=== PATIENT | male | born 1980 | race Asian ===

== ENCOUNTER 2024-12-09 22:33 | Inpatient (IN) | payer OTHER, SELFPAY ==
[2024-12-09] VITALS (24 sets, daily range): BP systolic 66–136; BP diastolic 46–121
--- NOTE | 2024-12-09 18:36 | ED.GENMED ---
History of Present Illness
<Daniel Mascorro PA-C - Last Filed: 12/09/24 23:17>
General
Chief Complaint: Heart Rate Problem
Time Seen by Provider: 12/09/24 18:27
History of Present Illness
History of Present Illness:
44-year-old male primarily Spanish speaking arrives with family for evaluation of general malaise, lower extremity edema, and shortness of breath for the past 2+ weeks. Has reported increasing edema to the legs and now involving the scrotum and
abdomen. Denies any chest pain at this time. No prior cardiac history. Not currently on any prescription meds. Denies tobacco or alcohol use.
Review of Systems
<Daniel Mascorro PA-C - Last Filed: 12/09/24 23:17>
Review of Systems
Allergies reviewed?: Yes
All Other Systems: ROS reviewed and negative except as documented in HPI and ROS
Phy Exam
<Daniel Mascorro PA-C - Last Filed: 12/09/24 23:17>
Physical Exam
Physical Exam:
GEN: Ill-appearing, pale
HEENT: Oral mucosa moist, no scleral icterus, positive JVD
Cardiac: Tachycardic and irregular
Lung: Tachypneic, diminished bibasilar breath sounds
MSK: Massive lower extremity edema extending through the entire legs to the scrotum and abdomen, gross anasarca noted
Skin: Good color, no pallor or jaundice, no rashes
Neuro: AO x3, moves all extremities freely
Psych: Calm, cooperative
Course
<Daniel Mascorro PA-C - Last Filed: 12/09/24 23:17>
Orders/Labs/Results
Orders:
Orders
12/09/24
Echo 2D MMode Color/Doppler Stat
Reason for Study: SHOCK
12/09/24 18:21
Electrocardiogram (*1) Urgent
Reason for Study: Tachycardia
EKG- Treatment ONCE
12/09/24 18:35
CR Chest Portable - 1 View Urgent
Comment:
Reason For Exam: SOB
Reason Study Needs to be Portable: Other
12/09/24 18:39
Complete Blood Count/With Diff Urgent
Comprehensive Metabolic Panel Urgent
NT-proBNP Urgent
PTT Urgent
Comment: ADDON
Prothrombin Time Urgent
Troponin I Urgent
12/09/24 18:45
Diltiazem 125 mg/125 ml Nss [Cardizem] 125 mg in 125 ml IV PER PROTOCOL
Initial dose in mg/hr, then titrate:: 5
Titrate to keep:: Heart rate 80-100 bpm
Titrate by mg/hr:: 5 mg/hr
Frequency of titrations (minutes):: 15
Maximum dose in mg/hr:: 15
12/09/24 18:57
Diltiazem HCl [Cardizem] 15 mg IV NOW STA
12/09/24 19:18
Diltiazem HCl [Cardizem] 15 mg IV NOW STA
12/09/24 19:42
CT Head W/o Iv Contrast Urgent
Comment:
Reason For Exam: severe sudden h/a
HYDROmorphone [Dilaudid] 0.5 mg IV NOW STA
Ondansetron Injectable [Zofran] 4 mg IV NOW STA
12/09/24 20:41
Furosemide [Lasix] 40 mg IV NOW STA
12/09/24 20:42
Heparin 4,000 units IV NOW STA
Nursing to Place Non Medication Order As Directed
Physician Order: PTT 6 hours after initial start of Heparin infusion
Above order entered?: Yes
12/09/24 20:45
Heparin 68517 Units/250 ml 25,000 units in 250 ml IV PER PROTOCOL
Weight to be used for heparin protocol in kilograms (kg):: 104.5
Protocol:: Cardiac Tx/Acute Coronary
PTT Goal Range to be used:: PTT 73 to 111 seconds
Order type:: Initial
INITIAL Infusion Dose (UNITS/KG/hr) & then follow protocol:: 15 units/kg/hr
Infusion Dose in UNITS/hr & then follow protocol (UNITS/hr):: 1,500
INFUSION RATE in mL/hr & then follow protocol (mL/hr):: 15
PTT less than or equal to 64 seconds:: Increase rate by 200 units/hr (+ 2 mL/hr)
PTT 64.1 to 72.9 seconds:: Increase rate by 100 units/hr (+ 1 mL/hr)
PTT 73 to 111 seconds:: Target Range. No change in rate.
PTT 111.1 to 130.9 seconds:: Decrease rate by 100 units/hr (- 1 mL/hr)
PTT 131 to 199.9 seconds:: HOLD for 1 hr. Then decrease rate by 200 units/hr (- 2 mL/hr)
PTT greater than or equal to 200 seconds:: HOLD for 2 hrs & Notify Provider. Then decrease by 200 units/hr (-
2 mL/hr)
Lab follow-up:: Each change, PTT q6h until 2 consecutive are therapeutic. Then PTT
daily.
12/09/24 20:51
Add On- LAB Urgent
Tests Added?: PTT
12/09/24 21:08
EKG [Electrocardiogram (*1)] Routine
Reason for Study: Tachycardia
Comment: please repeat with improved rate
0.9% Sodium Chloride 500 ml [Nss] 500 ml IV BOLUS
12/09/24 21:20
Electrocardiogram (*1) Urgent
Reason for Study: Tachycardia
EKG- Treatment ONCE
12/09/24 21:29
Furosemide [Lasix] 40 mg IV NOW STA
12/09/24 21:43
Furosemide [Lasix] 40 mg IV ONCE ONE
12/09/24 21:45
NORepinephrine 4 MG/250 ML [Levophed] 4 mg in 250 ml IV PER PROTOCOL
Initial dose in mcg/min, then titrate:: 2
Titrate to keep:: MAP > 65 mmHg
Titrate by mcg/min:: 1-2 mcg/min
Frequency of titrations (minutes):: 5
Maximum dose in ICU in mcg/min:: 30
Maximum dose in IMU in mcg/min:: 8
Maximum dose in IVU in mcg/min:: 4
Begin to taper infusion when:: Remained at goal for 4hrs
Taper by mcg/min:: 1-2 mcg/min
Frequency of taper (minutes) if patient maintains goal:: 30
Taper to off?: Yes
If infusion off & no longer maintaining goal:: Contact Provider
12/09/24 22:00
Flush (0.9% Sodium Chloride) [Flush (Nss)] See Dose Instructions IV PER PROTOCOL
12/09/24 22:03
Admit/Transfer Patient As Directed
Co-Sign Provider:
Level of Care: Inpatient admission
Assign to:: ICU
Physician / Group: Jenni Burton
Diagnosis: atrial fibrillation, heart failure
Reason for Hospitalization: atrial fibrillation, heart failure
Expected length of stay greater than two midnights?: Yes
ELOS- Estimated Length of Stay in days: 3
I certify the patient meets the requirements for IP care: Yes
PRN Pain Medication Management As Directed
May give lesser potent ordered pain med per pt: Yes
preference::
Protocol:: Medication orders for pain may be administered in a
manner that supports deferring to patient preference
when the pt is:
- Requesting an ordered lesser potent pain medication.
Least to most potent pain medications are defined
as: acetaminophen < NSAID < tramadol < opioids
(morphine, oxycodone, hydromorphone).
- Requesting a lesser dose of the same medication IF
ORDERED.
- Requesting a less intrusive route of administration
if both routes are prescribed by the provider (PO <
IV).
12/09/24 22:05
Code Status As Directed
Resuscitation Status: Full Code
12/09/24 22:25
Aspirin 325 mg PO NOW STA
12/09/24 22:33
Azithromycin 500 mg/250 ml [Zithromax Infusion] 500 mg in 250 ml IV NOW
CefTRIAXone [Rocephin] 1,000 mg IV NOW STA
12/09/24 22:38
Basic Metabolic Panel Urgent
Troponin I Urgent
Venous Blood Gas Urgent
%Oxygen/Room Air: 92
12/10/24 03:00
PTT Urgent
Abnormal Lab Results
12/09/24
18:39
WBC 11.5 H 10^3/uL
(4.8-10.8)
RDW 15.6 H %
(11.5-14.5)
Absolute Neuts (auto) 7.0 H 10^3/uL
(1.4-6.5)
Absolute Monos (auto) 1.0 H 10^3/uL
(0.1-0.6)
PT 18.6 H Sec
(11.4-14.6)
APTT 37.6 H Sec
(23.4-35.0)
Sodium 133 L mmol/L
(135-145)
BUN 28 H mg/dl
(9-20)
Creatinine 1.4 H mg/dL
(0.7-1.3)
Glucose 100 H mg/dl
(70-99)
Calcium 8.3 L mg/dl
(8.4-10.2)
Total Bilirubin 2.2 H mg/dl
(0.2-1.3)
AST 72 H U/L
(17-59)
ALT 194 H U/L
(0-50)
Troponin I 0.059 H* ng/ml
Total Protein 5.7 L g/dl
(6.3-8.2)
Albumin 3.2 L g/dl
(3.5-5.0)
12/09/24 18:39
12/09/24 18:39
Vital Signs
Initial and Last Documented VS:
Initial Vital Signs
Temp Pulse Resp BP Pulse Ox
97.5 F 142 18 105/79 99
12/09/24 18:16 12/09/24 18:16 12/09/24 18:16 12/09/24 18:16 12/09/24 18:16
Last Documented Vital Signs
Temp Pulse Resp BP Pulse Ox
97.5 F 95 24 85/62 95
12/09/24 18:16 12/09/24 21:52 12/09/24 21:20 12/09/24 21:52 12/09/24 21:44
nadia;Edgar Brody, - Last Filed: 12/09/24 21:19>
Orders/Labs/Results
Orders:
Orders
12/09/24
Echo 2D MMode Color/Doppler Stat
Reason for Study: SHOCK
12/09/24 18:21
Electrocardiogram (*1) Urgent
Reason for Study: Tachycardia
EKG- Treatment ONCE
12/09/24 18:35
CR Chest Portable - 1 View Urgent
Comment:
Reason For Exam: SOB
Reason Study Needs to be Portable: Other
12/09/24 18:39
Complete Blood Count/With Diff Urgent
Comprehensive Metabolic Panel Urgent
NT-proBNP Urgent
PTT Urgent
Comment: ADDON
Prothrombin Time Urgent
Troponin I Urgent
12/09/24 18:45
Diltiazem 125 mg/125 ml Nss [Cardizem] 125 mg in 125 ml IV PER PROTOCOL
Initial dose in mg/hr, then titrate:: 5
Titrate to keep:: Heart rate 80-100 bpm
Titrate by mg/hr:: 5 mg/hr
Frequency of titrations (minutes):: 15
Maximum dose in mg/hr:: 15
12/09/24 18:57
Diltiazem HCl [Cardizem] 15 mg IV NOW STA
12/09/24 19:18
Diltiazem HCl [Cardizem] 15 mg IV NOW STA
12/09/24 19:42
CT Head W/o Iv Contrast Urgent
Comment:
Reason For Exam: severe sudden h/a
HYDROmorphone [Dilaudid] 0.5 mg IV NOW STA
Ondansetron Injectable [Zofran] 4 mg IV NOW STA
12/09/24 20:41
Furosemide [Lasix] 40 mg IV NOW STA
12/09/24 20:42
Heparin 4,000 units IV NOW STA
Nursing to Place Non Medication Order As Directed
Physician Order: PTT 6 hours after initial start of Heparin infusion
Above order entered?: Yes
12/09/24 20:45
Heparin [id number] Units/250 ml 25,000 units in 250 ml IV PER PROTOCOL
Weight to be used for heparin protocol in kilograms (kg):: 104.5
Protocol:: Cardiac Tx/Acute Coronary
PTT Goal Range to be used:: PTT 73 to 111 seconds
Order type:: Initial
INITIAL Infusion Dose (UNITS/KG/hr) & then follow protocol:: 15 units/kg/hr
Infusion Dose in UNITS/hr & then follow protocol (UNITS/hr):: 1,500
INFUSION RATE in mL/hr & then follow protocol (mL/hr):: 15
PTT less than or equal to 64 seconds:: Increase rate by 200 units/hr (+ 2 mL/hr)
PTT 64.1 to 72.9 seconds:: Increase rate by 100 units/hr (+ 1 mL/hr)
PTT 73 to 111 seconds:: Target Range. No change in rate.
PTT 111.1 to 130.9 seconds:: Decrease rate by 100 units/hr (- 1 mL/hr)
PTT 131 to 199.9 seconds:: HOLD for 1 hr. Then decrease rate by 200 units/hr (- 2 mL/hr)
PTT greater than or equal to 200 seconds:: HOLD for 2 hrs & Notify Provider. Then decrease by 200 units/hr (-
2 mL/hr)
Lab follow-up:: Each change, PTT q6h until 2 consecutive are therapeutic. Then PTT
daily.
12/09/24 20:51
Add On- LAB Urgent
Tests Added?: PTT
12/09/24 21:08
EKG [Electrocardiogram (*1)] Routine
Reason for Study: Tachycardia
Comment: please repeat with improved rate
0.9% Sodium Chloride 500 ml [Nss] 500 ml IV BOLUS
12/09/24 21:20
Electrocardiogram (*1) Urgent
Reason for Study: Tachycardia
EKG- Treatment ONCE
12/09/24 21:29
Furosemide [Lasix] 40 mg IV NOW STA
12/09/24 21:43
Furosemide [Lasix] 40 mg IV ONCE ONE
12/09/24 21:45
NORepinephrine 4 MG/250 ML [Levophed] 4 mg in 250 ml IV PER PROTOCOL
Initial dose in mcg/min, then titrate:: 2
Titrate to keep:: MAP > 65 mmHg
Titrate by mcg/min:: 1-2 mcg/min
Frequency of titrations (minutes):: 5
Maximum dose in ICU in mcg/min:: 30
Maximum dose in IMU in mcg/min:: 8
Maximum dose in IVU in mcg/min:: 4
Begin to taper infusion when:: Remained at goal for 4hrs
Taper by mcg/min:: 1-2 mcg/min
Frequency of taper (minutes) if patient maintains goal:: 30
Taper to off?: Yes
If infusion off & no longer maintaining goal:: Contact Provider
12/09/24 22:00
Flush (0.9% Sodium Chloride) [Flush (Nss)] See Dose Instructions IV PER PROTOCOL
12/09/24 22:03
Admit/Transfer Patient As Directed
Co-Sign Provider:
Level of Care: Inpatient admission
Assign to:: ICU
Physician / Group: Jenni Burton
Diagnosis: atrial fibrillation, heart failure
Reason for Hospitalization: atrial fibrillation, heart failure
Expected length of stay greater than two midnights?: Yes
ELOS- Estimated Length of Stay in days: 3
I certify the patient meets the requirements for IP care: Yes
PRN Pain Medication Management As Directed
May give lesser potent ordered pain med per pt: Yes
preference::
Protocol:: Medication orders for pain may be administered in a
manner that supports deferring to patient preference
when the pt is:
- Requesting an ordered lesser potent pain medication.
Least to most potent pain medications are defined
as: acetaminophen < NSAID < tramadol < opioids
(morphine, oxycodone, hydromorphone).
- Requesting a lesser dose of the same medication IF
ORDERED.
- Requesting a less intrusive route of administration
if both routes are prescribed by the provider (PO <
IV).
12/09/24 22:05
Code Status As Directed
Resuscitation Status: Full Code
12/09/24 22:25
Aspirin 325 mg PO NOW STA
12/09/24 22:33
Azithromycin 500 mg/250 ml [Zithromax Infusion] 500 mg in 250 ml IV NOW
CefTRIAXone [Rocephin] 1,000 mg IV NOW STA
12/09/24 22:38
Basic Metabolic Panel Urgent
Troponin I Urgent
Venous Blood Gas Urgent
%Oxygen/Room Air: 92
12/10/24 03:00
PTT Urgent
Abnormal Lab Results
12/09/24
18:39
WBC 11.5 H 10^3/uL
(4.8-10.8)
RDW 15.6 H %
(11.5-14.5)
Absolute Neuts (auto) 7.0 H 10^3/uL
(1.4-6.5)
Absolute Monos (auto) 1.0 H 10^3/uL
(0.1-0.6)
PT 18.6 H Sec
(11.4-14.6)
APTT 37.6 H Sec
(23.4-35.0)
Sodium 133 L mmol/L
(135-145)
BUN 28 H mg/dl
(9-20)
Creatinine 1.4 H mg/dL
(0.7-1.3)
Glucose 100 H mg/dl
(70-99)
Calcium 8.3 L mg/dl
(8.4-10.2)
Total Bilirubin 2.2 H mg/dl
(0.2-1.3)
AST 72 H U/L
(17-59)
ALT 194 H U/L
(0-50)
Troponin I 0.059 H* ng/ml
Total Protein 5.7 L g/dl
(6.3-8.2)
Albumin 3.2 L g/dl
(3.5-5.0)
12/09/24 18:39
12/09/24 18:39
Vital Signs
Initial and Last Documented VS:
Initial Vital Signs
Temp Pulse Resp BP Pulse Ox
97.5 F 142 18 105/79 99
12/09/24 18:16 12/09/24 18:16 12/09/24 18:16 12/09/24 18:16 12/09/24 18:16
Last Documented Vital Signs
Temp Pulse Resp BP Pulse Ox
97.5 F 95 24 85/62 95
12/09/24 18:16 12/09/24 21:52 12/09/24 21:20 12/09/24 21:52 12/09/24 21:44
<Daniel Mascorro PA-C - Last Filed: 12/09/24 23:17>
MDM/Problems Addressed
MDM/Problems Addressed:
44-year-old male presents in acute CHF evidenced by volume overload, rapid narrow complex arrhythmia, and elevated proBNP. Patient was initially stable on a Cardizem drip with good rate control however shortly thereafter he rapidly decompensated.
This required discontinuation of Cardizem drip, gentle IV fluid bolus was given with good response and ultimately the patient was placed on low-dose vasopressors. Limited bedside echocardiogram initially showed reduced EF with no RV strain or
pericardial effusion, unable to assess the IVC due to respiratory motion artifact. Cardiology was consulted who performed a formal echocardiogram with similar results. Although chest x-ray is suspicious for right lower lobe pneumonia I would
suggest this is more of an asymmetric edema given the patient's clinical presentation however cannot rule out the possibility of a viral trigger given his young age. He is a non-smoker and denies alcohol or drug use. Will be admitted to the
intensive care unit for further management
<Daniel Mascorro PA-C - Last Filed: 12/09/24 23:17>
Comment
Comment:
EKG reveals narrow complex tachycardia with intermittent PVCs, most likely represents A-fib
*Critical Care Note
Total Time (30-74mins, 75-104mins- exclusive of procedures): 100 minutes
comment:
Critical care time: 100 minutes
Critical care time was exclusive of: Separately billable procedures, treating other patients, and teaching time
Critical care was necessary to treat or prevent imminent or life-threatening deterioration of the following conditions: Acute decompensated heart failure/rapid atrial fibrillation/cardiogenic shock
Critical care time spent personally by me on the following activities:
[x] Review of old charts
[x] Obtaining history from patient or surrogate
[x] Ordering and review of the laboratory studies
[x] Ordering and review of radiographic studies
[x] Ordering and performing treatments and interventions
[x] Patient patient's response to treatment
[x] Development of treatment plan with patient or surrogate
<Daniel Mascorro PA-C - Last Filed: 12/09/24 23:17>
Update Note
Update Note:
1902: BP improved slightly, 15mg bolus diltiazem given, drip rate increased to 10mg/hr. Will consider repeat bolus dose if needed. Amiodarone will be considered if BP becomes more unstable. At this time not a suitable cardioversion candidate given
onset of symptoms approx 2+ weeks
1938: Pt began to writhe in pain, complaining of sudden severe h/a since increasing diltiazem infusion rate. Neurologically intact, screaming in pain. Will order IV dilaudid/ondansetron, called CT for STAT CTH
2055: Pt with dramatic drop in BP. Cardizem infusion reduced, furosemide held. Repeat BP unchanged. CXR without gross vascular congestion, will trial 500cc NS bolus, consider dopamine/dobutamine infusion for persistent hypotension. Bedside echo
performed by myself shows markedly reduced EF, no RV collapse, no pericardial effusion. Unable to visualize IVC due to respiratory motion.
ED Attending Note
<Daniel Mascorro PA-C - Last Filed: 12/09/24 23:17>
-
Portions of this chart may have been created with voice recognition software.� Occasional wrong word or��sound alike� substitutions may have occurred due to the inherent limitations of voice recognition software.
<Edgar Brody DO - Last Filed: 12/09/24 21:19>
ED Attending Note
Patient seen and examined by attending physician: Yes
I performed the substantive portion of visit, reviewed & personally made and approve the management plan that is documented in note by myself or SAMARA.: Yes
ED Attending Note:
Patient presented to the emergency room primarily because he has noted increasing swelling of his legs and now scrotum. Patient endorses feeling short of breath and having a rapid heart rate for at least the past week. Patient found to be in
atrial fibrillation. He does have a rapid ventricular response.
General: Awake, appears unwell
Vitals: Tachycardic
Head: Atraumatic
Eyes: Pupils equal, EOMI
Throat: Airway intact, no exudates
Neck: Trachea midline
Lungs: Few crackles bilateral bases
Heart: Tachycardic, regular rate, no murmurs
Abd: Soft, Nontender, No pulsatile mass
Neuro: Nonfocal
Skin: Warm, dry, no rash
Extremities: pulses equal b/l, 3+ edema
Patient presents with A-fib with rapid ventricular response and exam findings consistent with congestive heart failure. After a bolus of Cardizem the patient developed a significant headache which did improve with Dilaudid. A head CT was obtained
which shows no acute abnormality. Patient's heart rate did improve with Cardizem though he remains in atrial fibrillation. Labs reveal essentially normal CBC. Chemistries show mild renal insufficiency. Troponin mildly elevated 0.059. BNP
significantly elevated at 4700. Patient became hypotensive with the Cardizem requiring it to be stopped. Will provide a small fluid bolus. I anticipate his blood pressure will improve with the cessation of Cardizem. Should it not we will
consider pressors. Should his heart rate become more elevated he may require amiodarone. Rogelio will contact cardiology to discuss with them.
Discharge Plan
Departure
Patient Disposition: Admit
Date of Disposition: 12/09/24
Time of Disposition: 20:44
Admit to: IMU
Presentation/result/management discussed w/ accepting MD/DO: Hospitalist
Discharge Problem:
New onset a-fib, New onset of congestive heart failure, Cardiogenic shock
Interventions
Interventions:
*Risk Screen - Suicide Last Done: 12/09/24 18:33
*General Assessment Last Done: 12/09/24 18:33
*Neglect/Abuse Screening Last Done: 12/09/24 18:33
ED- Fall Risk Assessment Last Done: 12/09/24 18:31
*ED COVID-19 Vaccine History Last Done: 12/09/24 18:33
ED- Cardiac Assessment Last Done: 12/09/24 18:31
ED- Pulmonary Assessment Last Done: 12/09/24 18:31
[2024-12-09] MEDS: CARDIZEM 125 IV (18:41)
[2024-12-09 18:54] LABS: % Basophils 1.2 % (0-2); % Eosinophils 0.5 % (0-6); % Immature Granulocytes 0.3 % (0-0.5); % Lymphocytes 28.3 % (20.5-51.1); % Monocytes 8.6 % (1.7-9.3); % Neutrophils 61.1 % (42.2-75.2); Absolute Basophils 0.1 10^3/uL (0-0.2); Absolute Eosinophils 0.1 10^3/uL (0-0.7); Absolute Lymphocytes 3.3 10^3/uL (1.2-3.4); Hematocrit 46.8 % (39.0-52.0); Hemoglobin 15.7 g/dL (13.0-18.0); Mean Corp Hgb Conc. 33.5 g/dL (33.0-37.0); Mean Corpuscular Volume 86.5 fL (80.0-94.0); Mean Platelet Volume 10.3 fL (7.4-10.4); Nucleated Red Blood Cells % 0 % (-); Platelet Count 278 10^3/uL (130-400); Red Blood Cell Count 5.41 10^6/uL (4.70-6.10); Red Cell Dist. Width 15.6 % (11.5-14.5); White Blood Cell Count 11.5 10^3/uL (4.8-10.8)
[2024-12-09] MEDS: CARDIZEM 15 MG IV ×2 (19:01→19:21)
[2024-12-09 19:05] LABS: INR 1.53; PT 18.6 Sec (11.4-14.6)
[2024-12-09 19:11] LABS: ALT (SGPT) 194 U/L (0-50); AST (SGOT) 72 U/L (17-59); Albumin 3.2 g/dl (3.5-5.0); Alkaline Phosphatase 96 U/L (38-126); Calcium 8.3 mg/dl (8.4-10.2); Carbon Dioxide 22 mmol/L (22-30); Chloride 100 mmol/L (98-107); Glucose 100 mg/dl (70-99); Potassium 3.9 mmol/L (3.5-5.1); Sodium 133 mmol/L (135-145); Total Bilirubin 2.2 mg/dl (0.2-1.3); Total Protein 5.7 g/dl (6.3-8.2)
[2024-12-09 19:33] LABS: NT-proBNP 4700 pg/ml; Troponin I 0.059 ng/ml
[2024-12-09 19:47] LABS: Blood Urea Nitrogen 28 mg/dl (9-20); eGFR > 60.00
[2024-12-09] MEDS: ZOFRAN 4 MG IV (19:48)
[2024-12-09] MEDS: DILAUDID 0.5 MG IV (19:48)
[2024-12-09] MEDS: HEPARIN 4000 UNITS IV (20:54)
--- NOTE | 2024-12-09 20:54 | W.PN.UPDATE ---
Addendum entered and electronically signed by Jenni Burton MD 12/09/24 22:09:
I was able to update family, , Marisol's phone number is [phone]
Original Note:
Update Note
Progress Note Update
This is an addendum to H&P written by INCIDENT HANDLER Fartun Khan
I saw and examined the patient.
The INCIDENT HANDLER's note was reviewed and I agree with the note.
Comment:
Mr. Lissa Louis is a 44 yo man, primarily Yi speaking, presents to the ER with complaint of increasing fatigue, lower extremity swelling and shortness of breath.
Triage VS: T 97.5, P 142, RR 18, BP 105/79, SpO2 99%
LABS: WBC 11.5, Hg 15.7, PLT 278, INR 1.53, Na 133, K+ 3.9, CO2 22, BUN 28, Cr 1.4, Glucose 100, Ca 8.3, T. Bili 2.2, AST 72, ALT 194, Trop 0.059, BNP 4700
EKG: Afib with RVR
HEAD CT
IMPRESSION:
There or no acute or focal intracranial abnormalities
There is mild diffuse cortical and cerebellar atrophy
CXR
IMPRESSION:
Right lower lobe pneumonia
MAR: IV Diltiazem gtt, IV heparin gtt, IV Lasix
Patient became hypotensive to the 70's and Diltiazem gtt stopped. HR currently 90's. SBP 80's. Discussed plan with Dr. Harmon who recommends Levophed to improve blood pressure and allow for diuresis.
Cardiogenic Shock
New Diagnosis Heart Failure - low EF seen on bedside US
Elevated Troponin - NSTEMI versus non-ischemic troponin elevation
Atrial Fibrillation with RVR
-admit to ICU
-IV levophed, diuresis when blood pressure allows
-continue IV heparin gtt
-trend Troponin
-TTE
-urgent Cardiology consult
-stop Diltiazem; if patient needs rate controlling medications start amio per cardiology
Elevated liver enzymes
-may be 2/2 congestion
-will obtain RUQ US
PNA read on CXR, more likely heart failure but given acuity will treat with antibiotics
DVT PPx heparin gtt
FULL CODE
*tried to update family but no number listed in chart
Total Critical Care Time 60 minutes. I was immediately available to the patient and staff. I personally examined, reviewed labs, diagnostic images/reports, interpretations, treatment plans, discussed patient care with other providers and family
or caregivers (if patient is unable to make decisions), entered orders as appropriate and documented the medical record.
[2024-12-09] MEDS: HEPARIN 25000 UNITS/250 ML IV (20:57)
--- NOTE | 2024-12-09 21:02 | HPS.HSE ---
Family Physician
-
Family Physician:
Chief Complaint
-
general malaise, lower extremity edema, and shortness of breath
History of Present Illness
Patient was a 44-year-old male with no significant past medical history who presented to [place] ED for evaluation for general malaise, lower extremity edema, and shortness of breath. Patient reports that symptoms started around the 1st of the
month, he stated, 'I do not know,' when asked why he decided to come today for evaluation. Patient unable to give much history at time of assessment.
Medical History
Past Medical History
Past Medical History: Reports None
Past Surgical History: Reports None
Social History
Tobacco: Non-smoker
Alcohol: None
Drug: None
Living: With Family
Employment: Employed
Family History
Family History: Not pertinent
Allergies / Home Medications
Allergies reflects when Allergies were last updated in [facility].
Home Medications with original date entered in [facility]
Allergy/Medication List:
Allergies
Allergy/AdvReac Type Severity Reaction Status Date / Time
No Known Allergies Allergy Unverified 12/09/24 18:16
Home Medications
No Meds [No Current Medications] 12/09/24
Review of Systems
-
History Source: Patient
Constitutional: Reports Fatigue
EENT: Reports No Symptoms
Respiratory: Reports Trouble Breathing
Cardiac: Reports Chest Pain and Diaphoresis
Abdomen/GI: Reports No Symptoms
: Reports No Symptoms
Musculoskeletal: Reports Edema
Skin: Reports No Symptoms
Neurological: Reports No Symptoms
Endocrine: Reports No Symptoms
Hematologic/Lymphatic: Reports No Symptoms
Psych: Reports No Symptoms
Physical Exam
Vital Signs
Vital Signs
Temp Pulse Resp BP Pulse Ox
97.5 F 100 14 135/121 97
12/09/24 18:16 12/09/24 20:00 12/09/24 20:00 12/09/24 19:30 12/09/24 20:00
Physical Exam
General: Well Developed, Well Nourished, No Apparent Distress and Other (actively vomiting )
HEENT: NormoCephalic, Moist mucous membranes and Atraumatic
Respiratory: Clear, Accessory Resp Muscle Use and Decreased Breath Sounds
Cardiac: S1/S2, Irregular Rhythm, Tachycardia, Peripheral Edema and JVD; No Murmur, Rub or Gallop
Breast: Deferred by me
GI: Soft and Non Tender; No Organomegaly
Rectal: Deferred by Provider
Genito-urinary: Deferred by me
Musculoskeletal: No Clubbing, No Cyanosis and No Edema
Skin: Warm; No Rash
Neuro: Awake, Alert and Nonfocal/grossly intact
Laboratory Results
-
12/09/24 18:39
12/09/24 18:39
Laboratory Results
PT 18.6 Sec (11.4-14.6) H 12/09/24 18:39
INR 1.53 12/09/24 18:39
APTT Cancelled 12/09/24 20:42
Total Bilirubin 2.2 mg/dl (0.2-1.3) H 12/09/24 18:39
AST 72 U/L (17-59) H 12/09/24 18:39
ALT 194 U/L (0-50) H 12/09/24 18:39
Alkaline Phosphatase 96 U/L (38-126) 12/09/24 18:39
Troponin I 0.059 ng/ml H* 12/09/24 18:39
Data Reviewed
-
Diagnostic Radiology: Report Reviewed by me (CXR: Right lower lobe pneumonia)
CT Scan: Report Reviewed by me (Head: There or no acute or focal intracranial abnormalities There is mild diffuse cortical and cerebellar atrophy)
Medical Tests (Nuc Med, Echo, EKG etc): Report Reviewed by me (EKG: ATRIAL FIBRILLATION PROLONGED QT ABNORMAL ECG)
Lab Data: Labs Reviewed by me (WBC 11.5, BUN 28, Creat 1.4, Trop 0.059)
Impression/Plan
-
IMPRESSION/PLAN:
#Chest Pain
EKG: Critical Test Result: High HR
ATRIAL FIBRILLATION WITH RAPID VENTRICULAR RESPONSE WITH PREMATURE VENTRICULAR
OR ABERRANTLY CONDUCTED COMPLEXES
Trop 0.059
BNP 4700
- Admit to ICU
- Consult Cardiology
- Heparin gtt
- ECHO
- Levophed
- start aspirin
#PNA
CXR: Right lower lobe pneumonia
WBC 11.5
- IV antibiotics
#transaminitis
AST 72, ALT 194, Alk Phos 96
- liver US in morning
- monitor BMP
Code status: Full Code
DVT Prophylaxis: Heparin gtt
[2024-12-09 21:10] LABS: APTT 37.6 Sec (23.4-35.0)
[2024-12-09] MEDS: NSS 500 IV (21:10)
[2024-12-09] MEDS: LEVOPHED 250 IV (21:49)
[2024-12-09] MEDS: LASIX 40 MG IV (21:52)
--- NOTE | 2024-12-09 22:40 | CON.CAR ---
Addendum entered and electronically signed by David Harmon MD 12/09/24 23:15:
Information was discussed with patient's family spoke with patient's as well as his son . While we are speaking on the phone patient's requested that do the talking since she feels she does not speak Yemeni as well as he
does. Phone #[phone]. I reviewed the history with them and they confirmed that he actually had a febrile illness in the very beginning of November with about 3 days of fever and has not felt well since then including increased shortness of
breath and edema. Did not appear that chest pain or palpitations was part of his complaints. No prior cardiac history. I explained the severity of his illness and expressed my concern regarding his cardiomyopathy as well as the other issues
outlined below including A-fib.
Original Note:
Consultation
Consultation Request
Date/Time Consultation Requested: 12/09/20242114
Date/Time Consultation Performed: 12/09/20242139
Requesting Provider: Dr. Burton
Performing Provider: Dr. Harmon
Reason for Consultation: Atrial fibrillation and hypotension
Medical History
-
History of Present Illness:
44-year-old male with no prior cardiac history who reportedly has not been feeling well since November 23. Patient presents with increased shortness of breath and edema and is noted to be in A-fib with RVR. History obtained in discussion with ER
staff in addition discussion with patient although when I evaluated the patient he gave limited history difficult to get details and sometimes the details were a bit different than what ER staff had obtained. Patient's told me that the illness
started November 23 and he was sick and had fever for 3 days and some nausea. That improved and then he developed shortness of breath and lower extremity edema. Patient did not seek medical attention until today. On review of systems also has noted
scrotal edema no chest pain no palpitations reported. In the ER he heart rate was initially in the 170s he was given IV Cardizem initially without a bolus but then he received a small bolus patient event developed some symptomatic hypotension and
Cardizem was discontinued patient was given small bolus of fluid approximately 200 mL. At 1 point after Cardizem he complained of headache and had a head CT which was unremarkable. Chest x-ray report suggestedRight lower lobe pneumonia. When I
evaluated patient he was somewhat lethargic oriented to [place] initially responding to questions periodically moaning. Echocardiogram done at the bedside which showed severely reduced left ventricular function with global hypokinesis and an
estimated ejection fraction of 20% and moderate mitral regurgitation. Echo was somewhat limited patient complained of pain during the examination which was at a proportion to the amount of pressure being placed on the chest and he removed the probe
from his chest and limited the amount of images we were able to obtain.
No prior cardiac history
Allergies / Home Medications
Allergy/AdvReac Type Severity Reaction Status Date / Time
No Known Allergies Allergy Unverified 12/09/24 18:16
�Medication �Instructions �Recorded �Confirmed �Type
No Meds [No Current Medications] 12/09/24 12/09/24 History
Physical Exam
Vital Signs
Temp Pulse Resp BP Pulse Ox
97.5 F 95 24 85/62 95
12/09/24 18:16 12/09/24 21:52 12/09/24 21:20 12/09/24 21:52 12/09/24 21:44
Lab Results
12/09/24 18:39
Troponin I 0.059 ng/ml H* 12/09/24 18:39
Fpp-V-Faxrpwymqdf Pept 4700 pg/ml 12/09/24 18:39
Physical Exam
General: Other (Pale. Lethargic oriented to [facility])
HEENT: Other (Eyes extraocular is intact pupils are equal external ear and oral exam unremarkable neck appears to have increased JVP, no bruit)
Respiratory: Other (No wheezes rales or rhonchi decreased at bases with decreased effort)
Cardiac: Irregular Rhythm (No murmurs)
GI: Soft, Non Tender and Other (Distended. Limited exam because patient had nausea)
Musculoskeletal: No Clubbing, No Cyanosis and Other (Bilateral lower extremity edema right mildly greater than left. Edema extends up through the thighs)
Neuro: Other (Lethargic but responsive. Although patient would provide limited responses. Note patient had received Dilaudid earlier in the ER unclear how much of Dilaudid effect is still present)
Psych: Other (As described above)
Impression / Plan
-
.
Shortness of breath. Patient presented with shortness of breath and is noted to have marked bilateral lower extremity edema and newly diagnosed cardiomyopathy with severely reduced left ventricular function combination of factors including A-fib,
heart failure reduced left ventricular function and possible pneumonia on chest x-ray all contributing to shortness of breath.
-Cautious diuresis with close monitoring of blood pressure and labs
-Defer to hospitalist regarding treatment of pneumonia
.
A-fib with RVR
-New onset
-Duration unknown
-Has not felt well since November 23 unclear if this represents onset of A-fib or if he developed more recently.
-IV heparin
-Would not use IV Cardizem for rate control considering cardiomyopathy and previous hypotension
-If significant acceleration in rates then would consider IV amiodarone
.
Hypotension. Patient developed hypotension after administration of IV Cardizem and Dilaudid. Combination of factors contributing including Cardizem, Dilaudid, A-fib and cardiomyopathy. With cardiomyopathy there is concern regarding cardiogenic
shock. Would also consider sepsis and patient that has possible pneumonia on chest x-ray. Systolic blood pressure currently in the 100s heart rates are 90s to 100 and patient with good oxygenation on 2 L.
-Continue Levophed which is at low-dose and was initiated in ER.
-Allow for Cardizem and Dilaudid to washout
-If A-fib rates significantly increase and additional rate control is is required then would consider addition of IV amiodarone but would allow patient's rates to be in the 100-120 range. Would allow him to be mildly tachycardic with underlying
cardiomyopathy
.
Cardiomyopathy
-New diagnosis
-Exact time of onset unclear the patient has not been feeling well since November 23. Unclear if cardiomyopathy was preceded by febrile illness which could suggest viral etiology. Also possibly could have A-fib related to persistent A-fib with RVR
which was untreated. Other causes considerations as well.
-Continue with additional therapy as noted above. GDMT currently limited by blood pressure as well as creatinine up to 1.4 .
.
Mental status. Patient somewhat lethargic and had a typical response when we were attempting to get echo images. Dilaudid that was given a couple hour ago so ago may play a role.
-Continue to assess off Dilaudid
-Repeat labs including ABG and BMP
.
Elevated LFTs. May be related to CHF but would also consider other causes. Evaluation as directed by hospitalist.
Data Reviewed
-
EKG: Other (ECG #1 atrial fibrillation with RVR to 170 bpm. ECG #2 atrial fibrillation with heart rate 98 bpm)
Radiology: Other (Chest x-ray 12/09/2024 with right lower lobe pneumonia)
Ultrasound: Other (Echocardiogram estimated ejection fraction 20% global hypokinesis difficult to fully assess RV size and function. Moderate mitral regurgitation)
Medical Tests (Nuc Med, Echo etc): Report Reviewed by me
Labs: Labs Reviewed by me and Discussed with Physician (Dr. Burton and ER physician and ER PA)
[2024-12-09] MEDS: ROCEPHIN 1000 MG IV (22:52)
[2024-12-09] MEDS: ZITHROMAX INFUSION 250 IV (22:52)
[2024-12-09 22:53] LABS: Venous Blood Gas B.E. -5.5 mmol/L (-4 to +4); Venous Blood Gas HCO3 21.6 mmol/L (22-27); Venous Blood Gas O2 Sat % 66.7 %; Venous Blood Gas pCO2 47 mmHg (35-48); Venous Blood Gas pH 7.27 (7.32-7.43); Venous Blood Gas pO2 43 mmHg (30-50)
[2024-12-09] MEDS: STERILE WATER FOR INJECTION 10 ML IV (22:53)
[2024-12-09] MEDS: ASPIRIN 325 MG PO (22:55)
[2024-12-09 23:21] LABS: Troponin I 0.067 ng/ml
[2024-12-09 23:23] LABS: Venous Blood Gas O2 Therapy 92%
[2024-12-09 23:43] LABS: Blood Urea Nitrogen 29 mg/dl (9-20); Calcium 7.9 mg/dl (8.4-10.2); Carbon Dioxide 18 mmol/L (22-30); Chloride 99 mmol/L (98-107); Estimated Creatinine Clearance 65 ml/min; Glucose 161 mg/dl (70-99); Potassium 3.8 mmol/L (3.5-5.1); Sodium 132 mmol/L (135-145); eGFR 50.66
[2024-12-10] VITALS (78 sets, daily range): BP systolic 69–146; BP diastolic 52–111; BMI 35.5
--- NOTE | 2024-12-10 00:12 | W.PN.UPDATE ---
Addendum entered and electronically signed by David Harmon MD 12/10/24 00:35:
case reviewed with pulmonary critical PA and attending
Original Note:
Update Note
Progress Note Update
Patient with acidosis with PH 7.27 by VBG. Creatinine rising 1.7 and bicarb 18 .
Concern regarding cardiogenic shock . Will add milrinone. Will use low dose with rising creatinine and will need to monitor HR closing.If afib rates rising then will add amiodarone.
Repeat ABG, renal profile and lactic acid win one hour.
--- NOTE | 2024-12-10 00:30 | PTCARENOTE ---
Resumed care of pt this evening. Received pt via bed from ED nurse. Received pt on levo gtt infusing @ 6mcg/min and heparin gtt infusing @ 1500 units/hr via peripheral IV sites. Pt appears restless and drowsy but responds to verbal/tactile stimuli.
Pt is A&Ox3, can move all 4 extremities, and can make needs known. Pt is in A-fib on tele monitor, has +2 edema on B/L lower extremities, + 3 scrotal/penile edema, and B/L pedal pulses are present. Pt is on 2L of O2 satting at 95% pulse ox. On
auscultation pt lungs sound clear. Pt is experiencing some nausea but no emesis. Pts abdomen is round w/ active BS. Skin is C/D/I.
[2024-12-10] MEDS: PRIMACOR 20 MG 100 IV ×3 (00:42→15:51)
--- NOTE | 2024-12-10 00:45 | PTCARENOTE ---
Per MD orders, Milrinone gtt initiated by this RN infusing at continuous rate of 0.33 mcg/kg/min.
[2024-12-10 00:56] LABS: B.E. -9.1 mmol/L; PCO2 27 mmHg (35-48); PO2 158 mmHg (83-108); pH 7.35 (7.35-7.45)
[2024-12-10 00:59] LABS: O2 Saturation % 99.3 % (94-98); O2 Therapy 50%
[2024-12-10 01:00] LABS: HCO3 14.9 mmol/L (21-28)
[2024-12-10 01:50] LABS: Albumin 3.2 g/dl (3.5-5.0); Blood Urea Nitrogen 29 mg/dl (9-20); Calcium 8.3 mg/dl (8.4-10.2); Carbon Dioxide 14 mmol/L (22-30); Chloride 103 mmol/L (98-107); Estimated Creatinine Clearance 58 ml/min; Glucose 157 mg/dl (70-99); Phosphorus 5.8 mg/dl (2.5-4.5); Sodium 135 mmol/L (135-145); eGFR 44.33
[2024-12-10] MEDS: SODIUM BICARBONATE 50 MEQ IV (02:03)
[2024-12-10 02:30] LABS: B.E. -2.7 mmol/L; HCO3 21.9 mmol/L (21-28); O2 Saturation % 94.6 % (94-98); PCO2 37 mmHg (35-48); PO2 73 mmHg (83-108); pH 7.38 (7.35-7.45)
[2024-12-10 02:38] LABS: O2 Therapy 2L NC
[2024-12-10 03:19] LABS: Lactic Acid 3.8 mmol/L (0.7-2.0)
[2024-12-10 03:39] LABS: Troponin I 0.086 ng/ml
[2024-12-10 03:45] LABS: ALT (SGPT) 250 U/L (0-50); AST (SGOT) 140 U/L (17-59); Albumin 3.6 g/dl (3.5-5.0); Alkaline Phosphatase 114 U/L (38-126); Blood Urea Nitrogen 31 mg/dl (9-20); Calcium 8.5 mg/dl (8.4-10.2); Carbon Dioxide 20 mmol/L (22-30); Chloride 102 mmol/L (98-107); Direct Bilirubin 1.1 mg/dl (0.0-0.4); Estimated Creatinine Clearance 61 ml/min; Glucose 134 mg/dl (70-99); HDL Cholesterol 31 mg/dl; LDL Cholesterol, Calculated 114 mg/dl; Magnesium 2.2 mg/dl (1.6-2.3); Potassium 4.1 mmol/L (3.5-5.1); Sodium 137 mmol/L (135-145); Total Bilirubin 2.6 mg/dl (0.2-1.3); Total Cholesterol 161 mg/dl (50-199); Total Protein 6.3 g/dl (6.3-8.2); Triglyceride 81 mg/dl (10-149); Very Low Density Lipoprotein 16 mg/dl (0-30); eGFR 47.31
[2024-12-10 04:16] LABS: TSH Reflex To Free T4 0.36 uIU/ml (0.47-4.68)
[2024-12-10 04:45] LABS: Free T4 3.28 ng/dl (0.78-2.19)
[2024-12-10] MEDS: CORDARONE 103 MG IV (04:59)
[2024-12-10] MEDS: CORDARONE 518 MG IV (05:20)
--- NOTE | 2024-12-10 05:30 | PTCARENOTE ---
Upon reassessment pt is resting comfortably. Amio bolus administered and Amio gtt initiated by this RN per order. Pt remains in A-fib on tele monitor.
[2024-12-10 06:09] LABS: Glucose - Point of Care 123 mg/dl (70-99)
[2024-12-10 06:11] LABS: Lactic Acid 1.6 mmol/L (0.7-2.0)
[2024-12-10 06:30] LABS: APTT > 200 Sec (23.4-35.0)
--- NOTE | 2024-12-10 06:30 | PTCARENOTE ---
PTT assessment > 200. Heparin gtt placed on standby @ 0630 per order.
--- NOTE | 2024-12-10 08:00 | PTCARENOTE ---
Received patient from maintenance technician 3rd shift. Patient is AAOx4, reserved, anxious, fatigued. Denies any pain. He is on 2L nasal cannula with decreased lung sounds. poor inspiratory effort. He is in a rapid Afib. Patient has generalized edema, +2
throughout, with +3 penile and scrotal edema. Amio, milrinone and heparin gtts as charted. Heparin is currenly on hold until 0830 per protocol. He is NPO, Has had bouts of nausea, no vomiting. He using urinal in bed. His skin is intact
throughout. Will review orders, attempt to wean off levophed.
--- NOTE | 2024-12-10 08:27 | W.PN.CD ---
Today's Communication / Plan
-
wean levo as tolerated
continue amio and milrinone
monitor response to diuretic
monitor renal function and labs
reviewed condition with and son and explained severity of illness/critically ill
Impression / Plan
-
Hypotension/ Shock.
- suspect cardiogenic shock with cardiomyopathy and severely reduced LVF. Sepsis was also a consideration with possible PNA on CXR
- acidosis improving
- continue with milrinone
- wean Levo as tolerated
- cautious diuresis
acidosis - lactic acid was 3.9 and trending down. continue tomonitor
.
Shortness of breath. Patient presented with shortness of breath and is noted to have marked bilateral lower extremity edema and newly diagnosed cardiomyopathy with severely reduced left ventricular function combination of factors including A-fib,
heart failure reduced left ventricular function and possible pneumonia on chest x-ray all contributing to shortness of breath.
-Cautious diuresis with close monitoring of blood pressure and labs
-Defer to hospitalist regarding treatment of pneumonia
.
A-fib with RVR
-New onset
-Duration unknown
-Has not felt well since November 23 unclear if this represents onset of A-fib or if he developed more recently.
-IV heparin
-Would not use IV Cardizem for rate control considering cardiomyopathy and previous hypotension
-Coninue IV amiodarone
.
.
Cardiomyopathy
-New diagnosis
-Exact time of onset unclear the patient has not been feeling well since November 23. Unclear if cardiomyopathy was preceded by febrile illness which could suggest viral etiology. Also possibly could have A-fib related to persistent A-fib with RVR
which was untreated. Other causes considerations as well.
-Continue with additional therapy as noted above. GDMT currently limited by blood pressure as well as MARY.
MARY up to 1.9 . now 1.8 . Continue to optimize hemodynamics
.
Mental status. Patient somewhat lethargic and had a typical response when we were attempting to get echo images. still lethargic but more interactive. ( dank yesterday may have contributed yesterday ) .. Monitor
-Repeat labs including ABG and BMP
.
Elevated LFTs. May be related to CHF but would also consider other causes. continue to monitor
abnormal Thyroid studies . TSH low 0.36 and T4 elevated 3.28
Physical Exam
Vital Signs/Labs
Vital Signs
Temp Pulse Resp BP Pulse Ox
97.5 F 119 12 122/82 94
12/10/24 03:30 12/10/24 05:45 12/10/24 05:45 12/10/24 05:30 12/10/24 05:45
12/09/24 12/10/24 12/11/24
06:59 06:59 06:59
Actual Weight 102.8 kg
12/10/24 06:00
12/10/24 02:49
PT 18.6 Sec (11.4-14.6) H 12/09/24 18:39
INR 1.53 12/09/24 18:39
APTT > 200 Sec (23.4-35.0) H* 12/10/24 05:44
Magnesium 2.2 mg/dl (1.6-2.3) 12/10/24 02:49
Triglycerides 81 mg/dl (10-149) 12/10/24 02:49
LDL Cholesterol, Calc 114 mg/dl 12/10/24 02:49
VLDL Cholesterol, Calc 16 mg/dl (0-30) 12/10/24 02:49
HDL Cholesterol 31 mg/dl 12/10/24 02:49
Free T4 3.28 ng/dl (0.78-2.19) H 12/10/24 02:49
12/09/24
18:39
Qok-I-Xhvzgrmzeir Pept 4700
LAB Results
12/09/24 12/09/24 12/10/24
18:39 22:38 00:03
Troponin I 0.059 H* 0.067 H* Cancelled
12/10/24 12/10/24 12/10/24
02:49 06:03 12:03
Troponin I 0.086 H* D Cancelled Cancelled
Physical Exam
Constitutional: No acute distress
Cardiovascular: Rhythm/rate is irregular
Respiratory: Other (few crackles at bases)
GI: Soft
Neuro/Psych: Alert
Other: Other (bilat edema)
Data Reviewed
-
Date of Service: December 10, 2024
Medical Decision Making: Reviewed Test Results
X-Ray/CT/US/MRI/NUC/PET: Report Reviewed by me
Medical Tests (PFT, Pathology etc): Report Reviewed by me
Labs: Labs Reviewed by me
--- NOTE | 2024-12-10 08:43 | CON.INTV ---
Consultation
Consultation Request
Date/Time Consultation Requested: 12/10/2024499
Date/Time Consultation Performed: 12/10/2024829
Requesting Provider: RAVI Ornelas
Performing Provider: Dr. Shepard
Reason for Consultation: Shock/lactic acidosis
Medical History
-
Chief Complaint: Lower extremity edema, SOB and general malaise
History of Present Illness:
44-year-old male with no past medical history who presented with shortness of breath, lower extremity swelling and general malaise. Found to be in A-fib with RVR. He had a fever earlier in November with shortness of breath and lower extremity edema
at the time. Fever lasted for about 3 days. He improved but his SOB and lower extremity edema persisted. He did not seek medical attention until he came to the ER on 12/09/24. Initially in the ER he was afebrile to 97.5 �F, pulse rate 142,
breathing at 18 breaths/min, BP 105/79 saturating 99% on room air. Initial labs showed leukocytosis to 11.5, sodium 133, creatinine 1.4, T. bili 2.2, troponin 0.059, and proBNP 4700. Blood cultures were collected, and CXR showed suspected right
lower lobe pneumonia. In the ER he was given Cardizem and started on drip, 40 mg Lasix, started on heparin drip, given IVF with 500 cc bolus of NS 0.9%, given Dilaudid, Zofran and started on Levophed due to persistent hypotension. Urgent echo
performed showing severely reduced LVEF at 15-20% with global hypokinesis, with suspected RV hypokinesis, and moderate MR, and moderate TR. Cardiology was consulted and he was transferred to the ICU for further evaluation with retirement plan specialist services
consulted for additional management/recommendations.
When I saw the patient he was in bed, anxious, heart rate 135, BP 1 3/72 and saturating 93% on 2 L/min. Currently on milrinone at 0.33 mcg/kg/min as well as heparin drip. Also on amiodarone at 1mg/min. He says that he feels better with his
shortness of breath although still having dyspnea with exertion. Currently denies chest pain unless palpated on his left side. Denies abdominal pain, nausea, vomiting, fevers or chills.
Past Medical History
Past Medical History: None
Past Surgical History: None
Social History
Tobacco: Non-smoker
Alcohol: None
Drug: None
Living: With Family
Employment: Employed
Family History
Family History: Reviewed & Not Pertinent
Allergies / Home Medications
Allergies
Allergy/AdvReac Type Severity Reaction Status Date / Time
No Known Allergies Allergy Unverified 12/09/24 18:16
Home Medications
�Medication �Instructions �Recorded �Confirmed �Last Taken �Type
No Meds [No Current Medications] 12/09/24 12/09/24 Unknown History
Review of Systems
-
History Source: Patient
All other systems: Negative unless noted
Vitals / Labs / Diagnostic Testing
Vital Signs
Temp Pulse Resp BP Pulse Ox
97.6 F 119 12 122/82 94
12/10/24 07:34 12/10/24 05:45 12/10/24 05:45 12/10/24 05:30 12/10/24 05:45
Lab Data
12/10/24 02:49
Laboratory Results
12/09/24 12/09/24 12/10/24
18:39 20:42 00:51
PT 18.6 H
INR 1.53
APTT 37.6 H Cancelled
pH 7.35
pCO2 27 L
pO2 158 H
HCO3 14.9 L*
O2 Delivery Level 50%
12/10/24 12/10/24 12/10/24
02:26 02:49 04:30
PT
INR
APTT Cancelled
pH 7.38 Cancelled
pCO2 37 Cancelled
pO2 73 L Cancelled
HCO3 21.9 Cancelled
O2 Delivery Level 2l nc Cancelled
12/10/24
05:44
PT
INR
APTT > 200 H*
pH
pCO2
pO2
HCO3
O2 Delivery Level
Diagnostic Testing:
Physical Exam
-
HEENT: Normocephalic and Anicteric
Cardiovascular: Irregular Rhythm, Peripheral Edema (+2 LE pitting edema b/l), Other (Tachycardic) and Other (Tenderness to palpation on right and left anterior chest)
Respiratory: Wheeze (negative), Rales (Bilaterally), Rhonchi (negative) and Accessory Resp Muscle Use (mild)
GI: Soft, Non Distended, Non Tender and Normal Bowel Sounds
Neurology: AO x 3 and Tremors (negative)
Skin: Warm and Dry
General: Respiratory Distress (mild), Fever (negative), Chills (negative) and Other (Anxious appearing)
Assessment
-
Assessment: 44-year-old male with no past medical history who presented with shortness of breath, lower extremity swelling and general malaise. Found to be in A-fib with RVR. He had a fever earlier in November with shortness of breath and lower
extremity edema at the time. Fever lasted for about 3 days. He improved but his SOB and lower extremity edema persisted. He did not seek medical attention until he came to the ER on 12/09/24. Initially in the ER he was afebrile to 97.5 �F, pulse
rate 142, breathing at 18 breaths/min, BP 105/79 saturating 99% on room air. Initial labs showed leukocytosis to 11.5, sodium 133, creatinine 1.4, T. bili 2.2, troponin 0.059, and proBNP 4700. Blood cultures were collected, and CXR showed
suspected right lower lobe pneumonia. In the ER he was given Cardizem and started on drip, 40 mg Lasix, started on heparin drip, given IVF with 500 cc bolus of NS 0.9%, given Dilaudid, Zofran and started on Levophed due to persistent hypotension.
Urgent echo performed showing severely reduced LVEF at 15-20% with global hypokinesis, with suspected RV hypokinesis, and moderate MR, and moderate TR. Cardiology was consulted and he was transferred to the ICU for further evaluation with
retirement plan specialist services consulted for additional management/recommendations.
Chronic conditions ITEM PROCESSOR: non-contributory
Impression:
#A-fib with RVR
#Acute HFrEF with RV enlargement
#Acute respiratory failure with hypoxia due to acute pulmonary edema with bilateral pleural effusions and RLL pneumonia
#CAP involving RLL
#Leukocytosis
#Lactic acidosis (now resolved)
#MARY
#Metabolic acidosis with increased anion gap likely due to MARY at this point
#Transaminitis with hyperbilirubinemia likely due to hepatic congestion from heart failure
#Elevated troponin likely due to demand ischemia with type II IN in the setting of rapid A-fib and acute decompensated heart failure
#Abnormal TFTs with low TSH and elevated free T4 consistent with hyperthyroidism
#Recent febrile illness (being the November 2024) X 3 days with SOB and lower extremity edema at the time
Plan:
- Unclear etiology for his left ventricular cardiomyopathy
- Continue with amiodarone for rate control as well as milrinone
- Monitor for arrhythmias while on the milrinone drip, cristela in setting of MARY
- Cardiology consulted and recommendations appreciated; believe he would benefit from an ischemic evaluation which will be deferred to cardiology
- Monitor strict I/O given risk of volume overload; his repeat CXR on morning of 12/10/2024 shows worsening bilateral pleural effusions ---> continue diuresis with holding parameters
- Lactate is <2 mmol/L, hence no need to continue trending this
- Trend sHCO3 level; no need for bicarb at this time aspH is 7.38 on last blood gas this AM
- Patient's TFTs are abnormal with low TSH at 0.36 and elevated free T4 of 3.28 --> given his rapid A-fib and acute decompensated heart failure, need to consider thyrotoxicosis
- He may benefit from methimazole; consult endocrinology for recommendations
- Follow-up cultures (blood cultures x 2 collected today)
- Continue with empiric antibiotics with ceftriaxone/Zithromax
- CXR shows opacification in the right lower lobe suspicious for pneumonia
- He will need repeat CXR in 4-6 weeks to follow-up pneumonia resolution
- Check Legionella + strep pneumonia urine antigens
- Collect sputum culture if patient can produce a decent sample
- Pain control
- Anxiolytics prn, holding for sedation
- Maintain SpO2 >90-94% with supplemental oxygen and wean as tolerated
- Continue to trend troponin until peaks
- Trend LFTs
- Of note, abdominal ultrasound today shows no gallstones or bile duct dilatation, and liver appears unremarkable. There is mild gallbladder wall thickening and mild - moderate ascites
- Maintain MAP>65
- Replete electrolytes with K>4, Mg>2
- Maintain euglycemia with goal BG 140-180
- Trend H/H and transfuse if needed to keep Hb>7-8g/dL; keep plt>20k, unless there is concern for bleeding then keep plt>50k
- prn nebulized bronchodilators - not currently bronchospastic
- Incentive spirometer encouraged 10x per hour for at least 4 hrs a day
- DVT ppx: heparin gtt
Critical care statement: A total of 40 minutes of critical care time was provided for this patient today. This includes management of unstable vital signs, evaluation of the patient at bedside, reviewing the patient's pertinent medical records
including radiographs, microbiology, laboratory evaluations, and discussion with primary team, consultants, pharmacy, nutrition, physical therapy, case management, charge nurse, critical care nursing, and respiratory therapy.
Data:
CXR 12/10/2024: Probable posterior layering of bilateral pleural effusion, right greater than left. Cannot exclude atelectasis or pneumonia; stable cardiomegaly and mild vascular congestion.
[2024-12-10] MEDS: LASIX 40 MG IV ×2 (09:57→15:53)
[2024-12-10] MEDS: LOW STRENGTH ASPIRIN 81 MG PO (09:57)
--- NOTE | 2024-12-10 11:20 | PTCARENOTE ---
Levophed gtt off.
[2024-12-10 11:57] LABS: % Basophils 0.9 % (0-2); % Immature Granulocytes 0.4 % (0-0.5); % Lymphocytes 21.4 % (20.5-51.1); % Monocytes 9.7 % (1.7-9.3); % Neutrophils 67.6 % (42.2-75.2); Absolute Basophils 0.1 10^3/uL (0-0.2); Absolute Immature Granulocytes 0.1 10^3/uL (0-0.05); Absolute Lymphocytes 2.5 10^3/uL (1.2-3.4); Absolute Monocytes 1.1 10^3/uL (0.1-0.6); Absolute Neutrophils 7.8 10^3/uL (1.4-6.5); Mean Corp Hgb Conc. 34.1 g/dL (33.0-37.0); Mean Corpuscular Hgb 29.3 pg (27.0-31.0); Mean Corpuscular Volume 85.9 fL (80.0-94.0); Mean Platelet Volume 10.1 fL (7.4-10.4); Nucleated Red Blood Cells % 0 % (-); Platelet Count 284 10^3/uL (130-400); Red Blood Cell Count 5.12 10^6/uL (4.70-6.10); Red Cell Dist. Width 15.5 % (11.5-14.5); White Blood Cell Count 11.6 10^3/uL (4.8-10.8)
[2024-12-10 12:33] LABS: Glucose - Point of Care 115 mg/dl (70-99)
--- NOTE | 2024-12-10 12:45 | PTCARENOTE ---
Patient went to dock or pier laborer for placement of swan cristine. Heparin gtt on hold per Cathlab RN. patient transported on monitor.
--- NOTE | 2024-12-10 13:18 | W.PN.HOSP.TC ---
Today's Communication/Plan
-
Monitor vital signs see plan
Wean oxygen as tolerated
Patient is currently on Levophed and milrinone
Critically ill
Continue with antibiotics
Check Legionella, strep, flu, COVID
Endocrinology evaluation, might benefit from methimazole
Monitor renal function, check UA
Assessment / Plan
Assessment / Plan
General: Well Developed, Well Nourished, No Apparent Distress
HEENT: NormoCephalic, Moist mucous membranes and Atraumatic
Respiratory: Clear, Accessory Resp Muscle Use and Decreased Breath Sounds
Cardiac: S1/S2, Irregular Rhythm, Tachycardia, Peripheral Edema and JVD
GI: Soft and Non Tender
Musculoskeletal: 3+ pitting edema
Neuro: Awake, Alert and Nonfocal/grossly intact
Cardiogenic Shock
New Diagnosis Heart Failure - low EF seen on bedside US. Per echo 12/09 EF with 15 to 20%, global hypokinesis, right ventricular hypokinesis suspected.
Acute CHF with reduced EF with RV enlargement
Acute hypoxic respiratory failure secondary to acute pulmonary edema and right lower lobe pneumonia
Community-acquired pneumonia
Elevated Troponin - NSTEMI versus non-ischemic troponin elevation
Atrial Fibrillation with RVR
Currently in ICU on Levophed and milrinone. Wean Levophed as tolerated
-continue IV heparin gtt
Cardiology following
Continue with amiodarone gtt
Denies any recent illness
Continue aspirin
Check COVID, flu
Lactic acidosis on admission
Now resolved
Acute CHF with reduced EF
Elevated BNP
Continue with IV Lasix
I's and O's
Daily weight
Sepsis likely secondary to community-acquired pneumonia
Blood culture pending
Check Legionella, strep
Continue with antibiotics
Elevated liver enzymes
-may be 2/2 congestion
Abdominal ultrasound without any gallstone or biliary ductal dilation
MARY, does not report any history of CKD
Likely related to CHF
Monitor with diuresis
Bladder scan
Check UA
Low TSH with elevated free T4 concerning for hyperthyroidism
Endocrinology evaluation
Likely could be benefited from methimazole
DVT PPx heparin gtt
FULL CODE
Total Critical Care Time__48___ minutes. I was immediately available to the patient and staff. I personally examined, reviewed labs, diagnostic images/reports, interpretations, treatment plans, discussed patient care with other providers and
family or caregivers (if patient is unable to make decisions), entered orders as appropriate and documented the medical record.
Anticipated Discharge: > 48 hours
Subjective/Interval History
-
Date of Service: December 10, 2024
denies pain
Objective Data
-
Labs:
Laboratory Results
12/10/24 12/10/24 12/10/24
01:10 02:26 02:49
WBC
Hgb
Hct
Plt Count
APTT Cancelled
HCO3 21.9
Sodium 135 137
Potassium 4.0 4.1
Chloride 103 102
Carbon Dioxide 14 L* 20 L
BUN 29 H 31 H
Creatinine 1.9 H 1.8 H
Glucose 157 H 134 H
Calcium 8.3 L 8.5
Total Bilirubin 2.6 H
AST 140 H
ALT 250 H
Alkaline Phosphatase 114
12/10/24 12/10/24 12/10/24
04:30 05:44 06:00
WBC Cancelled
Hgb Cancelled
Hct Cancelled
Plt Count Cancelled
APTT > 200 H*
HCO3 Cancelled
Sodium
Potassium
Chloride
Carbon Dioxide
BUN
Creatinine
Glucose
Calcium
Total Bilirubin
AST
ALT
Alkaline Phosphatase
12/10/24 12/10/24
11:32 14:30
WBC 11.6 H
Hgb 15.0
Hct 44.0
Plt Count 284
APTT Pending
HCO3
Sodium
Potassium
Chloride
Carbon Dioxide
BUN
Creatinine
Glucose
Calcium
Total Bilirubin
AST
ALT
Alkaline Phosphatase
Vital Signs:
Vital Signs
Temp Pulse Resp BP Pulse Ox
97.6 F 122 26 118/82 92
12/10/24 12:30 12/10/24 10:45 12/10/24 10:45 12/10/24 10:45 12/10/24 10:45
I&O
12/09/24 12/10/24 12/11/24
06:59 06:59 06:59
Intake Total 398.5 / 479.5 403.4 / 403.4
Output Total 700 / 700 700 / 700
Balance -301.5 / -220.5 -296.6 / -296.6
--- NOTE | 2024-12-10 14:10 | ITS.CL.CATH ---
[facility] - Catheterization
Cardiac Catheterization
Procedure Report:
RIGHT HEART CATHETERIZATION
Date of Procedure: 12/10/2024
Referring: David Harmon M.D.
INDICATION: New cardiomyopathy, cardiogenic shock.
ACCESS:
1. 8 Beninese right internal jugular vein using a modified Seldinger technique with a micropuncture kit under ultrasound guidance. Ultrasound image obtained.
CATHETERS:
1. 7.5 Beninese [place]-Lakhwinder catheter.
PROCEDURE:
The patient was prepped and draped in standard sterile fashion. The area around the right internal jugular vein was anesthetized with 1% lidocaine. The right internal jugular vein was identified under ultrasound guidance and an ultrasound image was
obtained. Using a modified Seldinger technique, the right internal jugular vein was punctured and a micropuncture wire was advanced through the needle. The needle was withdrawn and replaced with a micropuncture sheath. The inner dilator was
removed along with the micropuncture wire and an 0.035 J-wire was advanced into the right atrium under fluoroscopic guidance. The micropuncture sheath was removed and a 8 Beninese sheath was inserted into the internal jugular vein. The 8 Beninese
sheath was sutured into place. A 7.5 Beninese [place]-Lakhwinder catheter was advanced through the sheath into the superior vena cava. An SVC oxygen saturation was drawn. The balloon wedge catheter was advanced into the pulmonary artery and a pulmonary artery
oxygen saturation was drawn. Arterial oxygen saturation was assumed from pulse oximetry. Cardiac output was calculated using the Ivon equation and thermodilution. The PA, wedge, RV and RA pressures were measured. The [place]-Lakhwinder catheter was locked
in place using the sterile cover.
Weight (kg): 102.5
PA (s/d/x mmHg): 51/30/37
PCWP (a/v/x mmHg): 31/35/29
RV (s/x mmHg): 52/23
RA (a/v/x mmHg): //
SVC SvO2 (%): 66.0
IVC SvO2 (%): Not obtained.
RA SvO2 (%): Not obtained.
RV SvO2 (%): Not obtained.
PA SvO2 (%): 65.6
SaO2 (%): 94.0 (assumed)
Hbg (g/dL): 14.2
Ivon
CO (liters/minute): 5.71
CI (liters/minute/m2): 2.68
Thermodilution
CO (liters/minute): 4.47
CI (liters/minute/m2): 2.10
TPG (mmHg): 8
PVR (Moy Units): 1.40
AVO2 Difference (Volume %): 5.48
Radiation (mGy): 12.7
DAP (cm2.Gy): 1.7198
Fluoroscopy time (minutes): 0.8
CONCLUSION:
1. Severely elevated filling pressures (PCWP = 29 mmHg at 102.5 kg).
2. Normal cardiac index (2.68 L/min/m� by Ivon, 2.10 L/min/m� by thermodilution) on milrinone 0.33 mcg/kg/min.
3. Moderate, postcapillary pulmonary hypertension (mean PA = 37 mmHg, PCWP = 29 mmHg, cardiac output = 5.71 L/min by Ivon, 4.47 L/min by thermodilution, PVR 1.40 Moy units by Ivon, 1.79 Moy units by thermodilution).
RECOMMENDATIONS:
1. Expectant management after right heart catheterization via right internal jugular approach.
2. Wean inotropes to keep cardiac index >1.8 L/min/m�.
3. Continue diuresis to optimize aye Starling curve.
4. Given hemodynamic instability, the patient may benefit from tenriism of normal sinus rhythm.
Copy to: David Harmon M.D.
Julito Duggan D.O., FAC, FACP
--- NOTE | 2024-12-10 14:36 | CON.MD ---
Consultation - Medical
-
44 y.o. Syri[place] man admitted last evening with malaise and LE swelling. Found to be in afib with RVR and cardiogenic shock, currently on amiodarone, milrinone and levophed. No known PMH and was found to have low TSH at 0.36 and elevated free T4 of
3.28. Pt awake enough to shake/ nod his head, just back from cath lab radiological technologist. States no thyroid history to his knowledge. Difficult to obtain much other history from him. I see from his records he had heparin gtt started last evening and the T4 was drawn
early this morning. Heparin is known to cause false elevations in T4 levels. I think that this is the likelier scenario, as the mild TSH depression is not proportional to the amount of T4 increase, and the mlld TSH drop is easily attributable to
this degree of illness (euthyroid sick). I will enter orders for tomorrow a.m., and include repeat TSH, free and total T4 and T3 levels, and Graves' autoantibodies. For now, would not advise treatment with thionamide therapy. Please message or call
with questions.
[2024-12-10 15:07] LABS: Urine Albumin Negative (Neg - Trace); Urine Bilirubin Negative (Negative); Urine Character Clear (Clear); Urine Color Yellow; Urine Glucose Negative (Negative); Urine Ketone Negative (Negative); Urine Leukocyte Negative (Negative); Urine Nitrite Negative (Negative); Urine Occult Blood Negative (Negative); Urine Urobilinogen Negative (Neg - 1+)
[2024-12-10 15:22] LABS: COVID-19 Antigen Negative (Negative)
[2024-12-10] MEDS: TAMIFLU 75 MG PO ×2 (15:53→21:28)
[2024-12-10 16:26] LABS: Amphetamines Negative (Negative); Barbiturates Negative (Negative); Benzodiazepines Negative (Negative); Buprenorphine Negative (Negative); Cocaine Negative (Negative); Marijuana Negative (Negative); Methadone Negative (Negative); Methamphetamines Negative (Negative); Opiates Negative (Negative); Phencyclidine Negative (Negative); Tricyclic Antidepressants Negative (Negative)
--- NOTE | 2024-12-10 16:38 | PTCARENOTE ---
Patient now placed on droplet precautions for positive flu B. Notified family. Patient is sleeping, speech to clear from NPO.
[2024-12-10] MEDS: HEPARIN 25000 UNITS/250 ML IV (17:16)
--- NOTE | 2024-12-10 17:35 | PTCARENOTE ---
Notified Patient Safety Officer that patient continues to have elevated HR. Also notified of cardiac output/index. No further orders.
[2024-12-10 18:32] LABS: Glucose - Point of Care 112 mg/dl (70-99)
--- NOTE | 2024-12-10 21:00 | PTCARENOTE ---
offal separator, pt drowsy, arousable to voice, oriented x 3. Afib HR fluctuating as high as 140s. RIRosey cordis/PA WNL, RUE PICC WNL- amio/heparin/milrinone/KVO gtt infusing per work list. Sat 97% on 2LNC. Sanchez WNL. POC discussed, call gabriel with pt.
[2024-12-10] MEDS: ZITHROMAX 252.5 MG IV (21:28)
[2024-12-10] MEDS: STERILE WATER FOR INJECTION 10 ML IV (21:29)
[2024-12-10] MEDS: ROCEPHIN 1000 MG IV (21:29)
[2024-12-10 22:06] LABS: APTT 80.7 Sec (23.4-35.0)
[2024-12-11] VITALS (26 sets, daily range): BP systolic 83–138; BP diastolic 52–108; BMI 34.3
[2024-12-11 01:08] LABS: Glucose - Point of Care 98 mg/dl (70-99)
--- NOTE | 2024-12-11 02:46 | PTCARENOTE ---
BDoughertyNP aware pt's HR remains 120-140s, occasionally up to 150 then fluctuates back down. pt remains on amio gtt. no new orders at this time.
--- NOTE | 2024-12-11 04:11 | PTCARENOTE ---
pt HR fluctuating up to 150-160 at times, amio gtt increased to 1 mg/min per BDoughertyNP.
[2024-12-11] MEDS: CORDARONE 518 MG IV ×2 (04:34→19:39)
[2024-12-11 05:08] LABS: APTT > 200 Sec (23.4-35.0)
[2024-12-11 05:14] LABS: Troponin I 0.057 ng/ml
[2024-12-11 05:17] LABS: Total Thyroxine 8.96 ug/dl (5.5-11.0)
[2024-12-11 05:26] LABS: % Basophils 0.8 % (0-2); % Eosinophils 0.1 % (0-6); % Immature Granulocytes 0.3 % (0-0.5); % Lymphocytes 15.6 % (20.5-51.1); % Monocytes 8.4 % (1.7-9.3); % Neutrophils 74.8 % (42.2-75.2); ALT (SGPT) 166 U/L (0-50); AST (SGOT) 60 U/L (17-59); Absolute Basophils 0.1 10^3/uL (0-0.2); Absolute Lymphocytes 1.7 10^3/uL (1.2-3.4); Absolute Monocytes 0.9 10^3/uL (0.1-0.6); Absolute Neutrophils 8.3 10^3/uL (1.4-6.5); Albumin 2.7 g/dl (3.5-5.0); Alkaline Phosphatase 89 U/L (38-126); Blood Urea Nitrogen 27 mg/dl (9-20); Calcium 7.8 mg/dl (8.4-10.2); Carbon Dioxide 25 mmol/L (22-30); Chloride 99 mmol/L (98-107); Estimated Creatinine Clearance 67 ml/min; Glucose 108 mg/dl (70-99); Hemoglobin 13.2 g/dL (13.0-18.0); Mean Corpuscular Hgb 28.6 pg (27.0-31.0); Mean Corpuscular Volume 86.8 fL (80.0-94.0); Mean Platelet Volume 9.6 fL (7.4-10.4); Nucleated Red Blood Cells % 0 % (-); Platelet Count 209 10^3/uL (130-400); Potassium 3.2 mmol/L (3.5-5.1); Red Blood Cell Count 4.61 10^6/uL (4.70-6.10); Red Cell Dist. Width 15.8 % (11.5-14.5); Sodium 135 mmol/L (135-145); Total Bilirubin 1.4 mg/dl (0.2-1.3); White Blood Cell Count 11.1 10^3/uL (4.8-10.8); eGFR 54.49
[2024-12-11 05:31] LABS: TSH 0.03 uIU/ml (0.47-4.68)
[2024-12-11 05:45] LABS: Free T3 4.61 pg/ml (2.77-5.27); Free T4 2.78 ng/dl (0.78-2.19)
[2024-12-11] MEDS: KCL 100 IV (06:08)
[2024-12-11] MEDS: LOW STRENGTH ASPIRIN 81 MG PO (07:46)
[2024-12-11] MEDS: TAMIFLU 75 MG PO ×2 (07:46→19:38)
--- NOTE | 2024-12-11 08:28 | W.PN.INTV ---
Today's Communication / Plan
Recommendations
Continue diuresis as blood pressure tolerates
Replete K>4, Mg>2
Strict I/O and trend UOP
Trend serum creatinine
Continue milrinone and monitor for arrhythmias
May need to restart amiodarone if tachycardia continues vs renally dosed IV dig load
Goal HR <110
Continue supplemental oxygen and titrate to SpO2 >90-94%
Defer ischemic evaluation to cardiology
Antibiotics for total of 7-10 days given that he is currently on milrinone with cardiomyopathy and ADHF, possibly from sepsis
Continue ICU level care for this critically ill patient
Assessment
-
Assessment: 44-year-old male with no past medical history who presented with shortness of breath, lower extremity swelling and general malaise. Found to be in A-fib with RVR. He had a fever earlier in November with shortness of breath and lower
extremity edema at the time. Fever lasted for about 3 days. He improved but his SOB and lower extremity edema persisted. He did not seek medical attention until he came to the ER on 12/09/24. Initially in the ER he was afebrile to 97.5 �F, pulse
rate 142, breathing at 18 breaths/min, BP 105/79 saturating 99% on room air. Initial labs showed leukocytosis to 11.5, sodium 133, creatinine 1.4, T. bili 2.2, troponin 0.059, and proBNP 4700. Blood cultures were collected, and CXR showed
suspected right lower lobe pneumonia. In the ER he was given Cardizem and started on drip, 40 mg Lasix, started on heparin drip, given IVF with 500 cc bolus of NS 0.9%, given Dilaudid, Zofran and started on Levophed due to persistent hypotension.
Urgent echo performed showing severely reduced LVEF at 15-20% with global hypokinesis, with suspected RV hypokinesis, and moderate MR, and moderate TR. Cardiology was consulted and he was transferred to the ICU for further evaluation with
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
Chronic conditions PRIMARY CLINICIAN: non-contributory
Impression:
#A-fib with RVR
#Acute HFrEF with RV enlargement
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
#Acute respiratory failure with hypoxia due to acute pulmonary edema with bilateral pleural effusions and RLL pneumonia
#CAP involving RLL
#Influenza B pneumonia
#Leukocytosis
#Lactic acidosis (resolved as of 12/10/2024)
#MARY
#Metabolic acidosis with increased anion gap likely due to MARY at this point - acidosis now resolved
#Transaminitis with hyperbilirubinemia likely due to hepatic congestion from heart failure
#Elevated troponin likely due to demand ischemia with type II IA in the setting of rapid A-fib and acute decompensated heart failure
#Abnormal TFTs with low TSH and elevated free T4 consistent with hyperthyroidism
#Recent febrile illness (being the November 2024) X 3 days with SOB and lower extremity edema at the time
Plan:
- Unclear etiology for his left ventricular cardiomyopathy, although he is positive for Flu B so possibly related to this via sepsis in setting of suspected RLL PNA
- Previously on amiodarone --> now discontinued; remains on milrinone
- Monitor for arrhythmias while on the milrinone drip, cristela in setting of MARY
- Cardiology consulted and recommendations appreciated; believe he would benefit from an ischemic evaluation which will be deferred to cardiology
- RHC performed on 12/10/2024 shows severely elevated filling pressures with postcapillary pulmonary hypertension with preserved CO + CI
- Monitor strict I/O given risk of volume overload; his repeat CXR on morning of 12/10/2024 shows worsening bilateral pleural effusions ---> continue diuresis with holding parameters
- Lactate is <2 mmol/L, hence no need to continue trending this
- Trend sHCO3 level; no need for bicarb at this time as pH is 7.38 on last blood gas from 12/10/2024 and sHCO3 is 28 today
- Patient's TFTs are abnormal with low TSH at 0.36 and elevated free T4 of 3.28 --> given his rapid A-fib and acute decompensated heart failure, need to consider thyrotoxicosis
- He may benefit from methimazole; endocrinology consulted recommendations --> TSH likely low given acute illness and apparently heparin drip can cause elevated T4 levels
- Endo repeated repeat TFTs today; TSH is now very low at 0.03 with giovani T4 2.78; fT3 is WNL and so is total T4; thyroid-stimulating Ig is pending
- Follow-up cultures (blood cultures x 2 collected 12/10)
- Continue with empiric antibiotics with ceftriaxone/Zithromax
- CXR shows opacification in the right lower lobe suspicious for pneumonia
- He will need repeat CXR in 4-6 weeks to follow-up pneumonia resolution
- Legionella + strep pneumonia urine antigens both negative
- Collect sputum culture if patient can produce a decent sample
- Continue Tamiflu x 5 days
- supportive care with prn flexeril and lidocaine patch for body aches/lower back pain
- Pain control
- Anxiolytics prn, holding for sedation
- Maintain SpO2 >90-94% with supplemental oxygen and wean as tolerated
- Troponin peaked at 0.086 on 12/10/2024; no longer need to continue trending at this time
- Trend LFTs
- Of note, abdominal ultrasound today shows no gallstones or bile duct dilatation, and liver appears unremarkable. There is mild gallbladder wall thickening and mild - moderate ascites
- Maintain MAP>65
- Replete electrolytes with K>4, Mg>2
- Maintain euglycemia with goal BG 140-180
- Trend H/H and transfuse if needed to keep Hb>7-8g/dL; keep plt>20k, unless there is concern for bleeding then keep plt>50k
- prn nebulized bronchodilators - not currently bronchospastic
- Incentive spirometer encouraged 10x per hour for at least 4 hrs a day
- DVT ppx: heparin gtt
Critical care statement: A total of 38 minutes of critical care time was provided for this patient today. This includes management of unstable vital signs, evaluation of the patient at bedside, reviewing the patient's pertinent medical records
including radiographs, microbiology, laboratory evaluations, and discussion with primary team, consultants, pharmacy, nutrition, physical therapy, case management, charge nurse, critical care nursing, and respiratory therapy.
Data:
CXR 12/10/2024: Probable posterior layering of bilateral pleural effusion, right greater than left. Cannot exclude atelectasis or pneumonia; stable cardiomegaly and mild vascular congestion.
Subjective Dataa
Subjective Data
Date of Service:
Date of Service: December 11, 2024
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
Subjective:
Patient seen and evaluated today at bedside. He endorses back pain. He was given Flexeril, and then became lethargic. Still arousable and answering questions appropriately. Went to [facility] yesterday and underwent RHC showing left-sided heart
failure with PCWP: 29, with CO/CI: 5.71/2.68 (via Ivon method). PVR was low at 1.4. [place]hw[place] kept in place to optimally diuresis. This morning, PAP: 30/20, CO/CI: 7.69/3.61, respectively. CVP: 16, and BP 83/70. Heart rate high at 140.
Saturating 97% on 2 L/min. Currently on milrinone at 0.12mcg/kg/min as well as heparin drip. Lasix held this morning due to hypokalemia with potassium 3.2; he is net -4.1 L last 24 hours. Flu swab done yesterday is positive for flu B.
Review of Systems
General: Other (Negative unless mentioned above)
Objective Data
Data Reviewed
Vital Signs / I&O / Oxygen:
Vital Signs
Temp Pulse Resp BP Pulse Ox
99.0 F 131 28 102/83 94
12/11/24 08:17 12/11/24 09:00 12/11/24 09:00 12/11/24 08:27 12/11/24 09:00
Intake and Output
12/10/24 12/11/24 12/12/24
06:59 06:59 06:59
Intake Total 398.5 / 479.5 1136.0 / 1294.0 274.0 / 274.0
Output Total 700 / 700 4975 / 5000 90 / 90
Balance -301.5 / -220.5 -3839.0 / -3706.0 184.0 / 184.0
SaO2 94
Nasal Cannula flow liters per 2
minute
Physical Exam
General: Respiratory Distress (negative), Pain (lower back), Chills (negative), Sweats (negative) and Other (Uncomfortable due to back pain + body aches)
HEENT: Normocephalic and Anicteric
Cardiovascular: Irregular Rhythm (Irregularly irregular), Peripheral Edema (+2 lower extremity pitting edema bilaterally) and Other (Tachycardic)
Respiratory: Wheeze (negative), Crackles (Bibasilar), Rhonchi (negative), Accessory Resp Muscle Use (negative) and Stridor (negative)
GI: Soft, Non Distended, Non Tender and Normal Bowel Sounds
Neurology: Tremors (negative) and Lethargic (Easily arousable to voice and tactile stimulation)
Skin: Warm, Dry, Cyanosis (negative) and Jaundice (negative)
Labs/Micro/Reports
Lab Data
12/11/24 04:24
12/11/24 04:24
Laboratory Results
12/10/24 12/10/24 12/11/24
14:30 21:46 04:24
APTT Cancelled 80.7 H > 200 H*
Microbiology
12/10/24 14:54 Nasal Swab Influenza Types A & B (PHILIP) - Final
Influenza B Positive, NAAT
12/10/24 02:37 Nose MRSA Screen - Final
No Methicillin Resistant Staphylococcus aureus isolated.
12/10/24 01:10 Blood/Venous Blood Culture - Preliminary
No Growth in 24 hours- Final report to follow
12/10/24 14:54 Urine Legionella Urinary Antigen - Final
Negative for Legionella pneumophila Serogroup 1 antigen.
A negative result does not rule out the possiblity of
Legionella infection due to other serogroups or species of
Legionella. Clinical correlation is recommended.
12/10/24 14:54 Urine Streptococcus pneumoniae Antigen (M - Final
Negative for Streptococcus pneumoniae antigen.
A negative result does not exclude infection with
Streptococcus pneumoniae. Clinical correlation is
recommended.
[2024-12-11] MEDS: LOPRESSOR 2.5 MG IV (08:32)
[2024-12-11] MEDS: LASIX IV (08:34)
--- NOTE | 2024-12-11 08:59 | PTOTSP ---
Speech Therapy
Presentation: Patient was partially oriented. Patient's speech appeared to be weak but intelligible. Patient demonstrated a weak cough at baseline (prior to PO).
Swallowing Function: YARN DUMPER observed patient with several sips of thin liquids via straw, bites of puree, and bites of cracker in which patient appeared to tolerate the thins and puree presentations but did demonstrate 1 instance of coughing with the
cracker. Of note, the coughing could be related to his overall fatigue, weakness, and medical presentation (flu). Given his overt weakness, decreased appetite, and wax/wane lethargy, recommend trial of IDDSI 4 puree and thin liquid diet at this
time. Will advance as appropriate.
YARN DUMPER observed RN administer medications whole with thin liquids (straw) in which patient appeared to tolerate as he did not exhibit any overt clinical s/sx of aspiration.
Of note, with all presentations (medications included) patient demonstrated facial grimmacing which he relayed to back pain and dryness in his throat.
Recommendations:
1) trial of IDDSI 4; puree and thin liquids
2) Aspiration precautions
3) Medications as tolerated
4) PO only when alert
Plan: YARN DUMPER will continue to follow; pending hospitalization.
[2024-12-11] MEDS: LIDOCAINE 4% PATCH 1 PATCH TOPICAL (09:45)
[2024-12-11] MEDS: FLEXERIL 5 MG PO (09:45)
[2024-12-11] MEDS: PRIMACOR 20 MG 100 IV ×2 (11:12→21:40)
--- NOTE | 2024-12-11 11:29 | PTCARENOTE ---
pt adjusted in bed, mouth care completed. otherwise no changes.
[2024-12-11 11:59] LABS: Glucose - Point of Care 98 mg/dl (70-99)
--- NOTE | 2024-12-11 12:43 | PTCARENOTE ---
Dr Harmon in for update. Reviewed CO/CI. Aware of decrease since this morning. Aware of minimal urine output without lasix. Milrinone dose doubled to 0.24m/k/m as charted. Labs drawn and sent as ordered.
--- NOTE | 2024-12-11 12:59 | W.PN.HOSP.TC ---
Today's Communication/Plan
-
Monitor vitals
See plan
Continue with Tamiflu, empiric antibiotics
Continue with amiodarone, milrinone
on IV hep
Continue with IV diuresis
Wean oxygen as tolerated
Assessment / Plan
Assessment / Plan
General: Well Developed, Well Nourished, No Apparent Distress
HEENT: NormoCephalic, Moist mucous membranes and Atraumatic
Respiratory: Clear, Accessory Resp Muscle Use and Decreased Breath Sounds
Cardiac: S1/S2, Irregular Rhythm, Tachycardia, Peripheral Edema and JVD
GI: Soft and Non Tender
Musculoskeletal: 3+ pitting edema
Neuro: Awake, Alert and Nonfocal/grossly intact
Cardiogenic Shock
New Diagnosis Heart Failure - low EF seen on bedside US. Per echo 12/09 EF with 15 to 20%, global hypokinesis, right ventricular hypokinesis suspected.
Acute CHF with reduced EF with RV enlargement
Acute hypoxic respiratory failure secondary to acute pulmonary edema and right lower lobe pneumonia
Community-acquired pneumonia
Elevated Troponin - NSTEMI versus non-ischemic troponin elevation
Atrial Fibrillation with RVR
Currently in ICU on Levophed and milrinone. Wean Levophed as tolerated
-continue IV heparin gtt
Cardiology following
Continue with amiodarone gtt
Denies any recent illness
Continue aspirin
COVID-negative, flu positive. Given patient's severity of his symptoms we will treat with Tamiflu.
RHC 12/10 with elevated pressures; cw diuresis
speech following; ok for pureed
coxsackie serology sent
Lactic acidosis on admission
Now resolved
Acute CHF with reduced EF
Elevated BNP
Continue with IV Lasix
I's and O's
Daily weight
Sepsis likely secondary to flu with superimposed bacterial community-acquired pneumonia
Blood culture NGTD
Legionella, strep neg
Continue with antibiotics
Elevated liver enzymes
-may be 2/2 congestion
Abdominal ultrasound without any gallstone or biliary ductal dilation
MARY, does not report any history of CKD
Likely related to CHF
Monitor with diuresis
Bladder scan
ua neg
Low TSH with elevated free T4 concerning for hyperthyroidism
Endocrinology following; believes could be secondary to euthyroid sick syndrome. Endocrinology repeating TSH, free and total T4 and T3 and Graves' autoantibodies. Monitor
Likely could be benefited from methimazole
DVT PPx heparin gtt
FULL CODE
Total Critical Care Time__47___ minutes. I was immediately available to the patient and staff. I personally examined, reviewed labs, diagnostic images/reports, interpretations, treatment plans, discussed patient care with other providers and
family or caregivers (if patient is unable to make decisions), entered orders as appropriate and documented the medical record.
Anticipated Discharge: > 48 hours
Subjective/Interval History
-
Date of Service: December 11, 2024
lethargic
Objective Data
-
Labs:
Laboratory Results
12/11/24 12/11/24 12/11/24
04:24 12:35 13:15
WBC 11.1 H
Hgb 13.2
Hct 40.0
Plt Count 209 D
APTT > 200 H* Pending
Sodium 135 Pending
Potassium 3.2 L Pending
Chloride 99 Pending
Carbon Dioxide 25 Pending
BUN 27 H Pending
Creatinine 1.6 H Pending
Glucose 108 H Pending
Calcium 7.8 L Pending
Total Bilirubin 1.4 H D
AST 60 H
ALT 166 H
Alkaline Phosphatase 89
Vital Signs:
Vital Signs
Temp Pulse Resp BP Pulse Ox
99.0 F 141 15 93/78 96
12/11/24 12:14 12/11/24 12:30 12/11/24 12:30 12/11/24 12:00 12/11/24 12:30
I&O
12/10/24 12/11/24 12/12/24
06:59 06:59 06:59
Intake Total 398.5 / 479.5 1136.0 / 1294.0 564.0 / 564.0
Output Total 700 / 700 4975 / 5000 105 / 105
Balance -301.5 / -220.5 -3839.0 / -3706.0 459.0 / 459.0
[2024-12-11 13:25] LABS: APTT 101.7 Sec (23.4-35.0)
[2024-12-11 13:42] LABS: Albumin 2.7 g/dl (3.5-5.0); Blood Urea Nitrogen 28 mg/dl (9-20); Calcium 7.8 mg/dl (8.4-10.2); Carbon Dioxide 28 mmol/L (22-30); Chloride 98 mmol/L (98-107); Estimated Creatinine Clearance 63 ml/min; Glucose 116 mg/dl (70-99); Phosphorus 3.8 mg/dl (2.5-4.5); Sodium 134 mmol/L (135-145); eGFR 50.66
[2024-12-11] MEDS: LANOXIN 250 MCG IV ×2 (14:57→18:24)
[2024-12-11] MEDS: LASIX 20 MG IV (15:04)
[2024-12-11] MEDS: HEPARIN 25000 UNITS/250 ML IV (15:04)
--- NOTE | 2024-12-11 15:40 | CM ---
Pt does not speak Tongan well. Spoke with Marisol with limited Tongan. Spoke with son 17 yo he declined to given his phone number because he is in school.They recently moved from [place]. Pt works but has no insurance. [facility] Pt does drive.
They live in 2 story home with 2 steps to enter and 2 steps to bed bathroom. Admission given address and phone # to place in summary.
He was independent prior to admission.
Pharmacy [facility] [address]
PCP none move here recently
PLAN Will depend on hospital course of care
--- NOTE | 2024-12-11 16:03 | PTCARENOTE ---
Systems reviewed. Pt lethargic since am flexeril. Denies any further back discomfort. His cardiac output was done and results reviewed with Dr Harmon. He increased milrinone to initial dosing. Decreased dose of diuretic given as ordered. Pt
also given a dose of digoxin for hr. Briefly hr down to 120s, but currently 130s. Otherwise no changes.
[2024-12-11 18:07] LABS: Glucose - Point of Care 91 mg/dl (70-99)
--- NOTE | 2024-12-11 19:35 | PTCARENOTE ---
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 Afib HR 120-140s. TORO cordis/PA WNL, TOSHIA PICC WNL- amio/heparin/milrinone/KVO gtt infusing per work list. Thermo #s done. pt attempting to eat dinner. Laura WNL. POC discussed, call gabriel with pt.
[2024-12-11 20:05] LABS: Lactic Acid 1.1 mmol/L (0.7-2.0)
[2024-12-11 20:19] LABS: ALT (SGPT) 146 U/L (0-50); AST (SGOT) 56 U/L (17-59); Albumin 2.7 g/dl (3.5-5.0); Alkaline Phosphatase 80 U/L (38-126); Blood Urea Nitrogen 27 mg/dl (9-20); Calcium 7.7 mg/dl (8.4-10.2); Carbon Dioxide 29 mmol/L (22-30); Chloride 99 mmol/L (98-107); Estimated Creatinine Clearance 67 ml/min; Glucose 101 mg/dl (70-99); Phosphorus 3.2 mg/dl (2.5-4.5); Potassium 3.5 mmol/L (3.5-5.1); Sodium 135 mmol/L (135-145); Total Bilirubin 1.6 mg/dl (0.2-1.3); eGFR 54.49
[2024-12-11 20:25] LABS: APTT 171.3 Sec (23.4-35.0)
[2024-12-11] MEDS: ZITHROMAX 252.5 MG IV (21:41)
[2024-12-11] MEDS: ROCEPHIN 1000 MG IV (21:41)
[2024-12-11] MEDS: STERILE WATER FOR INJECTION 10 ML IV (21:42)
[2024-12-12] VITALS (26 sets, daily range): BP systolic 124–147; BP diastolic 81–107; BMI 34.6
--- NOTE | 2024-12-12 | PTCARENOTE ---
no changes in pt assessment.
[2024-12-12 00:21] LABS: Glucose - Point of Care 97 mg/dl (70-99)
--- NOTE | 2024-12-12 02:00 | PTCARENOTE ---
CHG cloths, turned/ repositioned, mouth care, soler care.
[2024-12-12 05:00] LABS: Mixed Venous O2 Saturation 73.1 %
[2024-12-12 05:03] LABS: Venous Blood Gas B.E. 2.9 mmol/L (-4 to +4); Venous Blood Gas HCO3 27.9 mmol/L (22-27); Venous Blood Gas O2 Sat % 94.9 %; Venous Blood Gas pCO2 43 mmHg (35-48); Venous Blood Gas pH 7.42 (7.32-7.43); Venous Blood Gas pO2 71 mmHg (30-50)
[2024-12-12 05:25] LABS: % Basophils 0.9 % (0-2); % Eosinophils 0.6 % (0-6); % Immature Granulocytes 0.2 % (0-0.5); % Lymphocytes 15.9 % (20.5-51.1); % Neutrophils 73.4 % (42.2-75.2); Absolute Basophils 0.1 10^3/uL (0-0.2); Absolute Eosinophils 0.1 10^3/uL (0-0.7); Absolute Lymphocytes 1.3 10^3/uL (1.2-3.4); Absolute Monocytes 0.7 10^3/uL (0.1-0.6); Absolute Neutrophils 5.9 10^3/uL (1.4-6.5); Hematocrit 40.3 % (39.0-52.0); Hemoglobin 13.5 g/dL (13.0-18.0); Mean Corp Hgb Conc. 33.5 g/dL (33.0-37.0); Mean Corpuscular Volume 86.7 fL (80.0-94.0); Mean Platelet Volume 9.6 fL (7.4-10.4); Nucleated Red Blood Cells % 0 % (-); Platelet Count 178 10^3/uL (130-400); Red Blood Cell Count 4.65 10^6/uL (4.70-6.10); Red Cell Dist. Width 15.2 % (11.5-14.5)
[2024-12-12 05:33] LABS: APTT 79.7 Sec (23.4-35.0)
[2024-12-12 05:54] LABS: ALT (SGPT) 132 U/L (0-50); AST (SGOT) 45 U/L (17-59); Albumin 2.6 g/dl (3.5-5.0); Alkaline Phosphatase 82 U/L (38-126); Blood Urea Nitrogen 26 mg/dl (9-20); Calcium 7.7 mg/dl (8.4-10.2); Carbon Dioxide 27 mmol/L (22-30); Chloride 99 mmol/L (98-107); Estimated Creatinine Clearance 77 ml/min; Glucose 101 mg/dl (70-99); Magnesium 1.7 mg/dl (1.6-2.3); Potassium 3.5 mmol/L (3.5-5.1); Sodium 134 mmol/L (135-145); Total Bilirubin 1.3 mg/dl (0.2-1.3); eGFR > 60.00
[2024-12-12] MEDS: PRIMACOR 20 MG 100 IV ×2 (06:02→16:52)
--- NOTE | 2024-12-12 07:26 | W.PN.HOSP.TC ---
Today's Communication/Plan
-
see plan
Assessment / Plan
Assessment / Plan
Mr. Lissa Louis is a 44 yo man, primarily Pashto speaking, presents to the ER with complaint of increasing fatigue, lower extremity swelling and shortness of breath found to be in afib with RVR with development of cardiogenic shock.
HEAD CT
IMPRESSION:
There or no acute or focal intracranial abnormalities
There is mild diffuse cortical and cerebellar atrophy
CXR
IMPRESSION:
Right lower lobe pneumonia
Abdomen US:
IMPRESSION:
Unremarkable sonographic appearance of the liver.
No gallstones or bile duct dilatation.
Mild to moderate ascites.
Mild gallbladder wall thickening, which is nonspecific in the presence of ascites.
Incidental pleural effusion.
TTE
CONCLUSIONS
During study patient limited the amount of images that were obtained reporting
discomfort during exam. Note this appeared to be disproportional to the amount
of pressure being applied.
Severely reduced left ventricular function with estimated ejection fraction of
15 to 20%
Global hypokinesis
Right ventricular hypokinesis suspected
Moderate mitral regurgitation.
Moderate tricuspid regurgitation
No prior study available for comparison
Cardiac Cath 12/10/24
CONCLUSION:
1. Severely elevated filling pressures (PCWP = 29 mmHg at 102.5 kg).
2. Normal cardiac index (2.68 L/min/m� by Ivon, 2.10 L/min/m� by thermodilution) on milrinone 0.33 mcg/kg/min.
3. Moderate, postcapillary pulmonary hypertension (mean PA = 37 mmHg, PCWP = 29 mmHg, cardiac output = 5.71 L/min by Ivon, 4.47 L/min by thermodilution, PVR 1.40 Moy units by Ivon, 1.79 Moy units by thermodilution).
Cardiogenic Shock
New Diagnosis Heart Failure - low EF seen on bedside US. Per echo 12/09 EF with 15 to 20%, global hypokinesis, right ventricular hypokinesis suspected.
Acute CHF with reduced EF with RV enlargement
Acute hypoxic respiratory failure secondary to acute pulmonary edema and right lower lobe pneumonia
Community-acquired pneumonia
Elevated Troponin - NSTEMI versus non-ischemic troponin elevation
Atrial Fibrillation with RVR
-admitted to ICU
-Troponin peaked at 0.086
-appreciate Cardiology consult
-Levophed titrated off 09/30
-Currently in ICU on Milrinone
-continue IV heparin gtt
-Continue with amiodarone gtt
-Continue aspirin
-COVID-negative, flu positive. Given patient's severity of his symptoms we will treat with Tamiflu.
-RHC 12/10 with elevated pressures; cw diuresis
-speech following; ok for pureed
-coxsackie serology sent
Lactic acidosis on admission
Now resolved
Sepsis likely secondary to flu with superimposed bacterial community-acquired pneumonia
Blood culture NGTD
Legionella, strep neg
Continue with antibiotics
Elevated liver enzymes
-may be 2/2 congestion
Abdominal ultrasound without any gallstone or biliary ductal dilation
MARY, does not report any history of CKD
Likely related to CHF
-improving with diuresis
Low TSH with elevated free T4 concerning for hyperthyroidism
Endocrinology following; believes could be secondary to euthyroid sick syndrome. Endocrinology repeating TSH, free and total T4 and T3 and Graves' autoantibodies. Monitor
Likely could be benefited from methimazole
DVT PPx heparin gtt
FULL CODE
Total Critical Care Time__45___ minutes. I was immediately available to the patient and staff. I personally examined, reviewed labs, diagnostic images/reports, interpretations, treatment plans, discussed patient care with other providers and
family or caregivers (if patient is unable to make decisions), entered orders as appropriate and documented the medical record.
Anticipated Discharge: > 48 hours
Subjective/Interval History
-
Date of Service: December 12, 2024
when asked if he's feeling better he states 'I don't know'
no chest pain
urinating a lot
wants ice water
Objective Data
-
Labs:
Laboratory Results
12/11/24 12/12/24 12/12/24
19:40 04:49 11:00
WBC 8.0
Hgb 13.5
Hct 40.3
Plt Count 178
APTT 171.3 H* 79.7 H Pending
Sodium 135 134 L
Potassium 3.5 3.5
Chloride 99 99
Carbon Dioxide 29 27
BUN 27 H 26 H
Creatinine 1.6 H 1.4 H
Glucose 101 H 101 H
Calcium 7.7 L 7.7 L
Total Bilirubin 1.6 H 1.3
AST 56 45
ALT 146 H 132 H
Alkaline Phosphatase 80 82
Vital Signs:
Vital Signs
Temp Pulse Resp BP Pulse Ox
98.5 F 148 16 137/85 95
12/12/24 07:09 12/12/24 05:30 12/12/24 05:30 12/12/24 05:00 12/12/24 05:30
I&O
12/11/24 12/12/24 12/13/24
06:59 06:59 06:59
Intake Total 1136.0 / 1294.0 1538.6 / 1538.6
Output Total 4975 / 5000 2640 / 2640
Balance -3839.0 / -3706.0 -1101.4 / -1101.4
Review of Systems
-
History Source: Patient
All other systems: Reviewed and negative
Physical Exam
-
General: Other (appears fatigued )
HEENT: PERRLA
Respiratory: Rales and Decreased Breath Sounds
Cardiac: Tachycardic
GI: Soft and Nontender
Musculoskeletal: Edema, Right Lower Extrem and Edema, Left Lower Extrem
Neuro: AO x 3
Psych: Calm
Data Reviewed
-
Diagnostic Radiology: Report Reviewed by me
Labs: Labs Reviewed by me
[2024-12-12] MEDS: LOW STRENGTH ASPIRIN 81 MG PO (07:48)
[2024-12-12] MEDS: TAMIFLU 75 MG PO ×2 (07:48→20:03)
[2024-12-12] MEDS: LASIX 20 MG IV (07:49)
[2024-12-12] MEDS: LIDOCAINE 4% PATCH 1 PATCH TOPICAL (07:49)
--- NOTE | 2024-12-12 08:16 | W.PN.INTV ---
Today's Communication / Plan
Recommendations
NPO p MN for [facility] tomorrow assuming Cr continue to improve
Continue diuresis as blood pressure tolerates
Replete K>4, Mg>2
Strict I/O and trend UOP
Trend serum creatinine
Continue milrinone and monitor for arrhythmias
Continue amiodarone gtt
Goal HR <110
Continue supplemental oxygen and titrate to SpO2 >90-94%
Antibiotics for total of 7-10 days given that he is currently on milrinone with cardiomyopathy and ADHF, possibly from sepsis
Analgesia for myalgias; tamiflu
Continue ICU level care for this critically ill patient
Assessment
-
Assessment: 44-year-old male with no past medical history who presented with shortness of breath, lower extremity swelling and general malaise. Found to be in A-fib with RVR. He had a fever earlier in November with shortness of breath and lower
extremity edema at the time. Fever lasted for about 3 days. He improved but his SOB and lower extremity edema persisted. He did not seek medical attention until he came to the ER on 12/09/24. Initially in the ER he was afebrile to 97.5 �F, pulse
rate 142, breathing at 18 breaths/min, BP 105/79 saturating 99% on room air. Initial labs showed leukocytosis to 11.5, sodium 133, creatinine 1.4, T. bili 2.2, troponin 0.059, and proBNP 4700. Blood cultures were collected, and CXR showed
suspected right lower lobe pneumonia. In the ER he was given Cardizem and started on drip, 40 mg Lasix, started on heparin drip, given IVF with 500 cc bolus of NS 0.9%, given Dilaudid, Zofran and started on Levophed due to persistent hypotension.
Urgent echo performed showing severely reduced LVEF at 15-20% with global hypokinesis, with suspected RV hypokinesis, and moderate MR, and moderate TR. Cardiology was consulted and he was transferred to the ICU for further evaluation with
lining maker hand services consulted for additional management/recommendations.
Chronic conditions CARDIOVASCULAR TECH: non-contributory
Impression:
#A-fib with RVR
#Acute HFrEF with RV enlargement
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
#Acute respiratory failure with hypoxia due to acute pulmonary edema with bilateral pleural effusions and RLL pneumonia
#CAP involving RLL
#Influenza B pneumonia
#Leukocytosis drip � resolved as of 12/12/2019
#Lactic acidosis (resolved as of 12/10/2024)
#MARY
#Metabolic acidosis with increased anion gap likely due to MARY at this point - acidosis now resolved
#Transaminitis with hyperbilirubinemia likely due to hepatic congestion from heart failure
#Elevated troponin likely due to demand ischemia with type II HI in the setting of rapid A-fib and acute decompensated heart failure
#Abnormal TFTs with low TSH and elevated free T4 consistent with hyperthyroidism
#Recent febrile illness (being the November 2024) X 3 days with SOB and lower extremity edema at the time
Plan:
- Unclear etiology for his left ventricular cardiomyopathy, although he is positive for Flu B so possibly related to this via sepsis in setting of suspected RLL PNA
- Previously on amiodarone --> now discontinued; remains on milrinone gtt
- Monitor for arrhythmias while on the milrinone drip, cristela in setting of MARY
- Cardiology consulted and recommendations appreciated; believe he would benefit from an ischemic evaluation which will be deferred to cardiology
- RHC performed on 12/10/2024 shows severely elevated filling pressures with postcapillary pulmonary hypertension with preserved CO + CI
- Monitor strict I/O given risk of volume overload; his repeat CXR on morning of 12/10/2024 shows worsening bilateral pleural effusions ---> continue diuresis with holding parameters
- Lactate is <2 mmol/L, hence no need to continue trending this
- Trend sHCO3 level; no need for bicarb at this time as pH is 7.42 on last blood gas from 12/12/2024 and sHCO3 is 27 today
- NPO past midnight for left heart cath tomorrow assuming creatinine continues to
- Patient's TFTs are abnormal with low TSH at 0.36 and elevated free T4 of 3.28 --> now (12/12/2024) with TSH undetectable (<0.02) and fT4 2.99--> given his rapid A-fib and acute decompensated heart failure, need to consider thyrotoxicosis, although
not febrile so doubt thyroid storm
- He may benefit from methimazole; endocrinology consulted: TSH likely low given acute illness and apparently heparin drip can cause elevated T4 levels
- Thyroid-stimulating Ig is pending
- Follow-up cultures (blood cultures x 2 collected 12/10)
- Continue with empiric antibiotics with ceftriaxone/Zithromax
- CXR shows opacification in the right lower lobe suspicious for pneumonia
- He will need repeat CXR in 4-6 weeks to follow-up pneumonia resolution
- Legionella + strep pneumonia urine antigens both negative
- Collect sputum culture if patient can produce a decent sample
- Continue Tamiflu x 5 days
- supportive care with prn tylenol, prn flexeril and lidocaine patch for body aches/lower back pain
- Pain control
- Anxiolytics prn, holding for sedation
- Maintain SpO2 >90-94% with supplemental oxygen and wean as tolerated
- Troponin peaked at 0.086 on 12/10/2024; no longer need to continue trending at this time
- Trend LFTs
- Of note, abdominal ultrasound on 12/10 shows no gallstones or bile duct dilatation, and liver appears unremarkable. There is mild gallbladder wall thickening and mild - moderate ascites
- Maintain MAP>65
- PO hydralazine added today for after
- Replete electrolytes with K>4, Mg>2
- Maintain euglycemia with goal BG 140-180
- Trend H/H and transfuse if needed to keep Hb>7-8g/dL; keep plt>20k, unless there is concern for bleeding then keep plt>50k
- prn nebulized bronchodilators - not currently bronchospastic
- Incentive spirometer encouraged 10x per hour for at least 4 hrs a day
- DVT ppx: heparin gtt
Critical care statement: A total of 41 minutes of critical care time was provided for this patient today. This includes management of unstable vital signs, evaluation of the patient at bedside, reviewing the patient's pertinent medical records
including radiographs, microbiology, laboratory evaluations, and discussion with primary team, consultants, pharmacy, nutrition, physical therapy, case management, charge nurse, critical care nursing, and respiratory therapy.
Data:
CXR 12/10/2024: Probable posterior layering of bilateral pleural effusion, right greater than left. Cannot exclude atelectasis or pneumonia; stable cardiomegaly and mild vascular congestion.
RUQ abdominal ultrasound 12/10/2024: Unremarkable sonographic appearance of the liver; no gallstones or bile duct dilatation; mild to moderate ascites; ,mild gallbladder wall thickening, which is nonspecific in the presence of ascites; Incidental
pleural effusion.
Subjective Dataa
Subjective Data
Date of Service:
Date of Service: December 12, 2024
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
Subjective:
Patient seen and evaluated this morning. Afebrile overnight. Creatinine improving today to 1.4 from 1.6 yesterday. Milrinone lowered to 0.25mcg/kg/min, and got dig x1. Remains on amio at 1mg/min + heparin gtt. He says he feels better today,
with minimal shortness of breath and a dry cough. BP currently 143/91, PAP: 40/22, CO/CI: 7.1/3.33, respectively, and saturating 94% on 2 L/min.
Review of Systems
General: Other (Negative unless mentioned above)
Objective Data
Data Reviewed
Vital Signs / I&O / Oxygen:
Vital Signs
Temp Pulse Resp BP Pulse Ox
98.5 F 148 15 131/90 93
12/12/24 07:09 12/12/24 08:00 12/12/24 08:00 12/12/24 08:00 12/12/24 08:05
Intake and Output
12/11/24 12/12/24 12/13/24
06:59 06:59 06:59
Intake Total 1136.0 / 1294.0 1538.6 / 1591.1 105.0 / 105.0
Output Total 4975 / 5000 2640 / 2815 350 / 350
Balance -3839.0 / -3706.0 -1101.4 / -1223.9 -245.0 / -245.0
SaO2 93
Nasal Cannula flow liters per 2
minute
Physical Exam
General: Respiratory Distress (negative), Pain (lower back), Chills (negative), Sweats (negative) and Other (Uncomfortable due to back pain + body aches)
HEENT: Normocephalic and Anicteric
Cardiovascular: Irregular Rhythm (Irregularly irregular), Peripheral Edema (+2 lower extremity pitting edema bilaterally) and Other (Tachycardic)
Respiratory: Wheeze (negative), Crackles (Bibasilar), Rhonchi (negative), Accessory Resp Muscle Use (negative) and Stridor (negative)
GI: Soft, Non Distended, Non Tender and Normal Bowel Sounds
Neurology: AO x 3 and Tremors (negative)
Skin: Warm, Dry, Cyanosis (negative) and Jaundice (negative)
Labs/Micro/Reports
Lab Data
12/12/24 04:49
12/12/24 04:49
Laboratory Results
12/11/24 12/11/24 12/12/24
13:04 19:40 04:49
APTT 101.7 H 171.3 H* 79.7 H
Microbiology
12/10/24 01:10 Blood/Venous Blood Culture - Preliminary
No Growth in 48 hours- Final report to follow
12/10/24 11:32 Blood/Venous Blood Culture - Preliminary
No Growth in 24 hours- Final report to follow
12/10/24 14:54 Nasal Swab Influenza Types A & B (PHILIP) - Final
Influenza B Positive, NAAT
12/10/24 02:37 Nose MRSA Screen - Final
No Methicillin Resistant Staphylococcus aureus isolated.
12/10/24 14:54 Urine Legionella Urinary Antigen - Final
Negative for Legionella pneumophila Serogroup 1 antigen.
A negative result does not rule out the possiblity of
Legionella infection due to other serogroups or species of
Legionella. Clinical correlation is recommended.
12/10/24 14:54 Urine Streptococcus pneumoniae Antigen (M - Final
Negative for Streptococcus pneumoniae antigen.
A negative result does not exclude infection with
Streptococcus pneumoniae. Clinical correlation is
recommended.
--- NOTE | 2024-12-12 08:59 | W.PN.CD ---
Today's Communication / Plan
-
wean milrinone, add hydralazine
cont IV lasix
LHC tomorrow if Cr continues to improve
Impression / Plan
-
#Cardiogenic shock
-[place] in place
-also with flu B
-levophed off
-CI better. Wean milrinone to 0.25 mcg/kg/min
-add hydralazine for afterload reduction
# New cardiomyopathy (severe, EF 15-20%) with acute systolic HF, and moderate MR/TR
-perhaps tachy induced +/- viral
-weaning milrinone
-if Cr continues to improve, will plan for LHC tomorrow
-beta gio once shock better
-assess for entresto, SGLT2i, MRA as Cr improves; however, insurance coverage may be an issue
-will add hydralazine for now as BP is trending up
-continue lasix IV 20mg bid, with close monitoring of labs and tele
#A-fib with RVR
-New onset: cardiomyopathy may be tachy induced
-Duration unknown
-Has not felt well since November 23 unclear if this represents onset of A-fib or if he developed more recently.
-IV heparin. Eventual transition to Eliquis after procedures
-Avoid Cardizem with cardiomyopathy
-Continue IV amiodarone and digoxin
-eventual beta gio once shock improved
-ADITYA/DCCV later this week after cath
# MARY up to 1.9 . now 1.6 . Continue to optimize hemodynamics. Monitor with diuresis
#Influenza B. Management as directed by primary team patient has been afebrile.
# Elevated LFTs. Likely related to shock. Improving.
# abnormal Thyroid studies . TSH low 0.36 and T4 elevated 3.28. Per primary team
CCT 35 minutes.
Physical Exam
Vital Signs/Labs
Vital Signs
Temp Pulse Resp BP Pulse Ox
98.5 F 148 15 131/90 93
12/12/24 07:09 12/12/24 08:00 12/12/24 08:00 12/12/24 08:00 12/12/24 08:05
12/11/24 12/12/24 12/13/24
06:59 06:59 06:59
Actual Weight 99.3 kg 100 kg
12/12/24 04:49
12/12/24 04:49
PT 18.6 Sec (11.4-14.6) H 12/09/24 18:39
INR 1.53 12/09/24 18:39
APTT 79.7 Sec (23.4-35.0) H 12/12/24 04:49
Magnesium 1.7 mg/dl (1.6-2.3) 12/12/24 04:49
Triglycerides 81 mg/dl (10-149) 12/10/24 02:49
LDL Cholesterol, Calc 114 mg/dl 12/10/24 02:49
VLDL Cholesterol, Calc 16 mg/dl (0-30) 12/10/24 02:49
HDL Cholesterol 31 mg/dl 12/10/24 02:49
TSH 0.03 uIU/ml (0.47-4.68) L 12/11/24 04:24
Free T4 2.78 ng/dl (0.78-2.19) H 12/11/24 04:24
12/09/24
18:39
Hfb-E-Alrhnqtpegf Pept 4700
LAB Results
12/09/24 12/09/24 12/10/24
18:39 22:38 00:03
Troponin I 0.059 H* 0.067 H* Cancelled
12/10/24 12/10/24 12/10/24
02:49 06:03 12:03
Troponin I 0.086 H* D Cancelled Cancelled
12/11/24
04:24
Troponin I 0.057 H*
Physical Exam
Constitutional: No acute distress
EENT: Moist mucous membranes
Cardiovascular: Rhythm/rate is irregular, Pedal edema present, JVD present and Systolic murmur present
Respiratory: Respiratory effort normal
Neuro/Psych: Alert
Data Reviewed
-
Date of Service: December 12, 2024
EKG: Other (Tele: Aflutter 120-150)
Echo: Report Reviewed by me
Labs: Labs Reviewed by me
--- NOTE | 2024-12-12 09:30 | PTCARENOTE ---
Rec'd care of patient at 0700. Patient alert and oriented. Flat affect. Anxious at times. C/o body aches. Aflutter on tele. Rate in the 140-150's. +1 anasarca. +3 edema in b/l LE. Pulses palpable. Pulse ox 93-95% on 2L nc. Lung sounds
shallow/diminished throughout. FIGUEROA. Orthopneic. +BS. No BM. Appetite poor. Sanchez for critical I/O. Output 175 mL/hr. [place] in place for hemodynamic monitoring. Milrinone and Amiodarone drips infusing as ordered throughout RIJ cordis. Heparin drip
infusing through right dual lumen PICC. PTT due at 1100.
[2024-12-12] MEDS: LANOXIN 250 MCG IV (09:37)
[2024-12-12] MEDS: APRESOLINE 10 MG PO ×3 (09:39→21:27)
--- NOTE | 2024-12-12 09:40 | PTCARENOTE ---
Milrinone decreased to 0.25 mcg/kg/min per Cardiology.
[2024-12-12 10:09] LABS: Free T3 4.17 pg/ml (2.77-5.27); Free T4 2.99 ng/dl (0.78-2.19)
[2024-12-12 10:22] LABS: TSH < 0.02 uIU/ml (0.47-4.68)
[2024-12-12] MEDS: CORDARONE 518 MG IV (11:13)
[2024-12-12] MEDS: TYLENOL 1000 MG PO (11:31)
[2024-12-12] MEDS: MAG-TAB SR 84 MG PO (11:31)
[2024-12-12] MEDS: KCL ELIXIR 40 MEQ PO (11:31)
[2024-12-12 11:45] LABS: APTT 55.7 Sec (23.4-35.0)
--- NOTE | 2024-12-12 12:12 | PN.CDI ---
CDI
- -
CDI:
Physician Documentation Request
Admit Date: 12/09/24 22:33
Dear Doctor Micheal,
Please review the following and provide your response in the progress notes.
Clinical Indicators:
Pt admitted with Cardiogenic shock, acute systolic heart failure, and FABIO.
12/11 Fur Trimming Machine Operator: ' Elevated troponin likely due to demand ischemia with type II AZ in the setting of rapid A-fib and acute decompensated heart failure'
12/12 Progress note: 'Elevated Troponin - NSTEMI versus non-ischemic troponin elevation.'
Please clarify the following regarding the documented myocardial infarction
Extent of AZ Onset
STEMI - indicate the location and vessel involved Within the past 4 weeks (28 days)
NSTEMI - subendocardial, nontransmural Greater than 4 weeks ago
Unable to determine Subsequent (defined as new AZ within 4 weeks of previous AZ)
Old or healed AZ with no current concerns or complications
Unable to determine
Type of AZ Subsequent AZ
Type I Initial AZ was a Type I AZ
Type II (due to demand ischemia) Initial AZ was a Type II AZ
Other (Type 3, 4a, 4b, 4c, 5) please specify Initial AZ was another type (please specify)
Unable to determine Unable to determine the type of initial AZ
NSTEMI
Type II AZ
Non-ischemic myocardial Injury
Other
Use of terms such as suspected, likely, concern for, or probable (associated with a specific diagnosis that is being evaluated, monitored, or treated as if it exists) are acceptable and can be coded in the inpatient setting, when documented at the
time of discharge.
Thank you,
Yudith Harkins RN, BSN
CDI Specialist
[place] text
Please use your independent medical judgment in providing your response.
--- NOTE | 2024-12-12 12:47 | W.PN.INTV ---
Today's Communication / Plan
Recommendations
Continue diuresis, input output monitoring, daily weights
Continue to monitor serum creatinine
If creatinine continues to go down, left heart catheterization tomorrow
as per cards-Wean off milrinone and add hydralazine
Assessment
-
IMPRESSION
A 44-year-old healthy primarily Nepali speaking male with no past medical issues who presented with shortness of breath, lower extremity swelling and general malaise.New onset heart failure with severely reduced ejection fraction and global
hypokinesia. History of fever earlier in November for about 3 days. Presented to Er with hypotension,tachycardia and SOB. CXR showed suspected right lower lobe pneumonia. His EKG shows A.fib with RVR and he had signs of volume overload.
Urgent echo performed showing severely reduced LVEF at 15-20% with global hypokinesis, with suspected RV hypokinesis, and moderate MR, and moderate TR.
ASSESSMENT
#SHOCK,secondary to cardiogenic causes or sepsis
#New onset heart failure
#Acute respiratory failure with hypoxia due to CAP involving RLL
#Influenza B pneumonia
#MARY
#Metabolic acidosis with increased anion gap likely due to MARY/Lactic acidosis from shock
#Transaminitis with hyperbilirubinemia likely due to hepatic congestion from heart failure
#Elevated troponin NSTEMI vs NIMI?
#Abnormal TFTs with low TSH and elevated free T4 consistent with hyperthyroidism
Plan:
#SHOCK,secondary to cardiogenic causes or sepsis
On presentation patient was hypotensive, tachycardic, had malaise and lethargy
Briefly required Levophed for blood pressure maintaining
Based on signs of overload, drop I, EKG, and urgent echocardiography showing acute onset cardiomyopathy with severely reduced left ventricular ejection, could be acute cardiogenic shock
Based on signs of sepsis hypotension, tachycardia, evidence of right lower lobe pneumonia on chest x-ray it could be septic shock
RHC performed on 12/10/2024 shows severely elevated filling pressures with postcapillary pulmonary hypertension with preserved CO + CI
Currently patient is off vasopressors and maintaining pressure
Continue with empiric antibiotics, ceftriaxone and Zithromax
Patient is influenza B positive based on NAAT
Tests came back negative for Legionella, Streptococcus pneumoniae, blood cultures were also negative
#New onset heart failure
Patient presented with shortness of breath, fatigue and generalized body swelling
History of a febrile illness in November that resolved but shortness of breath and swelling lingered on
Urgent echocardiography showed severely reduced left ventricular ejection fraction , EF 15-20%
It could be secondary to fast A-fib/viral illness/ischemic
proBNP elevated
Currently on hydralazine to reduce afterload
Assess for GDMT
Wean off milrinone
Can add beta-gio once shock is better
Continue IV Lasix
Input output monitoring and daily weight checks
#Acute respiratory failure with hypoxia due to CAP involving RLL
Patient was hypoxic initially and was having difficulty maintaining oxygen saturation
Maintain SpO2 >90-94%
Currently patient breathing on room air
#Abnormal TFTs with low TSH and elevated free T4 consistent with hyperthyroidism
Patient's TFTs are abnormal with low TSH at 0.36 and elevated free T4 of 3.28
Given his rapid A-fib and acute decompensated heart failure, need to consider thyrotoxicosis
Could be simply secondary to disease process, euthyroid sick sinus syndrome
Apparently, heparin infusion can cause hyperthyroidism?
Endocrinology on board, appreciate recommendations
- Follow-up cultures (blood cultures x 2 collected 12/10)
- Continue with empiric antibiotics with ceftriaxone/Zithromax
- CXR shows opacification in the right lower lobe suspicious for pneumonia
- He will need repeat CXR in 4-6 weeks to follow-up pneumonia resolution
- Legionella + strep pneumonia urine antigens both negative
- Collect sputum culture if patient can produce a decent sample
#Influenza B pneumonia
Continue Tamiflu x 5 days
Patient received Flexeril for body aches but remained sleepy throughout the day after that
Can consider Tylenol for body aches
#MARY
No past medical history of any kidney issues
Likely secondary to heart failure
Downtrending, serum creatinine 1.4
Continue to monitor serum creatinine
#Elevated troponin NSTEMI vs NIMI?
Troponin peaked at 0.086 on 12/10/2024; no longer need to continue trending at this time
#Transaminitis
Could be secondary to heart failure causing liver congestion
Abdominal ultrasound today shows no gallstones or bile duct dilatation, and liver appears unremarkable. There is mild gallbladder wall thickening and mild - moderate ascites
- DVT ppx: heparin gtt
Full code
Subjective Dataa
Subjective Data
Date of Service:
Date of Service: December 12, 2024
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
Subjective:
Patient feeling very tired and weak, lethargic complaining of bodyaches
Heart rate ranging in 140s
Fast A-fib
Objective Data
Data Reviewed
Vital Signs / I&O / Oxygen:
Vital Signs
Temp Pulse Resp BP Pulse Ox
98.5 F 147 21 140/90 94
12/12/24 07:09 12/12/24 12:31 12/12/24 12:31 12/12/24 12:00 12/12/24 12:31
Intake and Output
12/11/24 12/12/24 12/13/24
06:59 06:59 06:59
Intake Total 1136.0 / 1294.0 1538.6 / 1591.1 789.5 / 789.5
Output Total 4975 / 5000 2640 / 2815 4010 / 4010
Balance -3839.0 / -3706.0 -1101.4 / -1223.9 -3220.5 / -3220.5
SaO2 94
Nasal Cannula flow liters per 2
minute
Physical Exam
General: Pain (Generalized body aches and pains), Poor Appetite and Other (Swans catheter in place)
HEENT: Normocephalic and Anicteric
Cardiovascular: S1-S2, Irregular Rhythm (Irregularly irregular and tachycardic) and Peripheral Edema (Pitting edema bilaterally)
Respiratory: Clear and Non-Labored Respirations
GI: Soft, Non Distended, Non Tender and Normal Bowel Sounds
Neurology: Awake and Lethargic
Skin: Warm, Dry and Good Color
Labs/Micro/Reports
Lab Data
12/12/24 04:49
12/12/24 04:49
Laboratory Results
12/11/24 12/11/24 12/12/24
13:04 19:40 04:49
APTT 101.7 H 171.3 H* 79.7 H
12/12/24
11:11
APTT 55.7 H
Microbiology
12/10/24 11:32 Blood/Venous Blood Culture - Preliminary
No Growth in 48 hours- Final report to follow
12/10/24 01:10 Blood/Venous Blood Culture - Preliminary
No Growth in 48 hours- Final report to follow
12/10/24 14:54 Nasal Swab Influenza Types A & B (PHILIP) - Final
Influenza B Positive, NAAT
12/10/24 02:37 Nose MRSA Screen - Final
No Methicillin Resistant Staphylococcus aureus isolated.
12/10/24 14:54 Urine Legionella Urinary Antigen - Final
Negative for Legionella pneumophila Serogroup 1 antigen.
A negative result does not rule out the possiblity of
Legionella infection due to other serogroups or species of
Legionella. Clinical correlation is recommended.
12/10/24 14:54 Urine Streptococcus pneumoniae Antigen (M - Final
Negative for Streptococcus pneumoniae antigen.
A negative result does not exclude infection with
Streptococcus pneumoniae. Clinical correlation is
recommended.
--- NOTE | 2024-12-12 13:00 | PTCARENOTE ---
Minor changes in assessment. Patient more mobile in bed post administration of 1G Tylenol. Remains in aflutter with a rate of 140's. 250 mcg Digoxin administered at 0937. C.O. 5.43; C.I. 2.55. Urine output 850-950 mL/hr s/p 20mg IV Lasix. Total
output since 0700 4010 mL. Potassium and Magnesium repleted. Greenhouse Worker updated. Repeat BMP ordered for 1400. No other changes.
[2024-12-12 13:19] LABS: Glucose - Point of Care 101 mg/dl (70-99)
[2024-12-12 14:53] LABS: Blood Urea Nitrogen 23 mg/dl (9-20); Calcium 7.7 mg/dl (8.4-10.2); Carbon Dioxide 33 mmol/L (22-30); Chloride 99 mmol/L (98-107); Estimated Creatinine Clearance 83 ml/min; Glucose 131 mg/dl (70-99); Magnesium 1.6 mg/dl (1.6-2.3); Potassium 4.2 mmol/L (3.5-5.1); Sodium 136 mmol/L (135-145); eGFR > 60.00
--- NOTE | 2024-12-12 16:58 | W.PN.UPDATE ---
Update Note
Progress Note Update
urine output already greater than 4L. Will hold second dose of lasix today.
Will continue to wean milrinone to 0.125.
--- NOTE | 2024-12-12 17:00 | PTCARENOTE ---
No major changes in assessment. Urine output down to 40 mL/hr. Edema in b/l LE decreased. Plan discussed with Security Lead. Due to large amount of urine output throughout shift, second dose of Lasix held. Milrinone drip decreased to 0.125. No other
changes.
[2024-12-12] MEDS: LASIX IV (17:03)
[2024-12-12 17:19] LABS: Glucose - Point of Care 95 mg/dl (70-99)
[2024-12-12] MEDS: HEPARIN 25000 UNITS/250 ML IV (17:47)
[2024-12-12 18:04] LABS: APTT 90.6 Sec (23.4-35.0)
--- NOTE | 2024-12-12 18:20 | W.PN.UPDATE ---
Update Note
Progress Note Update
Pt still with tachycardia and further lowering of TSH in the setting of afib with RVR and cardiogenic shock. The addition of amiodarone further complicates the picture and interpretation of ongoing thyroid function monitoring. To clarify questions
raised, heparin does not cause hyperthyroidism, rather it leads to false elevations in free T4. It is unusual to see hyperthyroidism with a normal T3 level and normal total T4, so it is likelier that hyperthyroidism is not the cause of his cardiac
condition. That being said, his heartrate remains high despite therapy, and I would like to start 10 mg bid methimazole with close monitoring of the thyroid functions to see if this benefits him in any way. Liver functions need continued monitoring
in this setting, and their elevation is not a contraindication to starting MMI, and we do already see some improvement. This can be rapidly titrated down or discontinued if we see too much downward shift in the T4. Should obtain thyroid levels again
in 2 days. Please call with questions.
[2024-12-12] MEDS: TAPAZOLE 10 MG PO (20:03)
--- NOTE | 2024-12-12 20:17 | PTCARENOTE ---
Received pt from previous RN. Pt is AAOx3, anxious, flat. Sinus tach (140s) on the monitor. On 2L NC O2 sat 94%, lungs diminished, FIGUEROA/orthopneic/shallow. Poor appetite. Sanchez in place. Milrinone, Amio and Heparin gtt (see worklist). Pickens in place,
C.O 6.12, C.I 2.87, Jenni notified. Pt is laying in bed with call gabriel in reach. Safe environment maintained.
[2024-12-12] MEDS: ROCEPHIN 1000 MG IV (21:27)
[2024-12-12] MEDS: STERILE WATER FOR INJECTION 10 ML IV (21:27)
[2024-12-12] MEDS: ZITHROMAX 252.5 MG IV (21:28)
[2024-12-12 22:05] LABS: Glucose - Point of Care 110 mg/dl (70-99)
--- NOTE | 2024-12-12 22:41 | PTCARENOTE ---
Systems reviewed, no new changes in assessment. CHG bath provided, soler care provided. Pt refused mouth care, education provided. Safe environment maintained.
--- NOTE | 2024-12-12 23:52 | PTCARENOTE ---
C.I 1.66, Cardiology notified, will continue to monitor.
[2024-12-13] VITALS (30 sets, daily range): BP systolic 122–160; BP diastolic 77–115; BMI 33.7
[2024-12-13 00:09] LABS: TSH Receptor Antibody <1.10 IU/L (<=1.75)
[2024-12-13 00:17] LABS: APTT 67.2 Sec (23.4-35.0)
[2024-12-13] MEDS: APRESOLINE 10 MG IV (01:22)
[2024-12-13] MEDS: CORDARONE 518 MG IV ×2 (01:28→18:22)
[2024-12-13 03:47] LABS: Thyroid Stim. Immunoglobulin <0.10 IU/L (<=0.54)
[2024-12-13 04:03] LABS: Hematocrit 41.7 % (39.0-52.0); Mean Corp Hgb Conc. 33.6 g/dL (33.0-37.0); Mean Corpuscular Hgb 28.9 pg (27.0-31.0); Mean Corpuscular Volume 86.2 fL (80.0-94.0); Mean Platelet Volume 9.5 fL (7.4-10.4); Platelet Count 153 10^3/uL (130-400); Red Blood Cell Count 4.84 10^6/uL (4.70-6.10); Red Cell Dist. Width 14.7 % (11.5-14.5); White Blood Cell Count 6.6 10^3/uL (4.8-10.8)
--- NOTE | 2024-12-13 04:29 | PTCARENOTE ---
Systems reviewed, no new changes in assessment. AM labs provided. Drips maintained. Recent C.I 2.54. Safe environment maintained.
[2024-12-13 05:09] LABS: Blood Urea Nitrogen 21 mg/dl (9-20); Calcium 7.5 mg/dl (8.4-10.2); Carbon Dioxide 28 mmol/L (22-30); Chloride 101 mmol/L (98-107); Estimated Creatinine Clearance 96 ml/min; Glucose 107 mg/dl (70-99); Magnesium 1.7 mg/dl (1.6-2.3); Potassium 4.2 mmol/L (3.5-5.1); Sodium 135 mmol/L (135-145); eGFR > 60.00
[2024-12-13 06:12] LABS: APTT 114.5 Sec (23.4-35.0)
[2024-12-13] MEDS: LOW STRENGTH ASPIRIN 81 MG PO (08:12)
[2024-12-13] MEDS: TAPAZOLE 10 MG PO ×2 (08:12→19:42)
[2024-12-13] MEDS: TAMIFLU 75 MG PO ×2 (08:12→19:42)
[2024-12-13] MEDS: LIDOCAINE 4% PATCH 1 PATCH TOPICAL (08:12)
[2024-12-13] MEDS: APRESOLINE 10 MG PO (08:12)
[2024-12-13] MEDS: LASIX 20 MG IV ×2 (08:12→15:22)
--- NOTE | 2024-12-13 08:19 | W.PN.INTV ---
Today's Communication / Plan
Recommendations
[facility] today shows nonobstructive CAD with no aortic stenosis
Continue diuresis as blood pressure tolerates
Replete K>4, Mg>2
Strict I/O and trend UOP
Trend serum creatinine
Continue milrinone and monitor for arrhythmias
Continue amiodarone gtt with eventual transition to PO
Goal HR <110
Continue supplemental oxygen and titrate to SpO2 >90-94%
Antibiotics for total of 7-10 days given that he is currently on milrinone with cardiomyopathy and ADHF, possibly from sepsis
Analgesia for myalgias; tamiflu
Continue ICU level care for this critically ill patient
Assessment
-
Assessment: 44-year-old male with no past medical history who presented with shortness of breath, lower extremity swelling and general malaise. Found to be in A-fib with RVR. He had a fever earlier in November with shortness of breath and lower
extremity edema at the time. Fever lasted for about 3 days. He improved but his SOB and lower extremity edema persisted. He did not seek medical attention until he came to the ER on 12/09/24. Initially in the ER he was afebrile to 97.5 �F, pulse
rate 142, breathing at 18 breaths/min, BP 105/79 saturating 99% on room air. Initial labs showed leukocytosis to 11.5, sodium 133, creatinine 1.4, T. bili 2.2, troponin 0.059, and proBNP 4700. Blood cultures were collected, and CXR showed
suspected right lower lobe pneumonia. In the ER he was given Cardizem and started on drip, 40 mg Lasix, started on heparin drip, given IVF with 500 cc bolus of NS 0.9%, given Dilaudid, Zofran and started on Levophed due to persistent hypotension.
Urgent echo performed showing severely reduced LVEF at 15-20% with global hypokinesis, with suspected RV hypokinesis, and moderate MR, and moderate TR. Cardiology was consulted and he was transferred to the ICU for further evaluation with
director heart services consulted for additional management/recommendations.
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
Impression:
#A-fib with RVR
#Acute HFrEF with RV enlargement
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
#Acute respiratory failure with hypoxia due to acute pulmonary edema with bilateral pleural effusions and RLL pneumonia
#CAP involving RLL
#Influenza B pneumonia
#Leukocytosis drip � resolved as of 12/12/2019
#Lactic acidosis (resolved as of 12/10/2024)
#MARY - improving
#Metabolic acidosis with increased anion gap likely due to MARY at this point - acidosis now resolved
#Transaminitis with hyperbilirubinemia likely due to hepatic congestion from heart failure
#Elevated troponin likely due to demand ischemia with type II IN in the setting of rapid A-fib and acute decompensated heart failure
#Abnormal TFTs with low TSH and elevated free T4 consistent with hyperthyroidism
#Recent febrile illness (being the November 2024) X 3 days with SOB and lower extremity edema at the time
Plan:
- Unclear etiology for his left ventricular cardiomyopathy, although he is positive for Flu B so possibly related to this via sepsis in setting of suspected RLL PNA
- Continue amiodarone gtt + milrinone gtt
- Monitor for arrhythmias while on the milrinone drip, cristela in setting of MARY albeit improving
- Cardiology consulted and recommendations appreciated; believe he would benefit from an ischemic evaluation which will be deferred to cardiology
- RHC performed on 12/10/2024 shows severely elevated filling pressures with postcapillary pulmonary hypertension with preserved CO + CI
- Monitor strict I/O given risk of volume overload; his repeat CXR on morning of 12/10/2024 shows worsening bilateral pleural effusions ---> continue diuresis with holding parameters
- Lactate is <2 mmol/L, hence no need to continue trending this
- Trend sHCO3 level; no need for bicarb at this time as pH is 7.42 on last blood gas from 12/12/2024 and sHCO3 is 28 today
- NPO for left heart cath today - showed nonobstructive CAD and a right dominant system with no aortic stenosis
- DCCV planned for tomorrow
- Patient's TFTs are abnormal with low TSH at 0.36 and elevated free T4 of 3.28 --> now (12/12/2024) with TSH undetectable (<0.02) and fT4 2.99--> given his rapid A-fib and acute decompensated heart failure, need to consider thyrotoxicosis, although
not febrile so doubt thyroid storm
- Methimazole started today; endocrinology consulted who thstated at TSH likely low given acute illness and apparently heparin drip can cause elevated T4 levels, however methimazole started given benefit >risk
- Thyroid-stimulating Ig is negative
- Follow-up cultures (blood cultures x 2 collected 12/10)
- Continue with empiric antibiotics with ceftriaxone/Zithromax
- CXR shows opacification in the right lower lobe suspicious for pneumonia
- He will need repeat CXR in 4-6 weeks to follow-up pneumonia resolution
- Legionella + strep pneumonia urine antigens both negative
- Collect sputum culture if patient can produce a decent sample
- Continue Tamiflu x 5 days
- supportive care with prn tylenol, prn flexeril and lidocaine patch for body aches/lower back pain
- Pain control
- Anxiolytics prn, holding for sedation
- Maintain SpO2 >90-94% with supplemental oxygen and wean as tolerated
- Troponin peaked at 0.086 on 12/10/2024; no longer need to continue trending at this time
- Trend LFTs
- Of note, abdominal ultrasound on 12/10 shows no gallstones or bile duct dilatation, and liver appears unremarkable. There is mild gallbladder wall thickening and mild - moderate ascites
- Maintain MAP>65
- Continue PO hydralazine for afterload reduction
- Replete electrolytes with K>4, Mg>2
- Maintain euglycemia with goal BG 140-180
- Trend H/H and transfuse if needed to keep Hb>7-8g/dL; keep plt>20k, unless there is concern for bleeding then keep plt>50k
- prn nebulized bronchodilators - not currently bronchospastic
- Incentive spirometer encouraged 10x per hour for at least 4 hrs a day
- DVT ppx: heparin gtt (can be stopped now that LHC showed non-obstructive CAD with no lesions)
Critical care statement: A total of 38 minutes of critical care time was provided for this patient today. This includes management of unstable vital signs, evaluation of the patient at bedside, reviewing the patient's pertinent medical records
including radiographs, microbiology, laboratory evaluations, and discussion with primary team, consultants, pharmacy, nutrition, physical therapy, case management, charge nurse, critical care nursing, and respiratory therapy.
Data:
CXR 12/10/2024: Probable posterior layering of bilateral pleural effusion, right greater than left. Cannot exclude atelectasis or pneumonia; stable cardiomegaly and mild vascular congestion.
RUQ abdominal ultrasound 12/10/2024: Unremarkable sonographic appearance of the liver; no gallstones or bile duct dilatation; mild to moderate ascites; ,mild gallbladder wall thickening, which is nonspecific in the presence of ascites; Incidental
pleural effusion.
Subjective Dataa
Subjective Data
Date of Service:
Date of Service: December 13, 2024
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
Subjective:
Seen and evaluate this morning. Heart rate this morning 148, saturating 94% on 2 L/min, BP via NIBP: 160/86, and PAP: 43/22. CO/CI: 5.28/2.48, respectively. Currently on milrinone at 0.125mcg/kg/min, amiodarone at 1 mg/min and heparin drip. His
, Marisol, is at bedside and all questions were answered. Patient going now for left heart catheterization today. He says he feels better today, denies chest pain, nausea, fevers or chills.
Review of Systems
General: Other (Negative unless mentioned above)
Objective Data
Data Reviewed
Vital Signs / I&O / Oxygen:
Vital Signs
Temp Pulse Resp BP Pulse Ox
99.0 F 146 19 137/103 96
12/13/24 07:35 12/13/24 07:30 12/13/24 07:30 12/13/24 07:00 12/13/24 07:30
Intake and Output
12/12/24 12/13/24 12/14/24
06:59 06:59 06:59
Intake Total 1538.6 / 1591.1 2030.8 / 2079.0 96.4 / 96.4
Output Total 2640 / 2815 5311 / 5311 485 / 485
Balance -1101.4 / -1223.9 -3280.2 / -3232.0 -388.6 / -388.6
SaO2 96
Nasal Cannula flow liters per 2
minute
Physical Exam
General: Respiratory Distress (negative), Comfortable, Pain (Generalized body aches and pains), Poor Appetite and Other (R-IJ [place]-Lakhwinder catheter in place)
HEENT: Normocephalic and Anicteric
Cardiovascular: Irregular Rhythm (Irregularly irregular and tachycardic) and Peripheral Edema (+3 lower extremity edema bilaterally)
Respiratory: Clear, Wheeze (negative), Crackles (negative), Rhonchi (negative) and Non-Labored Respirations
GI: Soft, Non Distended, Non Tender and Normal Bowel Sounds
Neurology: AO x 3 and Tremors (negative)
Skin: Warm, Dry, Cyanosis (negative) and Jaundice (negative)
Labs/Micro/Reports
Lab Data
12/13/24 03:52
12/13/24 03:52
Laboratory Results
12/12/24 12/12/24 12/12/24
11:11 17:42 23:42
APTT 55.7 H 90.6 H 67.2 H
12/13/24
05:44
APTT 114.5 H
Microbiology
12/10/24 01:10 Blood/Venous Blood Culture - Preliminary
No Growth in 72 hours- Final report to follow
12/10/24 11:32 Blood/Venous Blood Culture - Preliminary
No Growth in 48 hours- Final report to follow
12/10/24 14:54 Nasal Swab Influenza Types A & B (PHILIP) - Final
Influenza B Positive, NAAT
12/10/24 02:37 Nose MRSA Screen - Final
No Methicillin Resistant Staphylococcus aureus isolated.
12/10/24 14:54 Urine Legionella Urinary Antigen - Final
Negative for Legionella pneumophila Serogroup 1 antigen.
A negative result does not rule out the possiblity of
Legionella infection due to other serogroups or species of
Legionella. Clinical correlation is recommended.
12/10/24 14:54 Urine Streptococcus pneumoniae Antigen (M - Final
Negative for Streptococcus pneumoniae antigen.
A negative result does not exclude infection with
Streptococcus pneumoniae. Clinical correlation is
recommended.
--- NOTE | 2024-12-13 08:46 | W.PN.HOSP.TC ---
Today's Communication/Plan
-
NPO for cath
diuresis
Assessment / Plan
Assessment / Plan
Mr. Lissa Louis is a 44 yo man, primarily Maltese speaking, presents to the ER with complaint of increasing fatigue, lower extremity swelling and shortness of breath found to be in afib with RVR with development of cardiogenic shock.
HEAD CT
IMPRESSION:
There or no acute or focal intracranial abnormalities
There is mild diffuse cortical and cerebellar atrophy
CXR
IMPRESSION:
Right lower lobe pneumonia
Abdomen US:
IMPRESSION:
Unremarkable sonographic appearance of the liver.
No gallstones or bile duct dilatation.
Mild to moderate ascites.
Mild gallbladder wall thickening, which is nonspecific in the presence of ascites.
Incidental pleural effusion.
TTE
CONCLUSIONS
During study patient limited the amount of images that were obtained reporting
discomfort during exam. Note this appeared to be disproportional to the amount
of pressure being applied.
Severely reduced left ventricular function with estimated ejection fraction of
15 to 20%
Global hypokinesis
Right ventricular hypokinesis suspected
Moderate mitral regurgitation.
Moderate tricuspid regurgitation
No prior study available for comparison
Cardiac Cath 12/10/24
CONCLUSION:
1. Severely elevated filling pressures (PCWP = 29 mmHg at 102.5 kg).
2. Normal cardiac index (2.68 L/min/m� by Ivon, 2.10 L/min/m� by thermodilution) on milrinone 0.33 mcg/kg/min.
3. Moderate, postcapillary pulmonary hypertension (mean PA = 37 mmHg, PCWP = 29 mmHg, cardiac output = 5.71 L/min by Ivon, 4.47 L/min by thermodilution, PVR 1.40 Moy units by Ivon, 1.79 Moy units by thermodilution).
Cardiogenic Shock
New Diagnosis Heart Failure - low EF seen on bedside US. Per echo 12/09 EF with 15 to 20%, global hypokinesis, right ventricular hypokinesis suspected.
Acute CHF with reduced EF with RV enlargement
Acute hypoxic respiratory failure secondary to acute pulmonary edema and right lower lobe pneumonia
Community-acquired pneumonia
Elevated Troponin - NSTEMI versus non-ischemic troponin elevation
Atrial Fibrillation with RVR
-admitted to ICU
-Troponin peaked at 0.086
-appreciate Cardiology consult
-RHC 12/10 with elevated pressures; cw diuresis
-Levophed titrated off 12/10
-Currently in ICU on Milrinone
-continue IV heparin gtt
-Continue with amiodarone gtt
-Continue aspirin
-COVID-negative, flu positive. Given patient's severity of his symptoms we will treat with Tamiflu.(last dose 12/15)
-speech following; ok for pureed
-coxsackie serology sent
-NPO for cardiac cath today
Lactic acidosis on admission
Now resolved
Sepsis likely secondary to flu with superimposed bacterial community-acquired pneumonia
Blood culture NGTD
Legionella, strep neg
Continue with antibiotics
Elevated liver enzymes
-may be 2/2 congestion
Abdominal ultrasound without any gallstone or biliary ductal dilation
MARY, does not report any history of CKD
Likely related to CHF
-improving with diuresis
Low TSH with elevated free T4 concerning for hyperthyroidism
appreciate Endocrinology
given difficulty in rate control methimazole initiated - repeat TSH in 2 days
DVT PPx heparin gtt
FULL CODE
Total Critical Care Time__45___ minutes. I was immediately available to the patient and staff. I personally examined, reviewed labs, diagnostic images/reports, interpretations, treatment plans, discussed patient care with other providers and
family or caregivers (if patient is unable to make decisions), entered orders as appropriate and documented the medical record.
Anticipated Discharge: > 48 hours
Subjective/Interval History
-
Date of Service: December 13, 2024
intermittently moaning during exam, upset by blood pressure cuff tightening
urinated a lot yesterday
Objective Data
-
Labs:
Laboratory Results
12/12/24 12/13/24 12/13/24
23:42 03:52 05:44
WBC 6.6
Hgb 14.0
Hct 41.7
Plt Count 153
APTT 67.2 H 114.5 H
Sodium 135
Potassium 4.2
Chloride 101
Carbon Dioxide 28
BUN 21 H
Creatinine 1.1
Glucose 107 H
Calcium 7.5 L
12/13/24
12:20
WBC
Hgb
Hct
Plt Count
APTT Pending
Sodium
Potassium
Chloride
Carbon Dioxide
BUN
Creatinine
Glucose
Calcium
Vital Signs:
Vital Signs
Temp Pulse Resp BP Pulse Ox
98.9 F 146 19 137/103 96
12/12/24 23:22 12/13/24 07:30 12/13/24 07:30 12/13/24 07:00 12/13/24 07:30
I&O
12/12/24 12/13/24 12/14/24
06:59 06:59 06:59
Intake Total 1538.6 / 1591.1 2030.8 / 2079.0 96.4 / 96.4
Output Total 2640 / 2815 5311 / 5311 485 / 485
Balance -1101.4 / -1223.9 -3280.2 / -3232.0 -388.6 / -388.6
Review of Systems
-
History Source: Patient
All other systems: Reviewed and negative
Physical Exam
-
General: Other (appears fatigued )
HEENT: PERRLA
Respiratory: Rales and Decreased Breath Sounds
Cardiac: Tachycardic
GI: Soft and Nontender
Musculoskeletal: Edema, Right Lower Extrem and Edema, Left Lower Extrem
Neuro: AO x 3
Psych: Calm
Data Reviewed
-
Diagnostic Radiology: Report Reviewed by me
Labs: Labs Reviewed by me
[2024-12-13 08:54] LABS: Glucose - Point of Care 103 mg/dl (70-99)
[2024-12-13 09:04] LABS: Glycohemoglobin (HgbA1c) 5.8 % (4.0-5.6)
--- NOTE | 2024-12-13 11:49 | W.PN.INTV ---
Today's Communication / Plan
Recommendations
Left heart catheterization today
IV Tylenol for pain management
Assessment
-
IMPRESSION
A 44-year-old healthy primarily Latvian speaking male with no past medical issues who presented with shortness of breath, lower extremity swelling and general malaise.New onset heart failure with severely reduced ejection fraction and global
hypokinesia. History of fever earlier in November for about 3 days. Presented to Er with hypotension,tachycardia and SOB. CXR showed suspected right lower lobe pneumonia. His EKG shows A.fib with RVR and he had signs of volume overload.
Urgent echo performed showing severely reduced LVEF at 15-20% with global hypokinesis, with suspected RV hypokinesis, and moderate MR, and moderate TR.
ASSESSMENT
#SHOCK,secondary to cardiogenic causes or sepsis
#New onset heart failure
#Acute respiratory failure with hypoxia due to CAP involving RLL
#Influenza B pneumonia
#MARY
#Metabolic acidosis with increased anion gap likely due to MARY/Lactic acidosis from shock
#Transaminitis with hyperbilirubinemia likely due to hepatic congestion from heart failure
#Elevated troponin NSTEMI vs NIMI?
#Abnormal TFTs with low TSH and elevated free T4 consistent with hyperthyroidism
Plan:
#SHOCK,secondary to cardiogenic causes or sepsis
On presentation patient was hypotensive, tachycardic, had malaise and lethargy
Briefly required Levophed for blood pressure maintaining
Based on signs of overload, drop I, EKG, and urgent echocardiography showing acute onset cardiomyopathy with severely reduced left ventricular ejection, could be acute cardiogenic shock
Based on signs of sepsis hypotension, tachycardia, evidence of right lower lobe pneumonia on chest x-ray it could be septic shock
RHC performed on 12/10/2024 shows severely elevated filling pressures with postcapillary pulmonary hypertension with preserved CO and CI
LHC due today
Currently patient is off vasopressors and maintaining pressure
Continue with empiric antibiotics, ceftriaxone and Zithromax
Patient is influenza B positive based on NAAT and today it is day 4 of Tamiflu
Tests came back negative for Legionella, Streptococcus pneumoniae, blood cultures were also negative
#New onset heart failure
Patient presented with shortness of breath, fatigue and generalized body swelling
History of a febrile illness in November that resolved but shortness of breath and swelling lingered on
Urgent echocardiography showed severely reduced left ventricular ejection fraction , EF 15-20%
It could be secondary to fast A-fib/viral illness/ischemic
Currently on hydralazine to reduce afterload
Assess for GDMT
Wean off milrinone
Continue IV Lasix as able
Input output monitoring and daily weight checks
Coxsackie serology pending
To have heart catheterization due today
#Acute respiratory failure with hypoxia due to CAP involving RLL
Patient was hypoxic initially and was having difficulty maintaining oxygen saturation
Maintain SpO2 >90-94%
Currently patient breathing on room air
#Abnormal TFTs with low TSH and elevated free T4 consistent with hyperthyroidism
Patient's TFTs are abnormal with low TSH at 0.36 and elevated free T4 of 3.28
Given his rapid A-fib and acute decompensated heart failure, need to consider thyrotoxicosis
As per endocrinology, heparin can increase free T4 levels, but in his situation hyper thyroidism is unlikely given normal T3 and T4
Added methimazole 10 mg twice daily, repeat TFTs in 2 days as per cards
#Influenza B pneumonia
Continue Tamiflu x 5 days
Patient received Flexeril for body aches but remained sleepy throughout the day after that
Can consider Tylenol for body aches
#MARY
Resolved, serum creatinine 1.1
#Elevated troponin NSTEMI vs NIMI?
Troponin peaked at 0.086 on 12/10/2024; no longer need to continue trending at this time
#Transaminitis
Could be secondary to heart failure causing liver congestion
Abdominal ultrasound today shows no gallstones or bile duct dilatation, and liver appears unremarkable. There is mild gallbladder wall thickening and mild - moderate ascites
- DVT ppx: heparin gtt
Full code
Subjective Dataa
Subjective Data
Date of Service:
Date of Service: December 13, 2024
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
Subjective:
Patient grimacing in pain, eager to move around on his own, due for left heart catheterization today.
present on bedside, concerns and questions addressed
Review of Systems
General: Other (Reviewed and negative)
Objective Data
Data Reviewed
Vital Signs / I&O / Oxygen:
Vital Signs
Temp Pulse Resp BP Pulse Ox
99.0 F 148 17 143/93 94
12/13/24 07:35 12/13/24 11:00 12/13/24 11:00 12/13/24 11:00 12/13/24 11:00
Intake and Output
12/12/24 12/13/24 12/14/24
06:59 06:59 06:59
Intake Total 1538.6 / 1591.1 2030.8 / 2079.0 241.0 / 241.0
Output Total 2640 / 2815 5311 / 5311 1535 / 1535
Balance -1101.4 / -1223.9 -3280.2 / -3232.0 -1294.0 / -1294.0
SaO2 94
Nasal Cannula flow liters per 2
minute
Physical Exam
General: Pain (Generalized body aches and pains), Poor Appetite and Other (Swans catheter in place)
HEENT: Normocephalic and Anicteric
Cardiovascular: S1-S2, Irregular Rhythm (Irregularly irregular and tachycardic) and Peripheral Edema (Pitting edema bilaterally)
Respiratory: Clear and Non-Labored Respirations
GI: Soft, Non Distended, Non Tender and Normal Bowel Sounds
Neurology: AO x 3
Skin: Warm, Dry and Good Color
Labs/Micro/Reports
Lab Data
12/13/24 03:52
12/13/24 03:52
Laboratory Results
12/12/24 12/12/24 12/12/24
11:11 17:42 23:42
APTT 55.7 H 90.6 H 67.2 H
12/13/24
05:44
APTT 114.5 H
Microbiology
12/10/24 11:32 Blood/Venous Blood Culture - Preliminary
No Growth in 72 hours- Final report to follow
12/10/24 01:10 Blood/Venous Blood Culture - Preliminary
No Growth in 72 hours- Final report to follow
12/10/24 14:54 Nasal Swab Influenza Types A & B (PHILIP) - Final
Influenza B Positive, NAAT
12/10/24 02:37 Nose MRSA Screen - Final
No Methicillin Resistant Staphylococcus aureus isolated.
12/10/24 14:54 Urine Legionella Urinary Antigen - Final
Negative for Legionella pneumophila Serogroup 1 antigen.
A negative result does not rule out the possiblity of
Legionella infection due to other serogroups or species of
Legionella. Clinical correlation is recommended.
12/10/24 14:54 Urine Streptococcus pneumoniae Antigen (M - Final
Negative for Streptococcus pneumoniae antigen.
A negative result does not exclude infection with
Streptococcus pneumoniae. Clinical correlation is
recommended.
[2024-12-13 12:01] LABS: Glucose - Point of Care 96 mg/dl (70-99)
--- NOTE | 2024-12-13 12:03 | PTCARENOTE ---
Pt AAOx3. Reports general body aches. Currently on Amiodarone, Heparin and Milrinone gtts. HR 148 and regular. 2L NC. Frequently encourage cough and deep breathing. NPO for rn cardiac cath. Good urine output (see I&Os). at bedside.
[2024-12-13 12:04] LABS: Mixed Venous O2 Saturation 75.3 %
[2024-12-13 12:16] LABS: APTT 106.6 Sec (23.4-35.0)
[2024-12-13] MEDS: MAG-TAB SR 84 MG PO (12:29)
[2024-12-13] MEDS: PRIMACOR 20 MG 100 IV (12:35)
--- NOTE | 2024-12-13 12:36 | CM ---
CM following re: discharge planning.
Reviewed pt's chart, met with pt. Per Rounds meeting, Left heart catheterization today, continue supportive care.
Pt lives with spouse 2SH, has supportive son. Pt recently moved to [place] from [place], works, has no insurance. [facility].
D/C plan: home with anticipated no needs. Family to transport at discharge.
CM will follow with discharge plan updates as hospitalization progresses
--- NOTE | 2024-12-13 13:03 | W.PN.CD ---
Addendum entered and electronically signed by Augustin Arteaga MD 12/13/24 13:32:
Spoke to Vane Lance MD regarding possible transfer to [facility]. She thinks that this will be challenging without insurance. She recommends continuing care here since he is doing ok and reaching back out if situation becomes worse.
Original Note:
Today's Communication / Plan
-
Continue milrinone 0.125
Increase hydralazine for afterload reduction
Continue Lasix 20 mg twice daily
Continue to monitor hemodynamics every 4 hours
LHC today for new cardiomyopathy
Stop amiodarone as it is not helping
Plan for ADITYA/CV tomorrow
Will reach out to help for possible transfer, though this may be difficult given that he does not have insurance
Impression / Plan
-
44-year-old primarily Czech speaking male with no past medical history who presented with shortness of breath, lower extremity edema and general malaise found to have acute heart failure with severely reduced ejection fraction (LVEF 15-20%). He
also tested positive for influenza B and course has been complicated by atrial flutter with RVR. He was taken for RHC on 12/10/2024 which revealed severely elevated filling pressures and normal cardiac index on milrinone.
Last set of hemos (12/13 @ 11:26): HR 147 BP 143/93 (110) CVP 6 PAP 41/22 (30) PCWP 22 CI 2.48
#Cardiogenic shock
-[place] in place. Last set of hemos as above. Continue to trend q4h
-levophed off
-CI is stable and >2. Continue milrinone 0.125 mcg/kg/min
-increase hydralazine to 20mg TID for afterload reduction with persistently elevated SVR
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
-perhaps tachy induced +/- viral myocarditis
-weaning milrinone as above
-LHC today to rule out obstructive CAD
-beta gio once shock better
-assess for entresto, SGLT2i, MRA as Cr improves; however, insurance coverage may be an issue (he is uninsured)
-Hydralazine as above
-continue lasix IV 20mg bid, with close monitoring of labs and hemos
#Atrial flutter with RVR
-New onset: cardiomyopathy may be tachy induced
-Duration unknown
-Has not felt well since November 23 unclear if this represents onset of A-fib or if he developed more recently.
-IV heparin. Eventual transition to Eliquis after procedures
-Avoid Cardizem with cardiomyopathy
-Stop amiodarone as it is not doing anything for his rates
-ADITYA/DCCV tomorrow if he remains stable. Keep NPO past midnight.
-eventual beta gio once shock improved
# MARY, improving
-Continue to optimize hemodynamics.
-Monitor with diuresis
# Right lower lobe pneumonia
-Continue ceftriaxone
#Influenza B. Management as directed by primary team patient has been afebrile.
# Elevated LFTs. Likely related to shock. Improving.
# abnormal Thyroid studies . TSH low 0.36 and T4 elevated 3.28. Continue Methimazole. Per primary team
CCT 49 minutes.
Physical Exam
Vital Signs/Labs
Vital Signs
Temp Pulse Resp BP Pulse Ox
99.1 F 148 24 141/96 96
12/13/24 11:25 12/13/24 12:30 12/13/24 12:30 12/13/24 12:00 12/13/24 12:30
12/12/24 12/13/24 12/14/24
06:59 06:59 06:59
Actual Weight 100 kg 97.4 kg
12/13/24 03:52
12/13/24 03:52
PT 18.6 Sec (11.4-14.6) H 12/09/24 18:39
INR 1.53 12/09/24 18:39
APTT 106.6 Sec (23.4-35.0) H 12/13/24 11:46
Magnesium 1.7 mg/dl (1.6-2.3) 12/13/24 03:52
Triglycerides 81 mg/dl (10-149) 12/10/24 02:49
LDL Cholesterol, Calc 114 mg/dl 12/10/24 02:49
VLDL Cholesterol, Calc 16 mg/dl (0-30) 12/10/24 02:49
HDL Cholesterol 31 mg/dl 12/10/24 02:49
TSH < 0.02 uIU/ml (0.47-4.68) L 12/12/24 09:07
Free T4 2.99 ng/dl (0.78-2.19) H 12/12/24 09:07
12/09/24
18:39
Clw-F-Eckwacrhksc Pept 4700
LAB Results
12/11/24
04:24
Troponin I 0.057 H*
Physical Exam
Constitutional: No acute distress and Comfortable
Cardiovascular: Rhythm/rate is irregular, Pedal edema present and S1S2 is normal
Respiratory: Respiratory effort normal
Data Reviewed
-
Date of Service: December 13, 2024
Medical Decision Making: Reviewed Test Results, Independent Historian Assessment, Test Interpretation and Review of Case with other Provider
EKG: Tracing Personally Visualized and interpreted
Echo: Tracing Personally Visualized and interpreted
X-Ray/CT/US/MRI/NUC/PET: Image Personally Visualized and interpreted
Labs: Labs Reviewed by me
Old Records: Reviewed
Critical Care Time (in minutes): 49
--- NOTE | 2024-12-13 14:15 | ITS.CL.PN ---
Property Management Intern - Procedure Note
Procedure
Procedure Note:
CARDIAC CATHETERIZATION REPORT
Date of Procedure: 12/13/2024
Referring: Dr. Harley Woodward MD, PhD
Indication: cardiomyopathy
PROCEDURE(S)
1. left heart catheterization
2. coronary angiography
ACCESS: 6F right radial artery (closure: radial band)
CATHETERS
1. 6F JR4
2. 6F JL3.5
MODERATE SEDATION: 23 minutes of moderate sedation was utilized. An independent medical technologist microbiology was present to assist with and help manage the patient's level of consciousness and physiologic status.
ULTRASOUND GUIDED VASCULAR ACCESS (right radial artery): Ultrasound was utilized for vascular access. The vessel was visualized under ultrasound and noted to be patent. An image of the vessel was stored permanently in the patient's medical record.
Under direct ultrasound guidance, vascular access was obtained using a modified Seldinger technique and a 6 [place] sheath was placed.
HEMODYNAMIC DATA
LV 138/21 mmHg (LVEDP not reliable given tachycardia resulting in time averaging)
AO 129/105 (mean 118) mmHg
CORONARY ANGIOGRAPHY
Dominance: right
LM: Large, normal
LAD: Large caliber vessel giving rise to a medium caliber D1 and medium caliber D2. There is a 30% stenosis in the mid LAD after D2, a 40% stenosis in the proximal segment of D2, and otherwise mild luminal irregularities.
LCx: Large vessel giving rise to a very large caliber OM1 and small OM 2. There are trivial luminal irregularities.
RCA: Large vessel giving rise to large caliber RPDA, small RPL1, small RPL2, and small RPL3. There are mild luminal irregularities.
RADIATION: dose 372 mGy; DAP 27.7 Gy*cm2; fluoroscopy time 3.1 min
CONCLUSIONS
1. nonobstructive coronary artery disease in a right dominant system
2. no aortic stenosis
RECOMMENDATIONS
1. expectant management after cardiac catheterization via right radial approach
2. aggressive primary prevention of coronary artery disease
3. further workup and management of nonischemic cardiomyopathy
Signed: Yoseph Orozco MD, PhD
--- NOTE | 2024-12-13 14:42 | PTCARENOTE ---
Addendum entered by Joellen Howell RN 12/13/24 15:31:
Amiodarone d/c'd
Original Note:
Pt received back from laborer heading. VSS. TR band intact to right wrist. Remains on Amio and Milrinone gtt. All other assessments unchanged.
[2024-12-13] MEDS: TYLENOL 650 MG PO ×2 (15:22→19:42)
[2024-12-13] MEDS: APRESOLINE 20 MG PO (15:22)
--- NOTE | 2024-12-13 15:27 | PTOTSP ---
ST Follow-Up
Pt continues to present with clinical signs of mild oropharyngeal dysphagia characterized by prolonged mastication and bolus formation, reduced bolus formation, and occasional throat clearing s/p ingestion of dry hard solids.
Recommendations:
- Change diet to SOFT BITE SIZED SOLIDS and continue with REGULAR THIN LIQUIDS; meds as tolerated.
- Aspiration precautions: HOB upright for PO intake; small bites/sips; slow intake rate; alternate solids/liquids; take breaks to breathe.
- CONTINUOUS PROCESS ROTARY DRUM TANNER to f/u re: diet tolerance and to determine if pt would benefit from an instrumental swallow study.
[2024-12-13 17:10] LABS: Glucose - Point of Care 100 mg/dl (70-99)
[2024-12-13] MEDS: PRADAXA 150 MG PO (19:42)
--- NOTE | 2024-12-13 20:12 | PTCARENOTE ---
Received pt from previous RN. Pt is AAOx3, flat. Aflutter on the monitor (HR 140s-150s). Right swan @ 56. C.I 1.98, cardiology process control technician notified, continue to keep Milrinone at the current rate. Milrinone @ 0.125 mcg. Amio @ 1 mg/min. On 2L NC O2 sat
96%, lungs diminished. Sanchez in place, for critical I&O. Right radial cath site dressing c/d/i + pulses. Mouth care provided. Pt is laying in bed with call gabriel in reach. Safe environment maintained.
[2024-12-13] MEDS: ZITHROMAX 500 MG PO (21:23)
[2024-12-13] MEDS: STERILE WATER FOR INJECTION 10 ML IV (21:23)
[2024-12-13] MEDS: APRESOLINE 30 MG PO (21:23)
[2024-12-13] MEDS: ROCEPHIN 1000 MG IV (21:23)
[2024-12-13 22:09] LABS: Glucose - Point of Care 96 mg/dl (70-99)
--- NOTE | 2024-12-13 23:00 | PTCARENOTE ---
Systems reviewed, pt weaned to RA O2 sat 93%. Safe environment maintained.
[2024-12-14] VITALS (25 sets, daily range): BP systolic 115–146; BP diastolic 74–112; BMI 33.3
--- NOTE | 2024-12-14 02:22 | DOWNTIME ---
There was a [employer] Mill Worker Downtime on 12/14/2024 from 0100 to 12/14/2023 at 0205 . Downtime documentation of patient's care, including medication administrations, has been reconciled in the electronic record per guidelines. Refer to the
patient's paper chart under the miscellaneous tab to see printed paper medication records and downtime forms.
[2024-12-14] MEDS: TYLENOL 650 MG PO (03:30)
--- NOTE | 2024-12-14 04:07 | PTCARENOTE ---
Pt c/o 05/02 back pain, PRN Tylenol given (see MAR). When pt took the Tylenol with water he vomited the water and Tylenol and had a nose bleed. Pt states he did not feel nauseous but feels better after. VSS. AM labs provided. CHG bath done.
[2024-12-14 04:11] LABS: Hematocrit 43.2 % (39.0-52.0); Hemoglobin 14.5 g/dL (13.0-18.0); Mean Corp Hgb Conc. 33.6 g/dL (33.0-37.0); Mean Corpuscular Hgb 29.1 pg (27.0-31.0); Mean Corpuscular Volume 86.6 fL (80.0-94.0); Mean Platelet Volume 9.3 fL (7.4-10.4); Platelet Count 166 10^3/uL (130-400); Red Blood Cell Count 4.99 10^6/uL (4.70-6.10); Red Cell Dist. Width 15.2 % (11.5-14.5); White Blood Cell Count 7.4 10^3/uL (4.8-10.8)
[2024-12-14 04:32] LABS: ALT (SGPT) 87 U/L (0-50); AST (SGOT) 37 U/L (17-59); Albumin 2.9 g/dl (3.5-5.0); Alkaline Phosphatase 76 U/L (38-126); Blood Urea Nitrogen 21 mg/dl (9-20); Calcium 8.1 mg/dl (8.4-10.2); Carbon Dioxide 27 mmol/L (22-30); Chloride 99 mmol/L (98-107); Direct Bilirubin 0.4 mg/dl (0.0-0.4); Estimated Creatinine Clearance 88 ml/min; Glucose 110 mg/dl (70-99); Magnesium 1.9 mg/dl (1.6-2.3); Potassium 4.3 mmol/L (3.5-5.1); Sodium 134 mmol/L (135-145); Total Bilirubin 1.1 mg/dl (0.2-1.3); Total Protein 5.6 g/dl (6.3-8.2); eGFR > 60.00
[2024-12-14 05:05] LABS: TSH 0.08 uIU/ml (0.47-4.68)
--- NOTE | 2024-12-14 05:24 | PTCARENOTE ---
Pt 92% on RA. Pt states it is hard to breathe, 2L placed on pt O2 sat 95%.
[2024-12-14] MEDS: PRIMACOR 20 MG 100 IV (06:01)
[2024-12-14 07:50] LABS: Glucose - Point of Care 93 mg/dl (70-99)
--- NOTE | 2024-12-14 07:57 | W.PN.HOSP.TC ---
Today's Communication/Plan
-
see plan
Assessment / Plan
Assessment / Plan
Mr. Lissa Louis is a 44 yo man, primarily Yi speaking, presents to the ER with complaint of increasing fatigue, lower extremity swelling and shortness of breath found to be in afib with RVR with development of cardiogenic shock.
HEAD CT
IMPRESSION:
There or no acute or focal intracranial abnormalities
There is mild diffuse cortical and cerebellar atrophy
CXR
IMPRESSION:
Right lower lobe pneumonia
Abdomen US:
IMPRESSION:
Unremarkable sonographic appearance of the liver.
No gallstones or bile duct dilatation.
Mild to moderate ascites.
Mild gallbladder wall thickening, which is nonspecific in the presence of ascites.
Incidental pleural effusion.
TTE
CONCLUSIONS
During study patient limited the amount of images that were obtained reporting
discomfort during exam. Note this appeared to be disproportional to the amount
of pressure being applied.
Severely reduced left ventricular function with estimated ejection fraction of
15 to 20%
Global hypokinesis
Right ventricular hypokinesis suspected
Moderate mitral regurgitation.
Moderate tricuspid regurgitation
No prior study available for comparison
Cardiac Cath 12/10/24
CONCLUSION:
1. Severely elevated filling pressures (PCWP = 29 mmHg at 102.5 kg).
2. Normal cardiac index (2.68 L/min/m� by Ivon, 2.10 L/min/m� by thermodilution) on milrinone 0.33 mcg/kg/min.
3. Moderate, postcapillary pulmonary hypertension (mean PA = 37 mmHg, PCWP = 29 mmHg, cardiac output = 5.71 L/min by Ivon, 4.47 L/min by thermodilution, PVR 1.40 Moy units by Ivon, 1.79 Moy units by thermodilution).
Cardiogenic Shock
New Diagnosis Heart Failure - low EF seen on bedside US. Per echo 12/09 EF with 15 to 20%, global hypokinesis, right ventricular hypokinesis suspected.
Acute CHF with reduced EF with RV enlargement
Acute hypoxic respiratory failure secondary to acute pulmonary edema and right lower lobe pneumonia
Community-acquired pneumonia
Non-ischemic myocardidal injury
Atrial Fibrillation with RVR
-admitted to ICU
-Troponin peaked at 0.086
-appreciate Cardiology consult
-RHC 12/10 with elevated pressures; cw diuresis
-Levophed titrated off 12/10
-Currently in ICU on Milrinone
-continue IV heparin gtt
-Continue with amiodarone gtt
-Continue aspirin
-COVID-negative, flu positive. Given patient's severity of his symptoms we will treat with Tamiflu.(last dose 12/15)
-speech following; ok for pureed
-coxsackie serology sent
-s/p cardiac cath - non-ischemic cardiomyopathy; plan for ADITYA/cardioversion today per cardiology
Lactic acidosis on admission
Now resolved
Sepsis likely secondary to flu with superimposed bacterial community-acquired pneumonia
Blood culture NGTD
Legionella, strep neg
Continue with antibiotics
Elevated liver enzymes
-may be 2/2 congestion
Abdominal ultrasound without any gallstone or biliary ductal dilation
MARY, does not report any history of CKD
Likely related to CHF
-improving with diuresis
Low TSH with elevated free T4 concerning for hyperthyroidism
appreciate Endocrinology
given difficulty in rate control methimazole initiated - repeat TSH in 2 days
DVT PPx heparin gtt
FULL CODE
Total Critical Care Time 45 minutes. I was immediately available to the patient and staff. I personally examined, reviewed labs, diagnostic images/reports, interpretations, treatment plans, discussed patient care with other providers and family
or caregivers (if patient is unable to make decisions), entered orders as appropriate and documented the medical record.
Anticipated Discharge: > 48 hours
Subjective/Interval History
-
Date of Service: December 14, 2024
states he's not feeling better
urinating a lot overnight
Objective Data
-
Labs:
Laboratory Results
12/14/24
03:42
WBC 7.4
Hgb 14.5
Hct 43.2
Plt Count 166
Sodium 134 L
Potassium 4.3
Chloride 99
Carbon Dioxide 27
BUN 21 H
Creatinine 1.2
Glucose 110 H
Calcium 8.1 L
Total Bilirubin 1.1
AST 37
ALT 87 H
Alkaline Phosphatase 76
Vital Signs:
Vital Signs
Temp Pulse Resp BP Pulse Ox
98.4 F 149 16 141/102 94
12/14/24 04:34 12/14/24 07:21 12/14/24 07:21 12/14/24 07:00 12/14/24 07:21
I&O
12/13/24 12/14/24 12/15/24
06:59 06:59 06:59
Intake Total 2030.8 / 2079.0 1281.6 / 1302.2 20.6 / 20.6
Output Total 5311 / 5311 3227 / 3267 40 / 40
Balance -3280.2 / -3232.0 -1945.4 / -1964.8 -19.4 / -19.4
Review of Systems
-
History Source: Patient
All other systems: Reviewed and negative
Physical Exam
-
General: No Apparent Distress
HEENT: PERRLA
Respiratory: Clear to Auscultation; Negative Wheezes
Cardiac: Regular Rhythm and S1/S2
GI: Soft and Nontender
Musculoskeletal: No Edema
Skin: Warm and Dry; Negative Rash
Neuro: AO x 3
Psych: Calm
Data Reviewed
-
Diagnostic Radiology: Report Reviewed by me
Labs: Labs Reviewed by me
--- NOTE | 2024-12-14 08:27 | W.PN.INTV ---
Today's Communication / Plan
Recommendations
[facility] 12/13/2024 showed nonobstructive CAD with no aortic stenosis
Continue diuresis as blood pressure tolerates
Replete K>4, Mg>2
Strict I/O and trend UOP
Trend serum creatinine
Milrinone stopped this morning; continue to trend cardiac index and if remains >2 then would start beta-gio to try to optimize heart rate
Continue amiodarone gtt with eventual transition to PO
Goal HR <110
Continue supplemental oxygen and titrate to SpO2 >90-94%
Antibiotics for total of 7-10 days given that he is currently on milrinone with cardiomyopathy and ADHF, possibly from sepsis
Analgesia for myalgias; tamiflu
Continue ICU level care for this critically ill patient
Assessment
-
Assessment: 44-year-old male with no past medical history who presented with shortness of breath, lower extremity swelling and general malaise. Found to be in A-fib with RVR. He had a fever earlier in November with shortness of breath and lower
extremity edema at the time. Fever lasted for about 3 days. He improved but his SOB and lower extremity edema persisted. He did not seek medical attention until he came to the ER on 12/09/24. Initially in the ER he was afebrile to 97.5 �F, pulse
rate 142, breathing at 18 breaths/min, BP 105/79 saturating 99% on room air. Initial labs showed leukocytosis to 11.5, sodium 133, creatinine 1.4, T. bili 2.2, troponin 0.059, and proBNP 4700. Blood cultures were collected, and CXR showed
suspected right lower lobe pneumonia. In the ER he was given Cardizem and started on drip, 40 mg Lasix, started on heparin drip, given IVF with 500 cc bolus of NS 0.9%, given Dilaudid, Zofran and started on Levophed due to persistent hypotension.
Urgent echo performed showing severely reduced LVEF at 15-20% with global hypokinesis, with suspected RV hypokinesis, and moderate MR, and moderate TR. Cardiology was consulted and he was transferred to the ICU for further evaluation with
disk operator services consulted for additional management/recommendations.
Chronic conditions ARTS ADMINISTRATOR OR MANAGER: non-contributory
Impression:
#A-fib with RVR
#Acute HFrEF with RV enlargement
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
#Acute respiratory failure with hypoxia due to acute pulmonary edema with bilateral pleural effusions and RLL pneumonia
#CAP involving RLL
#Influenza B pneumonia
#Leukocytosis � resolved as of 12/12/2019
#Lactic acidosis (resolved as of 12/10/2024)
#MARY - improving
#Metabolic acidosis with increased anion gap likely due to MARY at this point - acidosis now resolved
#Transaminitis with hyperbilirubinemia likely due to hepatic congestion from heart failure
#Elevated troponin likely due to demand ischemia with type II NJ in the setting of rapid A-fib and acute decompensated heart failure - troponin peaked on 12/10/2024 at 0.086
#Abnormal TFTs with low TSH and elevated free T4 consistent with hyperthyroidism
#Recent febrile illness (being the November 2024) X 3 days with SOB and lower extremity edema at the time
Plan:
- Unclear etiology for his left ventricular cardiomyopathy, although he is positive for Flu B so possibly related to this via sepsis in setting of suspected RLL PNA
- Continue amiodarone gtt; milrinone gtt now off; continue to trend CI with goal >2
- If cardiac index remains >2 off milrinone then would start a beta-gio for heart rate control; defer this to cardiology
- Cardiology recommendations appreciated
- RHC performed on 12/10/2024 shows severely elevated filling pressures with postcapillary pulmonary hypertension with preserved CO + CI
- Monitor strict I/O given risk of volume overload; his repeat CXR on morning of 12/10/2024 shows worsening bilateral pleural effusions ---> continue diuresis with holding parameters
- Lactate is <2 mmol/L, hence no need to continue trending this
- Trend sHCO3 level; no need for bicarb at this time as pH is 7.42 on last blood gas from 12/12/2024 and sHCO3 is 27 today
- s/p Left eart cath on 12/13/2024 - showed nonobstructive CAD and a right dominant system with no aortic stenosis
- DCCV eventually planned - defer to cardiology
- Patient's TFTs are abnormal with low TSH at 0.36 and elevated free T4 of 3.28 --> now (12/12/2024) with TSH undetectable (<0.02) and fT4 2.99--> given his rapid A-fib and acute decompensated heart failure, need to consider thyrotoxicosis, although
not febrile so doubt thyroid storm
- Methimazole started 12/13/2024; endocrinology consulted who thstated at TSH likely low given acute illness and apparently heparin drip can cause elevated T4 levels, however methimazole started given benefit >risk
- Thyroid-stimulating Ig is negative
- Follow-up cultures (blood cultures x 2 collected 12/10)
- Continue with empiric antibiotics with ceftriaxone/Zithromax
- CXR shows opacification in the right lower lobe suspicious for pneumonia
- He will need repeat CXR in 4-6 weeks to follow-up pneumonia resolution
- Legionella + strep pneumonia urine antigens both negative
- Collect sputum culture if patient can produce a decent sample
- Continue Tamiflu x 5 days
- supportive care with prn tylenol, prn flexeril and lidocaine patch for body aches/lower back pain
- Pain control
- Anxiolytics prn, holding for sedation
- Maintain SpO2 >90-94% with supplemental oxygen and wean as tolerated
- Troponin peaked at 0.086 on 12/10/2024; no longer need to continue trending at this time
- Trend LFTs
- Of note, abdominal ultrasound on 12/10 shows no gallstones or bile duct dilatation, and liver appears unremarkable. There is mild gallbladder wall thickening and mild - moderate ascites
- Maintain MAP>65
- Continue PO hydralazine for afterload reduction
- Lisinopril started today at 5 mg daily
- Replete electrolytes with K>4, Mg>2
- Maintain euglycemia with goal BG 140-180
- Trend H/H and transfuse if needed to keep Hb>7-8g/dL; keep plt>20k, unless there is concern for bleeding then keep plt>50k
- prn nebulized bronchodilators - not currently bronchospastic
- Incentive spirometer encouraged 10x per hour for at least 4 hrs a day
- DVT ppx: pradaxa (heparin gtt stopped now that LHC showed non-obstructive CAD with no lesions)
Critical care statement: A total of 42 minutes of critical care time was provided for this patient today. This includes management of unstable vital signs, evaluation of the patient at bedside, reviewing the patient's pertinent medical records
including radiographs, microbiology, laboratory evaluations, and discussion with primary team, consultants, pharmacy, nutrition, physical therapy, case management, charge nurse, critical care nursing, and respiratory therapy.
Data:
CXR 12/10/2024: Probable posterior layering of bilateral pleural effusion, right greater than left. Cannot exclude atelectasis or pneumonia; stable cardiomegaly and mild vascular congestion.
RUQ abdominal ultrasound 12/10/2024: Unremarkable sonographic appearance of the liver; no gallstones or bile duct dilatation; mild to moderate ascites; ,mild gallbladder wall thickening, which is nonspecific in the presence of ascites; Incidental
pleural effusion.
Subjective Dataa
Subjective Data
Date of Service:
Date of Service: December 14, 2024
Chief Complaint: Business Development Manager Follow Up
Subjective:
Patient seen and evaluated today at bedside. Afebrile overnight. Milrinone off this AM. Remains on amiodarone at 0.5mg/min. On 2L/min, SpO2 92%. Vomited last night and again this morning. PAP 40/29, CO/CI: 3.3/1.57, respectively. BP via NIBP:
132/102. Heart rate 150. He denies chest pain, MATUTE, fevers or chills
Review of Systems
General: Other (Negative unless mentioned above)
Objective Data
Data Reviewed
Vital Signs / I&O / Oxygen:
Vital Signs
Temp Pulse Resp BP Pulse Ox
98.5 F 149 16 141/102 94
12/14/24 08:00 12/14/24 07:21 12/14/24 07:21 12/14/24 07:00 12/14/24 07:21
Intake and Output
12/13/24 12/14/24 12/15/24
06:59 06:59 06:59
Intake Total 2030.8 / 2079.0 1281.6 / 1302.2 41.2 / 41.2
Output Total 5311 / 5311 3227 / 3267 70 / 70
Balance -3280.2 / -3232.0 -1945.4 / -1964.8 -28.8 / -28.8
SaO2 94
Nasal Cannula flow liters per 2
minute
Physical Exam
General: Respiratory Distress (negative), Pain (Generalized body aches and pains), Poor Appetite and Other (R-IJ Lena-Lakhwinedr catheter in place)
HEENT: Normocephalic and Anicteric
Cardiovascular: Irregular Rhythm (Irregularly irregular and tachycardic) and Peripheral Edema (+2 lower extremity edema bilaterally)
Respiratory: Clear, Wheeze (negative), Crackles (negative), Rhonchi (negative) and Non-Labored Respirations
GI: Soft, Non Distended, Non Tender and Normal Bowel Sounds
Neurology: AO x 3
Skin: Warm, Dry, Cyanosis (negative) and Jaundice (negative)
Labs/Micro/Reports
Lab Data
12/14/24 03:42
12/14/24 03:42
Laboratory Results
12/13/24
11:46
APTT 106.6 H
Microbiology
12/10/24 01:10 Blood/Venous Blood Culture - Preliminary
No Growth in 4 days- Final report to follow
12/10/24 11:32 Blood/Venous Blood Culture - Preliminary
No Growth in 72 hours- Final report to follow
12/10/24 14:54 Nasal Swab Influenza Types A & B (PHILIP) - Final
Influenza B Positive, NAAT
12/10/24 02:37 Nose MRSA Screen - Final
No Methicillin Resistant Staphylococcus aureus isolated.
[2024-12-14] MEDS: TAMIFLU 75 MG PO ×2 (08:43→19:50)
[2024-12-14] MEDS: TAPAZOLE 10 MG PO ×2 (08:43→19:49)
[2024-12-14] MEDS: APRESOLINE 30 MG PO (08:43)
[2024-12-14] MEDS: PRADAXA 150 MG PO ×2 (08:43→19:50)
[2024-12-14] MEDS: LASIX 20 MG IV ×2 (08:44→15:53)
[2024-12-14] MEDS: LIDOCAINE 4% PATCH 1 PATCH TOPICAL (08:44)
--- NOTE | 2024-12-14 09:32 | W.PN.CD ---
Today's Communication / Plan
-
stop milrinone and trend [place] numbers
increase hydralazine and add lisinopril
IV lasix
Impression / Plan
-
44-year-old primarily Malay speaking male with no past medical history who presented with shortness of breath, lower extremity edema and general malaise found to have acute heart failure with severely reduced ejection fraction (LVEF 15-20%). He
also tested positive for influenza B and course has been complicated by atrial flutter with RVR. He was taken for RHC on 12/10/2024 which revealed severely elevated filling pressures and normal cardiac index on milrinone.
#Cardiogenic shock: improving
-CI >2
-stop milrinone and trend [place] numbers
-increase hydralazine to 50mg tid, and add lisinopril 5mg daily
#New non-ischemic cardiomyopathy (severe, EF 15-20%) with acute systolic HF, and moderate MR/TR
-perhaps tachy induced +/- viral myocarditis
-[facility] 12/09/24: 30% mid LAD, 40% prox D2; o/w LI
-beta gio once shock better
-no prescription med coverage, so will use generic GDMT
-continue lasix IV 20mg bid, with close monitoring of labs and hemos
#Atrial flutter with RVR
-New onset: cardiomyopathy may be tachy induced
-Duration unknown
-Has not felt well since November 23 unclear if this represents onset of A-fib or if he developed more recently.
-CHADS2-VASC = 1. Pradaxa 150mg bid for OAC
-continue amiodarone for rate control
-eventual beta gio once shock improved
-may need DCCV this admission
# MARY, improved
-Continue to optimize hemodynamics.
# Right lower lobe pneumonia
-Continue ceftriaxone
#Influenza B. Management as directed by primary team patient has been afebrile.
# Elevated LFTs. Likely related to shock. Improving.
# abnormal Thyroid studies . TSH low 0.36 and T4 elevated 3.28. Continue Methimazole. Per primary team
CCT 40 minutes.
Physical Exam
Vital Signs/Labs
Vital Signs
Temp Pulse Resp BP Pulse Ox
98.5 F 149 25 143/110 95
12/14/24 08:00 12/14/24 09:00 12/14/24 09:00 12/14/24 09:00 12/14/24 09:00
12/13/24 12/14/24 12/15/24
06:59 06:59 06:59
Actual Weight 97.4 kg 96.3 kg
12/14/24 03:42
12/14/24 03:42
PT 18.6 Sec (11.4-14.6) H 12/09/24 18:39
INR 1.53 12/09/24 18:39
APTT 106.6 Sec (23.4-35.0) H 12/13/24 11:46
Magnesium 1.9 mg/dl (1.6-2.3) 12/14/24 03:42
Triglycerides 81 mg/dl (10-149) 12/10/24 02:49
LDL Cholesterol, Calc 114 mg/dl 12/10/24 02:49
VLDL Cholesterol, Calc 16 mg/dl (0-30) 12/10/24 02:49
HDL Cholesterol 31 mg/dl 12/10/24 02:49
TSH 0.08 uIU/ml (0.47-4.68) L 12/14/24 03:41
Free T4 2.50 ng/dl (0.78-2.19) H 12/14/24 03:41
12/09/24
18:39
Yxo-V-Hscseendtdx Pept 4700
Physical Exam
Constitutional: No acute distress
EENT: Moist mucous membranes
Cardiovascular: Rhythm & rate is regular (tachy), Pedal edema present, JVD present and Systolic murmur present
Respiratory: Respiratory effort normal
Neuro/Psych: AO x 3
Data Reviewed
-
Date of Service: December 14, 2024
EKG: Other (Tele: A flutter 150)
Labs: Labs Reviewed by me
Critical Care Time (in minutes): 40
[2024-12-14] MEDS: ZESTRIL 5 MG PO (11:11)
--- NOTE | 2024-12-14 12:16 | W.PN.INTV ---
Today's Communication / Plan
Recommendations
Optimize heart failure treatment
Increase hydralazine dose,add lisinopril
Off milrinone
Observe hemodynamics and add beta gio as able-as per cards
Eventual plan to refer to tertiary care
Assessment
-
IMPRESSION
A 44-year-old healthy primarily Nepali speaking male with no past medical issues who presented with shortness of breath, lower extremity swelling and general malaise.New onset heart failure with severely reduced ejection fraction and global
hypokinesia. History of fever earlier in November for about 3 days. Presented to Er with hypotension,tachycardia and SOB. CXR showed suspected right lower lobe pneumonia. His EKG shows A.fib with RVR and he had signs of volume overload.
Urgent echo performed showing severely reduced LVEF at 15-20% with global hypokinesis, with suspected RV hypokinesis, and moderate MR, and moderate TR.
Serum creatinine trending down
[place]-Lakhwinder catheter in place to help guide the management
Optimize heart failure treatment based on GDMT as able
ASSESSMENT
#SHOCK,secondary to cardiogenic causes or sepsis
#New onset heart failure
#Acute respiratory failure with hypoxia due to CAP involving RLL
#Influenza B pneumonia
#MARY
#Metabolic acidosis with increased anion gap likely due to MARY/Lactic acidosis from shock
#Transaminitis with hyperbilirubinemia likely due to hepatic congestion from heart failure
#Elevated troponin NSTEMI vs NIMI?
#Abnormal TFTs with low TSH and elevated free T4 consistent with hyperthyroidism
Plan:
#SHOCK,secondary to cardiogenic causes or sepsis
On presentation patient was hypotensive, tachycardic, had malaise and lethargy
Briefly required Levophed for blood pressure maintaining-off vasopressors now
Normal cardiac index and output on right heart catheterization, left heart catheterization shows no obstruction in coronary arteries-nonischemic myocardial injury likely
Continue antibiotics for pneumonia
#New onset heart failure
History of a febrile illness in November that resolved but shortness of breath and swelling lingered on
Urgent echocardiography showed severely reduced left ventricular ejection fraction , EF 15-20%
It could be secondary to fast A-fib/viral illness/ischemic
Hydralazine increased to 50 mg 3 times daily,Lisinopril added to help decrease afterload
Add GDMT as able-insurance issues limit options
High risk of clots given severely reduced ejection fraction, off heparin, switch to Dabigartan
Continue IV Lasix as able
#Acute respiratory failure with hypoxia due to CAP involving RLL
Maintain SpO2 >90-94%
Currently patient breathing on 2 L of oxygen
#Abnormal TFTs with low TSH and elevated free T4 consistent with hyperthyroidism
As per endocrinology, heparin can increase free T4 levels, but in his situation hyper thyroidism is unlikely given normal T3
Added methimazole 10 mg twice daily, repeat TFTs in 2 days as per cards
#Influenza B pneumonia
Continue Tamiflu x 5 days
Tylenol for body aches
#MARY
Resolved, serum creatinine 1.1
#Elevated troponin NSTEMI vs NIMI?
Troponin peaked at 0.086 on 12/10/2024; no longer need to continue trending at this time
#Transaminitis
Liver enzymes trending down
- DVT ppx: heparin gtt
Full code
Subjective Dataa
Subjective Data
Date of Service:
Date of Service: December 14, 2024
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
Subjective:
Patient feels very tired and weak and has bodyaches
Patient aware of his medical condition and agrees to the management plan but is frustrated with being limited to bed
Patient's heart rate is still in 140s
Patient able to communicate his concerns, questions answered and management plan explained in detail
Review of Systems
General: Other (Reviewed and negative)
Objective Data
Data Reviewed
Vital Signs / I&O / Oxygen:
Vital Signs
Temp Pulse Resp BP Pulse Ox
98.5 F 149 22 143/109 92
12/14/24 08:00 12/14/24 11:38 12/14/24 11:38 12/14/24 11:00 12/14/24 11:38
Intake and Output
12/13/24 12/14/24 12/15/24
06:59 06:59 06:59
Intake Total 2030.8 / 2079.0 1281.6 / 1302.2 451.9 / 451.9
Output Total 5311 / 5311 3227 / 3267 975 / 975
Balance -3280.2 / -3232.0 -1945.4 / -1964.8 -523.1 / -523.1
SaO2 92
Nasal Cannula flow liters per 2
minute
Physical Exam
General: Comfortable and Other (Anxious about his condition, breathing on 2 L of oxygen, feeling hungry, objectively appears more communicative today)
HEENT: Normocephalic and Anicteric
Cardiovascular: S1-S2, Regular Rhythm, Peripheral Edema (+3 lower extremity edema bilaterally) and Other (Tachycardia)
Respiratory: Clear and Non-Labored Respirations
GI: Soft, Non Distended, Non Tender and Normal Bowel Sounds
Neurology: Awake, Oriented and No Motor Deficits
Skin: Warm and Good Color
Labs/Micro/Reports
Lab Data
12/14/24 03:42
12/14/24 03:42
Laboratory Results
12/13/24
11:46
APTT 106.6 H
Microbiology
12/10/24 11:32 Blood/Venous Blood Culture - Preliminary
No Growth in 4 days- Final report to follow
12/10/24 01:10 Blood/Venous Blood Culture - Preliminary
No Growth in 4 days- Final report to follow
12/10/24 14:54 Nasal Swab Influenza Types A & B (PHILIP) - Final
Influenza B Positive, NAAT
12/10/24 02:37 Nose MRSA Screen - Final
No Methicillin Resistant Staphylococcus aureus isolated.
[2024-12-14] MEDS: ZOFRAN 4 MG IV (12:28)
--- NOTE | 2024-12-14 13:39 | PTCARENOTE ---
Pt AAOx3. HR 149-151. Remains on Amio gtt. Lower extremity edema appears improved. Milrinone gtt d/c'd this am. Around noon, CI 1.57. Dr Woodward notified. Milrinone restarted per order. Attempted to wean off O2. SpO2 89-90% on room air. 93%
on 2L NC at this time. Good appetite for breakfast. N/V this afternoon. notified. One time dose Zofran given per order. Pt reporting urge to have BM at this time. 2 assist OOB to BSC. Medium brown BM. OOB in chair x1hr. Clear yellow
urine via soler. All other assessments unchanged.
[2024-12-14 14:10] LABS: Glucose - Point of Care 137 mg/dl (70-99)
--- NOTE | 2024-12-14 15:47 | W.PN.EDC ---
Today's Communication / Plan
-
as above
Assessment / Plan
-
Impression/ Plan: Cardiogenic shock in the setting of initial afib with RVR, now aflutter. Requiring pressor support, milrinone gtt. Hyperthyroid -appearing TFT's, but do not suspect true hyperthyroidism given barely depressed TSH at admission and
normal T3, normal total thyroid hormone levels. Nonetheless in this setting due to persistent tachycardia have administered MMI 10 mg q12 hours with the plan to wean dose once T4 levels reach mid normal range. a free T4 by direct dialysis is
pending. TSI antibody negative.
Subjective Data
-
Pt more awake today and able to provide some history. He asserts no prior history of thyroid disease. Heartrate remains in the 150s. Primary team have been seeking to transfer pt to tertiary center. We started MMI 10 mg twice daily 2 days ago, and
have been monitoring TFT's
Data Reviewed / Physical Exam
-
Vital Signs
Temp Pulse Resp BP Pulse Ox
99.5 F 149 19 139/103 94
12/14/24 15:19 12/14/24 15:00 12/14/24 15:00 12/14/24 15:00 12/14/24 15:00
Lab Results
12/11/24 12/11/24 12/12/24
18:00 19:40 04:49
Glucose Cancelled 101 H 101 H
12/12/24 12/13/24 12/14/24
14:15 03:52 03:42
Glucose 131 H 107 H 110 H
Bedside - Glucose
12/11/24 12/12/24 12/12/24
17:56 00:10 13:07
POC Glucose 91 97 101 H
12/12/24 12/12/24 12/13/24
17:07 21:53 08:36
POC Glucose 95 110 H 103 H
12/13/24 12/13/2412/13/25
11:50 16:59 21:58
POC Glucose 96 100 H 96
12/14/24 12/14/24
07:39 13:59
POC Glucose 93 137 H
Physical Exam:
lethargic
lungs CTA
tachy regular rate
2+ pitting edema
no tremors
[2024-12-14] MEDS: APRESOLINE 50 MG PO ×2 (16:52→22:00)
--- NOTE | 2024-12-14 17:11 | PTCARENOTE ---
All assessments unchanged. CI reported to Dr Woodward. No new orders at this time. Remains on Amiodarone and Milrinone gtts.
--- NOTE | 2024-12-14 17:30 | W.PN.UPDATE ---
Update Note
Progress Note Update
CI dropped under 2 off of milrinone. Will resume at 0.125.
[2024-12-14 17:47] LABS: Glucose - Point of Care 97 mg/dl (70-99)
[2024-12-14] MEDS: CORDARONE 518 MG IV (19:50)
--- NOTE | 2024-12-14 20:21 | PTCARENOTE ---
Received patient AAOx3, following commands, pain at a tolerable level, reporting body aches. Aflutter 140s-150s, BP stable 110s-130s/70s-80s, normothermic. +1 lower extremity and scrotal edema, palpable radial and pedal pulses b/l. On 3 liters nasal
cannula, saturating 92%. Lung sounds diminished throughout, occasional moist, unproductive cough. Last BM today, abdomen soft, round, hypoactive bowel sounds. Sanchez in place draining yellow urine. Right radial dressing CDI. Milrinone and amio gtt
ongoing per order, CI 2.44. Right DL PICC patent, WNL. Left AC IV patent, WNL. RIJ swan zeroed, leveled, and flushed. Call gabriel within reach.
[2024-12-14] MEDS: ZITHROMAX 500 MG PO (22:00)
[2024-12-14] MEDS: STERILE WATER FOR INJECTION 10 ML IV (22:03)
[2024-12-14] MEDS: ROCEPHIN 1000 MG IV (22:03)
[2024-12-15] VITALS (21 sets, daily range): BP systolic 97–125; BP diastolic 61–101; BMI 33.4
--- NOTE | 2024-12-15 00:20 | PTCARENOTE ---
Cardiac index 1.95, Dr. Escobar notified via [employer]. Otherwise patient assessment unchanged from previous.
--- NOTE | 2024-12-15 04:15 | PTCARENOTE ---
Patient assessment unchanged from previous, call gabriel within reach.
[2024-12-15 04:29] LABS: Hematocrit 41.8 % (39.0-52.0); Hemoglobin 13.7 g/dL (13.0-18.0); Mean Corp Hgb Conc. 32.8 g/dL (33.0-37.0); Mean Corpuscular Hgb 28.7 pg (27.0-31.0); Mean Corpuscular Volume 87.4 fL (80.0-94.0); Mean Platelet Volume 8.9 fL (7.4-10.4); Platelet Count 151 10^3/uL (130-400); Red Blood Cell Count 4.78 10^6/uL (4.70-6.10)
[2024-12-15 04:50] LABS: Blood Urea Nitrogen 24 mg/dl (9-20); Carbon Dioxide 29 mmol/L (22-30); Chloride 98 mmol/L (98-107); Estimated Creatinine Clearance 81 ml/min; Glucose 108 mg/dl (70-99); Magnesium 1.9 mg/dl (1.6-2.3); Potassium 4.3 mmol/L (3.5-5.1); Sodium 135 mmol/L (135-145); eGFR > 60.00
--- NOTE | 2024-12-15 07:06 | PTCARENOTE ---
Assume care of pt. approx 0700.
Resting in bed, PA Cath in place, leveled/calibrated/zeroed. All waveforms appropriate, elevated PAS pressures.
Normotensive, Normothermic, sinus tach in 150s.
Normocephalic, focally intact.
[2024-12-15] MEDS: LASIX 20 MG IV ×2 (07:44→15:54)
[2024-12-15] MEDS: TAPAZOLE 10 MG PO ×2 (07:45→20:08)
[2024-12-15] MEDS: TAMIFLU 75 MG PO (07:45)
[2024-12-15] MEDS: ZESTRIL 5 MG PO ×2 (07:45→12:05)
[2024-12-15] MEDS: PRADAXA 150 MG PO ×2 (07:45→20:08)
[2024-12-15] MEDS: PRIMACOR 20 MG 100 IV (07:46)
[2024-12-15] MEDS: APRESOLINE 50 MG PO ×2 (07:46→12:05)
[2024-12-15] MEDS: LIDOCAINE 4% PATCH 1 PATCH TOPICAL (07:46)
--- NOTE | 2024-12-15 07:49 | W.PN.INTV ---
Today's Communication / Plan
Recommendations
Continue to monitor hemodynamics
Continue amiodarone and milrinone
ADITYA and cardioversion tomorrow as per cards
continue Iv diuresis
Assessment
-
IMPRESSION
A 44-year-old healthy primarily Turkmen speaking male with no past medical issues who presented with shortness of breath, lower extremity swelling and general malaise.New onset heart failure with severely reduced ejection fraction and global
hypokinesia. History of fever earlier in November for about 3 days. Presented to Er with hypotension,tachycardia and SOB. CXR showed suspected right lower lobe pneumonia. His EKG shows A.fib with RVR and he had signs of volume overload.
Urgent echo performed showing severely reduced LVEF at 15-20% with global hypokinesis, with suspected RV hypokinesis, and moderate MR, and moderate TR.
Serum creatinine trending down
[place]-Lakhwinder catheter in place to help guide the management
Optimize heart failure treatment based on GDMT as able
ASSESSMENT
#SHOCK,secondary to cardiogenic causes or sepsis
#New onset heart failure
#Acute respiratory failure with hypoxia due to CAP involving RLL
#Influenza B pneumonia
#MARY
#Metabolic acidosis with increased anion gap likely due to MARY/Lactic acidosis from shock
#Transaminitis with hyperbilirubinemia likely due to hepatic congestion from heart failure
#Elevated troponin NSTEMI vs NIMI?
#Abnormal TFTs with low TSH and elevated free T4 consistent with hyperthyroidism
Plan:
#SHOCK,secondary to cardiogenic causes or sepsis
On presentation patient was hypotensive, tachycardic, had malaise and lethargy
Briefly required Levophed for blood pressure maintaining-off vasopressors now
Right lower lobe pneumonia on chest xray and severely reduced EF on echo
Unclear etiology of new onset cardiomyopathy
Normal cardiac index and output on right heart catheterization, left heart catheterization shows no obstruction in coronary arteries-nonischemic myocardial injury likely
Continue antibiotics for pneumonia
Use [place]-Lakhwinder catheter to help in management of hemodynamics of shock
Cardiac index 1.78,heart rate 153 with flutter pattern,resumed milrinone
Ficks method showed cardiac index of 3.8,plan to use both to get an average cardiac index
Cardioversion tomorrow planned by cards
#New onset heart failure
History of a febrile illness in November that resolved but shortness of breath and swelling lingered on
Urgent echocardiography showed severely reduced left ventricular ejection fraction , EF 15-20%
LHC shows nonobstructive cardiomyopathy-consider nonischemic causes
Hydralazine increased to 50 mg 3 times daily,Lisinopril added to help decrease afterload
Add GDMT as able-insurance issues limit options
High risk of clots given severely reduced ejection fraction, off heparin, switch to Dabigartan
Resumed Milrinone yesterday pm as cardiac index dropped to<2
Continue IV Lasix as able
#Acute respiratory failure with hypoxia due to CAP involving RLL
Maintain SpO2 >90-94%
Currently patient breathing on 2 L of oxygen
#Abnormal TFTs with low TSH and elevated free T4 consistent with hyperthyroidism
As per endocrinology, heparin can increase free T4 levels, but in his situation hyper thyroidism is unlikely given normal T3
Added methimazole 10 mg twice daily, repeat TFTs in 2 days as per endo
Wean off methimazole as T4 ranges in mid normal range as per endo
#Influenza B pneumonia
Continue Tamiflu x 5 days
Tylenol for body aches
#MARY
Resolved, serum creatinine 1.1
#Elevated troponin NSTEMI vs NIMI?
Troponin peaked at 0.086 on 12/10/2024; no longer need to continue trending at this time
#Transaminitis
Liver enzymes trending down
- DVT ppx: heparin gtt
Full code
Subjective Dataa
Subjective Data
Date of Service:
Date of Service: December 15, 2024
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
Subjective:
Patient's condition critical,heart rate ranging in 150's
BP 121/88(99),PAP31/18(28)
Yesterday,cardiac index dropped below 2
Cardiac index 1.78-resumed milrinone
On amiodarone 0.5mg/min,milrinone 0.125 and Dabigartan
Review of Systems
General: Other (Reviewed and negative)
Objective Data
Data Reviewed
Vital Signs / I&O / Oxygen:
Vital Signs
Temp Pulse Resp BP Pulse Ox
98.4 F 155 13 121/77 95
12/15/24 04:14 12/15/24 07:46 12/15/24 06:00 12/15/24 07:46 12/15/24 06:59
Intake and Output
12/14/24 12/15/24 12/16/24
06:59 06:59 06:59
Intake Total 1281.6 / 1302.2 1093.3 / 1093.3
Output Total 3227 / 3267 3171 / 3171
Balance -1945.4 / -1964.8 -2077.7 / -7.7
SaO2 95
Nasal Cannula flow liters per 3
minute
Physical Exam
General: Pain (Generalized body aches and pains) and Other ( [place]-Lakhwinder catheter in place and breathing on 2 liters of oxygen)
HEENT: Normocephalic and Anicteric
Cardiovascular: Regular Rhythm, Peripheral Edema (+2 lower extremity edema bilaterally) and Other (tachycardia and flutter pattern on telemetery)
Respiratory: Clear and Non-Labored Respirations
GI: Soft, Non Distended, Non Tender and Normal Bowel Sounds
Neurology: Awake, Oriented and No Motor Deficits
Skin: Warm and Good Color
Labs/Micro/Reports
Lab Data
12/15/24 04:19
12/15/24 04:19
Microbiology
12/10/24 01:10 Blood/Venous Blood Culture - Final
No Growth - Final Report
12/10/24 11:32 Blood/Venous Blood Culture - Preliminary
No Growth in 4 days- Final report to follow
--- NOTE | 2024-12-15 08:15 | W.PN.INTV ---
Today's Communication / Plan
Recommendations
[facility] 12/13/2024 showed nonobstructive CAD with no aortic stenosis
Continue diuresis as blood pressure tolerates
Replete K>4, Mg>2
Strict I/O and trend UOP
Trend serum creatinine
Milrinone stopped yesterday morning, but resumed as CI was <2; plan to trial it off again today and c/t trend CI and CO; if CI remains >2 then would start beta-gio to try to optimize heart rate
Continue amiodarone gtt with eventual transition to PO
Goal HR <110
Continue supplemental oxygen and titrate to SpO2 >90-94%
Last day of tamiflu and ABx today
Analgesia for myalgias
ADITYA with DCCV tomorrow; NPO p MN
Continue ICU level care for this critically ill patient
Assessment
-
Assessment: 44-year-old male with no past medical history who presented with shortness of breath, lower extremity swelling and general malaise. Found to be in A-fib with RVR. He had a fever earlier in November with shortness of breath and lower
extremity edema at the time. Fever lasted for about 3 days. He improved but his SOB and lower extremity edema persisted. He did not seek medical attention until he came to the ER on 12/09/24. Initially in the ER he was afebrile to 97.5 �F, pulse
rate 142, breathing at 18 breaths/min, BP 105/79 saturating 99% on room air. Initial labs showed leukocytosis to 11.5, sodium 133, creatinine 1.4, T. bili 2.2, troponin 0.059, and proBNP 4700. Blood cultures were collected, and CXR showed
suspected right lower lobe pneumonia. In the ER he was given Cardizem and started on drip, 40 mg Lasix, started on heparin drip, given IVF with 500 cc bolus of NS 0.9%, given Dilaudid, Zofran and started on Levophed due to persistent hypotension.
Urgent echo performed showing severely reduced LVEF at 15-20% with global hypokinesis, with suspected RV hypokinesis, and moderate MR, and moderate TR. Cardiology was consulted and he was transferred to the ICU for further evaluation with
principal network engineer services consulted for additional management/recommendations.
Chronic conditions RN INFUSION: non-contributory
Impression:
#A-fib with RVR
#Acute HFrEF with RV enlargement
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
#Acute respiratory failure with hypoxia due to acute pulmonary edema with bilateral pleural effusions and RLL pneumonia
#CAP involving RLL
#Influenza B pneumonia
#Leukocytosis � resolved as of 12/12/2019
#Lactic acidosis (resolved as of 12/10/2024)
#MARY - improving
#Metabolic acidosis with increased anion gap likely due to MARY at this point - acidosis now resolved
#Transaminitis with hyperbilirubinemia likely due to hepatic congestion from heart failure
#Elevated troponin likely due to demand ischemia with type II OR in the setting of rapid A-fib and acute decompensated heart failure - troponin peaked on 12/10/2024 at 0.086
#Abnormal TFTs with low TSH and elevated free T4 consistent with hyperthyroidism
#Recent febrile illness (being the November 2024) X 3 days with SOB and lower extremity edema at the time
Plan:
- Unclear etiology for his left ventricular cardiomyopathy, although he is positive for Flu B so possibly related to this via sepsis in setting of suspected RLL PNA
-Follow-up coxsackie B antibody
- Continue amiodarone gtt; milrinone gtt back on as of this AM; continue to trend CI with goal >2
- If cardiac index remains >2 off milrinone then would start a beta-gio for heart rate control; continue to trend MVO2 as well; defer this to cardiology
- Cardiology recommendations appreciated
- RHC performed on 12/10/2024 shows severely elevated filling pressures with postcapillary pulmonary hypertension with preserved CO + CI
- Monitor strict I/O given risk of volume overload; his repeat CXR on morning of 12/10/2024 shows worsening bilateral pleural effusions ---> continue diuresis with holding parameters
- Lactate is <2 mmol/L, hence no need to continue trending this
- Trend sHCO3 level; no need for bicarb at this time as pH is 7.47 on last blood gas from 12/15/2024 and sHCO3 is 29 today
- s/p Left eart cath on 12/13/2024 - showed nonobstructive CAD and a right dominant system with no aortic stenosis
- DCCV planned for tomorrow- defer to cardiology
- Patient's TFTs are abnormal with low TSH at 0.36 and elevated free T4 of 3.28 --> now (12/12/2024) with TSH undetectable (<0.02) and fT4 2.99--> given his rapid A-fib and acute decompensated heart failure, need to consider thyrotoxicosis, although
not febrile so doubt thyroid storm
- Methimazole started 12/13/2024; endocrinology consulted who stated at TSH likely low given acute illness and apparently heparin drip can cause elevated T4 levels, however methimazole started given benefit >risk
- Thyroid-stimulating Ig is negative
- Follow-up cultures (blood cultures x 2 collected 12/10)
- Continue with empiric antibiotics with ceftriaxone/Zithromax (last day of ABx today)
- CXR shows opacification in the right lower lobe suspicious for pneumonia
- He will need repeat CXR in 4-6 weeks to follow-up pneumonia resolution
- Legionella + strep pneumonia urine antigens both negative
- Collect sputum culture if patient can produce a decent sample
- Continue Tamiflu x 5 days - last day today
- supportive care with prn tylenol, prn flexeril and lidocaine patch for body aches/lower back pain
- Pain control
- Anxiolytics prn, holding for sedation
- Maintain SpO2 >90-94% with supplemental oxygen and wean as tolerated
- Troponin peaked at 0.086 on 12/10/2024; no longer need to continue trending at this time
- Trend LFTs
- Of note, abdominal ultrasound on 12/10 shows no gallstones or bile duct dilatation, and liver appears unremarkable. There is mild gallbladder wall thickening and mild - moderate ascites
- Maintain MAP>65
- Continue PO hydralazine for afterload reduction
- Lisinopril started 12/14/2024 at 5 mg daily --> now raised to 10mg daily
- Replete electrolytes with K>4, Mg>2
- Maintain euglycemia with goal BG 140-180
- Trend H/H and transfuse if needed to keep Hb>7-8g/dL; keep plt>20k, unless there is concern for bleeding then keep plt>50k
- prn nebulized bronchodilators - not currently bronchospastic
- Incentive spirometer encouraged 10x per hour for at least 4 hrs a day
- DVT ppx: pradaxa (heparin gtt stopped now that LHC showed non-obstructive CAD with no lesions)
Patient remains critically ill; continue ICU level of care
Critical care statement: A total of 44 minutes of critical care time was provided for this patient today. This includes management of unstable vital signs, evaluation of the patient at bedside, reviewing the patient's pertinent medical records
including radiographs, microbiology, laboratory evaluations, and discussion with primary team, consultants, pharmacy, nutrition, physical therapy, case management, charge nurse, critical care nursing, and respiratory therapy.
Data:
CXR 12/10/2024: Probable posterior layering of bilateral pleural effusion, right greater than left. Cannot exclude atelectasis or pneumonia; stable cardiomegaly and mild vascular congestion.
RUQ abdominal ultrasound 12/10/2024: Unremarkable sonographic appearance of the liver; no gallstones or bile duct dilatation; mild to moderate ascites; ,mild gallbladder wall thickening, which is nonspecific in the presence of ascites; Incidental
pleural effusion.
Subjective Dataa
Subjective Data
Date of Service:
Date of Service: December 15, 2024
Chief Complaint: Underground Supervisor Follow Up and Pulmonary Follow Up
Subjective:
Patient seen and evaluated this morning. He says he feels better today. CI was 1.99 yesterday off milrinone. Remains on milrinone 0.125 mcg/kg/min (CI: 1.78, Ivon method: 3.8). Planning for ADITYA with DCCV tomorrow. Currently on amio at
0.5mg/min. Heart rate currently 153, PAP: 30/12, current CO/CI: 4.13/1.94, saturating 95% and BP via NIBP: 111/80. Currently denies any SOB at rest, chest pain, abdominal pain, nausea, fevers or chills.
Review of Systems
General: Other (Negative unless mentioned above)
Objective Data
Data Reviewed
Vital Signs / I&O / Oxygen:
Vital Signs
Temp Pulse Resp BP Pulse Ox
98.4 F 152 19 125/86 92
12/15/24 04:14 12/15/24 08:00 12/15/24 08:00 12/15/24 08:00 12/15/24 08:00
Intake and Output
12/14/24 12/15/24 12/16/24
06:59 06:59 06:59
Intake Total 1281.6 / 1302.2 1093.3 / 1093.3 130.6 / 130.6
Output Total 3227 / 3267 3171 / 3171 150 / 150
Balance -1945.4 / -1964.8 -2077.7 / -2077.7 -19.4 / -19.4
SaO2 92
Nasal Cannula flow liters per 3
minute
Physical Exam
General: Respiratory Distress (negative), Pain (Generalized body aches and pains) and Other ( [place] catheter in R-IJ)
HEENT: Normocephalic and Anicteric
Cardiovascular: Irregular Rhythm, Peripheral Edema (+1 lower extremity edema bilaterally) and Other (Tachycardic)
Respiratory: Wheeze (negative), Crackles (Bilateral), Rhonchi (negative), Non-Labored Respirations and Stridor (negative)
GI: Soft, Non Distended, Non Tender and Normal Bowel Sounds
Neurology: Awake, Alert and Tremors (negative)
Skin: Warm, Dry, Cyanosis (negative) and Jaundice (negative)
Labs/Micro/Reports
Lab Data
12/15/24 04:19
12/15/24 04:19
Laboratory Results
12/15/24
08:24
pH 7.44
pCO2 39
pO2 137 H
HCO3 26.5
O2 Delivery Level
Microbiology
12/10/24 01:10 Blood/Venous Blood Culture - Final
No Growth - Final Report
12/10/24 11:32 Blood/Venous Blood Culture - Preliminary
No Growth in 4 days- Final report to follow
[2024-12-15 08:31] LABS: Venous Blood Gas B.E. 4.4 mmol/L (-4 to +4); Venous Blood Gas HCO3 30.4 mmol/L (22-27); Venous Blood Gas O2 Sat % 89.4 %; Venous Blood Gas pCO2 49 mmHg (35-48); Venous Blood Gas pO2 60 mmHg (30-50)
--- NOTE | 2024-12-15 08:32 | PTCARENOTE ---
TT to Cardiology (Crissy). Reporting low CI (1.78) upon thermodilution, new orders as follows:
-Q4 Ivon Calculations
-VBG ordered for sV02.
-ABG ordered for sA02.
[2024-12-15 08:48] LABS: B.E. 2.3 mmol/L; HCO3 26.5 mmol/L (21-28); O2 Saturation % 99.3 % (94-98); PCO2 39 mmHg (35-48); PO2 137 mmHg (83-108); pH 7.44 (7.35-7.45)
--- NOTE | 2024-12-15 08:52 | W.PN.HOSP.TC ---
Today's Communication/Plan
-
see plan
Assessment / Plan
Assessment / Plan
Mr. Lissa Louis is a 44 yo man, primarily English speaking, presents to the ER with complaint of increasing fatigue, lower extremity swelling and shortness of breath found to be in afib with RVR with development of cardiogenic shock.
HEAD CT
IMPRESSION:
There or no acute or focal intracranial abnormalities
There is mild diffuse cortical and cerebellar atrophy
CXR
IMPRESSION:
Right lower lobe pneumonia
Abdomen US:
IMPRESSION:
Unremarkable sonographic appearance of the liver.
No gallstones or bile duct dilatation.
Mild to moderate ascites.
Mild gallbladder wall thickening, which is nonspecific in the presence of ascites.
Incidental pleural effusion.
TTE
CONCLUSIONS
During study patient limited the amount of images that were obtained reporting
discomfort during exam. Note this appeared to be disproportional to the amount
of pressure being applied.
Severely reduced left ventricular function with estimated ejection fraction of
15 to 20%
Global hypokinesis
Right ventricular hypokinesis suspected
Moderate mitral regurgitation.
Moderate tricuspid regurgitation
No prior study available for comparison
Cardiac Cath 12/10/24
CONCLUSION:
1. Severely elevated filling pressures (PCWP = 29 mmHg at 102.5 kg).
2. Normal cardiac index (2.68 L/min/m� by Ivon, 2.10 L/min/m� by thermodilution) on milrinone 0.33 mcg/kg/min.
3. Moderate, postcapillary pulmonary hypertension (mean PA = 37 mmHg, PCWP = 29 mmHg, cardiac output = 5.71 L/min by Ivon, 4.47 L/min by thermodilution, PVR 1.40 Moy units by Ivon, 1.79 Moy units by thermodilution).
Cardiogenic Shock
New Diagnosis Heart Failure - low EF seen on bedside US. Per echo 12/09 EF with 15 to 20%, global hypokinesis, right ventricular hypokinesis suspected.
Acute CHF with reduced EF with RV enlargement
Acute hypoxic respiratory failure secondary to acute pulmonary edema and right lower lobe pneumonia
Community-acquired pneumonia
Non-ischemic myocardidal injury
Atrial Fibrillation with RVR
-admitted to ICU
-Troponin peaked at 0.086
-appreciate Cardiology consult
-RHC 12/10 with elevated pressures; cw diuresis
-Levophed titrated off 12/10
-s/p cardiac cath - non-ischemic cardiomyopathy
-Currently in ICU on Milrinone (low CI off Milrinone, resumed evening 12/14)
-continue Pradaxa
-Continue with amiodarone gtt
-eventual cardioversion
-continue iV lasix - responding well to diuresis
Influenza +
-COVID-negative, flu positive. Given patient's severity of his symptoms we will treat with Tamiflu.(last dose today, 12/15)
-speech following; ok for pureed
Lactic acidosis on admission
Now resolved
Sepsis likely secondary to flu with superimposed bacterial community-acquired pneumonia
Blood culture NGTD
Legionella, strep neg
Continue with antibiotics
Elevated liver enzymes
-may be 2/2 congestion
Abdominal ultrasound without any gallstone or biliary ductal dilation
-repeat tomorrow
MARY, does not report any history of CKD
Likely related to CHF
-improving with diuresis
Low TSH with elevated free T4 concerning for hyperthyroidism
appreciate Endocrinology
given difficulty in rate control methimazole initiated - repeat TSH in 2 days
DVT PPx Pradaxa
FULL CODE
Total Critical Care Time 45 minutes. I was immediately available to the patient and staff. I personally examined, reviewed labs, diagnostic images/reports, interpretations, treatment plans, discussed patient care with other providers and family
or caregivers (if patient is unable to make decisions), entered orders as appropriate and documented the medical record.
Anticipated Discharge: > 48 hours
Subjective/Interval History
-
Date of Service: December 15, 2024
states he is feeling better today
urinating a lot
Objective Data
-
Labs:
Laboratory Results
12/15/24 12/15/24
04:19 08:24
WBC 7.0
Hgb 13.7
Hct 41.8
Plt Count 151
HCO3 26.5
Sodium 135
Potassium 4.3
Chloride 98
Carbon Dioxide 29
BUN 24 H
Creatinine 1.3
Glucose 108 H
Calcium 8.0 L
Vital Signs:
Vital Signs
Temp Pulse Resp BP Pulse Ox
98.4 F 152 19 125/86 92
12/15/24 04:14 12/15/24 08:00 12/15/24 08:00 12/15/24 08:00 12/15/24 08:00
I&O
12/14/24 12/15/24 12/16/24
06:59 06:59 06:59
Intake Total 1281.6 / 1302.2 1093.3 / 1093.3 130.6 / 130.6
Output Total 3227 / 3267 3171 / 3171 150 / 150
Balance -1945.4 / -1964.8 -2077.7 / -2077.7 -19.4 / -19.4
Review of Systems
-
History Source: Patient
All other systems: Reviewed and negative
Physical Exam
-
General: No Apparent Distress
HEENT: PERRLA
Respiratory: Clear to Auscultation; Negative Wheezes
Cardiac: Regular Rhythm and S1/S2
GI: Soft and Nontender
Musculoskeletal: No Edema
Skin: Warm and Dry; Negative Rash
Neuro: AO x 3
Psych: Calm
Data Reviewed
-
Diagnostic Radiology: Report Reviewed by me
Labs: Labs Reviewed by me
[2024-12-15 10:00] LABS: Mixed Venous O2 Saturation 81.5 %
--- NOTE | 2024-12-15 11:19 | PTCARENOTE ---
Rounds completed. Per. Dr. Woodward, cont. to trend PA cath numbers including running Q4 Ivon Calculations. Plan for ADITYA/Cardioversion tomorrow, will be NPO after midnight.
Orders for labs for Ivon calculation verbally placed.
--- NOTE | 2024-12-15 11:57 | W.PN.CD ---
Today's Communication / Plan
-
continue milrinone and trend [place] numbers
titrating hydralazine and lisinopril
cont IV lasix
ADITYA/DCCV in AM
Impression / Plan
-
44-year-old primarily Chinese speaking male with no past medical history who presented with shortness of breath, lower extremity edema and general malaise found to have acute heart failure with severely reduced ejection fraction (LVEF 15-20%). He
also tested positive for influenza B and course has been complicated by atrial flutter with RVR. He was taken for RHC on 12/10/2024 which revealed severely elevated filling pressures and normal cardiac index on milrinone.
#Cardiogenic shock
-CI dropped when we stopped milrinone: back on 0.125 mcg/kg/min
-trend [place] numbers
-increase hydralazine to 100mg tid, and lisinopril to 10mg daily
#New non-ischemic cardiomyopathy (severe, EF 15-20%) with acute systolic HF, and moderate MR/TR
-perhaps tachy induced +/- viral myocarditis
-LHC 12/09/24: 30% mid LAD, 40% prox D2; o/w LI
-beta gio once shock better
-no prescription med coverage, so will use generic GDMT
-continue lasix IV 20mg bid, with close monitoring of labs and hemos
#Atrial flutter with RVR
-New onset: cardiomyopathy may be tachy induced
-Duration unknown
-Has not felt well since November 23 unclear if this represents onset of A-fib or if he developed more recently.
-CHADS2-VASC = 1. Pradaxa 150mg bid for OAC
-continue amiodarone for rate control
-eventual beta gio once shock improved
-ADITYA/DCCV tomorrow
# MARY, improved
-Continue to optimize hemodynamics.
# Right lower lobe pneumonia
-Continue ceftriaxone
#Influenza B. Management as directed by primary team patient has been afebrile.
# Elevated LFTs. Likely related to shock. Improving.
# abnormal Thyroid studies . TSH low 0.36 and T4 elevated 3.28. Continue Methimazole. Per primary team
CCT 42 minutes.
Physical Exam
Vital Signs/Labs
Vital Signs
Temp Pulse Resp BP Pulse Ox
97.9 F 152 14 121/88 92
12/15/24 07:35 12/15/24 10:00 12/15/24 10:00 12/15/24 09:00 12/15/24 09:30
12/14/24 12/15/24 12/16/24
06:59 06:59 06:59
Actual Weight 96.3 kg 96.5 kg
12/15/24 04:19
12/15/24 04:19
PT 18.6 Sec (11.4-14.6) H 12/09/24 18:39
INR 1.53 12/09/24 18:39
APTT 106.6 Sec (23.4-35.0) H 12/13/24 11:46
Magnesium 1.9 mg/dl (1.6-2.3) 12/15/24 04:19
Triglycerides 81 mg/dl (10-149) 12/10/24 02:49
LDL Cholesterol, Calc 114 mg/dl 12/10/24 02:49
VLDL Cholesterol, Calc 16 mg/dl (0-30) 12/10/24 02:49
HDL Cholesterol 31 mg/dl 12/10/24 02:49
TSH 0.08 uIU/ml (0.47-4.68) L 12/14/24 03:41
Free T4 2.50 ng/dl (0.78-2.19) H 12/14/24 03:41
12/09/24
18:39
One-Y-Mvmnkshdoos Pept 4700
Physical Exam
Constitutional: No acute distress
EENT: Moist mucous membranes
Cardiovascular: Rhythm & rate is regular (tachy), Pedal edema present, JVD present and Systolic murmur present
Respiratory: Respiratory effort normal and Lungs clear to auscul.
Neuro/Psych: AO x 3
Data Reviewed
-
Date of Service: December 15, 2024
EKG: Other (Tele: A flutter 150)
Labs: Labs Reviewed by me
Critical Care Time (in minutes): 42
[2024-12-15 12:07] LABS: HCO3 29.1 mmol/L (21-28); PCO2 40 mmHg (35-48); PO2 78 mmHg (83-108); pH 7.47 (7.35-7.45)
[2024-12-15 12:21] LABS: Mixed Venous O2 Saturation 65.1 %
--- NOTE | 2024-12-15 14:19 | CM ---
CM following re: discharge planning.
Reviewed pt's chart, met with pt. Per Rounds meeting, ADITYA and cardioversion tomorrow, continue supportive care.
Pt lives with spouse 2SH, has supportive son. Pt recently moved to [place] from [place], works, has no insurance. [facility] specialist following.
D/C plan: home with anticipated no needs. Family to transport at discharge.
CM will follow with discharge plan updates as hospitalization progresses
[2024-12-15] MEDS: APRESOLINE 100 MG PO ×2 (15:54→21:48)
[2024-12-15 16:22] LABS: Mixed Venous O2 Saturation 63.1 %
--- NOTE | 2024-12-15 16:47 | PTCARENOTE ---
No change in pt. Assessment.
Pa Cath numbers throughout shift listed below.
0800: CO/CI: 3.79/1.78 PAS/PAD: 36/17 CVP: 8 KRYSTIN: 8.2/3.8/ SV 53
1200: CO/CI: 4.13/1.94 PAS/PAD: 40/23 CVP: 8 KRYSTIN: 4.6/2.1/ SV 29
1600: CO/CI: 3.91/1.83 PAS/PAD: 30/5 CVP: 2 KRYSTIN: 4.3/2.0/ SV 27
Remains on Primacore and amio.
[2024-12-15 20:26] LABS: Mixed Venous O2 Saturation 73.3 %
--- NOTE | 2024-12-15 20:50 | PTCARENOTE ---
Addendum entered by Deirdre Back RN 12/16/24 04:17:
0347: C.O/C.I: 5.07/2.45 PAS/PAD: 20/10 CVP: 3 KRYSTIN: 6.2/2.9/39
Addendum entered by Deirdre Back RN 12/16/24 01:19:
2340: C.O/C.I: 5.19/2.51 PAS/PAD: 20/07 CVP: 3 KRYSTIN: 8.1/3.8/51
Original Note:
Pa Cath numbers
2000: C.O/C.I: 5.43/2.62 PAS/PAD: 20/08 CVP: 3 KRYSTIN: 6.4/3.0/ SV 41
Pt on Milrinone @ 0.125 mcg and Amio @ 0.5 mg.
[2024-12-15] MEDS: ZITHROMAX 500 MG PO (21:48)
[2024-12-15] MEDS: ROCEPHIN 1000 MG IV (21:49)
[2024-12-15] MEDS: STERILE WATER FOR INJECTION 10 ML IV (21:49)
[2024-12-15 23:53] LABS: Mixed Venous O2 Saturation 78.1 %
[2024-12-16] VITALS (25 sets, daily range): BP systolic 82–114; BP diastolic 51–93; BMI 31.6
--- NOTE | 2024-12-16 | PTCARENOTE ---
Systems reviewed, no new changes in assessment. CHG bath provided, soler care provided. Call gabriel in reach. Safe environment maintained.
[2024-12-16 04:11] LABS: Mixed Venous O2 Saturation 73.6 %
--- NOTE | 2024-12-16 04:20 | PTCARENOTE ---
Systems reviewed, no new changes in assessment. AM labs provided. Call gabriel in reach.
[2024-12-16 04:36] LABS: ALT (SGPT) 75 U/L (0-50); AST (SGOT) 53 U/L (17-59); Albumin 2.7 g/dl (3.5-5.0); Alkaline Phosphatase 67 U/L (38-126); Blood Urea Nitrogen 26 mg/dl (9-20); Calcium 8.1 mg/dl (8.4-10.2); Carbon Dioxide 27 mmol/L (22-30); Chloride 98 mmol/L (98-107); Estimated Creatinine Clearance 86 ml/min; Glucose 108 mg/dl (70-99); Potassium 4.2 mmol/L (3.5-5.1); Sodium 131 mmol/L (135-145); Total Bilirubin 0.9 mg/dl (0.2-1.3); Total Protein 5.4 g/dl (6.3-8.2); eGFR > 60.00
[2024-12-16 04:51] LABS: Free T3 3.63 pg/ml (2.77-5.27); Free T4 2.36 ng/dl (0.78-2.19)
[2024-12-16 05:05] LABS: TSH 0.16 uIU/ml (0.47-4.68)
[2024-12-16] MEDS: CORDARONE 518 MG IV (06:27)
--- NOTE | 2024-12-16 07:15 | PTCARENOTE ---
Bedside handoff. Pt in droplet isolation. Right IJ Cordis with SGC secured 60cm @ the hub. Amiodarone & Milrinone drip via cordis. PA/RA transduced, calibrated and monitored. All ports patent and secured. Right DL PICC with white port sluggish to
flush. Left Ac#18g protective catheter flushed and patent. Left U/E edematous. BP cuff present left upper arm. +3 pitting L/E edema. Scrotal edema unchanged. Breath sounds dim throughout, poor inspiratory effort. Intermittent dry cough. Indwelling
Sanchez catheter secured & draining large amount of clear yellow urine. He was repositioned for comfort. He was also informed of the plan of care regarding management of milrinone drip based off of CO/CI readings. He verbalized his understanding.
Right upper extremity precautions maintained. Safe environment maintained.
[2024-12-16 07:35] LABS: Phosphorus 3.3 mg/dl (2.5-4.5)
--- NOTE | 2024-12-16 08:24 | W.PN.INTV ---
Today's Communication / Plan
Recommendations
[facility] 12/13/2024 showed nonobstructive CAD with no aortic stenosis
Continue diuresis as blood pressure tolerates
Check left upper extremity ultrasound to rule out DVT due to new swelling
Replete K>4, Mg>2
Strict I/O and trend UOP
Trend serum creatinine
Continue amiodarone drip; patient spontaneously converted into sinus tachycardia today and now milrinone is off (milrinone drip was on earlier this morning); no need for DCCV at this time
Defer removal of [place]-Lakhwinder to cardiology
Continue amiodarone gtt with eventual transition to PO
Goal HR <110
Continue supplemental oxygen and titrate to SpO2 >90-94%
s/p course of antibiotics + Tamiflu (last day on 12/15/2024)
Analgesia for myalgias
Continue ICU level care for this critically ill patient
Assessment
-
Assessment: 44-year-old male with no past medical history who presented with shortness of breath, lower extremity swelling and general malaise. Found to be in A-fib with RVR. He had a fever earlier in November with shortness of breath and lower
extremity edema at the time. Fever lasted for about 3 days. He improved but his SOB and lower extremity edema persisted. He did not seek medical attention until he came to the ER on 12/09/24. Initially in the ER he was afebrile to 97.5 �F, pulse
rate 142, breathing at 18 breaths/min, BP 105/79 saturating 99% on room air. Initial labs showed leukocytosis to 11.5, sodium 133, creatinine 1.4, T. bili 2.2, troponin 0.059, and proBNP 4700. Blood cultures were collected, and CXR showed
suspected right lower lobe pneumonia. In the ER he was given Cardizem and started on drip, 40 mg Lasix, started on heparin drip, given IVF with 500 cc bolus of NS 0.9%, given Dilaudid, Zofran and started on Levophed due to persistent hypotension.
Urgent echo performed showing severely reduced LVEF at 15-20% with global hypokinesis, with suspected RV hypokinesis, and moderate MR, and moderate TR. Cardiology was consulted and he was transferred to the ICU for further evaluation with
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
Impression:
#A-fib with RVR now spontaneously converted into sinus tachycardia as of morning of 12/16/2024
#Acute HFrEF with RV enlargement
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
#Acute respiratory failure with hypoxia due to acute pulmonary edema with bilateral pleural effusions and RLL pneumonia
#CAP involving RLL
#Influenza B pneumonia
#Leukocytosis � resolved as of 12/12/2019
#Lactic acidosis (resolved as of 12/10/2024)
#MARY - improving
#Metabolic acidosis with increased anion gap likely due to MARY at this point - acidosis now resolved
#Transaminitis with hyperbilirubinemia likely due to hepatic congestion from heart failure
#Elevated troponin likely due to demand ischemia with type II CT in the setting of rapid A-fib and acute decompensated heart failure - troponin peaked on 12/10/2024 at 0.086
#Abnormal TFTs with low TSH and elevated free T4 consistent with hyperthyroidism
#Recent febrile illness (being the November 2024) X 3 days with SOB and lower extremity edema at the time
Plan:
- Unclear etiology for his left ventricular cardiomyopathy, although he is positive for Flu B so possibly related to this via sepsis in setting of suspected RLL PNA
-Follow-up coxsackie B antibody
- Continue amiodarone gtt; milrinone gtt back on as of this AM --> now off after patient spontaneously converted into sinus tachycardia; continue to trend CI with goal >2
- If cardiac index remains >2 off milrinone then would start a beta-gio for heart rate control; continue to trend MVO2 as well; removal of [place] deferred to cardiology
- Cardiology recommendations appreciated
- RHC performed on 12/10/2024 shows severely elevated filling pressures with postcapillary pulmonary hypertension with preserved CO + CI
- Monitor strict I/O given risk of volume overload; his repeat CXR on morning of 12/10/2024 shows worsening bilateral pleural effusions ---> continue diuresis with holding parameters
- Lactate is <2 mmol/L, hence no need to continue trending this
- Trend sHCO3 level; no need for bicarb at this time as pH is 7.47 on last blood gas from 12/15/2024 and sHCO3 is 27 today
- s/p Left heart cath on 12/13/2024 - showed nonobstructive CAD and a right dominant system with no aortic stenosis
- DCCV planned for today but then pt spontaneously converted to sinus tachycardia, hence no longer need cardioversion at this time - continue to monitor
- Patient's TFTs are abnormal with low TSH at 0.36 and elevated free T4 of 3.28 --> now (12/12/2024) with TSH undetectable (<0.02) and fT4 2.99--> given his rapid A-fib and acute decompensated heart failure, need to consider thyrotoxicosis, although
not febrile so doubt thyroid storm
- Methimazole started 12/13/2024; endocrinology consulted who stated at TSH likely low given acute illness and apparently heparin drip can cause elevated T4 levels, however methimazole started given benefit >risk
- Thyroid-stimulating Ig is negative
- Continue to trend free T4 + TSH
- Follow-up cultures (blood cultures x 2 collected 12/10)
- s/p course of Abx ceftriaxone/Zithromax (last day of ABx on 12/15/2024)
- CXR shows opacification in the right lower lobe suspicious for pneumonia
- He will need repeat CXR in 4-6 weeks to follow-up pneumonia resolution
- Legionella + strep pneumonia urine antigens both negative
- s/p Tamiflu x 5 days - last day on 12/15/2024
- supportive care with prn tylenol, prn flexeril and lidocaine patch for body aches/lower back pain
- Pain control
- Anxiolytics prn, holding for sedation
- Maintain SpO2 >90-94% with supplemental oxygen and wean as tolerated
- Troponin peaked at 0.086 on 12/10/2024; no longer need to continue trending at this time
- Trend LFTs
- Of note, abdominal ultrasound on 12/10 shows no gallstones or bile duct dilatation, and liver appears unremarkable. There is mild gallbladder wall thickening and mild - moderate ascites
- Maintain MAP>65
- Continue PO hydralazine for afterload reduction
- Lisinopril started 12/14/2024 at 5 mg daily --> raised to 10mg daily on 12/15, and now raised to 20 mg as of 12/16/2024
-Imdur started today
- Replete electrolytes with K>4, Mg>2
- Maintain euglycemia with goal BG 140-180
- Trend H/H and transfuse if needed to keep Hb>7-8g/dL; keep plt>20k, unless there is concern for bleeding then keep plt>50k
- prn nebulized bronchodilators - not currently bronchospastic
- Incentive spirometer encouraged 10x per hour for at least 4 hrs a day
- DVT ppx: pradaxa (heparin gtt stopped now that LHC showed non-obstructive CAD with no lesions)
Patient remains critically ill; continue ICU level of care
Critical care statement: A total of 37 minutes of critical care time was provided for this patient today. This includes management of unstable vital signs, evaluation of the patient at bedside, reviewing the patient's pertinent medical records
including radiographs, microbiology, laboratory evaluations, and discussion with primary team, consultants, pharmacy, nutrition, physical therapy, case management, charge nurse, critical care nursing, and respiratory therapy.
Data:
CXR 12/10/2024: Probable posterior layering of bilateral pleural effusion, right greater than left. Cannot exclude atelectasis or pneumonia; stable cardiomegaly and mild vascular congestion.
RUQ abdominal ultrasound 12/10/2024: Unremarkable sonographic appearance of the liver; no gallstones or bile duct dilatation; mild to moderate ascites; ,mild gallbladder wall thickening, which is nonspecific in the presence of ascites; Incidental
pleural effusion.
Subjective Dataa
Subjective Data
Date of Service:
Date of Service: December 16, 2024
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
Subjective:
On room air this AM. Amio 0.5mg/min, milrinone gtt at 0.125mcg/kg/min, PAP 27/13, CI 2.4. HR 148. Planning for DCCV today, but then the patient spontaneously converted to sinus tachycardia later in the morning hours. Milrinone then stopped.
Patient feels well although he has some left-sided arm swelling.
Review of Systems
General: Other (Negative unless mentioned above)
Objective Data
Data Reviewed
Vital Signs / I&O / Oxygen:
Vital Signs
Temp Pulse Resp BP Pulse Ox
98.7 F 157 18 110/84 94
12/16/24 07:50 12/16/24 06:30 12/16/24 06:30 12/16/24 06:00 12/16/24 06:30
Intake and Output
12/15/24 12/16/24 12/17/24
06:59 06:59 06:59
Intake Total 1093.3 / 1093.3 1543.8 / 1564.4 61.8 / 61.8
Output Total 3171 / 3171 4094 / 4094 135 / 135
Balance -2077.7 / -2077.7 -2550.2 / -2529.6 -73.2 / -73.2
SaO2 94
Nasal Cannula flow liters per 3
minute
Physical Exam
General: Respiratory Distress (negative), Comfortable, Chills (negative), Sweats (negative) and Other ([place]-Lakhwinder catheter in R-IJ)
HEENT: Normocephalic and Anicteric
Cardiovascular: S1-S2, Regular Rhythm, Peripheral Edema (+2 lower extremity edema bilaterally; left upper extremity also swollen with +1 edema, specifically at the hand) and Other (Tachycardic)
Respiratory: Wheeze (negative), Crackles (Bibasilar), Rhonchi (negative), Non-Labored Respirations and Stridor (negative)
GI: Soft, Non Distended, Non Tender and Normal Bowel Sounds
Neurology: Awake, Alert and Tremors (negative)
Skin: Warm, Dry, Cyanosis (negative) and Jaundice (negative)
Labs/Micro/Reports
Lab Data
12/15/24 04:19
12/16/24 03:54
Laboratory Results
12/15/24
11:56
pH 7.47 H
pCO2 40
pO2 78 L
HCO3 29.1 H
O2 Delivery Level
Microbiology
12/10/24 11:32 Blood/Venous Blood Culture - Final
No Growth - Final Report
12/10/24 01:10 Blood/Venous Blood Culture - Final
No Growth - Final Report
--- NOTE | 2024-12-16 08:32 | W.PN.HOSP.TC ---
Today's Communication/Plan
-
see plan
Assessment / Plan
Assessment / Plan
Mr. Lissa Louis is a 44 yo man, primarily Slovak speaking, presents to the ER with complaint of increasing fatigue, lower extremity swelling and shortness of breath found to be in afib with RVR with development of cardiogenic shock.
HEAD CT
IMPRESSION:
There or no acute or focal intracranial abnormalities
There is mild diffuse cortical and cerebellar atrophy
CXR
IMPRESSION:
Right lower lobe pneumonia
Abdomen US:
IMPRESSION:
Unremarkable sonographic appearance of the liver.
No gallstones or bile duct dilatation.
Mild to moderate ascites.
Mild gallbladder wall thickening, which is nonspecific in the presence of ascites.
Incidental pleural effusion.
TTE
CONCLUSIONS
During study patient limited the amount of images that were obtained reporting
discomfort during exam. Note this appeared to be disproportional to the amount
of pressure being applied.
Severely reduced left ventricular function with estimated ejection fraction of
15 to 20%
Global hypokinesis
Right ventricular hypokinesis suspected
Moderate mitral regurgitation.
Moderate tricuspid regurgitation
No prior study available for comparison
Cardiac Cath 12/10/24
CONCLUSION:
1. Severely elevated filling pressures (PCWP = 29 mmHg at 102.5 kg).
2. Normal cardiac index (2.68 L/min/m� by Ivon, 2.10 L/min/m� by thermodilution) on milrinone 0.33 mcg/kg/min.
3. Moderate, postcapillary pulmonary hypertension (mean PA = 37 mmHg, PCWP = 29 mmHg, cardiac output = 5.71 L/min by Ivon, 4.47 L/min by thermodilution, PVR 1.40 Moy units by Ivon, 1.79 Moy units by thermodilution).
Cardiogenic Shock
New Diagnosis Heart Failure - low EF seen on bedside US. Per echo 12/09 EF with 15 to 20%, global hypokinesis, right ventricular hypokinesis suspected.
Acute CHF with reduced EF with RV enlargement
Acute hypoxic respiratory failure secondary to acute pulmonary edema and right lower lobe pneumonia
Non-ischemic myocardial injury 2/2 above
Atrial Fibrillation with RVR
-admitted to ICU
-Troponin peaked at 0.086
-appreciate Cardiology consult
-Levophed titrated off 12/10
-RHC 12/10 with elevated pressures; cw diuresis
-s/p cardiac cath - non-ischemic cardiomyopathy
-continue IV Milrinone gtt (low CI off Milrinone, resumed evening 12/14)
-continue iV lasix - responding well to diuresis
-continue Pradaxa
-Continue with amiodarone gtt
-plan is for cardioversion today, patient is NPO
Community-acquired pneumonia
Influenza +
Sespsis 2/2 above
-Legionella and strep negative
-COVID-negative, flu positive. s/p 5 days treatment
-s/p Ceftriaxone/Azithromycin course
-speech following; ok for IDSSI 6
Lactic acidosis on admission
Now resolved
Elevated liver enzymes
-may be 2/2 congestion
Abdominal ultrasound without any gallstone or biliary ductal dilation
-aLT remains elevated but iproving
MARY, does not report any history of CKD
Likely related to CHF
-improving with diuresis
Low TSH with elevated free T4 concerning for hyperthyroidism
appreciate Endocrinology
given difficulty in rate control methimazole initiated - F/U further Endocrine recs
DVT PPx Pradaxa
FULL CODE
Total Critical Care Time 45 minutes. I was immediately available to the patient and staff. I personally examined, reviewed labs, diagnostic images/reports, interpretations, treatment plans, discussed patient care with other providers and family
or caregivers (if patient is unable to make decisions), entered orders as appropriate and documented the medical record.
Anticipated Discharge: > 48 hours
Subjective/Interval History
-
Date of Service: December 16, 2024
urinating a lot, feeling better
Objective Data
-
Labs:
Laboratory Results
12/16/24
03:54
Sodium 131 L
Potassium 4.2
Chloride 98
Carbon Dioxide 27
BUN 26 H
Creatinine 1.2
Glucose 108 H
Calcium 8.1 L
Total Bilirubin 0.9
AST 53
ALT 75 H
Alkaline Phosphatase 67
Vital Signs:
Vital Signs
Temp Pulse Resp BP Pulse Ox
98.7 F 157 18 110/84 94
12/16/24 07:50 12/16/24 06:30 12/16/24 06:30 12/16/24 06:00 12/16/24 06:30
I&O
12/15/24 12/16/24 12/17/24
06:59 06:59 06:59
Intake Total 1093.3 / 1093.3 1543.8 / 1543.8
Output Total 3171 / 3171 4094 / 4094
Balance -2077.7 / -2077.7 -2550.2 / -2550.2
Review of Systems
-
History Source: Patient
All other systems: Reviewed and negative
Physical Exam
-
General: No Apparent Distress
HEENT: PERRLA
Respiratory: Clear to Auscultation; Negative Wheezes
Cardiac: S1/S2 and Tachycardic
GI: Soft and Nontender
Musculoskeletal: Other (swelling improving )
Skin: Warm and Dry; Negative Rash
Neuro: AO x 3
Psych: Calm
Data Reviewed
-
Diagnostic Radiology: Report Reviewed by me
Labs: Labs Reviewed by me
--- NOTE | 2024-12-16 08:57 | W.PN.INTV ---
Today's Communication / Plan
Recommendations
ADITYA with cardioversion today
Assessment
-
IMPRESSION
A 44-year-old healthy primarily Romansh speaking male with no past medical issues who presented with shortness of breath, lower extremity swelling and general malaise.New onset heart failure with severely reduced ejection fraction and global
hypokinesia. History of fever earlier in November for about 3 days. Presented to Er with hypotension,tachycardia and SOB. CXR showed right lower lobe pneumonia. His EKG shows atrial flutter with RVR and he had signs of volume overload.
Urgent echo performed showing severely reduced LVEF at 15-20% with global hypokinesis, with suspected RV hypokinesis, and moderate MR, and moderate TR.
Serum creatinine trending down
[place]-Lakhwinder catheter in place to help guide the management
Optimize heart failure treatment based on GDMT as able
ASSESSMENT
#SHOCK,secondary to cardiogenic causes or sepsis
#New onset heart failure
#Acute respiratory failure with hypoxia due to CAP involving RLL
#Influenza B pneumonia
#MARY
#Metabolic acidosis with increased anion gap likely due to MARY/Lactic acidosis from shock
#Transaminitis with hyperbilirubinemia likely due to hepatic congestion from heart failure
#Elevated troponin NSTEMI vs NIMI?
#Abnormal TFTs with low TSH and elevated free T4 consistent with hyperthyroidism
Plan:
#SHOCK,secondary to cardiogenic causes or sepsis
On presentation patient was hypotensive, tachycardic, had malaise and lethargy
Briefly required Levophed for blood pressure maintaining-off vasopressors now
Right lower lobe pneumonia on chest xray and severely reduced EF on echo
Unclear etiology of new onset cardiomyopathy
Normal cardiac index and output on right heart catheterization, left heart catheterization shows no obstruction in coronary arteries-nonischemic myocardial injury likely
Continue antibiotics for pneumonia
Use [place]-Lakhwinder catheter to help in management of hemodynamics of shock
Cardiac index 2.4,heart rate still in 150's with flutter pattern,milrinone at 0.125mcg/kg/min
Ficks method showed cardiac index of 4?,plan to use both to get an average cardiac index
ADITYA with cardioversion today planned by cards
#New onset heart failure
History of a febrile illness in November that resolved but shortness of breath and swelling lingered on
Urgent echocardiography showed severely reduced left ventricular ejection fraction , EF 15-20%
LHC shows nonobstructive cardiomyopathy-consider nonischemic causes
Hydralazine increased to 100 mg 3 times daily,Lisinopril 10mg daily to help decrease afterload
Add GDMT as able-insurance issues limit options
On Dabigartan 150mg bid
#Acute respiratory failure with hypoxia due to CAP involving RLL
Maintain SpO2 >90-94%
Comfortably breathing on room air today
#Abnormal TFTs with low TSH and elevated free T4 consistent with hyperthyroidism
As per endocrinology, heparin can increase free T4 levels, but in his situation hyper thyroidism is unlikely given normal T3
TFTs improving(Free t4 decreased from 2.5 to 2.36 and TSH increased from 0.08 to 0.16)-continue methimazole
#Influenza B pneumonia
Tamiflu dose completed
Tylenol for body aches-improving
#MARY
Resolved, serum creatinine 1.1-1.2
#Elevated troponin NSTEMI vs NIMI?
Troponin peaked at 0.086 on 12/10/2024; no longer need to continue trending at this time
#Transaminitis
Liver enzymes trending down
DVT ppx:Dabigartan 150mg BID
Full code
Subjective Dataa
Subjective Data
Date of Service:
Date of Service: December 16, 2024
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
Subjective:
Awake and alert,breathing on room air today
Heart rate is still in 150's
On Amiodarone,0.5/min
Milrinone 0.125mcg/kg/min
Cardiac index 2.45/min through swanz lakhwinder catheter and 2.9 with antonio's method
Negative fluid balance of 2550-metabolic alkalosis(HCO3 29)
PAP-37/13(21)
Swelling of left hand
Review of Systems
General: Other (Reviewed and negative)
Objective Data
Data Reviewed
Vital Signs / I&O / Oxygen:
Vital Signs
Temp Pulse Resp BP Pulse Ox
98.7 F 157 18 110/84 94
12/16/24 07:50 12/16/24 06:30 12/16/24 06:30 12/16/24 06:00 12/16/24 06:30
Intake and Output
12/15/24 12/16/24 12/17/24
06:59 06:59 06:59
Intake Total 1093.3 / 1093.3 1543.8 / 1543.8
Output Total 3171 / 3171 4094 / 4094
Balance -2077.7 / -2077.7 -2550.2 / -2550.2
SaO2 94
Nasal Cannula flow liters per 3
minute
Physical Exam
General: Comfortable, Pain (mild generalized body aches and pains) and Other ( [place]-Lakhwinder catheter in R-IJ)
HEENT: Normocephalic and Anicteric
Cardiovascular: S1-S2, Regular Rhythm, Peripheral Edema (+2 lower extremity edema bilaterally) and Other (Tachycardic)
Respiratory: Clear and Non-Labored Respirations
GI: Soft, Non Distended, Non Tender and Normal Bowel Sounds
Neurology: Awake, Alert and No Motor Deficits
Skin: Warm, Dry and Good Color
Labs/Micro/Reports
Lab Data
12/15/24 04:19
12/16/24 03:54
Laboratory Results
12/15/24
11:56
pH 7.47 H
pCO2 40
pO2 78 L
HCO3 29.1 H
O2 Delivery Level
Microbiology
12/10/24 11:32 Blood/Venous Blood Culture - Final
No Growth - Final Report
12/10/24 01:10 Blood/Venous Blood Culture - Final
No Growth - Final Report
[2024-12-16] MEDS: APRESOLINE 100 MG PO (09:16)
[2024-12-16] MEDS: TAPAZOLE 10 MG PO ×2 (09:16→20:32)
[2024-12-16] MEDS: LIDOCAINE 4% PATCH 1 PATCH TOPICAL (09:16)
[2024-12-16] MEDS: ZESTRIL 10 MG PO ×2 (09:16→11:43)
[2024-12-16] MEDS: LASIX 20 MG IV (09:16)
[2024-12-16] MEDS: PRADAXA 150 MG PO ×2 (09:16→20:32)
[2024-12-16 09:41] LABS: Mixed Venous O2 Saturation 64.6 %
--- NOTE | 2024-12-16 11:03 | W.PN.CD ---
Today's Communication / Plan
-
continue hydralazine 100mg tid
lisinopril increased to 20mg daily
add imdur 30mg daily
assess to stop milrinone after DCCV based on [place] numbers
ADITYA/DCCV later today
Impression / Plan
-
44-year-old primarily Czech speaking male with no past medical history who presented with shortness of breath, lower extremity edema and general malaise found to have acute heart failure with severely reduced ejection fraction (LVEF 15-20%). He
also tested positive for influenza B and course has been complicated by atrial flutter with RVR. He was taken for RHC on 12/10/2024 which revealed severely elevated filling pressures and normal cardiac index on milrinone.
#Cardiogenic shock
-CI dropped when we stopped milrinone: back on 0.125 mcg/kg/min
-trend [place] numbers
-continue hydralazine 100mg tid
-lisinopril increased to 20mg daily
-add imdur 30mg daily
-assess to stop milrinone after DCCV based on [place] numbers
#New non-ischemic cardiomyopathy (severe, EF 15-20%) with acute systolic HF, and moderate MR/TR
-perhaps tachy induced +/- viral myocarditis
-[facility] 12/09/24: 30% mid LAD, 40% prox D2; o/w LI
-beta gio once shock better
-no prescription med coverage, so will use generic GDMT
-continue lasix IV 20mg bid, with close monitoring of labs and hemos
#Atrial flutter with RVR
-New onset: cardiomyopathy may be tachy induced
-Duration unknown
-Has not felt well since November 23 unclear if this represents onset of A-fib or if he developed more recently.
-CHADS2-VASC = 1. Pradaxa 150mg bid for OAC
-continue amiodarone for rate control
-eventual beta gio once shock improved
-ADITYA/DCCV today
# MARY, improved
-Continue to optimize hemodynamics.
# Right lower lobe pneumonia
-Continue ceftriaxone
#Influenza B. Management as directed by primary team patient has been afebrile.
# Elevated LFTs. Likely related to shock. Improving.
# abnormal Thyroid studies . TSH low 0.36 and T4 elevated 3.28. Continue Methimazole. Per primary team
CCT 35 minutes.
Physical Exam
Vital Signs/Labs
Vital Signs
Temp Pulse Resp BP Pulse Ox
97.9 F 157 15 114/82 95
12/16/24 10:46 12/16/24 10:31 12/16/24 10:31 12/16/24 10:00 12/16/24 10:46
12/15/24 12/16/24 12/17/24
06:59 06:59 06:59
Actual Weight 96.5 kg 91.4 kg
12/15/24 04:19
12/16/24 03:54
PT 18.6 Sec (11.4-14.6) H 12/09/24 18:39
INR 1.53 12/09/24 18:39
APTT 106.6 Sec (23.4-35.0) H 12/13/24 11:46
Magnesium 2.0 mg/dl (1.6-2.3) 12/16/24 03:54
Triglycerides 81 mg/dl (10-149) 12/10/24 02:49
LDL Cholesterol, Calc 114 mg/dl 12/10/24 02:49
VLDL Cholesterol, Calc 16 mg/dl (0-30) 12/10/24 02:49
HDL Cholesterol 31 mg/dl 12/10/24 02:49
TSH 0.16 uIU/ml (0.47-4.68) L 12/16/24 03:54
Free T4 2.36 ng/dl (0.78-2.19) H 12/16/24 03:54
12/09/24
18:39
[id number] Pept 4700
Physical Exam
Constitutional: No acute distress
EENT: Moist mucous membranes
Cardiovascular: Rhythm & rate is regular (tachy), Pedal edema present, JVD present and Systolic murmur present
Respiratory: Respiratory effort normal
Neuro/Psych: AO x 3
Data Reviewed
-
Date of Service: December 16, 2024
EKG: Other (Tele: a flutter 150)
Labs: Labs Reviewed by me
Critical Care Time (in minutes): 35
[2024-12-16] MEDS: PRIMACOR 20 MG 100 IV (11:35)
[2024-12-16] MEDS: IMDUR (EXTENDED RELEASE) 30 MG PO (11:43)
--- NOTE | 2024-12-16 12:15 | PTCARENOTE ---
Pt noted to be in sinus tachycardia 109-115. Verified with EKG. Pt is aware of this finding and need for ADITYA/cardioversion no longer needed. Will review the plan of care with Dr. Woodward.
--- NOTE | 2024-12-16 12:34 | PTCARENOTE ---
Dr. Woodward @ bedside. Pt not in ST, confirmed w/EKG. Will obtain hemodynamics now as ordered.
[2024-12-16 13:26] LABS: Mixed Venous O2 Saturation 74.6 %
--- NOTE | 2024-12-16 13:58 | PTCARENOTE ---
Verified with Dr. Woodward a cholesterol lowering diet with 48oz fluid restriction. Pt was informed of this, and encouraged to drink something other than water due to his low sodiu levels. He still did not want to brush his teeth. He was informed of the
importance of keeping his mouth clean and hydrated for the prevention of PNA.
--- NOTE | 2024-12-16 14:49 | CM ---
CM following re: discharge planning.
Reviewed pt's chart, met with pt. Per Rounds meeting, ADITYA and cardioversion today, continue supportive care.
Pt lives with spouse 2SH, has supportive son. Pt recently moved to [place] from [place], works, has no insurance. [facility]
D/C plan: home with anticipated no needs. Family to transport at discharge.
CM will follow with discharge plan updates as hospitalization progresses
[2024-12-16 16:47] LABS: Mixed Venous O2 Saturation 73.6 %
--- NOTE | 2024-12-16 16:54 | PTCARENOTE ---
Dr. Woodward notified of thermodilution & antonio readings along with BP 86/52(64). Will hold this Lasix and Hydralazine dose. Will continue with Amiodarone drip as ordered and Milrinone drip to remain off as ordered. SGC to remain in place at this time
with Q4H C/O with antonio. Will notify MD if CI<2 as ordered.
[2024-12-16] MEDS: LASIX IV (16:59)
[2024-12-16] MEDS: APRESOLINE PO (16:59)
--- NOTE | 2024-12-16 20:30 | PTCARENOTE ---
Addendum entered by Claritza Tapia RN 12/17/24 05:52:
0500: CO/CI: 3.31/1.63 PAS/PAD: 50/28 CVP: 11 KRYSTIN: CO/CI 4.2/2.2 SV 40
Addendum entered by Claritza Tapia RN 12/17/24 02:23:
0100: CO/CI: 3.43/1.69 PAS/PAD: 37/18 CVP: 6 KRYSTIN: CO/CI 3.6/1.9 SV 34
Original Note:
Pa Cath numbers throughout shift listed below.
2000: CO/CI: 3.73/1.84 PAS/PAD: 47/20 CVP: 12 KRYSTIN: CO/CI 6.3/3.3 SV 57
[2024-12-16 20:56] LABS: Mixed Venous O2 Saturation 76.2 %
[2024-12-17] VITALS (30 sets, daily range): BP systolic 91–116; BP diastolic 72–97; PULSE 115; O2SAT 97; BMI 31.1
[2024-12-17] MEDS: STERILE WATER FOR INJECTION IV ×2 (00:51→22:05)
--- NOTE | 2024-12-17 01:00 | PTCARENOTE ---
No change in previous assessment. KRYSTIN numbers as documented. Mouth care done. Pt compliant with care. Will monitor closely.
[2024-12-17 01:13] LABS: Mixed Venous O2 Saturation 60.6 %
[2024-12-17 04:41] LABS: Mixed Venous O2 Saturation 67.5 %
[2024-12-17] MEDS: CORDARONE 518 MG IV (04:48)
[2024-12-17 05:41] LABS: Hematocrit 43.8 % (39.0-52.0); Hemoglobin 14.3 g/dL (13.0-18.0); Mean Corp Hgb Conc. 32.6 g/dL (33.0-37.0); Mean Corpuscular Hgb 28.3 pg (27.0-31.0); Mean Corpuscular Volume 86.7 fL (80.0-94.0); Mean Platelet Volume 9.2 fL (7.4-10.4); Platelet Count 192 10^3/uL (130-400); Red Blood Cell Count 5.05 10^6/uL (4.70-6.10); Red Cell Dist. Width 14.9 % (11.5-14.5); White Blood Cell Count 7.5 10^3/uL (4.8-10.8)
[2024-12-17 05:55] LABS: Blood Urea Nitrogen 25 mg/dl (9-20); Calcium 8.1 mg/dl (8.4-10.2); Carbon Dioxide 27 mmol/L (22-30); Chloride 97 mmol/L (98-107); Estimated Creatinine Clearance 73 ml/min; Glucose 107 mg/dl (70-99); Potassium 4.4 mmol/L (3.5-5.1); Sodium 133 mmol/L (135-145); eGFR > 60.00
--- NOTE | 2024-12-17 07:42 | W.PN.INTV ---
Today's Communication / Plan
Recommendations
LHC 12/13/2024 showed nonobstructive CAD with no aortic stenosis
Continue diuresis as blood pressure tolerates - now on PO lasix
Replete K>4, Mg>2
Strict I/O and trend UOP
Trend serum creatinine
Continue PO amiodarone load s/p drip; patient spontaneously converted into sinus tachycardia on 12/16/2024
Now off milrinone is off
[place] + cordis now removed as per cardiology
Goal HR <110
Keep SpO2 >90-94%
s/p course of antibiotics + Tamiflu (last day on 12/15/2024)
Analgesia for myalgias
Repeat CXR in 4-6 weeks
Patient is stable for downgrade out of ICU to IVU. No additional recommendations at this time. Sheet Tailer/Pulmonary service will now sign off. Please reconsult if there are any additional questions/concerns, or if patient's respiratory status
deteriorates.
Assessment
-
Assessment: 44-year-old male with no past medical history who presented with shortness of breath, lower extremity swelling and general malaise. Found to be in A-fib with RVR. He had a fever earlier in November with shortness of breath and lower
extremity edema at the time. Fever lasted for about 3 days. He improved but his SOB and lower extremity edema persisted. He did not seek medical attention until he came to the ER on 12/09/24. Initially in the ER he was afebrile to 97.5 �F, pulse
rate 142, breathing at 18 breaths/min, BP 105/79 saturating 99% on room air. Initial labs showed leukocytosis to 11.5, sodium 133, creatinine 1.4, T. bili 2.2, troponin 0.059, and proBNP 4700. Blood cultures were collected, and CXR showed
suspected right lower lobe pneumonia. In the ER he was given Cardizem and started on drip, 40 mg Lasix, started on heparin drip, given IVF with 500 cc bolus of NS 0.9%, given Dilaudid, Zofran and started on Levophed due to persistent hypotension.
Urgent echo performed showing severely reduced LVEF at 15-20% with global hypokinesis, with suspected RV hypokinesis, and moderate MR, and moderate TR. Cardiology was consulted and he was transferred to the ICU for further evaluation with
cloth baler services consulted for additional management/recommendations.
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
Impression:
#A-fib with RVR now spontaneously converted into sinus tachycardia as of morning of 12/16/2024
#Acute HFrEF with RV enlargement
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
#Acute respiratory failure with hypoxia due to acute pulmonary edema with bilateral pleural effusions and RLL pneumonia
#CAP involving RLL
#Influenza B pneumonia
#Leukocytosis � resolved as of 12/12/2019
#Lactic acidosis (resolved as of 12/10/2024)
#MARY - improving
#Metabolic acidosis with increased anion gap likely due to MARY at this point - acidosis now resolved
#Transaminitis with hyperbilirubinemia likely due to hepatic congestion from heart failure
#Elevated troponin likely due to demand ischemia with type II FL in the setting of rapid A-fib and acute decompensated heart failure - troponin peaked on 12/10/2024 at 0.086
#Abnormal TFTs with low TSH and elevated free T4 consistent with hyperthyroidism
#Recent febrile illness (being the November 2024) X 3 days with SOB and lower extremity edema at the time
Plan:
- Unclear etiology for his left ventricular cardiomyopathy, although he is positive for Flu B so possibly related to this via sepsis in setting of suspected RLL PNA
- Follow-up coxsackie B antibody
- Now off amiodarone gtt and on PO amio load; also off milrinone
- [place] + cordis removed per cardiology
- Cardiology recommendations appreciated
- RHC performed on 12/10/2024 shows severely elevated filling pressures with postcapillary pulmonary hypertension with preserved CO + CI
- Monitor strict I/O given risk of volume overload; his repeat CXR on morning of 12/10/2024 shows worsening bilateral pleural effusions, however today he has markedly improved lower extremity edema and he is now on room air saturating well at 96%.
Lasix now transition from IV to PO (40 mg daily)
- Lactate is <2 mmol/L, hence no need to continue trending this
- Trend sHCO3 level; no need for bicarb at this time as pH is 7.47 on last blood gas from 12/15/2024 and sHCO3 is 27 today
- s/p Left heart cath on 12/13/2024 - showed nonobstructive CAD and a right dominant system with no aortic stenosis
- DCCV planned for 12/16/2024 but then pt spontaneously converted to sinus tachycardia, hence no longer need cardioversion at this time - continue to monitor
- Patient's TFTs are abnormal with low TSH at 0.36 and elevated free T4 of 3.28 --> now (12/12/2024) with TSH undetectable (<0.02) and fT4 2.99--> given his rapid A-fib and acute decompensated heart failure, need to consider thyrotoxicosis, although
not febrile so doubt thyroid storm
- Methimazole started 12/13/2024; endocrinology consulted who stated at TSH likely low given acute illness and apparently heparin drip can cause elevated T4 levels, however methimazole started given benefit >risk
- Thyroid-stimulating Ig is negative
- Continue to trend free T4 + TSH
- Defer continuation of methimazole to endocrinology
- Follow-up cultures (blood cultures x 2 collected 12/10 - shows NGTD)
- s/p course of Abx ceftriaxone/Zithromax (last day of ABx on 12/15/2024)
- CXR shows opacification in the right lower lobe suspicious for pneumonia
- He will need repeat CXR in 4-6 weeks to follow-up pneumonia resolution
- Legionella + strep pneumonia urine antigens both negative
- s/p Tamiflu x 5 days - last day on 12/15/2024
- supportive care with prn tylenol, prn flexeril and lidocaine patch for body aches/lower back pain
- He had left hand swelling yesterday and a left upper extremity duplex ultrasound was negative for DVT
- Pain control
- Anxiolytics prn, holding for sedation
- Maintain SpO2 >90-94% with supplemental oxygen and wean as tolerated
- Troponin peaked at 0.086 on 12/10/2024; no longer need to continue trending at this time
- Trend LFTs
- Of note, abdominal ultrasound on 12/10 shows no gallstones or bile duct dilatation, and liver appears unremarkable. There is mild gallbladder wall thickening and mild - moderate ascites
- Maintain MAP>65
- Continue PO hydralazine for afterload reduction
- Lisinopril started 12/14/2024 at 5 mg daily --> raised to 10mg daily on 12/15, and raised to 20 mg as of 12/16/2024 --> now off due to hypotension
- Imdur started yesterday - now stopped due to hypotension
- Replete electrolytes with K>4, Mg>2
- Maintain euglycemia with goal BG 140-180
- Trend H/H and transfuse if needed to keep Hb>7-8g/dL; keep plt>20k, unless there is concern for bleeding then keep plt>50k
- prn nebulized bronchodilators - not currently bronchospastic
- Incentive spirometer encouraged 10x per hour for at least 4 hrs a day
- DVT ppx: pradaxa (heparin gtt stopped now that LHC showed non-obstructive CAD with no lesions)
Patient is stable for downgrade out of ICU to IVU. No additional recommendations at this time. Sheet Tailer/Pulmonary service will now sign off. Thank you for allowing us to be involved in the care of this patient. Please reconsult if there are
any additional questions/concerns, or if patient's respiratory status deteriorates.
Data:
CXR 12/10/2024: Probable posterior layering of bilateral pleural effusion, right greater than left. Cannot exclude atelectasis or pneumonia; stable cardiomegaly and mild vascular congestion.
RUQ abdominal ultrasound 12/10/2024: Unremarkable sonographic appearance of the liver; no gallstones or bile duct dilatation; mild to moderate ascites; ,mild gallbladder wall thickening, which is nonspecific in the presence of ascites; Incidental
pleural effusion.
Total time spent today was 58 minutes for this encounter. Time includes reviewing laboratory test/imaging results, reviewing pertinent medical records, obtaining and reviewing medical history, performing an appropriate exam, ordering medications,
tests and procedures. Time also includes documentation of this encounter, coordinating patient care and communicating with other healthcare professionals. Total time does not include separately billed tests performed on this date of service.
Subjective Dataa
Subjective Data
Date of Service:
Date of Service: December 17, 2024
Chief Complaint: Sheet Tailer Follow Up and Pulmonary Follow Up
Subjective:
Patient seen and evaluated today bedside. He is laying in bed in no acute distress, heart rate 112, BP 110/84 and saturating 96% on room air. He is off all drips. He currently denies chest pain, SOB, nausea, fevers or chills.
Review of Systems
General: Other (Negative unless mentioned above)
Objective Data
Data Reviewed
Vital Signs / I&O / Oxygen:
Vital Signs
Temp Pulse Resp BP Pulse Ox
98.2 F 105 20 111/87 94
12/17/24 07:00 12/17/24 06:30 12/17/24 06:30 12/17/24 06:00 12/17/24 06:30
Intake and Output
12/16/24 12/17/24 12/18/24
06:59 06:59 06:59
Intake Total 1543.8 / 1564.4 1428.9 / 1428.9
Output Total 4094 / 4094 3025 / 3025
Balance -2550.2 / -2529.6 -1596.1 / -1596.1
SaO2 94
Nasal Cannula flow liters per 3
minute
Physical Exam
General: Respiratory Distress (negative), Comfortable, Chills (negative) and Sweats (negative)
HEENT: Normocephalic and Anicteric
Cardiovascular: S1-S2, Peripheral Edema (Trace lower extremity edema bilaterally) and Other (Tachycardic)
Respiratory: Wheeze (negative), Rhonchi (negative), Non-Labored Respirations, Stridor (negative) and Other (Coarse breath sounds heard bilaterally)
GI: Soft, Non Distended, Non Tender and Normal Bowel Sounds
Neurology: Awake, Alert and Tremors (negative)
Skin: Warm, Dry, Cyanosis (negative) and Jaundice (negative)
Labs/Micro/Reports
Lab Data
12/17/24 04:24
12/17/24 04:24
Microbiology
12/10/24 11:32 Blood/Venous Blood Culture - Final
No Growth - Final Report
12/10/24 01:10 Blood/Venous Blood Culture - Final
No Growth - Final Report
--- NOTE | 2024-12-17 07:47 | W.PN.HOSP.TC ---
Today's Communication/Plan
-
see plan
Assessment / Plan
Assessment / Plan
Mr. Lissa Louis is a 44 yo man, primarily Faroese speaking, presents to the ER with complaint of increasing fatigue, lower extremity swelling and shortness of breath found to be in afib with RVR with development of cardiogenic shock.
HEAD CT
IMPRESSION:
There or no acute or focal intracranial abnormalities
There is mild diffuse cortical and cerebellar atrophy
CXR
IMPRESSION:
Right lower lobe pneumonia
Abdomen US:
IMPRESSION:
Unremarkable sonographic appearance of the liver.
No gallstones or bile duct dilatation.
Mild to moderate ascites.
Mild gallbladder wall thickening, which is nonspecific in the presence of ascites.
Incidental pleural effusion.
TTE
CONCLUSIONS
During study patient limited the amount of images that were obtained reporting
discomfort during exam. Note this appeared to be disproportional to the amount
of pressure being applied.
Severely reduced left ventricular function with estimated ejection fraction of
15 to 20%
Global hypokinesis
Right ventricular hypokinesis suspected
Moderate mitral regurgitation.
Moderate tricuspid regurgitation
No prior study available for comparison
Cardiac Cath 12/10/24
CONCLUSION:
1. Severely elevated filling pressures (PCWP = 29 mmHg at 102.5 kg).
2. Normal cardiac index (2.68 L/min/m� by Ivon, 2.10 L/min/m� by thermodilution) on milrinone 0.33 mcg/kg/min.
3. Moderate, postcapillary pulmonary hypertension (mean PA = 37 mmHg, PCWP = 29 mmHg, cardiac output = 5.71 L/min by Ivon, 4.47 L/min by thermodilution, PVR 1.40 Moy units by Ivon, 1.79 Moy units by thermodilution).
Cardiogenic Shock
New Diagnosis Heart Failure - low EF seen on bedside US. Per echo 12/09 EF with 15 to 20%, global hypokinesis, right ventricular hypokinesis suspected.
Acute CHF with reduced EF with RV enlargement
Acute hypoxic respiratory failure secondary to acute pulmonary edema and right lower lobe pneumonia
Non-ischemic myocardial injury 2/2 above
Atrial Fibrillation with RVR
-admitted to ICU
-Troponin peaked at 0.086
-appreciate Cardiology consult
-Levophed titrated off 12/10
-RHC 12/10 with elevated pressures
-s/p cardiac cath - non-ischemic cardiomyopathy
-continue IV Milrinone gtt (low CI off Milrinone, resumed evening 12/14)
-continue iV lasix - responding well to diuresis
-continue Pradaxa
-Continue with amiodarone gtt
-plan was for cardioversion but patient converted to sinus rhythm on 12/16/24
Community-acquired pneumonia
Influenza +
Sepsis 2/2 above
-Legionella and strep negative
-COVID-negative, flu positive. s/p 5 days treatment
-s/p Ceftriaxone/Azithromycin course
-speech following; ok for IDSSI 6
Lactic acidosis on admission
Now resolved
Elevated liver enzymes
-may be 2/2 congestion
Abdominal ultrasound without any gallstone or biliary ductal dilation
-aLT remains elevated but iproving
MARY, does not report any history of CKD
Likely related to CHF
-resolved
-creatinine mildly up this morning - monitor closely
Low TSH with elevated free T4 concerning for hyperthyroidism
appreciate Endocrinology
given difficulty in rate control methimazole initiated - F/U further Endocrine recs
DVT PPx Pradaxa
FULL CODE
Total Critical Care Time 45 minutes. I was immediately available to the patient and staff. I personally examined, reviewed labs, diagnostic images/reports, interpretations, treatment plans, discussed patient care with other providers and family
or caregivers (if patient is unable to make decisions), entered orders as appropriate and documented the medical record.
Anticipated Discharge: > 48 hours
Subjective/Interval History
-
Date of Service: December 17, 2024
feels tired this morning, didn't sleep well
Objective Data
-
Labs:
Laboratory Results
12/17/24
04:24
WBC 7.5
Hgb 14.3
Hct 43.8
Plt Count 192 D
Sodium 133 L
Potassium 4.4
Chloride 97 L
Carbon Dioxide 27
BUN 25 H
Creatinine 1.4 H
Glucose 107 H
Calcium 8.1 L
Vital Signs:
Vital Signs
Temp Pulse Resp BP Pulse Ox
98.2 F 105 20 111/87 94
12/17/24 07:00 12/17/24 06:30 12/17/24 06:30 12/17/24 06:00 12/17/24 06:30
I&O
12/16/24 12/17/24 12/18/24
06:59 06:59 06:59
Intake Total 1543.8 / 1564.4 1428.9 / 1428.9
Output Total 4094 / 4094 3025 / 3025
Balance -2550.2 / -2529.6 -1596.1 / -1596.1
Review of Systems
-
History Source: Patient
All other systems: Reviewed and negative
Physical Exam
-
General: No Apparent Distress
HEENT: PERRLA
Respiratory: Clear to Auscultation; Negative Wheezes
Cardiac: S1/S2 and Tachycardic
GI: Soft and Nontender
Musculoskeletal: Other (swelling improving )
Skin: Warm and Dry; Negative Rash
Neuro: AO x 3
Psych: Calm
Data Reviewed
-
Diagnostic Radiology: Report Reviewed by me
Labs: Labs Reviewed by me
--- NOTE | 2024-12-17 08:10 | PTCARENOTE ---
Received pt laying in bed. He reports that he is so tired and sleep deprived. He is having >35 seconds of sleep apnea when asleep with oxygen saturation dipping down to 87% pulse ox. 2 liters nasal cannula applied. Breath sounds dim in the bases.
Right IJ Cordis and SGC intact. SCG 60cm@ hub. Cordis with Amio infusion. +nausea. Refused antiemetic. No BM for several days. Pt refusing stool softener. +BSx4. Sanchez secured and draining susana urine. Safe environment maintained.
[2024-12-17 08:23] LABS: Mixed Venous O2 Saturation 57.8 %
[2024-12-17] MEDS: LIDOCAINE 4% PATCH 1 PATCH TOPICAL (09:28)
[2024-12-17] MEDS: PRADAXA 150 MG PO ×2 (09:29→19:37)
[2024-12-17] MEDS: TAPAZOLE 10 MG PO ×2 (09:29→19:37)
[2024-12-17] MEDS: LASIX IV (09:32)
[2024-12-17] MEDS: PACERONE 400 MG PO ×2 (09:33→19:39)
[2024-12-17] MEDS: APRESOLINE 10 MG PO ×3 (09:33→22:05)
--- NOTE | 2024-12-17 10:03 | W.PN.CD ---
Today's Communication / Plan
-
d/c [place] and cordis
PO amiodarone
PO lasix
add back hydralazine, and titrate
Impression / Plan
-
44-year-old primarily Hungarian speaking male with no past medical history who presented with shortness of breath, lower extremity edema and general malaise found to have acute heart failure with severely reduced ejection fraction (LVEF 15-20%). He
also tested positive for influenza B and course has been complicated by atrial flutter with RVR. He was taken for RHC on 12/10/2024 which revealed severely elevated filling pressures and normal cardiac index on milrinone.
#Cardiogenic shock
-improving, warm on exam
-[place] has been in plan for one week, with clinical improvement: remove today
-BP dropped, so held afterload reducing agents yesterday, and now will work on resuming today
-add back hydralazine 10mg tid
#New non-ischemic cardiomyopathy (severe, EF 15-20%) with acute systolic HF, and moderate MR/TR
-perhaps tachy induced +/- viral myocarditis
-[facility] 12/09/24: 30% mid LAD, 40% prox D2; o/w LI
-beta gio once shock better
-no prescription med coverage, so will use generic GDMT
-weight 104.5kg -->90 kg
-transition to lasix 40mg PO daily, and trend Cr
#Atrial flutter with RVR
-New onset: cardiomyopathy may be tachy induced
-Duration unknown
-Has not felt well since November 23 unclear if this represents onset of A-fib or if he developed more recently.
-CHADS2-VASC = 1. Pradaxa 150mg bid for OAC
-eventual beta gio once shock improved
-converted on IV amiodarone on 12/16
-transition to amiodarone 400mg bid for 2 weeks, then 200mg daily
# MARY
-Continue to optimize hemodynamics. Variable Cr.
# Right lower lobe pneumonia
-Continue ceftriaxone
#Influenza B. Management as directed by primary team patient has been afebrile.
# Elevated LFTs. Likely related to shock. Improving.
# abnormal Thyroid studies . TSH low 0.36 and T4 elevated 3.28. Continue Methimazole. Per primary team
CCT 32 minutes.
Physical Exam
Vital Signs/Labs
Vital Signs
Temp Pulse Resp BP Pulse Ox
98.2 F 109 13 107/85 95
12/17/24 07:00 12/17/24 09:33 12/17/24 09:30 12/17/24 09:33 12/17/24 09:30
12/16/24 12/17/24 12/18/24
06:59 06:59 06:59
Actual Weight 91.4 kg 90.1 kg
12/17/24 04:24
12/17/24 04:24
PT 18.6 Sec (11.4-14.6) H 12/09/24 18:39
INR 1.53 12/09/24 18:39
APTT 106.6 Sec (23.4-35.0) H 12/13/24 11:46
Magnesium 2.0 mg/dl (1.6-2.3) 12/16/24 03:54
Triglycerides 81 mg/dl (10-149) 12/10/24 02:49
LDL Cholesterol, Calc 114 mg/dl 12/10/24 02:49
VLDL Cholesterol, Calc 16 mg/dl (0-30) 12/10/24 02:49
HDL Cholesterol 31 mg/dl 12/10/24 02:49
TSH 0.16 uIU/ml (0.47-4.68) L 12/16/24 03:54
Free T4 2.36 ng/dl (0.78-2.19) H 12/16/24 03:54
12/09/24
18:39
[id number] Pept 4700
Physical Exam
Constitutional: No acute distress
EENT: Moist mucous membranes
Cardiovascular: Rhythm & rate is regular (tachy), Pedal edema is absent, JVD present and Systolic murmur present
Respiratory: Respiratory effort normal
Neuro/Psych: AO x 3
Data Reviewed
-
Date of Service: December 17, 2024
EKG: Other (Tele: sinus 100-110)
Labs: Labs Reviewed by me
Critical Care Time (in minutes): 32
--- NOTE | 2024-12-17 10:09 | PTCARENOTE ---
0.9nss 10ml/hr via cordis until DC'd.
--- NOTE | 2024-12-17 10:51 | PTCARENOTE ---
Right IJ Cordia and SGC removed by CT PA. Pt tolerated it well.
--- NOTE | 2024-12-17 11:15 | PTCARENOTE ---
Right neck dressing CDI.
[2024-12-17] MEDS: LASIX 40 MG PO (12:10)
--- NOTE | 2024-12-17 12:15 | PTCARENOTE ---
OOB to the chair. He was nauseas, sweating. He had multiple bath blankets on him and the room was hot. Room was cooled and he was washed with room temp CHG cloths, hair cap placed. Cool cloth for his face provided. Full bed changes also done. He
wanted to stay OOB to the chair for at least an hour today. He was informed again of the importance of frequent mouth care for the prevention of PNA from the bacteria buildup in his mouth. He deferred until after dinner due to nausea. He refused
antiemetic. He was encouraged to take a stool softener due to no BM for several day. He was agreeable. Safe environment maintained.
--- NOTE | 2024-12-17 15:45 | PTCARENOTE ---
No Changes. He was assisted to the bed. He was able to sit up for 3 hours. Edema of his L/E's improving. No other changes.
[2024-12-17] MEDS: MIRALAX PO (16:44)
--- NOTE | 2024-12-17 19:45 | PTCARENOTE ---
Patient received in bed awake and watching television. Plan of care for the shift reviewed with the patient. MAEx4. Pt verbalized some pain with left hand grasp assessment. Pt stated that an ultrasound was performed due to pain. Sinus tachy on the
monitor with HR fluctuating between 110-117. +2 BLE edema. SpO2 98% on 2L o2/nc. +BS. Sanchez catheter draining susana urine. Difficulty flushing right medial PICC line port. no blood return noted. Proximal port has resistance with flushing and gives
blood return. Lt AC is PIV. Bed in the lowest position. Call gabriel and personal belongings are with reach.
--- NOTE | 2024-12-17 22:14 | PTCARENOTE ---
Sanchez catheter removed post removal education. Catheter tip is intact. Patient encouraged to void via urinal. Bladder scan/ straight catheterization protocol reviewed with the patient if pt's unable to void within 6 hours post removal;.
[2024-12-18] VITALS (15 sets, daily range): BP systolic 72–130; BP diastolic 60–101; PULSE 109; BMI 30.7
[2024-12-18 05:41] LABS: Hematocrit 42.5 % (39.0-52.0); Hemoglobin 14.4 g/dL (13.0-18.0); Mean Corp Hgb Conc. 33.9 g/dL (33.0-37.0); Mean Corpuscular Hgb 29.1 pg (27.0-31.0); Mean Platelet Volume 9.1 fL (7.4-10.4); Platelet Count 180 10^3/uL (130-400); Red Blood Cell Count 4.94 10^6/uL (4.70-6.10); Red Cell Dist. Width 14.6 % (11.5-14.5); White Blood Cell Count 8.7 10^3/uL (4.8-10.8)
[2024-12-18 06:08] LABS: NT-proBNP 6390 pg/ml
[2024-12-18 06:36] LABS: ALT (SGPT) 62 U/L (0-50); AST (SGOT) 42 U/L (17-59); Albumin 3.1 g/dl (3.5-5.0); Alkaline Phosphatase 66 U/L (38-126); Blood Urea Nitrogen 29 mg/dl (9-20); Calcium 8.6 mg/dl (8.4-10.2); Carbon Dioxide 27 mmol/L (22-30); Chloride 98 mmol/L (98-107); Estimated Creatinine Clearance 73 ml/min; Glucose 100 mg/dl (70-99); Magnesium 2.1 mg/dl (1.6-2.3); Phosphorus 4.2 mg/dl (2.5-4.5); Potassium 4.5 mmol/L (3.5-5.1); Sodium 132 mmol/L (135-145); Total Bilirubin 0.9 mg/dl (0.2-1.3); Total Protein 5.8 g/dl (6.3-8.2); eGFR > 60.00
--- NOTE | 2024-12-18 07:26 | W.PN.HOSP.TC ---
Addendum entered and electronically signed by Jenni Burton MD 12/18/24 07:33:
*GDMT per Cardiology
-afterload reduction on hold 12/16 with drop in BP - resumed 12/17
-continue Hydralazine/Imdur
Original Note:
Today's Communication/Plan
-
see plan
Assessment / Plan
Assessment / Plan
Mr. Lissa Louis is a 44 yo man, primarily Slovenian speaking, presents to the ER with complaint of increasing fatigue, lower extremity swelling and shortness of breath found to be in afib with RVR with development of cardiogenic shock. Also found to be
influenza +.
HEAD CT
IMPRESSION:
There or no acute or focal intracranial abnormalities
There is mild diffuse cortical and cerebellar atrophy
CXR
IMPRESSION:
Right lower lobe pneumonia
Abdomen US:
IMPRESSION:
Unremarkable sonographic appearance of the liver.
No gallstones or bile duct dilatation.
Mild to moderate ascites.
Mild gallbladder wall thickening, which is nonspecific in the presence of ascites.
Incidental pleural effusion.
TTE
CONCLUSIONS
During study patient limited the amount of images that were obtained reporting
discomfort during exam. Note this appeared to be disproportional to the amount
of pressure being applied.
Severely reduced left ventricular function with estimated ejection fraction of
15 to 20%
Global hypokinesis
Right ventricular hypokinesis suspected
Moderate mitral regurgitation.
Moderate tricuspid regurgitation
No prior study available for comparison
Cardiac Cath 12/10/24
CONCLUSION:
1. Severely elevated filling pressures (PCWP = 29 mmHg at 102.5 kg).
2. Normal cardiac index (2.68 L/min/m� by Ivon, 2.10 L/min/m� by thermodilution) on milrinone 0.33 mcg/kg/min.
3. Moderate, postcapillary pulmonary hypertension (mean PA = 37 mmHg, PCWP = 29 mmHg, cardiac output = 5.71 L/min by Ivon, 4.47 L/min by thermodilution, PVR 1.40 Moy units by Ivon, 1.79 Moy units by thermodilution).
Cardiogenic Shock
New Diagnosis Heart Failure - low EF seen on bedside US.
Acute CHF with reduced EF with RV enlargement
Acute hypoxic respiratory failure secondary to acute pulmonary edema and right lower lobe pneumonia
Non-ischemic myocardial injury 2/2 above
-admitted to ICU
-Troponin peaked at 0.086
-TTE 12/09 with EF with 15 to 20%, global hypokinesis, right ventricular hypokinesis suspected.
-appreciate Cardiology consult
-Levophed titrated off 12/10
-RHC 12/10 with elevated pressures
-s/p cardiac cath - non-ischemic cardiomyopathy
-s/p IV Milrinone gtt (discontinued on 12/17/24)
-s/p IV diuresis with significant weight loss, transitioned to oral lasix on 12/17/24
Atrial Fibrillation with RVR
-s/p amiodarone gtt; patient self-converted to sinus rhythm on 12/16/24
-continue Pradaxa
-transitioned to oral amiodarone
Community-acquired pneumonia
Influenza +
Sepsis 2/2 above
-Legionella and strep negative
-COVID-negative, flu positive. s/p 5 days treatment
-s/p Ceftriaxone/Azithromycin course
-speech following; ok for IDSSI 6
Lactic acidosis on admission
Now resolved
Elevated liver enzymes
-may be 2/2 congestion
Abdominal ultrasound without any gallstone or biliary ductal dilation
-aLT remains elevated but improving
MARY, does not report any history of CKD
Likely related to CHF
-resolved
-creatinine mildly up this morning - monitor closely
Low TSH with elevated free T4 concerning for hyperthyroidism
appreciate Endocrinology
given difficulty in rate control methimazole initiated - F/U further Endocrine recs
Deconditioning
-PT met with patient - SNF versus HH
DVT PPx Pradaxa
FULL CODE
51 minutes spent on patient care
Anticipated Discharge: 24 - 48 hours
Subjective/Interval History
-
Date of Service: December 18, 2024
feeling better
a little more congested this morning, no fevers. no chest pain
Objective Data
-
Labs:
Laboratory Results
12/18/24
05:29
WBC 8.7
Hgb 14.4
Hct 42.5
Plt Count 180
Sodium 132 L
Potassium 4.5
Chloride 98
Carbon Dioxide 27
BUN 29 H
Creatinine 1.4 H
Glucose 100 H
Calcium 8.6
Total Bilirubin 0.9
AST 42
ALT 62 H
Alkaline Phosphatase 66
Vital Signs:
Vital Signs
Temp Pulse Resp BP Pulse Ox
98.7 F 118 16 130/95 100
12/18/24 06:48 12/18/24 06:48 12/18/24 06:48 12/18/24 06:48 12/18/24 06:48
I&O
12/17/24 12/18/24 12/19/24
06:59 06:59 06:59
Intake Total 1428.9 / 1445.6 860.1 / 860.1
Output Total 3025 / 3075 1305 / 1305
Balance -1596.1 / -1629.4 -444.9 / -444.9
Review of Systems
-
History Source: Patient
All other systems: Reviewed and negative
Physical Exam
-
General: No Apparent Distress
HEENT: PERRLA
Respiratory: Clear to Auscultation; Negative Wheezes
Cardiac: S1/S2 and Tachycardic
GI: Soft and Nontender
Musculoskeletal: Other (swelling resolved )
Skin: Warm and Dry; Negative Rash
Neuro: AO x 3
Psych: Calm
Data Reviewed
-
Diagnostic Radiology: Report Reviewed by me
Labs: Labs Reviewed by me
--- NOTE | 2024-12-18 08:36 | W.PN.CD ---
Today's Communication / Plan
-
increase hydralazine to 25mg tid
start Toprol
Impression / Plan
-
44-year-old primarily Upper Sor[place] speaking male with no past medical history who presented with shortness of breath, lower extremity edema and general malaise found to have acute heart failure with severely reduced ejection fraction (LVEF 15-20%). He
also tested positive for influenza B and course has been complicated by atrial flutter with RVR. He was taken for RHC on 12/10/2024 which revealed severely elevated filling pressures and normal cardiac index on milrinone.
#Cardiogenic shock
-improving, warm on exam; Cr 1.4
-milrinone off 12/16; [place] out 12/17
-BP dropped on hydralazine, imdur, lisinopril on 12/16; meds stopped; and now working on resuming
-increase hydralazine to 25 mg tid
#New non-ischemic cardiomyopathy (severe, EF 15-20%) with acute systolic HF, and moderate MR/TR
-perhaps tachy induced +/- viral myocarditis
-LHC 12/09/24: 30% mid LAD, 40% prox D2; o/w LI
-beta gio once shock better
-no prescription med coverage, so will use generic GDMT
-weight 104.5kg -->90 kg
-continue lasix 40mg PO daily
-start Toprol XL 25mg bid
#Atrial flutter with RVR
-New onset: cardiomyopathy may be tachy induced
-Duration unknown
-Has not felt well since November 23 unclear if this represents onset of A-fib or if he developed more recently.
-CHADS2-VASC = 1. Pradaxa 150mg bid for OAC
-eventual beta gio once shock improved
-converted on IV amiodarone on 12/16
-transition to amiodarone 400mg bid until Dec 24, then 200mg daily
# MARY
-Continue to optimize hemodynamics. Variable Cr.
# Right lower lobe pneumonia
-Continue ceftriaxone
#Influenza B. Management as directed by primary team patient has been afebrile.
# Elevated LFTs. Likely related to shock. Improving.
# abnormal Thyroid studies . TSH low 0.36 and T4 elevated 3.28. Continue Methimazole. Per primary team
Physical Exam
Vital Signs/Labs
Vital Signs
Temp Pulse Resp BP Pulse Ox
98.7 F 114 18 129/97 95
12/18/24 07:26 12/18/24 07:26 12/18/24 07:26 12/18/24 07:19 12/18/24 07:26
12/17/24 12/18/24 12/19/24
06:59 06:59 06:59
Actual Weight 90.1 kg
12/18/24 05:29
12/18/24 05:29
PT 18.6 Sec (11.4-14.6) H 12/09/24 18:39
INR 1.53 12/09/24 18:39
APTT 106.6 Sec (23.4-35.0) H 12/13/24 11:46
Magnesium 2.1 mg/dl (1.6-2.3) 12/18/24 05:29
Triglycerides 81 mg/dl (10-149) 12/10/24 02:49
LDL Cholesterol, Calc 114 mg/dl 12/10/24 02:49
VLDL Cholesterol, Calc 16 mg/dl (0-30) 12/10/24 02:49
HDL Cholesterol 31 mg/dl 12/10/24 02:49
TSH 0.16 uIU/ml (0.47-4.68) L 12/16/24 03:54
Free T4 2.36 ng/dl (0.78-2.19) H 12/16/24 03:54
12/09/24 12/18/24
18:39 05:29
[id number]-[id number] Pept [id number]
Physical Exam
Constitutional: No acute distress
EENT: Moist mucous membranes
Cardiovascular: Rhythm & rate is regular (tachy), Pedal edema is absent, JVD present and Systolic murmur present
Respiratory: Respiratory effort normal and Lungs clear to auscul.
Neuro/Psych: AO x 3
Data Reviewed
-
Date of Service: December 18, 2024
EKG: Other (Tele: ST 110s)
Labs: Labs Reviewed by me
[2024-12-18] MEDS: MIRALAX 17 GRAMS PO (09:00)
[2024-12-18] MEDS: PRADAXA 150 MG PO ×2 (09:01→20:49)
[2024-12-18] MEDS: APRESOLINE 25 MG PO ×2 (09:01→16:09)
[2024-12-18] MEDS: MUCINEX 600 MG PO ×2 (09:01→20:51)
[2024-12-18] MEDS: PACERONE 400 MG PO ×2 (09:03→20:51)
[2024-12-18] MEDS: TOPROL XL 25 MG PO ×2 (09:04→20:50)
[2024-12-18] MEDS: LASIX 40 MG PO (09:05)
[2024-12-18] MEDS: TAPAZOLE 10 MG PO ×2 (09:06→20:51)
[2024-12-18] MEDS: LIDOCAINE 4% PATCH 1 PATCH TOPICAL (09:07)
[2024-12-18] MEDS: OCEAN, SALINE MIST 1 SPRAYS NASAL (09:18)
[2024-12-18] MEDS: APRESOLINE PO ×2 (09:31→23:26)
--- NOTE | 2024-12-18 09:59 | PTCARENOTE ---
Assumed care of pt from night RN. Pt received awake and alert, Ox3. VSS, CM shows NSR/ST 100's, POX 95% on RA. Pt frequently coughing up clear thick white sputum, Mucinex given as ordered. Pt c/o low back pain, Lidocaine patch applied as per JAN.
[2024-12-18] MEDS: STERILE WATER FOR INJECTION IV (22:36)
[2024-12-19] VITALS (11 sets, daily range): BP systolic 76–116; BP diastolic 54–88; PULSE 96; BMI 30.7
[2024-12-19 05:19] LABS: ALT (SGPT) 56 U/L (0-50); AST (SGOT) 42 U/L (17-59); Albumin 3.2 g/dl (3.5-5.0); Alkaline Phosphatase 68 U/L (38-126); Blood Urea Nitrogen 33 mg/dl (9-20); Calcium 8.4 mg/dl (8.4-10.2); Carbon Dioxide 21 mmol/L (22-30); Chloride 98 mmol/L (98-107); Estimated Creatinine Clearance 68 ml/min; Glucose 113 mg/dl (70-99); Potassium 3.8 mmol/L (3.5-5.1); Sodium 131 mmol/L (135-145); Total Bilirubin 0.8 mg/dl (0.2-1.3); Total Protein 5.8 g/dl (6.3-8.2); eGFR 58.87
--- NOTE | 2024-12-19 05:46 | PTCARENOTE ---
Pt NST on monitor. C/o generalized weakness, with frequent cough. Ambulates independently with RW in the room.
[2024-12-19] MEDS: TOPROL XL 25 MG PO (08:28)
[2024-12-19] MEDS: PRADAXA 150 MG PO (08:28)
[2024-12-19] MEDS: MUCINEX 600 MG PO ×2 (08:28→19:53)
[2024-12-19] MEDS: LASIX 40 MG PO (08:28)
[2024-12-19] MEDS: APRESOLINE 25 MG PO ×2 (08:29→22:59)
[2024-12-19] MEDS: PACERONE 400 MG PO ×2 (08:29→19:53)
[2024-12-19] MEDS: LIDOCAINE 4% PATCH TOPICAL (08:30)
[2024-12-19] MEDS: MIRALAX PO (08:30)
[2024-12-19] MEDS: TAPAZOLE 10 MG PO ×2 (08:33→19:53)
--- NOTE | 2024-12-19 09:35 | W.PN.CD ---
Today's Communication / Plan
-
continue hydralazine 25 mg tid
add imdur 30mg daily
assess for lisinopril if Cr stabilizes/improves
increase Toprol XL to 50mg bid with PM dose
Impression / Plan
-
44-year-old primarily Serbian speaking male with no past medical history who presented with shortness of breath, lower extremity edema and general malaise found to have acute heart failure with severely reduced ejection fraction (LVEF 15-20%). He
also tested positive for influenza B and course has been complicated by atrial flutter with RVR. He was taken for RHC on 12/10/2024 which revealed severely elevated filling pressures and normal cardiac index on milrinone.
#Cardiogenic shock
-improving, warm on exam; Cr 1.5
-milrinone off 12/16; [place] out 12/17
-BP dropped on hydralazine, imdur, lisinopril on 12/16; meds stopped; and now working on resuming
-continue hydralazine 25 mg tid
-add imdur 30mg daily
-assess for lisinopril if Cr stabilizes/improves
#New non-ischemic cardiomyopathy (severe, EF 15-20%) with acute systolic HF, and moderate MR/TR
-perhaps tachy induced +/- viral myocarditis
-LHC 12/09/24: 30% mid LAD, 40% prox D2; o/w LI
-beta gio once shock better
-no prescription med coverage, so will use generic GDMT
-weight 104.5kg -->90 kg
-continue lasix 40mg PO daily
-increase Toprol XL to 50mg bid
#Atrial flutter with RVR, typical
-New onset: cardiomyopathy may be tachy induced
-Duration unknown
-Has not felt well since November 23 unclear if this represents onset of A-fib or if he developed more recently.
-CHADS2-VASC = 1. Pradaxa 150mg bid for OAC
-eventual beta gio once shock improved
-converted on IV amiodarone on 12/16
-transition to amiodarone 400mg bid until Dec 24, then 200mg daily
# MARY
-Continue to optimize hemodynamics. Variable Cr.
# Right lower lobe pneumonia
-Continue ceftriaxone
#Influenza B. Management as directed by primary team patient has been afebrile.
# Elevated LFTs. Likely related to shock. Improving.
# abnormal Thyroid studies . TSH low 0.36 and T4 elevated 3.28. Continue Methimazole. Per primary team
Physical Exam
Vital Signs/Labs
Vital Signs
Temp Pulse Resp BP Pulse Ox
98.1 F 95 18 116/88 95
12/19/24 08:07 12/19/24 08:07 12/19/24 08:07 12/19/24 08:07 12/19/24 08:07
12/18/24 12/19/24 12/20/24
06:59 06:59 06:59
Actual Weight 88.7 kg 88.9 kg
12/18/24 05:29
12/19/24 04:21
PT 18.6 Sec (11.4-14.6) H 12/09/24 18:39
INR 1.53 12/09/24 18:39
APTT 106.6 Sec (23.4-35.0) H 12/13/24 11:46
Magnesium 2.1 mg/dl (1.6-2.3) 12/18/24 05:29
Triglycerides 81 mg/dl (10-149) 12/10/24 02:49
LDL Cholesterol, Calc 114 mg/dl 12/10/24 02:49
VLDL Cholesterol, Calc 16 mg/dl (0-30) 12/10/24 02:49
HDL Cholesterol 31 mg/dl 12/10/24 02:49
TSH 0.16 uIU/ml (0.47-4.68) L 12/16/24 03:54
Free T4 2.36 ng/dl (0.78-2.19) H 12/16/24 03:54
12/09/24 12/18/24
18:39 05:29
[id number] Pept [id number]
Physical Exam
Constitutional: No acute distress
EENT: Moist mucous membranes
Cardiovascular: Rhythm & rate is regular, Pedal edema is absent, JVD present and Systolic murmur present
Respiratory: Respiratory effort normal and Lungs clear to auscul.
Neuro/Psych: AO x 3
Data Reviewed
-
Date of Service: December 19, 2024
EKG: Other (Tele: SR/ST 90s-100s)
Labs: Labs Reviewed by me
[2024-12-19] MEDS: IMDUR (EXTENDED RELEASE) 30 MG PO (12:24)
--- NOTE | 2024-12-19 13:07 | CM ---
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 i priced his medications thru [facility], as follows: pt is agreeable to this plan, Anupama Dalal NP and Dr Mason aware.
isorsorbide mononitrate ER- $4
hydralizine 25 TID $4
pacerone 200 qd- $17.58 (good rx coupon)
eliquis- 30 day FREE coupon--and his application started for indigent program
methimazole 10mg qd- $32.30 (good rx coupon)
furosemide 40mg qd- $4
metoprolol ER 50 mg BID- $16.50 (good rx coupon)
total- appprox $78 -- after pt gets MA his perscriptions will be covered under that plan.
--- NOTE | 2024-12-19 13:51 | W.PN.HOSP.TC ---
Today's Communication/Plan
-
Monitor vital signs see plan
Continue with Lasix, amiodarone, hydralazine, metoprolol, Imdur
Continue Eliquis
Discharge planning
Monitor renal function
Assessment / Plan
Assessment / Plan
Mr. Lissa Louis is a 44 yo man, primarily Yi speaking, presents to the ER with complaint of increasing fatigue, lower extremity swelling and shortness of breath found to be in afib with RVR with development of cardiogenic shock. Also found to be
influenza +.
HEAD CT
IMPRESSION:
There or no acute or focal intracranial abnormalities
There is mild diffuse cortical and cerebellar atrophy
CXR
IMPRESSION:
Right lower lobe pneumonia
Abdomen US:
IMPRESSION:
Unremarkable sonographic appearance of the liver.
No gallstones or bile duct dilatation.
Mild to moderate ascites.
Mild gallbladder wall thickening, which is nonspecific in the presence of ascites.
Incidental pleural effusion.
TTE
CONCLUSIONS
During study patient limited the amount of images that were obtained reporting
discomfort during exam. Note this appeared to be disproportional to the amount
of pressure being applied.
Severely reduced left ventricular function with estimated ejection fraction of
15 to 20%
Global hypokinesis
Right ventricular hypokinesis suspected
Moderate mitral regurgitation.
Moderate tricuspid regurgitation
No prior study available for comparison
Cardiac Cath 12/10/24
CONCLUSION:
1. Severely elevated filling pressures (PCWP = 29 mmHg at 102.5 kg).
2. Normal cardiac index (2.68 L/min/m� by Ivon, 2.10 L/min/m� by thermodilution) on milrinone 0.33 mcg/kg/min.
3. Moderate, postcapillary pulmonary hypertension (mean PA = 37 mmHg, PCWP = 29 mmHg, cardiac output = 5.71 L/min by Ivon, 4.47 L/min by thermodilution, PVR 1.40 Moy units by Ivon, 1.79 Moy units by thermodilution).
Cardiogenic Shock
New Diagnosis Heart Failure - low EF seen on bedside US.
Acute CHF with reduced EF with RV enlargement
Acute hypoxic respiratory failure secondary to acute pulmonary edema and right lower lobe pneumonia
Non-ischemic myocardial injury 2/2 above
-Troponin peaked at 0.086
-TTE 12/09 with EF with 15 to 20%, global hypokinesis, right ventricular hypokinesis suspected.
-appreciate Cardiology consult
-Levophed titrated off 12/10
-RHC 12/10 with elevated pressures
-s/p cardiac cath - non-ischemic cardiomyopathy
-s/p IV Milrinone gtt (discontinued on 12/17/24)
-s/p IV diuresis with significant weight loss, transitioned to oral lasix on 12/17/24
Continue hydralazine, Imdur, Toprol
Atrial Fibrillation with RVR
-s/p amiodarone gtt; patient self-converted to sinus rhythm on 12/16/24
Continue Eliquis
-transitioned to oral amiodarone; amiodarone 400mg bid until Dec 24, then 200mg daily
Community-acquired pneumonia
Influenza +
Sepsis 2/2 above
-Legionella and strep negative
-COVID-negative, flu positive. s/p 5 days treatment
-s/p Ceftriaxone/Azithromycin course
-speech following; ok for regular with thin
Lactic acidosis on admission
Now resolved
Elevated liver enzymes
-may be 2/2 congestion
Abdominal ultrasound without any gallstone or biliary ductal dilation
-aLT remains elevated but improving
Hyponatremia
Monitor
MARY, does not report any history of CKD
Likely related to CHF
-creatinine mildly up this morning - monitor closely
Low TSH with elevated free T4 concerning for hyperthyroidism
appreciate Endocrinology
given difficulty in rate control methimazole initiated - F/U further Endocrine recs
Deconditioning
-PT met with patient - SNF versus HH
DVT PPx Pradaxa
FULL CODE
General: No Apparent Distress
HEENT: PERRLA
Respiratory: Clear to Auscultation; Negative Wheezes
Cardiac: S1/S2 and Tachycardic
GI: Soft and Nontender
Musculoskeletal: Other (swelling resolved )
Neuro: AO x 3
Psych: Calm
Anticipated Discharge: Within 24 hours
Subjective/Interval History
-
Date of Service: December 19, 2024
denies pain
Objective Data
-
Labs:
Laboratory Results
12/19/24
04:21
Sodium 131 L
Potassium 3.8
Chloride 98
Carbon Dioxide 21 L
BUN 33 H
Creatinine 1.5 H
Glucose 113 H
Calcium 8.4
Total Bilirubin 0.8
AST 42
ALT 56 H
Alkaline Phosphatase 68
Vital Signs:
Vital Signs
Temp Pulse Resp BP Pulse Ox
97.4 F 95 16 116/88 97
12/19/24 11:43 12/19/24 08:07 12/19/24 11:43 12/19/24 08:07 12/19/24 11:43
I&O
12/18/24 12/19/24 12/20/24
06:59 06:59 06:59
Intake Total 860.1 / 860.1
Output Total 1305 / 1305
Balance -444.9 / -444.9
[2024-12-19] MEDS: APRESOLINE PO (17:03)
[2024-12-19] MEDS: TOPROL XL 50 MG PO (19:53)
[2024-12-19] MEDS: ELIQUIS 5 MG PO (19:53)
[2024-12-19 20:41] LABS: Coxsackie B1 <1:10 (<1:10); Coxsackie B2 1:10 (<1:10); Coxsackie B3 <1:10 (<1:10); Coxsackie B4 1:40 (<1:10); Coxsackie B5 1:20 (<1:10); Coxsackie B6 <1:10 (<1:10)
[2024-12-19] MEDS: STERILE WATER FOR INJECTION IV (22:09)
--- NOTE | 2024-12-19 22:11 | PTCARENOTE ---
Patient received resting in the chair at change of shift. Patient's only complaint is a frequent dry cough. Denies chest pain. Denies feeling lightheaded or dizzy. Normal sinus rhythm on physician ophthalmologist. Oxygen saturation on room air 95-96%.
Patient ambulating in room without assistance. Call gabriel within reach. Care ongoing.
[2024-12-20] VITALS (8 sets, daily range): BP systolic 85–100; BP diastolic 63–80; BMI 30.9
[2024-12-20] MEDS: ZOFRAN 4 MG IV (02:49)
[2024-12-20 04:43] LABS: % Basophils 1.2 % (0-2); % Eosinophils 0.6 % (0-6); % Immature Granulocytes 0.4 % (0-0.5); % Lymphocytes 22.8 % (20.5-51.1); % Monocytes 8.2 % (1.7-9.3); % Neutrophils 66.8 % (42.2-75.2); Absolute Basophils 0.1 10^3/uL (0-0.2); Absolute Lymphocytes 1.5 10^3/uL (1.2-3.4); Absolute Monocytes 0.6 10^3/uL (0.1-0.6); Absolute Neutrophils 4.5 10^3/uL (1.4-6.5); Hematocrit 41.1 % (39.0-52.0); Hemoglobin 13.9 g/dL (13.0-18.0); Mean Corp Hgb Conc. 33.8 g/dL (33.0-37.0); Mean Corpuscular Hgb 28.6 pg (27.0-31.0); Mean Corpuscular Volume 84.6 fL (80.0-94.0); Mean Platelet Volume 9.8 fL (7.4-10.4); Nucleated Red Blood Cells % 0 % (-); Platelet Count 239 10^3/uL (130-400); Red Blood Cell Count 4.86 10^6/uL (4.70-6.10); Red Cell Dist. Width 14.5 % (11.5-14.5); White Blood Cell Count 6.7 10^3/uL (4.8-10.8)
[2024-12-20 05:04] LABS: ALT (SGPT) 63 U/L (0-50); AST (SGOT) 50 U/L (17-59); Albumin 3.3 g/dl (3.5-5.0); Alkaline Phosphatase 77 U/L (38-126); Blood Urea Nitrogen 40 mg/dl (9-20); Calcium 8.5 mg/dl (8.4-10.2); Carbon Dioxide 19 mmol/L (22-30); Chloride 98 mmol/L (98-107); Estimated Creatinine Clearance 56 ml/min; Glucose 116 mg/dl (70-99); Potassium 4.3 mmol/L (3.5-5.1); Sodium 129 mmol/L (135-145); Total Bilirubin 0.7 mg/dl (0.2-1.3); Total Protein 5.9 g/dl (6.3-8.2); eGFR 47.31
[2024-12-20 05:18] LABS: Free T3 4.27 pg/ml (2.77-5.27); Free T4 2.89 ng/dl (0.78-2.19)
[2024-12-20 06:15] LABS: Free T4 by Equil Dialysis 2.5 ng/dL (1.1-2.4)
--- NOTE | 2024-12-20 07:52 | W.PN.CD ---
Today's Communication / Plan
-
Concern for ongoing low output state with rising creatinine off milrinone
Stop beta-gio
Continue hydralazine and Imdur for afterload reduction
Continue 40 mg Lasix daily
Impression / Plan
-
44-year-old primarily Bulgarian speaking male with no past medical history who presented with shortness of breath, lower extremity edema and general malaise found to have acute heart failure with severely reduced ejection fraction (LVEF 15-20%). He
also tested positive for influenza B and course has been complicated by atrial flutter with RVR. He was taken for RHC on 12/10/2024 which revealed severely elevated filling pressures and normal cardiac index on milrinone. Milrinone has since been
weaned and GDMT is being added.
His creatinine has been rising since 12/16 when milrinone was stopped and blood pressures are running low (80s�90s/60s�70s) with narrow pulse pressure. He may still be in a low output state. I will stop his beta-gio.
#Cardiogenic shock, resolving
-milrinone off 12/16; [place] out 12/17 (closing hemos: RA 9 PA 47/21 CI 1.37 SVR 2387)
-BP dropped on hydralazine, imdur, lisinopril on 12/16; meds stopped; and now working on resuming
-continue hydralazine 25 mg tid and imdur 30mg daily for afterload reduction
-stop Metoprolol given concern for ongoing low output state
#New non-ischemic cardiomyopathy (severe, EF 15-20%) with acute systolic HF, and moderate MR/TR
-perhaps tachy induced +/- viral myocarditis
-C 12/09/24: 30% mid LAD, 40% prox D2; o/w LI
-no prescription med coverage, so will use generic GDMT
-weight 104.5kg -->90 kg
-continue lasix 40mg PO daily
-add GDMT once out of low-output state
#Atrial flutter with RVR, typical
-New onset: cardiomyopathy may be tachy induced
-Duration unknown
-Has not felt well since November 23 unclear if this represents onset of A-fib or if he developed more recently.
-CHADS2-VASC = 1. Eliquis 5mg bid for OAC
-converted on IV amiodarone on 12/16
-amiodarone 400mg bid until Dec 24, then 200mg daily
# MARY, worsening
-Concern that this is due to ongoing low-output state
-Stop beta gio and monitor
# Right lower lobe pneumonia
-Continue ceftriaxone
#Influenza B. Management as directed by primary team patient has been afebrile.
# Elevated LFTs. Likely related to shock. Improving.
# abnormal Thyroid studies . TSH low 0.36 and T4 elevated 3.28. Continue Methimazole. Per primary team
Total time spent today was 52 minutes for this encounter. Time included reviewing laboratory tests/imaging results, reviewing pertinent medical records, obtaining and reviewing medical history, performing an appropriate exam, ordering medications,
tests and procedures. Time also included coordinating patient care and communicating with other health rn patient care. Total time does not include separately billed tests performed on this date of service.
Subjective: Feels improved. Denies shortness of breath. Lower extremity edema is still present but improving. He complains of coughing and reflux.
Physical Exam
Vital Signs/Labs
Vital Signs
Temp Pulse Resp BP Pulse Ox
97.7 F 81 20 91/68 99
12/20/24 02:51 12/20/24 02:53 12/20/24 02:51 12/20/24 02:53 12/20/24 02:51
12/19/24 12/20/24 12/21/24
06:59 06:59 06:59
Actual Weight 88.9 kg 89.3 kg
12/20/24 04:08
12/20/24 04:08
PT 18.6 Sec (11.4-14.6) H 12/09/24 18:39
INR 1.53 12/09/24 18:39
APTT 106.6 Sec (23.4-35.0) H 12/13/24 11:46
Magnesium 2.1 mg/dl (1.6-2.3) 12/18/24 05:29
Triglycerides 81 mg/dl (10-149) 12/10/24 02:49
LDL Cholesterol, Calc 114 mg/dl 12/10/24 02:49
VLDL Cholesterol, Calc 16 mg/dl (0-30) 12/10/24 02:49
HDL Cholesterol 31 mg/dl 12/10/24 02:49
TSH 0.20 uIU/ml (0.47-4.68) L 12/20/24 04:08
Free T4 2.89 ng/dl (0.78-2.19) H 12/20/24 04:08
12/09/24 12/18/24
18:39 05:29
Uce-[id number]-Fadyzuhwbuy Pept [id number]
Physical Exam
Constitutional: No acute distress and Comfortable
Cardiovascular: Rhythm & rate is regular, Pedal edema present, Systolic murmur present and S1S2 is normal
Respiratory: Respiratory effort normal and Crackles Present (L base)
GI: Soft
Neuro/Psych: AO x 3
Data Reviewed
-
Date of Service: December 20, 2024
Medical Decision Making: Reviewed Test Results, Independent Historian Assessment, Test Interpretation and Review of Case with other Provider
EKG: Tracing Personally Visualized and interpreted
Echo: Report Reviewed by me
Labs: Labs Reviewed by me
[2024-12-20] MEDS: MUCINEX 600 MG PO ×2 (09:07→21:11)
[2024-12-20] MEDS: PACERONE 400 MG PO ×2 (09:07→21:11)
[2024-12-20] MEDS: APRESOLINE 25 MG PO ×3 (09:07→21:11)
[2024-12-20] MEDS: LIDOCAINE 4% PATCH TOPICAL (09:08)
[2024-12-20] MEDS: ELIQUIS 5 MG PO ×2 (09:08→21:10)
[2024-12-20] MEDS: LASIX 40 MG PO (09:08)
[2024-12-20] MEDS: MIRALAX PO (09:09)
[2024-12-20] MEDS: PROTONIX 20 MG PO (09:12)
[2024-12-20] MEDS: TAPAZOLE 10 MG PO ×2 (09:12→21:18)
[2024-12-20] MEDS: IMDUR (EXTENDED RELEASE) 30 MG PO (09:12)
[2024-12-20] MEDS: TOPROL XL PO (09:50)
[2024-12-20 10:39] LABS: Urine Albumin 1+ (Neg - Trace); Urine Bilirubin Negative (Negative); Urine Character Clear (Clear); Urine Color Yellow; Urine Glucose Negative (Negative); Urine Ketone Negative (Negative); Urine Leukocyte Negative (Negative); Urine Nitrite Negative (Negative); Urine Occult Blood Negative (Negative); Urine Urobilinogen Negative (Neg - 1+)
[2024-12-20 13:34] LABS: Urine Bacteria Few (Negative); Urine Red Blood Cell None Seen /HPF (0-2); Urine Squamous Cell None seen /LPF (Few)
[2024-12-20 13:42] LABS: Urine Sodium 11 mmol/L (30-90)
--- NOTE | 2024-12-20 14:21 | W.PN.HOSP.TC ---
Today's Communication/Plan
-
Monitor vital signs see plan
Continue to monitor renal function closely
Stop metoprolol
Continue Imdur, hydralazine for afterload reduction
If symptoms continue to get worse then will need reinitiation of milrinone
Renal studies
Assessment / Plan
Assessment / Plan
Mr. Lissa Louis is a 44 yo man, primarily Urdu speaking, presents to the ER with complaint of increasing fatigue, lower extremity swelling and shortness of breath found to be in afib with RVR with development of cardiogenic shock. Also found to be
influenza +.
HEAD CT
IMPRESSION:
There or no acute or focal intracranial abnormalities
There is mild diffuse cortical and cerebellar atrophy
CXR
IMPRESSION:
Right lower lobe pneumonia
Abdomen US:
IMPRESSION:
Unremarkable sonographic appearance of the liver.
No gallstones or bile duct dilatation.
Mild to moderate ascites.
Mild gallbladder wall thickening, which is nonspecific in the presence of ascites.
Incidental pleural effusion.
TTE
CONCLUSIONS
During study patient limited the amount of images that were obtained reporting
discomfort during exam. Note this appeared to be disproportional to the amount
of pressure being applied.
Severely reduced left ventricular function with estimated ejection fraction of
15 to 20%
Global hypokinesis
Right ventricular hypokinesis suspected
Moderate mitral regurgitation.
Moderate tricuspid regurgitation
No prior study available for comparison
Cardiac Cath 12/10/24
CONCLUSION:
1. Severely elevated filling pressures (PCWP = 29 mmHg at 102.5 kg).
2. Normal cardiac index (2.68 L/min/m� by Ivon, 2.10 L/min/m� by thermodilution) on milrinone 0.33 mcg/kg/min.
3. Moderate, postcapillary pulmonary hypertension (mean PA = 37 mmHg, PCWP = 29 mmHg, cardiac output = 5.71 L/min by Ivon, 4.47 L/min by thermodilution, PVR 1.40 Moy units by Ivon, 1.79 Moy units by thermodilution).
Cardiogenic Shock
New Diagnosis Heart Failure - low EF seen on bedside US.
Acute CHF with reduced EF with RV enlargement
Acute hypoxic respiratory failure secondary to acute pulmonary edema and right lower lobe pneumonia
Non-ischemic myocardial injury 2/2 above
-Troponin peaked at 0.086
-TTE 12/09 with EF with 15 to 20%, global hypokinesis, right ventricular hypokinesis suspected.
-appreciate Cardiology consult
-Levophed titrated off 12/10
-RHC 12/10 with elevated pressures
-s/p cardiac cath - non-ischemic cardiomyopathy
-s/p IV Milrinone gtt (discontinued on 12/17/24)
-s/p IV diuresis with significant weight loss, transitioned to oral lasix on 12/17/24
Continue hydralazine, Imdur for afterload reduction
Start metoprolol per cardiology given concern for ongoing low output state
Atrial Fibrillation with RVR
-s/p amiodarone gtt; patient self-converted to sinus rhythm on 12/16/24
Continue Eliquis
-transitioned to oral amiodarone; amiodarone 400mg bid until Dec 24, then 200mg daily
Community-acquired pneumonia
Influenza +
Sepsis 2/2 above
-Legionella and strep negative
-COVID-negative, flu positive. s/p 5 days treatment
-s/p Ceftriaxone/Azithromycin course
-speech following; ok for regular with thin
MARY, does not report any history of CKD
Likely related to CHF
-creatinine rising. Check urine studies
If creatinine continues to rise then will need nephrology evaluation
Lactic acidosis on admission
Now resolved
Elevated liver enzymes
-may be 2/2 congestion
Abdominal ultrasound without any gallstone or biliary ductal dilation
-aLT remains elevated but improving
Hyponatremia
Monitor
Low TSH with elevated free T4 concerning for hyperthyroidism
appreciate Endocrinology
given difficulty in rate control methimazole initiated - F/U further Endocrine recs
Deconditioning
-PT met with patient - SNF versus HH
DVT PPx Eliquis
FULL CODE
General: No Apparent Distress
HEENT: PERRLA
Respiratory: Clear to Auscultation; Negative Wheezes
Cardiac: S1/S2 and Tachycardic
GI: Soft and Nontender
Musculoskeletal: + swelling
Neuro: AO x 3
Psych: Calm
I spent a total of 52 minutes with the patient or on the floor. More than 50% of this time involved counseling and coordination of care.
Anticipated Discharge: 24 - 48 hours
Subjective/Interval History
-
Date of Service: December 20, 2024
Denies pain
Objective Data
-
Labs:
Laboratory Results
12/20/24
04:08
WBC 6.7
Hgb 13.9
Hct 41.1
Plt Count 239 D
Sodium 129 L
Potassium 4.3
Chloride 98
Carbon Dioxide 19 L
BUN 40 H
Creatinine 1.8 H
Glucose 116 H
Calcium 8.5
Total Bilirubin 0.7
AST 50
ALT 63 H
Alkaline Phosphatase 77
Vital Signs:
Vital Signs
Temp Pulse Resp BP Pulse Ox
97.9 F 77 20 99/80 98
12/20/24 11:35 12/20/24 09:00 12/20/24 11:35 12/20/24 08:35 12/20/24 11:35
--- NOTE | 2024-12-20 18:00 | PTCARENOTE ---
Pt received this am with no c/o of any pain or sob. OOB in the chair for meals. SR on the monitor, rate in the 70's to 80's.
[2024-12-20] MEDS: STERILE WATER FOR INJECTION IV (21:22)
[2024-12-21] VITALS (23 sets, daily range): BP systolic 86–127; BP diastolic 54–100; PULSE 74; O2SAT 98; BMI 30.8
--- NOTE | 2024-12-21 01:12 | PTCARENOTE ---
Assumed care of the pt @1900. Pt AAOx3 SR on the monitor BP 88/64 MAP 74. denies CP Ambulates independently on the room +[id number]. Call gabriel within reach.
[2024-12-21 06:06] LABS: % Basophils 2.2 % (0-2); % Immature Granulocytes 0.4 % (0-0.5); % Lymphocytes 36.2 % (20.5-51.1); % Monocytes 9.5 % (1.7-9.3); % Neutrophils 50.7 % (42.2-75.2); Absolute Basophils 0.2 10^3/uL (0-0.2); Absolute Eosinophils 0.1 10^3/uL (0-0.7); Absolute Lymphocytes 2.4 10^3/uL (1.2-3.4); Absolute Monocytes 0.6 10^3/uL (0.1-0.6); Absolute Neutrophils 3.4 10^3/uL (1.4-6.5); Hematocrit 40.1 % (39.0-52.0); Hemoglobin 13.9 g/dL (13.0-18.0); Mean Corp Hgb Conc. 34.7 g/dL (33.0-37.0); Mean Corpuscular Volume 83.5 fL (80.0-94.0); Mean Platelet Volume 9.8 fL (7.4-10.4); Nucleated Red Blood Cells % 0 % (-); Platelet Count 304 10^3/uL (130-400); Red Cell Dist. Width 14.5 % (11.5-14.5); White Blood Cell Count 6.7 10^3/uL (4.8-10.8)
[2024-12-21 06:12] LABS: ALT (SGPT) 69 U/L (0-50); AST (SGOT) 49 U/L (17-59); Albumin 3.3 g/dl (3.5-5.0); Alkaline Phosphatase 74 U/L (38-126); Blood Urea Nitrogen 45 mg/dl (9-20); Calcium 8.8 mg/dl (8.4-10.2); Carbon Dioxide 19 mmol/L (22-30); Chloride 98 mmol/L (98-107); Estimated Creatinine Clearance 51 ml/min; Glucose 102 mg/dl (70-99); Potassium 4.5 mmol/L (3.5-5.1); Sodium 130 mmol/L (135-145); Total Bilirubin 0.9 mg/dl (0.2-1.3); Total Protein 6.1 g/dl (6.3-8.2); eGFR 41.69
--- NOTE | 2024-12-21 08:27 | W.PN.CD ---
Today's Communication / Plan
-
RHC today
Continue hydralazine and isosorbide mononitrate
Impression / Plan
-
44-year-old primarily Armenian speaking male with no past medical history who presented with shortness of breath, lower extremity edema and general malaise found to have acute heart failure with severely reduced ejection fraction (LVEF 15-20%). He
also tested positive for influenza B and course has been complicated by atrial flutter with RVR. He was taken for RHC on 12/10/2024 which revealed severely elevated filling pressures and normal cardiac index on milrinone. Milrinone has since been
weaned and GDMT is being added.
His creatinine has been rising since 12/16 when milrinone was stopped and blood pressures are running low (80s�90s/60s�70s) with narrow pulse pressure. He may still be in a low output state.
#Cardiogenic shock
-milrinone off 12/16; [place] out 12/17 (closing hemos: RA 9 PA 47/21 CI 1.37 SVR 2387). Cr rising since stopping milrinone
-Metoprolol was given 12/18-12/19 and stopped due to concern for low output state
-continue hydralazine 25 mg tid and imdur 30mg daily for afterload reduction
-RHC today. I suspect we will need to reinitiate milrinone.
#New non-ischemic cardiomyopathy (severe, EF 15-20%) with acute systolic HF, and moderate MR/TR
-perhaps tachy induced +/- viral myocarditis
-LHC 12/09/24: 30% mid LAD, 40% prox D2; o/w LI
-no prescription med coverage, so will use generic GDMT
-weight 104.5kg -->90 kg
-continue lasix 40mg PO daily
-add GDMT once out of low-output state
#Atrial flutter with RVR, typical
-New onset: cardiomyopathy may be tachy induced
-Duration unknown
-Has not felt well since November 23 unclear if this represents onset of A-fib or if he developed more recently.
-CHADS2-VASC = 1. Eliquis 5mg bid for OAC
-converted on IV amiodarone on 12/16
-amiodarone 400mg bid until Dec 24, then 200mg daily
# MARY, worsening
-Concern that this is due to ongoing low-output state
-RHC today and monitor
# Right lower lobe pneumonia
-Continue ceftriaxone
#Influenza B. Management as directed by primary team patient has been afebrile.
# Elevated LFTs. Likely related to shock. Improving.
# abnormal Thyroid studies . TSH low 0.36 and T4 elevated 3.28. Continue Methimazole. Per primary team
Subjective: Feels well. No CV complaints. No events on telemetry.
Physical Exam
Vital Signs/Labs
Vital Signs
Temp Pulse Resp BP Pulse Ox
97.7 F 74 16 86/54 94
12/21/24 04:43 12/21/24 04:45 12/21/24 04:43 12/21/24 04:43 12/21/24 04:43
12/20/24 12/21/24 12/22/24
06:59 06:59 06:59
Actual Weight 89.3 kg 89.1 kg
12/21/24 04:52
12/21/24 04:52
PT 18.6 Sec (11.4-14.6) H 12/09/24 18:39
INR 1.53 12/09/24 18:39
APTT 106.6 Sec (23.4-35.0) H 12/13/24 11:46
Magnesium 2.1 mg/dl (1.6-2.3) 12/18/24 05:29
Triglycerides 81 mg/dl (10-149) 12/10/24 02:49
LDL Cholesterol, Calc 114 mg/dl 12/10/24 02:49
VLDL Cholesterol, Calc 16 mg/dl (0-30) 12/10/24 02:49
HDL Cholesterol 31 mg/dl 12/10/24 02:49
TSH 0.20 uIU/ml (0.47-4.68) L 12/20/24 04:08
Free T4 2.89 ng/dl (0.78-2.19) H 12/20/24 04:08
12/09/24 12/18/24
18:39 05:29
Ltq-B-Bdwoqyzigqt Pept 4700 4390
Physical Exam
Constitutional: No acute distress and Comfortable
Cardiovascular: Rhythm & rate is regular, Pedal edema is absent, Systolic murmur present and S1S2 is normal
Respiratory: Respiratory effort normal and Lungs clear to auscul.
Neuro/Psych: AO x 3
Data Reviewed
-
Date of Service: December 21, 2024
Medical Decision Making: Reviewed Test Results, Independent Historian Assessment, Test Interpretation and Review of Case with other Provider
EKG: Tracing Personally Visualized and interpreted
Echo: Report Reviewed by me
Labs: Labs Reviewed by me
[2024-12-21] MEDS: IMDUR (EXTENDED RELEASE) 30 MG PO (09:01)
[2024-12-21] MEDS: LIDOCAINE 4% PATCH 1 PATCH TOPICAL (09:02)
[2024-12-21] MEDS: MUCINEX 600 MG PO ×2 (09:02→19:42)
[2024-12-21] MEDS: MIRALAX PO (09:02)
[2024-12-21] MEDS: ELIQUIS 5 MG PO (09:03)
[2024-12-21] MEDS: APRESOLINE 25 MG PO ×2 (09:03→19:43)
[2024-12-21] MEDS: PROTONIX 20 MG PO (09:03)
[2024-12-21] MEDS: TAPAZOLE 10 MG PO ×2 (09:03→19:42)
[2024-12-21] MEDS: PACERONE 400 MG PO ×2 (09:04→19:42)
[2024-12-21] MEDS: LASIX 40 MG PO (09:04)
--- NOTE | 2024-12-21 10:38 | PTCARENOTE ---
Assumed care of pt from night RN. Pt received awake and alert, Ox3. VSS, CM shows NSR 70's, POX 97% on RA. Pt remains NPO for RHC today. Offers no c/o pain or discomfort. Wants to go home, doesn't understand why he can't. There is a bit of a
language barrier. This nurse explained to pt about RHC, and why it's necessary for Dr's to have this information in order to treat him.
--- NOTE | 2024-12-21 13:28 | CM ---
CM following for DC planning needs.
Reviewed initial assessment. Pt. resides w/ spouse in a private, 2 story home. He is functionally indep. at baseline w/ ADLs, mobility.
Patient does not have health insurance; he would need to pay privately for medications. CM has priced out medications.
Per prior note:
I priced his medications thru [facility] and [facility], as follows: pt is agreeable to this plan, Anupama Dalal NP and Dr Mason aware.
isorsorbide mononitrate ER- $4
hydralizine 25 TID $4
pacerone 200 qd- $17.58 ([facility] coupon)
eliquis- 30 day FREE coupon--and his application started for indigent program
methimazole 10mg qd- $32.30 ([facility] coupon)
furosemide 40mg qd- $4
metoprolol ER 50 mg BID- $16.50 ([facility] coupon)
total- appprox $78 -- after pt gets MA his perscriptions will be covered under that plan.
CM to cont. to follow.
--- NOTE | 2024-12-21 14:54 | W.PN.HOSP.TC ---
Today's Communication/Plan
-
Monitor vitals
See plan
Right heart cath today
Monitor renal function closely, will need accurate urine output
Continue with afterload reduction
Assessment / Plan
Assessment / Plan
Mr. Lissa Louis is a 44 yo man, primarily Thai speaking, presents to the ER with complaint of increasing fatigue, lower extremity swelling and shortness of breath found to be in afib with RVR with development of cardiogenic shock. Also found to be
influenza +.
HEAD CT
IMPRESSION:
There or no acute or focal intracranial abnormalities
There is mild diffuse cortical and cerebellar atrophy
CXR
IMPRESSION:
Right lower lobe pneumonia
Abdomen US:
IMPRESSION:
Unremarkable sonographic appearance of the liver.
No gallstones or bile duct dilatation.
Mild to moderate ascites.
Mild gallbladder wall thickening, which is nonspecific in the presence of ascites.
Incidental pleural effusion.
TTE
CONCLUSIONS
During study patient limited the amount of images that were obtained reporting
discomfort during exam. Note this appeared to be disproportional to the amount
of pressure being applied.
Severely reduced left ventricular function with estimated ejection fraction of
15 to 20%
Global hypokinesis
Right ventricular hypokinesis suspected
Moderate mitral regurgitation.
Moderate tricuspid regurgitation
No prior study available for comparison
Cardiac Cath 12/10/24
CONCLUSION:
1. Severely elevated filling pressures (PCWP = 29 mmHg at 102.5 kg).
2. Normal cardiac index (2.68 L/min/m� by Ivon, 2.10 L/min/m� by thermodilution) on milrinone 0.33 mcg/kg/min.
3. Moderate, postcapillary pulmonary hypertension (mean PA = 37 mmHg, PCWP = 29 mmHg, cardiac output = 5.71 L/min by Ivon, 4.47 L/min by thermodilution, PVR 1.40 Moy units by Ivon, 1.79 Moy units by thermodilution).
Cardiogenic Shock
New Diagnosis Heart Failure - low EF seen on bedside US.
Acute CHF with reduced EF with RV enlargement
Acute hypoxic respiratory failure secondary to acute pulmonary edema and right lower lobe pneumonia
Non-ischemic myocardial injury 2/2 above
-Troponin peaked at 0.086
-TTE 12/09 with EF with 15 to 20%, global hypokinesis, right ventricular hypokinesis suspected.
-appreciate Cardiology consult
-Levophed titrated off 12/10
-RHC 12/10 with elevated pressures
-s/p cardiac cath - non-ischemic cardiomyopathy
-s/p IV Milrinone gtt (discontinued on 12/17/24)
-s/p IV diuresis with significant weight loss, transitioned to oral lasix on 12/17/24
Continue hydralazine, Imdur for afterload reduction
Stopped metoprolol per cardiology given concern for ongoing low output state
Creatinine tend to go up again, concern for cardiogenic shock again. Right heart cath 12/21. Might need to reinitiate milrinone. Cardiology following
Atrial Fibrillation with RVR
-s/p amiodarone gtt; patient self-converted to sinus rhythm on 12/16/24
Continue Eliquis
-transitioned to oral amiodarone; amiodarone 400mg bid until Dec 24, then 200mg daily
Community-acquired pneumonia
Influenza +
Sepsis 2/2 above
-Legionella and strep negative
-COVID-negative, flu positive. s/p 5 days treatment
-s/p Ceftriaxone/Azithromycin course
-speech following; ok for regular with thin
MARY, does not report any history of CKD
Likely related to CHF
-creatinine rising
If creatinine continues to rise then will need nephrology evaluation
Lactic acidosis on admission
Now resolved
Elevated liver enzymes
-may be 2/2 congestion
Abdominal ultrasound without any gallstone or biliary ductal dilation
-aLT remains elevated but improving
Hyponatremia
Monitor
Low TSH with elevated free T4 concerning for hyperthyroidism
appreciate Endocrinology
given difficulty in rate control methimazole initiated - F/U further Endocrine recs
Deconditioning
-PT met with patient - SNF versus HH
DVT PPx Eliquis
FULL CODE
General: No Apparent Distress
HEENT: PERRLA
Respiratory: Clear to Auscultation; Negative Wheezes
Cardiac: S1/S2 and Tachycardic
GI: Soft and Nontender
Musculoskeletal: + swelling
Neuro: AO x 3
Psych: Calm
Anticipated Discharge: > 48 hours
Subjective/Interval History
-
Date of Service: December 21, 2024
Denies nausea
Objective Data
-
Labs:
Laboratory Results
12/21/24
04:52
WBC 6.7
Hgb 13.9
Hct 40.1
Plt Count 304 D
Sodium 130 L
Potassium 4.5
Chloride 98
Carbon Dioxide 19 L
BUN 45 H
Creatinine 2.0 H
Glucose 102 H
Calcium 8.8
Total Bilirubin 0.9
AST 49
ALT 69 H
Alkaline Phosphatase 74
Vital Signs:
Vital Signs
Temp Pulse Resp BP Pulse Ox
97.7 F 71 16 93/72 97
12/21/24 11:42 12/21/24 12:00 12/21/24 11:42 12/21/24 11:39 12/21/24 11:42
--- NOTE | 2024-12-21 16:00 | PTCARENOTE ---
Pt to CCL for RHC.
--- NOTE | 2024-12-21 17:29 | ITS.CL.CATH ---
[employer] - Catheterization
Cardiac Catheterization
Procedure Report:
RIGHT HEART CATHETERIZATION
Date of Procedure: 12/21/2024
Referring: Augustin Arteaga M.D.
INDICATION: Worsening renal function, assess volume status and cardiac index.
A total of 9 minutes of procedural/moderate sedation was utilized. An independent medical dermatologist was present to assist with and help manage the patient's level of consciousness and physiologic status.
ACCESS:
8 [place] right internal jugular vein using a modified Seldinger technique with a micropuncture kit under ultrasound guidance. Ultrasound image obtained.
CATHETERS:
7.5 [place]hwinder.
PROCEDURE:
The patient was prepped and draped in standard sterile fashion. The area for right internal jugular venous access was anesthetized with 1% lidocaine. The right internal jugular vein was identified under ultrasound guidance. The vein was punctured
using a micropuncture needle and a micropuncture wire was advanced. Placement was confirmed on fluoroscopy. The inner sheath and micropuncture wire were withdrawn and a standard J-wire was advanced. A 8 [place] sheath was inserted into the
internal jugular vein. A 7.5 [place]hwinder catheter was advanced through the sheath into the superior vena cava. An SVC oxygen saturation was drawn. The balloon wedge catheter was advanced into the pulmonary artery and a pulmonary artery oxygen
saturation was drawn. Arterial oxygen saturation was assumed from pulse oximetry. Cardiac output was calculated using the Ivon equation and thermodilution. The PA, wedge, RV and RA pressures were measured. The [place]hw[place] catheter was locked in
place using the sterile cover. The 8 [place] sheath was sutured in place.
Weight (kg): 88.9
PA (s/d/x, mmHg): 37/27
PCWP (a/v/x, mmHg):
RV (s/x, mmHg): 38/20
RA (a/v/x, mmHg):
NIBP (s/d/x, mmHg): 114/80/94
SVC SvO2 (%): 55.7
IVC SvO2 (%): Not obtained.
RA SvO2 (%): Not obtained.
RV SvO2 (%): Not obtained.
PA SvO2 (%): 52.9
SaO2 (%): 96.0 (assumed)
Hbg (g/dL): 13.4
Ivon
CO (liters/minute): 3.13
CI (liters/minute/m2): 1.56
Thermodilution
CO (liters/minute): 2.87
CI (liters/minute/m2): 1.43
TPG (mmHg): 4
PVR (Moy Units): 1.39
AVO2 Difference (Volume %): 7.85
SVR (dynes*seconds*cm^-5): 2005
Radiation (mGy): 7.0
DAP (cm2.Gy): 1.0552
Fluoroscopy time (minutes): 0.9
CONCLUSION:
1. Moderately elevated filling pressures (PCWP = 23 mmHg at 88.9 kg).
2. Severely depressed cardiac index (1.56 L/min/m� by Ivon, 1.43 L/min/m� by thermodilution).
3. Severe peripheral constriction (SVR = 2006 dynes*seconds*cm^-5).
RECOMMENDATIONS:
1. Expectant management after right heart catheterization via right internal jugular approach.
2. Routine post [place] care.
3. Restart milrinone at 0.25 mcg/kg/min. Goal cardiac index >1.8.
Copy to: Augustin Arteaga M.D.
Julito Duggan D.O., FACC, FACP
[2024-12-21] MEDS: PRIMACOR 20 MG 100 IV (18:44)
[2024-12-21] MEDS: APRESOLINE PO (19:27)
--- NOTE | 2024-12-21 20:00 | PTCARENOTE ---
Received patient at 1900. Patient in bed, oriented, anxious, tearful, grimacing and c/o pain in his R neck from [place] cristine. SR on the monitor, no ectopy noted, rates 70's, VSS. Lungs clear on RA, intermittent dry cough noted. BS hypoactive,
patient states LBM yesterday, no present c/o nausea, tolerated PO medications. Patient requested urinal, states no issues voiding. Skin generally intact - scattered scabs on LEs from scratching per patient, L wrist ecchymotic, and healing ecchymosis
in proximal medial RUE - former PICC site. On milrinone. RIJ cordis/swan present; lines leveled and zeroed. LAC 18 PIV INT. Patient frequently adjusting the HOB and turning, education provided regarding swan-cristine and leveling. Patient indicated
understanding, reinforcement needed.
[2024-12-21] MEDS: ROXICODONE 5 MG PO (20:12)
--- NOTE | 2024-12-21 20:45 | PTCARENOTE ---
During subsequent assessment following initial assessment, patient became increasingly anxious/tearful and restless. Slapped his own face in the presence of this automobile and property underwriter. Therapeutic communication provided and patient then calm. CVPA made aware.
--- NOTE | 2024-12-21 21:08 | PTCARENOTE ---
Patient's Tcore 96.9, CVPA made aware. Warm blankets applied, continuous temperatures being monitored via swan.
[2024-12-22] VITALS (26 sets, daily range): BP systolic 91–127; BP diastolic 65–85; BMI 30.7
--- NOTE | 2024-12-22 | PTCARENOTE ---
Patient placed on oxygen for desatting when asleep, dropping to 88-89% on RA. 96%+ on 2LNC. Patient's temperature at 97.5 when immanuel hugger was removed by the patient.
When attempting CO/CI, 'injectate temperature too high' message appeared, showing ? reads. New IV fluid bag hung, wires changed, and CVPA made aware. Patient continues to be restless, sleeping intermittently between care and c/o discomfort, does not
want pain medication at this time. Reinforced adjusting HOB/notifying RN to ensure that transducer is level. Patient indicated understanding. Assessment of needs ongoing, call gabriel within reach.
--- NOTE | 2024-12-22 01:25 | PTCARENOTE ---
Patient c/o chest pain when coughing. CVPA made aware, EKG performed, patient denied PRN pain medication offered.
[2024-12-22 04:22] LABS: Mixed Venous O2 Saturation 79.9 %
[2024-12-22] MEDS: TYLENOL 650 MG PO (04:30)
[2024-12-22 04:40] LABS: % Basophils 1.9 % (0-2); % Eosinophils 0.8 % (0-6); % Immature Granulocytes 0.8 % (0-0.5); % Lymphocytes 23.7 % (20.5-51.1); % Monocytes 10.5 % (1.7-9.3); % Neutrophils 62.3 % (42.2-75.2); Absolute Basophils 0.1 10^3/uL (0-0.2); Absolute Lymphocytes 1.2 10^3/uL (1.2-3.4); Absolute Monocytes 0.6 10^3/uL (0.1-0.6); Absolute Neutrophils 3.3 10^3/uL (1.4-6.5); Hematocrit 37.3 % (39.0-52.0); Hemoglobin 12.7 g/dL (13.0-18.0); Mean Corpuscular Hgb 28.9 pg (27.0-31.0); Mean Corpuscular Volume 84.8 fL (80.0-94.0); Mean Platelet Volume 8.9 fL (7.4-10.4); Nucleated Red Blood Cells % 0 % (-); Platelet Count 292 10^3/uL (130-400); Red Cell Dist. Width 14.1 % (11.5-14.5); White Blood Cell Count 5.2 10^3/uL (4.8-10.8)
[2024-12-22 04:59] LABS: ALT (SGPT) 59 U/L (0-50); AST (SGOT) 41 U/L (17-59); Albumin 2.8 g/dl (3.5-5.0); Alkaline Phosphatase 68 U/L (38-126); Blood Urea Nitrogen 42 mg/dl (9-20); Calcium 8.2 mg/dl (8.4-10.2); Carbon Dioxide 24 mmol/L (22-30); Chloride 99 mmol/L (98-107); Estimated Creatinine Clearance 56 ml/min; Glucose 96 mg/dl (70-99); Sodium 132 mmol/L (135-145); Total Bilirubin 0.9 mg/dl (0.2-1.3); Total Protein 5.4 g/dl (6.3-8.2); eGFR 47.31
--- NOTE | 2024-12-22 05:00 | PTCARENOTE ---
CP resolved, patient stated d/t coughing, sleeping intermittently. PRN pain medication offered x2 as patient was groaning and c/o pain, patient denied. Later requested Tylenol, see MAR. Voiding in urinal without difficulty. Reinforced HOB and
leveling transducer. Call gabriel within reach.
[2024-12-22] MEDS: PRIMACOR 20 MG 100 IV ×2 (07:02→22:10)
--- NOTE | 2024-12-22 07:30 | PTCARENOTE ---
Received pt from second shift supervisor RN; pt AAOx3 and resting comfortably in bed and family at bedside; NSR on monitor and VSS; RIJ [place], [place] floated to 55 and PIV x1 all lines leveled and zeroed; Milrinone infusing see flow sheet for details; Lungs
diminished; nonproductive cough; hypoactive bowel sounds; pt voiding yellow urine; palpable pulses throughout; no edema noted; see nursing documentation for further details.
--- NOTE | 2024-12-22 07:43 | PTCARENOTE ---
Addendum entered by Nupur Mcnally RN 12/22/24 07:46:
[place]-Lakhwinder at 50.
Original Note:
CVNP at bedside and Kayden Keane pulled back by CVNP to 50; portable CRX ordered.
--- NOTE | 2024-12-22 08:21 | W.PN.CD ---
Addendum entered and electronically signed by David Harmon MD 12/22/24 10:32:
I saw and examined the patient.
The CHARGE AIDE's note was reviewed and I agree with the note.
pCWP relatively low when check by Dr Duggan today . Lsix given this mornign. will place n hold. reassess use in AM
.
I had addtional discussion with heriberto toledo using waste baler video interface. Explained his conditon and courseof treatment. Explained issues related to continued need for inotropes. Also discussed possible transfer.
Original Note:
Today's Communication / Plan
-
continue milrinone
-due to recurrent need for milrinone would consider need for Transfer. Reviewed with Dr Arteaga who is reviewing case with [facility]
- improving renal function monitor
check troponins
Impression / Plan
-
44-year-old primarily Hebrew speaking male with no past medical history who presented with shortness of breath, lower extremity edema and general malaise found to have acute heart failure with severely reduced ejection fraction (LVEF 15-20%). He
also tested positive for influenza B and course has been complicated by atrial flutter with RVR. He was taken for RHC on 12/10/2024 which revealed severely elevated filling pressures and normal cardiac index on milrinone. Milrinone has since been
weaned and GDMT is being added.
His creatinine has been rising since 12/16 when milrinone was stopped and blood pressures are running low (80s�90s/60s�70s) with narrow pulse pressure. He may still be in a low output state.
#Cardiogenic shock
-milrinone off 12/16; [place] out 12/17 (closing hemos: RA 9 PA 47/21 CI 1.37 SVR 2387). Cr rising since stopping milrinone. RHC 12/21/23 and Milrinone restrart
- RHC function being reassessed by interventional
-Metoprolol was given 12/18-12/19 and stopped due to concern for low output state
-due to recurrent need for milrinone would consider need for Transfer. Reviewed with Dr Arteaga who is reviewing case with [facility]
- continue with milrinone
.
chest discomfort . feels pulsation,, ECG stable. May be feelihnjg effect of pressors
- check troponin
#New non-ischemic cardiomyopathy (severe, EF 15-20%) with acute systolic HF, and moderate MR/TR
-perhaps tachy induced +/- viral myocarditis
-[facility] 12/09/24: 30% mid LAD, 40% prox D2; o/w LI
-no prescription med coverage, so will use generic GDMT
-continue lasix 40mg PO daily
-add GDMT once out of low-output state
- not on SUE I /ARB/ARNI due to MARY
#Atrial flutter with RVR, typical
-New onset: cardiomyopathy may be tachy induced
-Duration unknown
-Has not felt well since November 23 unclear if this represents onset of A-fib or if he developed more recently.
-CHADS2-VASC = 1. Eliquis 5mg bid for OAC
-converted on IV amiodarone on 12/16
-amiodarone 400mg bid until Dec 24, then 200mg daily
# MARY, worsening prioe to restato f milrinone and now creatinine improved from 2.0-1.8
optimize hemodynamics
# Right lower lobe pneumonia
-Continue ceftriaxone
#Influenza B. Management as directed by primary team patient has been afebrile.
# Elevated LFTs. Likely related to shock. Improving.
# abnormal Thyroid studies . TSH low 0.36 and T4 elevated 3.28. Continue Methimazole. Per primary team
Subjective: Feels well. No CV complaints. No events on telemetry.
Physical Exam
Vital Signs/Labs
Vital Signs
Temp Pulse Resp BP Pulse Ox
97.1 F 78 12 119/77 95
12/22/24 07:00 12/22/24 07:00 12/22/24 07:00 12/22/24 07:00 12/22/24 07:00
12/21/24 12/22/24 12/23/24
06:59 06:59 06:59
Actual Weight 89.1 kg 88.8 kg
12/22/24 04:16
12/22/24 04:16
PT 18.6 Sec (11.4-14.6) H 12/09/24 18:39
INR 1.53 12/09/24 18:39
APTT 106.6 Sec (23.4-35.0) H 12/13/24 11:46
Magnesium 2.1 mg/dl (1.6-2.3) 12/18/24 05:29
Triglycerides 81 mg/dl (10-149) 12/10/24 02:49
LDL Cholesterol, Calc 114 mg/dl 12/10/24 02:49
VLDL Cholesterol, Calc 16 mg/dl (0-30) 12/10/24 02:49
HDL Cholesterol 31 mg/dl 12/10/24 02:49
TSH 0.20 uIU/ml (0.47-4.68) L 12/20/24 04:08
Free T4 2.89 ng/dl (0.78-2.19) H 12/20/24 04:08
12/09/24 12/18/24
18:39 05:29
Adq-T-Hgfrhorpvme Pept 4700 2490
Physical Exam
Constitutional: No acute distress
EENT: Anicteric and Other (keiko he says in uncomfortable but exam unremarkable)
Cardiovascular: Rhythm & rate is regular
Respiratory: Wheeze Absent and Crackles Absent
GI: Soft
Data Reviewed
-
Date of Service: December 22, 2024
Medical Decision Making: Reviewed Test Results
EKG: Report Reviewed by me
Medical Tests (PFT, Pathology etc): Report Reviewed by me
Labs: Labs Reviewed by me
[2024-12-22] MEDS: APRESOLINE 25 MG PO ×3 (08:49→22:10)
[2024-12-22] MEDS: PROTONIX 20 MG PO (08:49)
[2024-12-22] MEDS: LASIX 40 MG PO (08:50)
[2024-12-22] MEDS: PACERONE 400 MG PO ×2 (08:50→20:58)
[2024-12-22] MEDS: MUCINEX 600 MG PO ×2 (08:50→20:58)
[2024-12-22] MEDS: MIRALAX PO (08:50)
[2024-12-22] MEDS: TAPAZOLE 10 MG PO ×2 (08:50→20:58)
[2024-12-22] MEDS: IMDUR (EXTENDED RELEASE) 30 MG PO (08:50)
[2024-12-22] MEDS: LIDOCAINE 4% PATCH TOPICAL (08:52)
[2024-12-22 09:58] LABS: Troponin I 0.021 ng/ml
--- NOTE | 2024-12-22 12:08 | CM ---
Chart reviewed. Patient is Romanian speaking and understands some Sinhala. Patient is independent of ADLS, lives with his in a 2 STH, 2 KATELYNN, 0 DME. Waiting to see if patient is being transferred to [place]. Plan is for patient to go home vs
transfer to [facility]. CM to follow
--- NOTE | 2024-12-22 12:32 | PTCARENOTE ---
Assessment unchanged; NSR on monitor and VSS; pt resting comfortably in chair.
--- NOTE | 2024-12-22 12:41 | W.PN.HOSP.TC ---
Addendum entered and electronically signed by Benedicto Mason MD 12/22/24 12:55:
Spoke with cardiology, Eliquis resumed
Original Note:
Today's Communication/Plan
-
Monitor vital signs see plan
Continue with diuresis as tolerated
Continue with milrinone
Cardiology following
Restart Eliquis when okay with cardiology
Discussed with spouse at bedside
Assessment / Plan
Assessment / Plan
Mr. Lissa Louis is a 44 yo man, primarily Croatian speaking, presents to the ER with complaint of increasing fatigue, lower extremity swelling and shortness of breath found to be in afib with RVR with development of cardiogenic shock. Also found to be
influenza +.
HEAD CT
IMPRESSION:
There or no acute or focal intracranial abnormalities
There is mild diffuse cortical and cerebellar atrophy
CXR
IMPRESSION:
Right lower lobe pneumonia
Abdomen US:
IMPRESSION:
Unremarkable sonographic appearance of the liver.
No gallstones or bile duct dilatation.
Mild to moderate ascites.
Mild gallbladder wall thickening, which is nonspecific in the presence of ascites.
Incidental pleural effusion.
TTE
CONCLUSIONS
During study patient limited the amount of images that were obtained reporting
discomfort during exam. Note this appeared to be disproportional to the amount
of pressure being applied.
Severely reduced left ventricular function with estimated ejection fraction of
15 to 20%
Global hypokinesis
Right ventricular hypokinesis suspected
Moderate mitral regurgitation.
Moderate tricuspid regurgitation
No prior study available for comparison
Cardiac Cath 12/10/24
CONCLUSION:
1. Severely elevated filling pressures (PCWP = 29 mmHg at 102.5 kg).
2. Normal cardiac index (2.68 L/min/m� by Ivon, 2.10 L/min/m� by thermodilution) on milrinone 0.33 mcg/kg/min.
3. Moderate, postcapillary pulmonary hypertension (mean PA = 37 mmHg, PCWP = 29 mmHg, cardiac output = 5.71 L/min by Ivon, 4.47 L/min by thermodilution, PVR 1.40 Moy units by Ivon, 1.79 Moy units by thermodilution).
Recurrent cardiogenic Shock
New Diagnosis Heart Failure - low EF seen on bedside US.
Acute CHF with reduced EF with RV enlargement
Acute hypoxic respiratory failure secondary to acute pulmonary edema and right lower lobe pneumonia
Non-ischemic myocardial injury 2/2 above
-Troponin peaked at 0.086
-TTE 12/09 with EF with 15 to 20%, global hypokinesis, right ventricular hypokinesis suspected.
-appreciate Cardiology consult
-Levophed titrated off 12/10
-RHC 12/10 with elevated pressures
-s/p cardiac cath - non-ischemic cardiomyopathy
-s/p IV Milrinone gtt (discontinued on 12/17/24); s/p cath again 12/21 with severely depressed cardiac index and elevated wedge pressure, now with Leonor; now milrinone started again 12/21. Given need for milrinone again cardiology working on possible
transfer.
Continue with diuresis
Continue hydralazine, Imdur for afterload reduction
Stopped metoprolol per cardiology given concern for ongoing low output state
Atrial Fibrillation with RVR
-s/p amiodarone gtt; patient self-converted to sinus rhythm on 12/16/24
Eliquis on hold per cardiology, resume when okay with cardiology
-transitioned to oral amiodarone; amiodarone 400mg bid until Dec 24, then 200mg daily
Community-acquired pneumonia
Influenza +
Sepsis 2/2 above
-Legionella and strep negative
-COVID-negative, flu positive. s/p 5 days treatment
-s/p Ceftriaxone/Azithromycin course
-speech following; ok for regular with thin
MARY, does not report any history of CKD
Likely related to CHF
-creatinine rising; 1.8 today
If creatinine continues to rise then will need nephrology evaluation
Lactic acidosis on admission
Now resolved
Elevated liver enzymes
-may be 2/2 congestion
Abdominal ultrasound without any gallstone or biliary ductal dilation
-aLT remains elevated but improving
Hyponatremia
Monitor
Low TSH with elevated free T4 concerning for hyperthyroidism
appreciate Endocrinology
given difficulty in rate control methimazole initiated - F/U further Endocrine recs
Deconditioning
-PT met with patient - SNF versus
DVT PPx Eliquis
FULL CODE
General: No Apparent Distress
HEENT: PERRLA
Respiratory: Clear to Auscultation; Negative Wheezes
Cardiac: S1/S2 and Tachycardic
GI: Soft and Nontender
EXT: 1-2+ edema
Neuro: AO x 3
Psych: Calm
I spent a total of 52 minutes with the patient or on the floor. More than 50% of this time involved counseling and coordination of care.
Anticipated Discharge: > 48 hours
Subjective/Interval History
-
Date of Service: December 22, 2024
denies pain
Objective Data
-
Labs:
Laboratory Results
12/22/24
04:16
WBC 5.2
Hgb 12.7 L
Hct 37.3 L
Plt Count 292
Sodium 132 L
Potassium 4.0
Chloride 99
Carbon Dioxide 24
BUN 42 H
Creatinine 1.8 H
Glucose 96
Calcium 8.2 L
Total Bilirubin 0.9
AST 41
ALT 59 H
Alkaline Phosphatase 68
Vital Signs:
Vital Signs
Temp Pulse Resp BP Pulse Ox
98.4 F 81 14 91/65 91
12/22/24 12:00 12/22/24 12:30 12/22/24 12:30 12/22/24 12:00 12/22/24 12:30
I&O
12/21/24 12/22/24 12/23/24
06:59 06:59 06:59
Intake Total 1510.4 / 1537.1 110.2 / 110.2
Output Total 900 / 900 600 / 600
Balance 610.4 / 637.1 -489.8 / -489.8
--- NOTE | 2024-12-22 15:52 | PTCARENOTE ---
Assessment unchanged; NSR on monitor and VSS; pt resting comfortably in chair.
[2024-12-22 17:21] LABS: Troponin I 0.019 ng/ml
--- NOTE | 2024-12-22 20:00 | PTCARENOTE ---
Addendum entered by Lorena Jacobo RN 12/23/24 00:13:
Patient on 4LNC
Original Note:
Received patient at 1900. Patient OOB to chair, AOx3, anxious and restless. SR on the monitor rates 80's. Lungs diminished throughout, intermittent dry cough. Hypoactive BS, tolerating PO. Voiding in urinal without difficulty. Skin intact, see
worklist for details. Milrinone gtt running. TORO [place] colunga, lines leveled and zeroed. LAC18 PIV INT. Patient helped back into bed, made comfortable, call gabriel within reach, assessment of needs ongoing.
[2024-12-22] MEDS: ELIQUIS 5 MG PO (20:58)
[2024-12-22] MEDS: ROXICODONE 5 MG PO (23:59)
[2024-12-23] VITALS (27 sets, daily range): BP systolic 104–140; BP diastolic 56–94; BMI 28.9
--- NOTE | 2024-12-23 | PTCARENOTE ---
Patient c/o back pain, given PRN oxycodone, rest encouraged, made comfortable in bed, call gabriel within reach.
--- NOTE | 2024-12-23 | PTCARENOTE ---
Unable to obtain accurate CO/CI d/t 'injectate too high' message continuing during measurements. CVPA aware. Patient c/o back pain, given PRN oxycodone, rest encouraged, made comfortable in bed, call gabriel within reach.
[2024-12-23 01:37] LABS: Troponin I 0.024 ng/ml
--- NOTE | 2024-12-23 04:00 | PTCARENOTE ---
No changes in assessment, patient sleeping between care. Call gabriel within reach.
[2024-12-23 04:49] LABS: % Basophils 1.3 % (0-2); % Eosinophils 1.3 % (0-6); % Immature Granulocytes 0.4 % (0-0.5); % Lymphocytes 23.6 % (20.5-51.1); % Monocytes 11.5 % (1.7-9.3); % Neutrophils 61.9 % (42.2-75.2); Absolute Basophils 0.1 10^3/uL (0-0.2); Absolute Eosinophils 0.1 10^3/uL (0-0.7); Absolute Lymphocytes 1.3 10^3/uL (1.2-3.4); Absolute Monocytes 0.6 10^3/uL (0.1-0.6); Absolute Neutrophils 3.3 10^3/uL (1.4-6.5); Hematocrit 38.9 % (39.0-52.0); Hemoglobin 13.2 g/dL (13.0-18.0); Mean Corp Hgb Conc. 33.9 g/dL (33.0-37.0); Mean Corpuscular Hgb 28.8 pg (27.0-31.0); Mean Corpuscular Volume 84.7 fL (80.0-94.0); Mean Platelet Volume 8.7 fL (7.4-10.4); Nucleated Red Blood Cells % 0 % (-); Platelet Count 289 10^3/uL (130-400); Red Blood Cell Count 4.59 10^6/uL (4.70-6.10); Red Cell Dist. Width 14.1 % (11.5-14.5); White Blood Cell Count 5.4 10^3/uL (4.8-10.8)
[2024-12-23 05:28] LABS: ALT (SGPT) 52 U/L (0-50); AST (SGOT) 36 U/L (17-59); Albumin 2.8 g/dl (3.5-5.0); Alkaline Phosphatase 71 U/L (38-126); Blood Urea Nitrogen 25 mg/dl (9-20); Calcium 8.3 mg/dl (8.4-10.2); Carbon Dioxide 28 mmol/L (22-30); Chloride 100 mmol/L (98-107); Estimated Creatinine Clearance 68 ml/min; Glucose 96 mg/dl (70-99); Potassium 3.8 mmol/L (3.5-5.1); Sodium 135 mmol/L (135-145); Total Bilirubin 1.3 mg/dl (0.2-1.3); Total Protein 5.5 g/dl (6.3-8.2); eGFR 58.87
--- NOTE | 2024-12-23 08:17 | W.PN.CD ---
Today's Communication / Plan
-
Increase hydralazine to 50 mg 3 times daily
Continue to increase afterload reduction as long as BP tolerates
Holding diuresis given normal CVP
Impression / Plan
-
44-year-old primarily German speaking male with no past medical history who presented with shortness of breath, lower extremity edema and general malaise found to have acute heart failure with severely reduced ejection fraction (LVEF 15-20%). He
also tested positive for influenza B and course has been complicated by atrial flutter with RVR. He was taken for RHC on 12/10/2024 which revealed severely elevated filling pressures and normal cardiac index on milrinone. Milrinone was then stopped
on 12/16 but creatinine worsened thereafter and he was placed back on milrinone on 12/21.
#Cardiogenic shock
-milrinone off 12/16; [place] out 12/17 (closing hemos: RA 9 PA 47/21 CI 1.37 SVR 2387). Cr worsened after stopping milrinone. RHC 12/21/23 and Milrinone restart
-Continue milrinone 0.25 mcg
-We will need to increase afterload reduction in order to get him off of the milrinone. Goal SVR 1000
-Increase hydralazine to 50 mg 3 times daily. If BPs tolerate this for next 2 doses, will increase to 75 mg 3 times daily
-If creatinine improving tomorrow recommend starting valsartan 40 mg twice daily
-I have reviewed his case with [facility] (Vane Lance MD) who is in agreement with the above plan. Transfer will be complicated given patient's lack of insurance
-Lasix on hold. CVP's are normal. Goal CVP 6�8
#New non-ischemic cardiomyopathy (severe, EF 15-20%) with acute systolic HF, and moderate MR/TR
-perhaps tachy induced +/- viral myocarditis
-[facility] 12/09/24: 30% mid LAD, 40% prox D2; o/w LI
-no prescription med coverage, so will use generic GDMT
-add GDMT once out of low-output state
#Atrial flutter with RVR, typical
-New onset: cardiomyopathy may be tachy induced
-Duration unknown
-Has not felt well since November 23 unclear if this represents onset of A-fib or if he developed more recently.
-CHADS2-VASC = 1. Eliquis 5mg bid for OAC
-converted on IV amiodarone on 12/16
-amiodarone 400mg bid until Dec 24, then 200mg daily
# MARY
optimize hemodynamics as above
# Right lower lobe pneumonia
-Continue ceftriaxone
#Influenza B. Management as directed by primary team patient has been afebrile.
# Elevated LFTs. Likely related to shock. Improving.
# abnormal Thyroid studies . TSH low 0.36 and T4 elevated 3.28. Continue Methimazole. Per primary team
Subjective: SGC site is bothering him. No CV complaints. No events on telemetry.
Physical Exam
Vital Signs/Labs
Vital Signs
Temp Pulse Resp BP Pulse Ox
98.6 F 103 18 130/88 95
12/23/24 06:00 12/23/24 07:30 12/23/24 07:30 12/23/24 07:00 12/23/24 07:30
12/22/24 12/23/24 12/24/24
06:59 06:59 06:59
Actual Weight 88.8 kg 83.5 kg
12/23/24 04:30
12/23/24 04:30
PT 18.6 Sec (11.4-14.6) H 12/09/24 18:39
INR 1.53 12/09/24 18:39
APTT 106.6 Sec (23.4-35.0) H 12/13/24 11:46
Magnesium 2.1 mg/dl (1.6-2.3) 12/18/24 05:29
Triglycerides 81 mg/dl (10-149) 12/10/24 02:49
LDL Cholesterol, Calc 114 mg/dl 12/10/24 02:49
VLDL Cholesterol, Calc 16 mg/dl (0-30) 12/10/24 02:49
HDL Cholesterol 31 mg/dl 12/10/24 02:49
TSH 0.20 uIU/ml (0.47-4.68) L 12/20/24 04:08
Free T4 2.89 ng/dl (0.78-2.19) H 12/20/24 04:08
12/09/24 12/18/24
18:39 05:29
Sgu-D-Rkecxsqgfqr Pept 4700 0490
LAB Results
12/22/24 12/22/24 12/23/24
16:50 00:59
Troponin I 0.021 0.019 0.024
Physical Exam
Constitutional: No acute distress
Cardiovascular: Rhythm & rate is regular, Pedal edema is absent, S1S2 is normal and Murmur/rub/gallop absent
Respiratory: Respiratory effort normal and Lungs clear to auscul.
Neuro/Psych: AO x 3
Data Reviewed
-
Date of Service: December 23, 2024
Medical Decision Making: Reviewed Test Results, Independent Historian Assessment, Test Interpretation and Review of Case with other Provider
EKG: Tracing Personally Visualized and interpreted
Echo: Report Reviewed by me
X-Ray/CT/US/MRI/NUC/PET: Report Reviewed by me
Labs: Labs Reviewed by me
--- NOTE | 2024-12-23 08:20 | PTCARENOTE ---
Received pt from night time nanny RN; pt AAOx3 and resting comfortably in chair; NSR on monitor and VSS; RIJ [place], [place] floated to 50 and PIV x1 patent, all lines leveled and zeroed; Milrinone infusing see flow sheet for detials; Lungs diminished;
hypoactive bowel sounds; pt voiding yellow urine; palpable pulses throughout; no edema noted; see nursing documentation for further details.
[2024-12-23 08:26] LABS: Mixed Venous O2 Saturation 73.8 %
[2024-12-23] MEDS: ZOFRAN 4 MG IV (08:36)
[2024-12-23] MEDS: LIDOCAINE 4% PATCH TOPICAL (08:47)
[2024-12-23] MEDS: MIRALAX PO (08:47)
[2024-12-23] MEDS: APRESOLINE 50 MG PO ×3 (09:19→21:42)
[2024-12-23] MEDS: ELIQUIS 5 MG PO ×2 (09:20→20:07)
[2024-12-23] MEDS: TAPAZOLE 10 MG PO ×2 (09:20→20:07)
[2024-12-23] MEDS: PROTONIX 20 MG PO (09:20)
[2024-12-23] MEDS: PACERONE 400 MG PO ×2 (09:20→20:07)
[2024-12-23] MEDS: IMDUR (EXTENDED RELEASE) 30 MG PO (09:20)
[2024-12-23] MEDS: MUCINEX 600 MG PO ×2 (09:20→20:07)
[2024-12-23] MEDS: APRESOLINE PO (09:53)
--- NOTE | 2024-12-23 11:41 | CM ---
Chart reviewed. Patient is independent of ADLS, lives with his in a 2 STH, 2 KATELYNN, 0 DME. Transfer to [place] cancelled. Plan is for the patient to return home. CM to follow
--- NOTE | 2024-12-23 12:35 | PTCARENOTE ---
Assessment unchanged; NSR on monitor and VSS; pt resting comfortably in chair.
[2024-12-23] MEDS: PRIMACOR 20 MG 100 IV (12:53)
--- NOTE | 2024-12-23 14:52 | W.PN.HOSP.TC ---
Today's Communication/Plan
-
Monitor vital signs see plan
Continue with milrinone, wean as tolerated
Continue with afterload reduction
Assessment / Plan
Assessment / Plan
Mr. Lissa Louis is a 44 yo man, primarily Romansh speaking, presents to the ER with complaint of increasing fatigue, lower extremity swelling and shortness of breath found to be in afib with RVR with development of cardiogenic shock. Also found to be
influenza +.
HEAD CT
IMPRESSION:
There or no acute or focal intracranial abnormalities
There is mild diffuse cortical and cerebellar atrophy
CXR
IMPRESSION:
Right lower lobe pneumonia
Abdomen US:
IMPRESSION:
Unremarkable sonographic appearance of the liver.
No gallstones or bile duct dilatation.
Mild to moderate ascites.
Mild gallbladder wall thickening, which is nonspecific in the presence of ascites.
Incidental pleural effusion.
TTE
CONCLUSIONS
During study patient limited the amount of images that were obtained reporting
discomfort during exam. Note this appeared to be disproportional to the amount
of pressure being applied.
Severely reduced left ventricular function with estimated ejection fraction of
15 to 20%
Global hypokinesis
Right ventricular hypokinesis suspected
Moderate mitral regurgitation.
Moderate tricuspid regurgitation
No prior study available for comparison
Cardiac Cath 12/10/24
CONCLUSION:
1. Severely elevated filling pressures (PCWP = 29 mmHg at 102.5 kg).
2. Normal cardiac index (2.68 L/min/m� by Ivon, 2.10 L/min/m� by thermodilution) on milrinone 0.33 mcg/kg/min.
3. Moderate, postcapillary pulmonary hypertension (mean PA = 37 mmHg, PCWP = 29 mmHg, cardiac output = 5.71 L/min by Ivon, 4.47 L/min by thermodilution, PVR 1.40 Moy units by Ivon, 1.79 Moy units by thermodilution).
Recurrent cardiogenic Shock
New Diagnosis Heart Failure - low EF seen on bedside US.
Acute CHF with reduced EF with RV enlargement
Acute hypoxic respiratory failure secondary to acute pulmonary edema and right lower lobe pneumonia
Non-ischemic myocardial injury 2/2 above
-Troponin peaked at 0.086
-TTE 12/09 with EF with 15 to 20%, global hypokinesis, right ventricular hypokinesis suspected.
-appreciate Cardiology consult
-Levophed titrated off 12/10
-RHC 12/10 with elevated pressures
-s/p cardiac cath - non-ischemic cardiomyopathy
-s/p IV Milrinone gtt (discontinued on 12/17/24); s/p cath again 12/21 with severely depressed cardiac index and elevated wedge pressure, now with Leonor; now milrinone started again 12/21. Given need for milrinone again cardiology working on possible
transfer. Cardiology discussed with [facility] and they are hopeful that patient can be weaned off milrinone. No plan for transfer at this time.
Continue with diuresis as able
Continue hydralazine, Imdur for afterload reduction
Stopped metoprolol per cardiology given concern for ongoing low output state
Atrial Fibrillation with RVR
-s/p amiodarone gtt; patient self-converted to sinus rhythm on 12/16/24
Eliquis on hold per cardiology, resume when okay with cardiology
-transitioned to oral amiodarone; amiodarone 400mg bid until Dec 24, then 200mg daily
Community-acquired pneumonia
Influenza +
Sepsis 2/2 above
-Legionella and strep negative
-COVID-negative, flu positive. s/p 5 days treatment
-s/p Ceftriaxone/Azithromycin course
-speech following; ok for regular with thin
MARY, does not report any history of CKD
Likely related to CHF
-creatinine now slowly improving, monitor
If creatinine continues to rise then will need nephrology evaluation
Lactic acidosis on admission
Now resolved
Elevated liver enzymes
-may be 2/2 congestion
Abdominal ultrasound without any gallstone or biliary ductal dilation
-aLT remains elevated but improving
Hyponatremia
Resolved
Low TSH with elevated free T4 concerning for hyperthyroidism
appreciate Endocrinology
given difficulty in rate control methimazole initiated - F/U further Endocrine recs
Deconditioning
-PT met with patient - SNF versus HH
DVT PPx Eliquis
FULL CODE
General: No Apparent Distress
HEENT: PERRLA
Respiratory: Clear to Auscultation; Negative Wheezes
Cardiac: S1/S2 and Tachycardic
GI: Soft and Nontender
EXT: 1-2+ edema
Neuro: AO x 3
Psych: Calm
Per my discussion with case packer, JAYLA application has been submitted
I spent a total of 52 minutes with the patient or on the floor. More than 50% of this time involved counseling and coordination of care.
Anticipated Discharge: > 48 hours
Subjective/Interval History
-
Date of Service: December 23, 2024
Denies pain
Objective Data
-
Labs:
Laboratory Results
12/23/24
04:30
WBC 5.4
Hgb 13.2
Hct 38.9 L
Plt Count 289
Sodium 135
Potassium 3.8
Chloride 100
Carbon Dioxide 28
BUN 25 H
Creatinine 1.5 H
Glucose 96
Calcium 8.3 L
Total Bilirubin 1.3
AST 36
ALT 52 H
Alkaline Phosphatase 71
Vital Signs:
Vital Signs
Temp Pulse Resp BP Pulse Ox
98.5 F 102 17 104/59 94
12/23/24 12:00 12/23/24 14:00 12/23/24 14:00 12/23/24 14:00 12/23/24 14:00
I&O
12/22/24 12/23/24 12/24/24
06:59 06:59 06:59
Intake Total 1510.4 / 1537.1 1080.7 / 1097.4 133.6 / 133.6
Output Total 900 / 900 3920 / 3920 1250 / 1250
Balance 610.4 / 637.1 -2839.3 / -2822.6 -1116.4 / -1116.4
[2024-12-23 16:39] LABS: Mixed Venous O2 Saturation 87.4 %
--- NOTE | 2024-12-23 16:56 | W.PN.UPDATE ---
Update Note
Progress Note Update
PM hemos by Ivon equation: SvO2 87.4 CI 7.4 SVR 471
Will order CXR to ensure that PA cath is not autowedged. PA waveform looks normal.
Based on above hemos, will decrease milrinone to 0.125 mcg
If hemos stable in AM, will plan to add Valsartan 40mg BID
--- NOTE | 2024-12-23 17:03 | PTCARENOTE ---
NSR on monitor and VSS; mixed venous obtained and notified Dr Arteaga of results; Milrinone decreased to 0.125mg/hr; CRX ordered by MD; assessment unchanged and pt resting comfortably in bed.
--- NOTE | 2024-12-23 20:00 | PTCARENOTE ---
Received patient at 1900. Patient OOB in chair, oriented, calm. Sinus tach on the monitor. Lungs diminished throughout, intermittent nonproductive cough. BS hypoactive, fair appetite, tolerating PO. Voiding using urinal without difficulty. Skin
intact, see work list. Milrinone gtt, swan cristine catheter in place at 50 - leveled and zeroed - PIV x1 in LAC. Call gabriel within reach, plan of care discussed with patient, instructed to call for assistance getting back into bed. See nursing worklist
for for details.
[2024-12-24] VITALS (27 sets, daily range): BP systolic 88–129; BP diastolic 53–96; BMI 29.3
--- NOTE | 2024-12-24 | PTCARENOTE ---
Patient placed back on 2LNC for desatting, SpO2 98%. Sleeping between care, VSS, no acute complaints.
--- NOTE | 2024-12-24 04:00 | PTCARENOTE ---
Patient sleeping between care. PA pressures elevated, ensured leveling of transducer. CVPA aware, continue to monitor for now. Unable to obtain CO/CI sans ? before values, monitor states 'injectate temperature too high' continuously.
[2024-12-24 04:07] LABS: % Basophils 0.9 % (0-2); % Eosinophils 1.4 % (0-6); % Immature Granulocytes 0.5 % (0-0.5); % Monocytes 11.8 % (1.7-9.3); % Neutrophils 62.4 % (42.2-75.2); Absolute Basophils 0.1 10^3/uL (0-0.2); Absolute Eosinophils 0.1 10^3/uL (0-0.7); Absolute Lymphocytes 1.3 10^3/uL (1.2-3.4); Absolute Monocytes 0.7 10^3/uL (0.1-0.6); Absolute Neutrophils 3.4 10^3/uL (1.4-6.5); Hematocrit 38.1 % (39.0-52.0); Hemoglobin 12.8 g/dL (13.0-18.0); Mean Corp Hgb Conc. 33.6 g/dL (33.0-37.0); Mean Corpuscular Hgb 28.6 pg (27.0-31.0); Mean Corpuscular Volume 85.2 fL (80.0-94.0); Mean Platelet Volume 8.3 fL (7.4-10.4); Nucleated Red Blood Cells % 0 % (-); Platelet Count 268 10^3/uL (130-400); Red Blood Cell Count 4.47 10^6/uL (4.70-6.10); Red Cell Dist. Width 14.2 % (11.5-14.5); White Blood Cell Count 5.5 10^3/uL (4.8-10.8)
[2024-12-24 04:31] LABS: ALT (SGPT) 41 U/L (0-50); AST (SGOT) 30 U/L (17-59); Alkaline Phosphatase 66 U/L (38-126); Blood Urea Nitrogen 14 mg/dl (9-20); Calcium 8.2 mg/dl (8.4-10.2); Carbon Dioxide 28 mmol/L (22-30); Chloride 101 mmol/L (98-107); Estimated Creatinine Clearance 69 ml/min; Glucose 107 mg/dl (70-99); Potassium 4.2 mmol/L (3.5-5.1); Sodium 135 mmol/L (135-145); Total Bilirubin 1.4 mg/dl (0.2-1.3); eGFR > 60.00
--- NOTE | 2024-12-24 08:14 | W.PN.CD ---
Today's Communication / Plan
-
Start valsartan 40 mg BID.
Decrease amiodarone to 200 mg daily.
Decrease milrinone to 0.0625 mcg/kg/min.
If BP tolerates addition of valsartan, consider addition of beta gio tomorrow (metoprolol vs. propanolol) and discontinue milrinone.
If patient tolerates being off of milrinone, we can d/c swan-lakhwinder catheter tomorrow afternoon.
Impression / Plan
-
Impression/Plan: 44-year-old primarily Khmer speaking male with no past medical history who presented with influenza B, atrial flutter and acute heart failure with severely reduced ejection fraction (LVEF 15-20%) with cardiogenic shock requiring
inotropes. Course has been complicated by MARY/hypotension limiting GDMT and decompensation requiring reinitiation of inotropes.
#Cardiogenic shock
-Acute, improving.
-Milrinone off 12/16; Brimhall out 12/17 (closing hemos: RA 9 PA 47/21 CI 1.37 SVR 2387).
-Cr worsened after stopping milrinone, prompting repeat Brimhall-Lakhwinder and milrinone restart (12/21/2024).
-We will need to increase afterload reduction in order to get him off of the milrinone. Goal SVR 1000.
-Creatinine improved - start valsartan 40 mg BID.
-Hydralazine increased to 50 mg 3 times daily yesterday.
-If BP tolerates addition of valsartan, we will start metoprolol 12.5 mg daily tomorrow.
-Decrease milrinone to 0.0625 mcg/kg/min.
-I have reviewed his case with Miles (Vane Lance MD) who is in agreement with the above plan. Any transfer will be complicated given patient's lack of insurance.
-Furosemide on hold as HF is low flow, not congestive. CVP's are normal. Goal CVP 6�8.
#Non-ischemic cardiomyopathy
-New diagnosis. LVEF 15-20% with acute systolic HF, and moderate MR/TR.
-DDx includes tachycardia induced +/- viral myocarditis.
-C 12/09/24: 30% mid LAD, 40% prox D2; o/w LI.
-No prescription med coverage, so will use generic GDMT (no sacubitril-valsartan, SGLT2i)
-Start valsartan 40 mg BID.
-If he tolerates addition of valsartan, we will add metoprolol succinate 12.5 mg daily tomorrow.
#Atrial flutter with RVR, typical
-New onset: cardiomyopathy may be tachy induced.
-Duration unknown.
-Has not felt well since November 23. Unclear if this represents onset of A-fib or if he developed more recently.
-CHADS2-VASC = 1. Eliquis 5mg bid for OAC
-Converted on IV amiodarone on 12/16.
-Reduce amiodarone to 200 mg daily as of today.
-Possible metoprolol succinate tomorrow.
#MARY
-Resolved.
-Cr 1.3 this morning, implying that renal dysfunction was due to cardiorenal syndrome.
# Right lower lobe pneumonia
-Acute.
-Continue ceftriaxone.
#Influenza B.
-Management as directed by primary team.
-Patient has been afebrile.
# Elevated LFTs
-Acute, resolved.
#Hyperthyroidism
-New diagnosis (underlying cause of tachyarrhythmia?)
-TSH low (0.36) and T4 elevated (3.28).
-Continue methimazole per primary team.
-Consider use of propanolol (rather than metoprolol) in the future.
Critical Care Time = 45 minutes.
Subjective/Interval History:
Milrinone decreased to 0.125 mcg/kg/min yesterday.
Weight up 1.3 kg from yesterday (88.8 --> 83.5 --> 84.8).
HR ~ 100 bpm.
BP remains stable - 110-130/70-90.
PAd = 17-24 mmHg.
DATA:
RHC, 12/21/2024:
CONCLUSION:
1. Moderately elevated filling pressures (PCWP = 23 mmHg at 88.9 kg).
2. Severely depressed cardiac index (1.56 L/min/m� by Ivon, 1.43 L/min/m� by thermodilution).
3. Severe peripheral constriction (SVR = 2006 dynes*seconds*cm^-5).
C, 12/13/2024:
CORONARY ANGIOGRAPHY
Dominance: right
LM: Large, normal
LAD: Large caliber vessel giving rise to a medium caliber D1 and medium caliber D2. There is a 30% stenosis in the mid LAD after D2, a 40% stenosis in the proximal segment of D2, and otherwise mild luminal irregularities.
LCx: Large vessel giving rise to a very large caliber OM1 and small OM 2. There are trivial luminal irregularities.
RCA: Large vessel giving rise to large caliber RPDA, small RPL1, small RPL2, and small RPL3. There are mild luminal irregularities.
RHC, 12/10/2024:
CONCLUSION:
1. Severely elevated filling pressures (PCWP = 29 mmHg at 102.5 kg).
2. Normal cardiac index (2.68 L/min/m� by Ivon, 2.10 L/min/m� by thermodilution) on milrinone 0.33 mcg/kg/min.
3. Moderate, postcapillary pulmonary hypertension (mean PA = 37 mmHg, PCWP = 29 mmHg, cardiac output = 5.71 L/min by Ivon, 4.47 L/min by thermodilution, PVR 1.40 Moy units by Ivon, 1.79 Moy units by thermodilution).
Transthoracic Echocardiogram, 12/09/2024:
CONCLUSIONS
During study patient limited the amount of images that were obtained reporting
discomfort during exam. Note this appeared to be disproportional to the amount
of pressure being applied.
Severely reduced left ventricular function with estimated ejection fraction of
15 to 20%
Global hypokinesis
Right ventricular hypokinesis suspected
Moderate mitral regurgitation.
Moderate tricuspid regurgitation
No prior study available for comparison.
Physical Exam
Vital Signs/Labs
Vital Signs
Temp Pulse Resp BP Pulse Ox
37.3 C 91 15 121/91 97
12/24/24 07:00 12/24/24 07:30 12/24/24 07:30 12/24/24 07:00 12/24/24 07:30
12/22/24 12/23/24 12/24/24
11:59 11:59 11:59
Actual Weight 88.8 kg 83.5 kg 84.8 kg
12/24/24 03:59
12/24/24 03:59
PT 18.6 Sec (11.4-14.6) H 12/09/24 18:39
INR 1.53 12/09/24 18:39
APTT 106.6 Sec (23.4-35.0) H 12/13/24 11:46
Magnesium 2.1 mg/dl (1.6-2.3) 12/18/24 05:29
Triglycerides 81 mg/dl (10-149) 12/10/24 02:49
LDL Cholesterol, Calc 114 mg/dl 12/10/24 02:49
VLDL Cholesterol, Calc 16 mg/dl (0-30) 12/10/24 02:49
HDL Cholesterol 31 mg/dl 12/10/24 02:49
TSH 0.20 uIU/ml (0.47-4.68) L 12/20/24 04:08
Free T4 2.89 ng/dl (0.78-2.19) H 12/20/24 04:08
12/09/24 12/18/24
18:39 05:29
Rxy-R-Aczncjrwgny Pept 9742 7366
LAB Results
12/22/24 12/22/24 12/23/24
: 16:50 00:59
Troponin I 0.021 0.019 0.024
Physical Exam
Constitutional: No acute distress and Comfortable
EENT: Anicteric and Moist mucous membranes
Cardiovascular: Rhythm & rate is regular, Pedal edema is absent, JVD pressure is normal, S1S2 is normal and Murmur/rub/gallop absent
Respiratory: Respiratory effort normal, Lungs clear to auscul., Wheeze Absent, Crackles Absent and Rhonchi Absent
GI: Soft, Distention absent, Flat, Non tender and Normal bowel sounds
Neuro/Psych: AO x 3
Other: Cath Site ([facility] site is C/D/I.)
Data Reviewed
-
Date of Service: December 24, 2024
Medical Decision Making: Reviewed Test Results, Independent Historian Assessment and Test Interpretation
EKG: Tracing Personally Visualized and interpreted and Report Reviewed by me
Echo: Tracing Personally Visualized and interpreted and Report Reviewed by me
X-Ray/CT/US/MRI/NUC/PET: Image Personally Visualized and interpreted and Report Reviewed by me
Medical Tests (PFT, Pathology etc): Image Personally Visualized and interpreted and Report Reviewed by me
Labs: Labs Reviewed by me
[2024-12-24] MEDS: MIRALAX 17 GRAMS PO (08:47)
[2024-12-24] MEDS: MUCINEX 600 MG PO ×2 (08:47→19:49)
[2024-12-24] MEDS: IMDUR (EXTENDED RELEASE) 30 MG PO (08:48)
[2024-12-24] MEDS: TAPAZOLE 10 MG PO ×2 (08:48→19:49)
[2024-12-24] MEDS: PROTONIX 20 MG PO (08:48)
[2024-12-24] MEDS: PACERONE PO (08:48)
[2024-12-24] MEDS: APRESOLINE 50 MG PO ×2 (08:48→16:03)
[2024-12-24] MEDS: LIDOCAINE 4% PATCH TOPICAL (08:48)
[2024-12-24] MEDS: ELIQUIS 5 MG PO ×2 (08:53→19:49)
--- NOTE | 2024-12-24 09:00 | PTCARENOTE ---
Received from straight truck driver RN; AAOx3, responds spontaneously to RN and follows commands; VSS; NSR on monitor; Trace B/L LE edema; +2 DP and radial pulses; Non-productive, frequent cough; SpO2 93-98% on RA; Poor appetite; Urinating clear, yellow
urine; Scabs on B/L LE PAYMENT MANAGER and bruise on RUE PAYMENT MANAGER; Leonor floated to 50 cm in RIJ Cordis - all lines zeroed and level; PIVx1 #18 LAC; KVO and Milrinone infusing - see nursing flowsheets for further details; See nursing documentation for further
information.
CO: 5.16
CI: 2.57
SVR: 1,519
[2024-12-24] MEDS: DIOVAN 40 MG PO ×2 (09:57→19:49)
--- NOTE | 2024-12-24 12:45 | PTCARENOTE ---
Milrinone decreased to 0.0625 as per MD Duggan; PO Valsartan 40 mg BID started; Mixed venous ordered by MD Duggan afterwards due to error message from monitor stating that temperature of injectate too high - awaiting results
--- NOTE | 2024-12-24 12:55 | W.PN.HOSP.TC ---
Today's Communication/Plan
-
Monitor vital signs see plan
Decrease amiodarone to 200 mg daily
Wean milrinone
Gasquet still in place
Now also on valsartan
Assessment / Plan
Assessment / Plan
Mr. Lissa Louis is a 44 yo man, primarily Hungarian speaking, presents to the ER with complaint of increasing fatigue, lower extremity swelling and shortness of breath found to be in afib with RVR with development of cardiogenic shock. Also found to be
influenza +.
HEAD CT
IMPRESSION:
There or no acute or focal intracranial abnormalities
There is mild diffuse cortical and cerebellar atrophy
CXR
IMPRESSION:
Right lower lobe pneumonia
Abdomen US:
IMPRESSION:
Unremarkable sonographic appearance of the liver.
No gallstones or bile duct dilatation.
Mild to moderate ascites.
Mild gallbladder wall thickening, which is nonspecific in the presence of ascites.
Incidental pleural effusion.
TTE
CONCLUSIONS
During study patient limited the amount of images that were obtained reporting
discomfort during exam. Note this appeared to be disproportional to the amount
of pressure being applied.
Severely reduced left ventricular function with estimated ejection fraction of
15 to 20%
Global hypokinesis
Right ventricular hypokinesis suspected
Moderate mitral regurgitation.
Moderate tricuspid regurgitation
No prior study available for comparison
Cardiac Cath 12/10/24
CONCLUSION:
1. Severely elevated filling pressures (PCWP = 29 mmHg at 102.5 kg).
2. Normal cardiac index (2.68 L/min/m� by Ivon, 2.10 L/min/m� by thermodilution) on milrinone 0.33 mcg/kg/min.
3. Moderate, postcapillary pulmonary hypertension (mean PA = 37 mmHg, PCWP = 29 mmHg, cardiac output = 5.71 L/min by Ivon, 4.47 L/min by thermodilution, PVR 1.40 Moy units by Ivon, 1.79 Moy units by thermodilution).
Recurrent cardiogenic Shock
New Diagnosis Heart Failure - low EF
Acute CHF with reduced EF with RV enlargement
Acute hypoxic respiratory failure secondary to acute pulmonary edema and right lower lobe pneumonia
Non-ischemic myocardial injury 2/2 above
-TTE 12/09 with EF with 15 to 20%, global hypokinesis, right ventricular hypokinesis suspected.
Cardiology following
-Levophed titrated off 12/10
-RHC 12/10 with elevated pressures
-s/p cardiac cath - non-ischemic cardiomyopathy
-s/p IV Milrinone gtt (discontinued on 12/17/24); s/p cath again 12/21 with severely depressed cardiac index and elevated wedge pressure, now with Leonor; now milrinone started again 12/21. Given need for milrinone again cardiology working on possible
transfer. Cardiology discussed with Julianna and they are hopeful that patient can be weaned off milrinone. No plan for transfer at this time.
Continue with diuresis as able
Continue hydralazine, Imdur for afterload reduction. Added valsartan 12/24. Wean milrinone.
Stopped metoprolol per cardiology given concern for ongoing low output state
Atrial Fibrillation with RVR
-s/p amiodarone gtt; patient self-converted to sinus rhythm on 12/16/24
Eliquis restarted
Decrease amiodarone to 200 mg daily
Community-acquired pneumonia
Influenza +
Sepsis 2/2 above
-Legionella and strep negative
-COVID-negative, flu positive. s/p 5 days treatment
-s/p Ceftriaxone/Azithromycin course
-speech following; ok for regular with thin
MARY, does not report any history of CKD
Likely related to CHF
-creatinine now slowly improving, monitor
If creatinine continues to rise then will need nephrology evaluation
Lactic acidosis on admission
Now resolved
Elevated liver enzymes
-may be 2/2 congestion
Abdominal ultrasound without any gallstone or biliary ductal dilation
-aLT remains elevated but improving
Hyponatremia
Resolved
Low TSH with elevated free T4 concerning for hyperthyroidism
appreciate Endocrinology
given difficulty in rate control methimazole initiated - F/U further Endocrine recs
Deconditioning
-PT met with patient - SNF versus HH
DVT PPx Eliquis
FULL CODE
General: No Apparent Distress
HEENT: PERRLA
Respiratory: Clear to Auscultation; Negative Wheezes
Cardiac: S1/S2 and Tachycardic
GI: Soft and Nontender
EXT: 1-2+ edema
Neuro: AO x 3
Psych: Calm
Per my discussion with corrections caseworker, JAYLA application has been submitted
I spent a total of 51 minutes with the patient or on the floor. More than 50% of this time involved counseling and coordination of care.
Anticipated Discharge: > 48 hours
Subjective/Interval History
-
Date of Service: December 24, 2024
Denies chest pain
Objective Data
-
Labs:
Laboratory Results
12/24/24
03:59
WBC 5.5
Hgb 12.8 L
Hct 38.1 L
Plt Count 268
Sodium 135
Potassium 4.2
Chloride 101
Carbon Dioxide 28
BUN 14
Creatinine 1.3
Glucose 107 H
Calcium 8.2 L
Total Bilirubin 1.4 H
AST 30
ALT 41
Alkaline Phosphatase 66
Vital Signs:
Vital Signs
Temp Pulse Resp BP Pulse Ox
98.5 F 98 20 89/53 94
12/24/24 12:00 12/24/24 12:00 12/24/24 12:00 12/24/24 12:00 12/24/24 12:00
I&O
12/23/24 12/24/24 12/25/24
06:59 06:59 06:59
Intake Total 1080.7 / 1097.4 1276.6 / 1329.9 1235.0 / 1235.0
Output Total 3920 / 3920 2670 / 3045 1225 / 1225
Balance -2839.3 / -2822.6 -1393.4 / -1715.1 10.0 / 10.0
[2024-12-24] MEDS: PACERONE 200 MG PO (14:20)
--- NOTE | 2024-12-24 17:04 | PTCARENOTE ---
Mixed venous results 73.0 - MD Duggan notified and aware; Milrinone drip continued at 0.0625; Patient helped back to bed and resting comfortably
--- NOTE | 2024-12-24 21:15 | PTCARENOTE ---
Assumed care of patient from [facility] RN. Pt AAOx3. Resting in the chair at this time. No c/o pain. Pt is sinus tach on the tele monitor. HR 100s. BP 104/65. MAP 75. CVP ~4. PAP 20-30s/teens. +1 B/L pedal edema. Generalized throughout. Palpable
pulses throughout. Pt on RA. POX 94-95%. Lung sounds diminished B/L. Frequent non-productive cough. Deep breathing encouraged. Abdomen soft. +BS x4. Pt voiding spontaneously. +BM. Right upper arm bruise present. Right IJ cordis w/ swan floated to 50
cm C/D/I. All lines leveled, zeroed, and flushed. PIV x1 intact. Pt updated on plan for the night. Pt rings appropriately. See worklist for full nursing assessment and interventions. Call gabriel within reach.
[2024-12-24] MEDS: APRESOLINE PO (22:49)
[2024-12-24] MEDS: PRIMACOR 20 MG 100 IV (22:49)
--- NOTE | 2024-12-24 23:12 | PTCARENOTE ---
50 mg Hydralazine held - see JAN. SBP's 80-90s. CTPA aware and put mediation on hold.
[2024-12-25] VITALS (22 sets, daily range): BP systolic 84–125; BP diastolic 52–93; BMI 29.1
--- NOTE | 2024-12-25 00:02 | PTCARENOTE ---
No acute change in assessment. Pt resting in bed. Pt sinus tach on the tele monitor. HR low 100s. Last BP 111/81. PAPs 30s/teens. CVP ~1-2. CI>2. Monitor reading that injectate fluid temp is high. MVO2 ordered for AM. Pt 94-96% on RA. Kayden intact,
leveled/zeroed/flushed. Milrinone infusing. Denies pain at this time. Voiding in urinal ad elizabeth. Call gabriel within reach.
[2024-12-25 03:58] LABS: Mixed Venous O2 Saturation 76.4 %
[2024-12-25 04:07] LABS: % Basophils 1.5 % (0-2); % Eosinophils 2.1 % (0-6); % Immature Granulocytes 0.6 % (0-0.5); % Lymphocytes 26.5 % (20.5-51.1); % Monocytes 12.7 % (1.7-9.3); % Neutrophils 56.6 % (42.2-75.2); Absolute Basophils 0.1 10^3/uL (0-0.2); Absolute Eosinophils 0.1 10^3/uL (0-0.7); Absolute Lymphocytes 1.4 10^3/uL (1.2-3.4); Absolute Monocytes 0.7 10^3/uL (0.1-0.6); Hematocrit 41.3 % (39.0-52.0); Hemoglobin 13.6 g/dL (13.0-18.0); Mean Corp Hgb Conc. 32.9 g/dL (33.0-37.0); Mean Corpuscular Hgb 28.5 pg (27.0-31.0); Mean Corpuscular Volume 86.4 fL (80.0-94.0); Mean Platelet Volume 8.5 fL (7.4-10.4); Nucleated Red Blood Cells % 0 % (-); Platelet Count 260 10^3/uL (130-400); Red Blood Cell Count 4.78 10^6/uL (4.70-6.10); Red Cell Dist. Width 14.3 % (11.5-14.5); White Blood Cell Count 5.3 10^3/uL (4.8-10.8)
--- NOTE | 2024-12-25 04:10 | PTCARENOTE ---
Assessment unchanged. Pt SR to sinus tach. 90-100s. Last BP 121/87. MAP 97. PAP 30-40s/20s. CVP ~1. CI > 2. Monitor continues to read that cardiac output injectate fluid temperature is high. MVO2 drawn and sent. Result 76.4. Norton leveled, zeroed,
and flushed. Milrinone infusing. Denies pain. Voiding spontaneously. Ordered labs sent. Call gabriel within reach.
[2024-12-25 04:32] LABS: ALT (SGPT) 37 U/L (0-50); AST (SGOT) 32 U/L (17-59); Albumin 3.1 g/dl (3.5-5.0); Alkaline Phosphatase 59 U/L (38-126); Blood Urea Nitrogen 12 mg/dl (9-20); Calcium 8.4 mg/dl (8.4-10.2); Carbon Dioxide 25 mmol/L (22-30); Chloride 104 mmol/L (98-107); Estimated Creatinine Clearance 74 ml/min; Glucose 101 mg/dl (70-99); Potassium 4.4 mmol/L (3.5-5.1); Sodium 136 mmol/L (135-145); Total Bilirubin 1.4 mg/dl (0.2-1.3); Total Protein 6.2 g/dl (6.3-8.2); eGFR > 60.00
--- NOTE | 2024-12-25 07:35 | PTCARENOTE ---
Pt received from outgoing RN, pt resting in bed, swan with RiJ cordis lock at 50cm, mirilone gtt 0.062mcg, vss, 2lnc qhs, RA while away, frequent nonproductive cough, daily lasix, oob with RN assist. Possible wean off mirilone &/ dc swan later today
per cardiology.
[2024-12-25] MEDS: ELIQUIS 5 MG PO ×2 (08:44→19:49)
[2024-12-25] MEDS: IMDUR (EXTENDED RELEASE) 30 MG PO (08:44)
[2024-12-25] MEDS: TESSALON PERLES 200 MG PO (08:45)
[2024-12-25] MEDS: APRESOLINE 50 MG PO ×3 (08:45→22:48)
[2024-12-25] MEDS: PACERONE 200 MG PO (08:45)
[2024-12-25] MEDS: DIOVAN 40 MG PO ×2 (08:45→19:50)
[2024-12-25] MEDS: TAPAZOLE 10 MG PO ×2 (08:45→19:49)
[2024-12-25] MEDS: MUCINEX 600 MG PO ×2 (08:45→19:49)
[2024-12-25] MEDS: MIRALAX PO (08:45)
[2024-12-25] MEDS: PROTONIX 20 MG PO (08:45)
[2024-12-25] MEDS: LIDOCAINE 4% PATCH TOPICAL (08:46)
--- NOTE | 2024-12-25 12:11 | PTCARENOTE ---
Pt reassessment unchanged from previous, vss, RA, SR/ST, Kayden mirilone @ 0.062 mcg, pending cardiology rounding for plan of care.
--- NOTE | 2024-12-25 12:34 | W.PN.HOSP.TC ---
Today's Communication/Plan
-
Monitor vital signs see plan
Wean milrinone as tolerated
Maintain Leonor per cardiology
Continue with valsartan, hydralazine,amio
Assessment / Plan
Assessment / Plan
Mr. Lissa Louis is a 44 yo man, primarily Japanese speaking, presents to the ER with complaint of increasing fatigue, lower extremity swelling and shortness of breath found to be in afib with RVR with development of cardiogenic shock. Also found to be
influenza +.
HEAD CT
IMPRESSION:
There or no acute or focal intracranial abnormalities
There is mild diffuse cortical and cerebellar atrophy
CXR
IMPRESSION:
Right lower lobe pneumonia
Abdomen US:
IMPRESSION:
Unremarkable sonographic appearance of the liver.
No gallstones or bile duct dilatation.
Mild to moderate ascites.
Mild gallbladder wall thickening, which is nonspecific in the presence of ascites.
Incidental pleural effusion.
TTE
CONCLUSIONS
During study patient limited the amount of images that were obtained reporting
discomfort during exam. Note this appeared to be disproportional to the amount
of pressure being applied.
Severely reduced left ventricular function with estimated ejection fraction of
15 to 20%
Global hypokinesis
Right ventricular hypokinesis suspected
Moderate mitral regurgitation.
Moderate tricuspid regurgitation
No prior study available for comparison
Cardiac Cath 12/10/24
CONCLUSION:
1. Severely elevated filling pressures (PCWP = 29 mmHg at 102.5 kg).
2. Normal cardiac index (2.68 L/min/m� by Ivon, 2.10 L/min/m� by thermodilution) on milrinone 0.33 mcg/kg/min.
3. Moderate, postcapillary pulmonary hypertension (mean PA = 37 mmHg, PCWP = 29 mmHg, cardiac output = 5.71 L/min by Ivon, 4.47 L/min by thermodilution, PVR 1.40 Moy units by Ivon, 1.79 Moy units by thermodilution).
Recurrent cardiogenic Shock
New Diagnosis Heart Failure - low EF
Acute CHF with reduced EF with RV enlargement
Acute hypoxic respiratory failure secondary to acute pulmonary edema and right lower lobe pneumonia
Non-ischemic myocardial injury 2/2 above
-TTE 12/09 with EF with 15 to 20%, global hypokinesis, right ventricular hypokinesis suspected.
Cardiology following
-Levophed titrated off 12/10
-RHC 12/10 with elevated pressures
-s/p cardiac cath - non-ischemic cardiomyopathy
-s/p IV Milrinone gtt (discontinued on 12/17/24); s/p cath again 12/21 with severely depressed cardiac index and elevated wedge pressure, now with Leonor; now milrinone started again 12/21. Given need for milrinone again cardiology working on possible
transfer. Cardiology discussed with Julianna and they are hopeful that patient can be weaned off milrinone. No plan for transfer at this time.
Continue with diuresis as able
Continue hydralazine, Imdur for afterload reduction. Added valsartan 12/24. Wean milrinone.
Stopped metoprolol per cardiology given concern for ongoing low output state
Atrial Fibrillation with RVR
-s/p amiodarone gtt; patient self-converted to sinus rhythm on 12/16/24
Eliquis restarted
Decrease amiodarone to 200 mg daily
Community-acquired pneumonia
Influenza +
Sepsis 2/2 above
-Legionella and strep negative
-COVID-negative, flu positive. s/p 5 days treatment
-s/p Ceftriaxone/Azithromycin course
-speech following; ok for regular with thin
MARY, does not report any history of CKD
Likely related to CHF
-creatinine now slowly improving, monitor; 1.2 today
If creatinine continues to rise then will need nephrology evaluation
Lactic acidosis on admission
Now resolved
Elevated liver enzymes
-may be 2/2 congestion
Abdominal ultrasound without any gallstone or biliary ductal dilation
-aLT remains elevated but improving
Hyponatremia
Resolved
Low TSH with elevated free T4 concerning for hyperthyroidism
appreciate Endocrinology
given difficulty in rate control methimazole initiated - F/U further Endocrine recs
Deconditioning
-PT met with patient - SNF versus HH
DVT PPx Eliquis
FULL CODE
General: No Apparent Distress
HEENT: PERRLA
Respiratory: Clear to Auscultation; Negative Wheezes
Cardiac: S1/S2 and Tachycardic
GI: Soft and Nontender
EXT: 1-2+ edema
Neuro: AO x 3
Psych: Calm
Per my discussion with case preparer and liner, JAYLA application has been submitted. Will self pay for medications
Anticipated Discharge: > 48 hours
Subjective/Interval History
-
Date of Service: December 25, 2024
Denies chest pain
Objective Data
-
Labs:
Laboratory Results
12/25/24
03:52
WBC 5.3
Hgb 13.6
Hct 41.3
Plt Count 260
Sodium 136
Potassium 4.4
Chloride 104
Carbon Dioxide 25
BUN 12
Creatinine 1.2
Glucose 101 H
Calcium 8.4
Total Bilirubin 1.4 H
AST 32
ALT 37
Alkaline Phosphatase 59
Vital Signs:
Vital Signs
Temp Pulse Resp BP Pulse Ox
98.1 F 102 20 84/52 94
12/25/24 12:00 12/25/24 12:04 12/25/24 12:04 12/25/24 12:04 12/25/24 12:04
I&O
12/24/24 12/25/24 12/26/24
06:59 06:59 06:59
Intake Total 1276.6 / 1329.9 2055.6 / 2067.3 480.2 / 480.2
Output Total 2670 / 3045 4050 / 4050 1100 / 1100
Balance -1393.4 / -1715.1 -1994.4 / -1982.7 -619.8 / -619.8
--- NOTE | 2024-12-25 12:50 | W.PN.CD ---
Today's Communication / Plan
-
-Goal SVR 1000; will see what SVR is today prior to discontinuing milrinone and [place]--PA pressures are down today (SVR was 1,564 yesterday).
-Continue valsartan 40 mg PO BID, furosemide 40 mg PO daily, Imdur 30 mg daily, hydralazine 50 mg TID.
-Blood pressure is low today; will hold off on initiating Toprol-XL 12.5 mg daily--try to do this tomorrow.
-Continue medications as above; unable to tolerate Entresto due to blood pressure limitations.
Impression / Plan
-
Impression/Plan: 44-year-old primarily Estonian speaking male with no past medical history who presented with influenza B, atrial flutter and acute heart failure with severely reduced ejection fraction (LVEF 15-20%) with cardiogenic shock requiring
inotropes. Course has been complicated by MARY/hypotension limiting GDMT and decompensation requiring reinitiation of inotropes.
#Cardiogenic shock
-Acute, improving.
-Milrinone off 12/16; [place] out 12/17 (closing hemos: RA 9 PA 47/21 CI 1.37 SVR 2387).
-Cr worsened after stopping milrinone, prompting repeat [place]-Lakhwinder and milrinone restart (12/21/2024).
-Currently on milrinone to 0.0625 mcg/kg/min.
-Goal SVR 1000; will see what SVR is today prior to discontinuing milrinone and [place]--PA pressures are down today (SVR was 1,564 yesterday).
-Creatinine remains stable.
-Continue valsartan 40 mg PO BID, furosemide 40 mg PO daily, Imdur 30 mg daily, hydralazine 50 mg TID.
-Blood pressure is low today; will hold off on initiating Toprol-XL 12.5 mg daily--try to do this tomorrow.
#Non-ischemic cardiomyopathy
-New diagnosis. LVEF 15-20% with acute systolic HF, and moderate MR/TR.
-DDx includes tachycardia induced +/- viral myocarditis.
-[facility] 12/09/24: 30% mid LAD, 40% prox D2; o/w LI.
-No prescription med coverage, so will use generic GDMT (no sacubitril-valsartan, SGLT2i)
-Continue medications as above; unable to tolerate Entresto due to blood pressure limitations.
-Trying to wean milrinone as above.
-Try to add low-dose Toprol-XL tomorrow.
#Atrial flutter with RVR, typical
-New onset: cardiomyopathy may be tachy-induced.
-Duration unknown.
-Has not felt well since November 23. Unclear if this represents onset of A-fib or if he developed more recently.
-CHADS2-VASC = 1. Eliquis 5mg bid for OAC
-Converted on IV amiodarone on 12/16.
-Continue amiodarone 200 mg daily.
-Possible low-dose metoprolol succinate tomorrow.
#MARY
-Resolved.
-Likely due to cardiorenal syndrome.
# Right lower lobe pneumonia
-Acute.
-Continue ceftriaxone.
#Influenza B.
-Management as directed by primary team.
-Patient has been afebrile.
# Elevated LFTs
-Acute, resolved.
#Hyperthyroidism
-New diagnosis (underlying cause of tachyarrhythmia?)
-TSH low (0.36) and T4 elevated (3.28).
-Continue methimazole per primary team.
-Would use Toprol-XL over propranolol, given CHF.
Critical Care Time = 47 minutes.
Subjective/Interval History:
No major events overnight.
DATA:
[facility], 12/21/2024:
CONCLUSION:
1. Moderately elevated filling pressures (PCWP = 23 mmHg at 88.9 kg).
2. Severely depressed cardiac index (1.56 L/min/m� by Ivon, 1.43 L/min/m� by thermodilution).
3. Severe peripheral constriction (SVR = 2006 dynes*seconds*cm^-5).
[facility], 12/13/2024:
CORONARY ANGIOGRAPHY
Dominance: right
LM: Large, normal
LAD: Large caliber vessel giving rise to a medium caliber D1 and medium caliber D2. There is a 30% stenosis in the mid LAD after D2, a 40% stenosis in the proximal segment of D2, and otherwise mild luminal irregularities.
LCx: Large vessel giving rise to a very large caliber OM1 and small OM 2. There are trivial luminal irregularities.
RCA: Large vessel giving rise to large caliber RPDA, small RPL1, small RPL2, and small RPL3. There are mild luminal irregularities.
[facility], 12/10/2024:
CONCLUSION:
1. Severely elevated filling pressures (PCWP = 29 mmHg at 102.5 kg).
2. Normal cardiac index (2.68 L/min/m� by Ivon, 2.10 L/min/m� by thermodilution) on milrinone 0.33 mcg/kg/min.
3. Moderate, postcapillary pulmonary hypertension (mean PA = 37 mmHg, PCWP = 29 mmHg, cardiac output = 5.71 L/min by Ivon, 4.47 L/min by thermodilution, PVR 1.40 Moy units by Ivon, 1.79 Moy units by thermodilution).
Transthoracic Echocardiogram, 12/09/2024:
CONCLUSIONS
During study patient limited the amount of images that were obtained reporting
discomfort during exam. Note this appeared to be disproportional to the amount
of pressure being applied.
Severely reduced left ventricular function with estimated ejection fraction of
15 to 20%
Global hypokinesis
Right ventricular hypokinesis suspected
Moderate mitral regurgitation.
Moderate tricuspid regurgitation
No prior study available for comparison.
Physical Exam
Vital Signs/Labs
Vital Signs
Temp Pulse Resp BP Pulse Ox
98.1 F 102 20 84/52 94
12/25/24 12:00 12/25/24 12:04 12/25/24 12:04 12/25/24 12:04 12/25/24 12:04
12/24/24 12/25/24 12/26/24
06:59 06:59 06:59
Actual Weight 84.8 kg 84.3 kg
12/25/24 03:52
12/25/24 03:52
PT 18.6 Sec (11.4-14.6) H 12/09/24 18:39
INR 1.53 12/09/24 18:39
APTT 106.6 Sec (23.4-35.0) H 12/13/24 11:46
Magnesium 2.1 mg/dl (1.6-2.3) 12/18/24 05:29
Triglycerides 81 mg/dl (10-149) 12/10/24 02:49
LDL Cholesterol, Calc 114 mg/dl 12/10/24 02:49
VLDL Cholesterol, Calc 16 mg/dl (0-30) 12/10/24 02:49
HDL Cholesterol 31 mg/dl 12/10/24 02:49
TSH 0.20 uIU/ml (0.47-4.68) L 12/20/24 04:08
Free T4 2.89 ng/dl (0.78-2.19) H 12/20/24 04:08
12/09/24 12/18/24
18:39 05:29
Cbv-V-Vldqssqbqdd Pept 4700 6390
LAB Results
12/22/24 12/23/24
16:50 00:59
Troponin I 0.019 0.024
Physical Exam
Constitutional: No acute distress and Comfortable
EENT: Moist mucous membranes
Cardiovascular: Rhythm & rate is regular, Systolic murmur absent, Pedal edema present (Trace) and S1S2 is normal
Respiratory: Respiratory effort normal and Rhonchi Present
GI: Soft
Neuro/Psych: AO x 3
Other: Skin (Warm, dry, intact)
Data Reviewed
-
Date of Service: December 25, 2024
EKG: Tracing Personally Visualized and interpreted (Telemetry: Sinus tachycardia at 100-110 bpm.)
Medical Tests (PFT, Pathology etc): Discussed with Nurse
Labs: Labs Reviewed by me
Critical Care Time (in minutes): 47
[2024-12-25 13:21] LABS: Mixed Venous O2 Saturation 83.5 %
--- NOTE | 2024-12-25 13:27 | PTCARENOTE ---
mirinone stopped per , will check MVo2 in 3hrs and will dced swan based on result.
[2024-12-25 16:16] LABS: Mixed Venous O2 Saturation 76.2 %
--- NOTE | 2024-12-25 16:28 | PTCARENOTE ---
Pt reassessment unchanged from previous, vss, ra, nsr/st, keiko to be dced per derek lopes in chair.
--- NOTE | 2024-12-25 21:00 | PTCARENOTE ---
Assumed care of pt from hailee RN. Pt AAOx3. Sinus tach on the tele monitor. HR high 90s-low 100s. BP stable. Palpable pulses throughout. +1 pedal edema and generalized anasarca. Pt on RA. POX 96%. Lung sounds diminished throughout. Frequent non
productive cough. Denies SOB. Deep breathing encouraged. Abdomen round. +BSx4. Pt voiding w/o issue. +BM. Right IJ cordis C/D/I. Right upper arm bruise from previous PICC site noted. Pt up out of the chair w/ stand by assist to the bathroom. See
worklist for full nursing assessment and interventions. Call gabriel within reach.
[2024-12-26] VITALS (21 sets, daily range): BP systolic 88–127; BP diastolic 63–98; PULSE 102; O2SAT 98; BMI 28.4
--- NOTE | 2024-12-26 00:06 | PTCARENOTE ---
Assessment unchanged. Pt SR to sinus tach on the tele monitor. HR 90-100s. BP stable. Pt 96% on RA. Denies pain at this time. Voiding ad elizabeth. Call gabriel within reach.
--- NOTE | 2024-12-26 04:00 | PTCARENOTE ---
Assessment unchanged. Pt is sinus rhythm to sinus tach on the tele monitor. HR 90-100s. BP stable. Pt 96% on RA. Labs drawn and sent. Voiding in the urinal. Call gabriel within reach.
[2024-12-26 04:23] LABS: % Basophils 1.5 % (0-2); % Eosinophils 2.7 % (0-6); % Immature Granulocytes 0.9 % (0-0.5); % Lymphocytes 32.9 % (20.5-51.1); % Monocytes 12.2 % (1.7-9.3); % Neutrophils 49.8 % (42.2-75.2); Absolute Basophils 0.1 10^3/uL (0-0.2); Absolute Eosinophils 0.2 10^3/uL (0-0.7); Absolute Immature Granulocytes 0.1 10^3/uL (0-0.05); Absolute Lymphocytes 1.9 10^3/uL (1.2-3.4); Absolute Monocytes 0.7 10^3/uL (0.1-0.6); Absolute Neutrophils 2.9 10^3/uL (1.4-6.5); Hematocrit 43.4 % (39.0-52.0); Hemoglobin 14.3 g/dL (13.0-18.0); Mean Corp Hgb Conc. 32.9 g/dL (33.0-37.0); Mean Corpuscular Hgb 28.5 pg (27.0-31.0); Mean Corpuscular Volume 86.6 fL (80.0-94.0); Mean Platelet Volume 8.8 fL (7.4-10.4); Nucleated Red Blood Cells % 0 % (-); Platelet Count 274 10^3/uL (130-400); Red Blood Cell Count 5.01 10^6/uL (4.70-6.10); Red Cell Dist. Width 14.4 % (11.5-14.5); White Blood Cell Count 5.8 10^3/uL (4.8-10.8)
[2024-12-26 04:48] LABS: ALT (SGPT) 36 U/L (0-50); AST (SGOT) 32 U/L (17-59); Alkaline Phosphatase 66 U/L (38-126); Blood Urea Nitrogen 15 mg/dl (9-20); Calcium 8.5 mg/dl (8.4-10.2); Carbon Dioxide 24 mmol/L (22-30); Chloride 102 mmol/L (98-107); Estimated Creatinine Clearance 69 ml/min; Glucose 92 mg/dl (70-99); Potassium 4.3 mmol/L (3.5-5.1); Sodium 136 mmol/L (135-145); Total Bilirubin 1.3 mg/dl (0.2-1.3); Total Protein 5.7 g/dl (6.3-8.2); eGFR > 60.00
[2024-12-26 05:02] LABS: Free T4 2.83 ng/dl (0.78-2.19)
[2024-12-26 05:15] LABS: TSH 0.04 uIU/ml (0.47-4.68)
--- NOTE | 2024-12-26 08:30 | PTCARENOTE ---
Assumed care of patient at 0700. Pt is awake, alert, and oriented. No complaints of pain. Pt remains ST with HR 105. BP 126/97 MAP 106. Pulse oximetry 96% on room air. Pt continues to have dry non-productive cough. Tolerating PO diet. Right IJ
cordis in place with KVO.
[2024-12-26] MEDS: APRESOLINE 50 MG PO ×3 (08:50→22:20)
[2024-12-26] MEDS: DIOVAN 80 MG PO ×2 (08:50→20:33)
[2024-12-26] MEDS: TAPAZOLE 10 MG PO ×2 (08:50→20:33)
[2024-12-26] MEDS: MIRALAX PO (08:51)
[2024-12-26] MEDS: ELIQUIS 5 MG PO ×2 (08:51→20:33)
[2024-12-26] MEDS: IMDUR (EXTENDED RELEASE) 30 MG PO (08:51)
[2024-12-26] MEDS: MUCINEX 600 MG PO ×2 (08:51→20:32)
[2024-12-26] MEDS: PACERONE 200 MG PO (08:51)
[2024-12-26] MEDS: LIDOCAINE 4% PATCH TOPICAL (08:51)
[2024-12-26] MEDS: PROTONIX 20 MG PO (08:51)
--- NOTE | 2024-12-26 09:34 | W.PN.HOSP.TC ---
Today's Communication/Plan
-
cont mgmt as per cardiology
Assessment / Plan
Assessment / Plan
44yo M with recent Influenza B came with LE swelling, found with Afib with RVR and developed cardiogenic shock. Was also managed for RLL pneumonia. Echo showed new severely decreased EF to 15-20% with hypokinesis, had cardiac cath on 12/10/24 with
severely elevated BP managed for CHF with cardiogenic shock on milrinone drip. Repeated cath on 12/21/24 with severely decreased CI and milrinone restarted. Cardiology managing. As per previous discussion with cardiology - there were no plans for
transfer to [facility].
Patient has no insurance, will have to self pay for meds, MA submitted as CM involved
A/P:
#Cardiogenic shock
#Acute HFrEF with acute hypoxic respiratory failure
#Non-ischemic myocardial injury
Cardiology follows: adjusting medication based on Leonor-Eugenia catheter
Diuresis, hydralazine, imdur, Valsartan
Attempting to wean off milrinone
#Afib with RVR, unspecified
converted to SR on 12/16/24
Telemetry
Eliquis
Rate/rhythm control as per cardiology
#CAP with sepsis and influenza
completed Tamiflu, Rocephin/Azithromycin
#MARY
resolved
#Elevated liver enzymes
resolved
US RUQ without acute findings
#Hyperthyroidism
methimazole as per Endocrinology
DVT ppx on elaiuis
Full code
I have spent at least 58min reviewing chart, test results, communication with consultants and direct patient care
Anticipated Discharge: > 48 hours
Subjective/Interval History
-
Date of Service: December 26, 2024
Objective Data
-
Labs:
Laboratory Results
12/26/24
03:38
WBC 5.8
Hgb 14.3
Hct 43.4
Plt Count 274
Sodium 136
Potassium 4.3
Chloride 102
Carbon Dioxide 24
BUN 15
Creatinine 1.3
Glucose 92
Calcium 8.5
Total Bilirubin 1.3
AST 32
ALT 36
Alkaline Phosphatase 66
Vital Signs:
Vital Signs
Temp Pulse Resp BP Pulse Ox
98.9 F 104 18 126/97 96
12/26/24 08:57 12/26/24 08:57 12/26/24 08:57 12/26/24 08:00 12/26/24 08:57
I&O
12/25/24 12/26/24 12/27/24
06:59 06:59 06:59
Intake Total 5.6 / 7.3 811.9 / 811.9
Output Total 4050 / 4050 3500 / 3500
Balance -1994.4 / -1982.7 -2688.1 / -2688.1
Review of Systems
-
History Source: Patient
All other systems: Reviewed and negative
Physical Exam
-
General: No Apparent Distress
HEENT: Normocephalic
Respiratory: Clear to Auscultation
Cardiac: Regular Rhythm
GI: Soft, Nontender and Nondistended
Skin: Warm
Neuro: Awake, Alert, Oriented and AO x 3
Psych: Calm
--- NOTE | 2024-12-26 10:05 | W.PN.CD ---
Today's Communication / Plan
-
Increase valsartan to 80 mg twice daily
Resume Lasix 40 mg p.o. daily
Beta-gio tomorrow if BPs tolerate
Impression / Plan
-
Impression/Plan: 44-year-old primarily Luxembourgish speaking male with no past medical history who presented with influenza B, atrial flutter and acute heart failure with severely reduced ejection fraction (LVEF 15-20%) with cardiogenic shock requiring
inotropes. Course has been complicated by MARY/hypotension limiting GDMT and decompensation requiring reinitiation of inotropes.
#Cardiogenic shock
-Acute, improving.
-Milrinone 12/09-12/16, 12/21-12/25; [place] out 12/25 (closing hemos: RA 4 PA 17/10 CI 3.9 SVR 1300).
-Creatinine remains stable off milrinone.
-Increase valsartan to 80 mg PO BID
-Resume furosemide 40 mg PO daily for mild LE edema
-Continue Imdur 30 mg daily, hydralazine 50 mg TID.
-Start Toprol-XL 25 mg daily tomorrow if BPs tolerate Valsartan increase
#Non-ischemic cardiomyopathy
-New diagnosis. LVEF 15-20% with acute systolic HF, and moderate MR/TR.
-DDx includes tachycardia induced +/- viral myocarditis.
-[facility] 12/09/24: 30% mid LAD, 40% prox D2; o/w LI.
-No prescription med coverage, so will use generic GDMT (no sacubitril-valsartan, SGLT2i)
-Continue GDMT as above
#Atrial flutter with RVR, typical
-New onset: cardiomyopathy may be tachy-induced.
-Duration unknown.
-Has not felt well since November 23. Unclear if this represents onset of A-fib or if he developed more recently.
-CHADS2-VASC = 1. Eliquis 5mg bid for OAC
-Converted on IV amiodarone on 12/16.
-Continue amiodarone 200 mg daily.
#MARY
-Resolved.
-Likely due to cardiorenal syndrome.
# Right lower lobe pneumonia
-Acute.
-Continue ceftriaxone.
#Influenza B.
-Management as directed by primary team.
-Patient has been afebrile.
# Elevated LFTs
-Acute, resolved.
#Hyperthyroidism
-New diagnosis (underlying cause of tachyarrhythmia?)
-TSH low (0.36) and T4 elevated (3.28).
-Continue methimazole per primary team.
-Would use Toprol-XL over propranolol, given CHF.
Subjective/Interval History:
No major events overnight. Feels fine.
DATA:
[facility], 12/21/2024:
CONCLUSION:
1. Moderately elevated filling pressures (PCWP = 23 mmHg at 88.9 kg).
2. Severely depressed cardiac index (1.56 L/min/m� by Ivon, 1.43 L/min/m� by thermodilution).
3. Severe peripheral constriction (SVR = 2006 dynes*seconds*cm^-5).
[facility], 12/13/2024:
CORONARY ANGIOGRAPHY
Dominance: right
LM: Large, normal
LAD: Large caliber vessel giving rise to a medium caliber D1 and medium caliber D2. There is a 30% stenosis in the mid LAD after D2, a 40% stenosis in the proximal segment of D2, and otherwise mild luminal irregularities.
LCx: Large vessel giving rise to a very large caliber OM1 and small OM 2. There are trivial luminal irregularities.
RCA: Large vessel giving rise to large caliber RPDA, small RPL1, small RPL2, and small RPL3. There are mild luminal irregularities.
[facility], 12/10/2024:
CONCLUSION:
1. Severely elevated filling pressures (PCWP = 29 mmHg at 102.5 kg).
2. Normal cardiac index (2.68 L/min/m� by Ivon, 2.10 L/min/m� by thermodilution) on milrinone 0.33 mcg/kg/min.
3. Moderate, postcapillary pulmonary hypertension (mean PA = 37 mmHg, PCWP = 29 mmHg, cardiac output = 5.71 L/min by Ivon, 4.47 L/min by thermodilution, PVR 1.40 Moy units by Ivon, 1.79 Moy units by thermodilution).
Transthoracic Echocardiogram, 12/09/2024:
CONCLUSIONS
During study patient limited the amount of images that were obtained reporting
discomfort during exam. Note this appeared to be disproportional to the amount
of pressure being applied.
Severely reduced left ventricular function with estimated ejection fraction of
15 to 20%
Global hypokinesis
Right ventricular hypokinesis suspected
Moderate mitral regurgitation.
Moderate tricuspid regurgitation
No prior study available for comparison.
Physical Exam
Vital Signs/Labs
Vital Signs
Temp Pulse Resp BP Pulse Ox
98.9 F 104 18 126/97 96
12/26/24 08:57 12/26/24 08:57 12/26/24 08:57 12/26/24 08:00 12/26/24 08:57
12/25/24 12/26/24 12/27/24
06:59 06:59 06:59
Actual Weight 84.3 kg 82.2 kg
12/26/24 03:38
12/26/24 03:38
PT 18.6 Sec (11.4-14.6) H 12/09/24 18:39
INR 1.53 12/09/24 18:39
APTT 106.6 Sec (23.4-35.0) H 12/13/24 11:46
Magnesium 2.1 mg/dl (1.6-2.3) 12/18/24 05:29
Triglycerides 81 mg/dl (10-149) 12/10/24 02:49
LDL Cholesterol, Calc 114 mg/dl 12/10/24 02:49
VLDL Cholesterol, Calc 16 mg/dl (0-30) 12/10/24 02:49
HDL Cholesterol 31 mg/dl 12/10/24 02:49
TSH 0.04 uIU/ml (0.47-4.68) L 12/26/24 03:38
Free T4 2.83 ng/dl (0.78-2.19) H 12/26/24 03:38
12/09/24 12/18/24
18:39 05:29
Ypk-N-Oevrrwvpvgv Pept 4700 6566
Physical Exam
Constitutional: No acute distress and Comfortable
Cardiovascular: Rhythm & rate is regular and Pedal edema present
Respiratory: Respiratory effort normal and Lungs clear to auscul.
Neuro/Psych: AO x 3
Data Reviewed
-
Date of Service: December 26, 2024
Medical Decision Making: Reviewed Test Results, Independent Historian Assessment, Test Interpretation and Review of Case with other Provider
EKG: Tracing Personally Visualized and interpreted
Echo: Report Reviewed by me
Labs: Labs Reviewed by me
--- NOTE | 2024-12-26 12:30 | PTCARENOTE ---
Pt remains ST with HR 108. BP 104/76 MAP 85. Pulse oximetry 96% on room air. Pt with no complaints of pain. Ambulating independently in room without issue.
[2024-12-26] MEDS: LASIX 40 MG PO (13:04)
--- NOTE | 2024-12-26 16:00 | PTCARENOTE ---
Pt with no changes in assessments. Pt remains ST with HR 103 MAP 103/75 MAP 85. Pulse oximetry 95% on room air.
--- NOTE | 2024-12-26 16:51 | CM ---
dc plans reamin home when medically stable. cm following
--- NOTE | 2024-12-26 21:00 | PTCARENOTE ---
Assumed care of pt from dayshift. Pt AAOx3. Sinus tach on the tele monitor. HR 100s. BP stable. Palpable pulses throughout. B/L +1 pedal edema. Generalized edema throughout. Pt 96% on RA. Lung sound diminished B/L. Deep breathing encouraged.
Frequent non-productive cough. Abdomen soft/round. +BSx4. Pt voiding ad elizabeth. Right upper arm bruise from previous PICC site present. No c/o pain at this time. Call gabriel within reach.
[2024-12-27] VITALS (12 sets, daily range): BP systolic 84–118; BP diastolic 65–88; BMI 27.8
--- NOTE | 2024-12-27 00:09 | PTCARENOTE ---
Assessment unchanged. Pt sinus rhythm to sinus tach on the tele monitor. HR 90s-100s. BP stable. Pt 96% on RA. Pt resting in bed at this time. Voiding in the urinal. Call gabriel within reach.
[2024-12-27 04:21] LABS: Hematocrit 44.4 % (39.0-52.0); Hemoglobin 15.1 g/dL (13.0-18.0); Mean Corpuscular Hgb 28.6 pg (27.0-31.0); Mean Corpuscular Volume 84.1 fL (80.0-94.0); Mean Platelet Volume 8.4 fL (7.4-10.4); Platelet Count 276 10^3/uL (130-400); Red Blood Cell Count 5.28 10^6/uL (4.70-6.10); Red Cell Dist. Width 14.3 % (11.5-14.5); White Blood Cell Count 5.5 10^3/uL (4.8-10.8)
--- NOTE | 2024-12-27 04:21 | PTCARENOTE ---
Assessment unchanged. Pt SR to sinus tach on the monitor. HR 90-100s. BP stable. Pt 97% on RA. Labs drawn and sent. Pt OOB to void then repositioned back into bed. Labs drawn and sent. Weight obtained. Call gabriel within reach.
[2024-12-27 04:45] LABS: Blood Urea Nitrogen 15 mg/dl (9-20); Calcium 8.7 mg/dl (8.4-10.2); Carbon Dioxide 23 mmol/L (22-30); Chloride 104 mmol/L (98-107); Estimated Creatinine Clearance 74 ml/min; Glucose 100 mg/dl (70-99); Potassium 4.2 mmol/L (3.5-5.1); Sodium 136 mmol/L (135-145); eGFR > 60.00
[2024-12-27] MEDS: IMDUR (EXTENDED RELEASE) 30 MG PO (08:23)
[2024-12-27] MEDS: TAPAZOLE 10 MG PO ×2 (08:23→21:20)
[2024-12-27] MEDS: APRESOLINE 50 MG PO ×2 (08:23→15:41)
[2024-12-27] MEDS: PROTONIX 20 MG PO (08:23)
[2024-12-27] MEDS: MIRALAX PO (08:23)
[2024-12-27] MEDS: DIOVAN 80 MG PO (08:23)
[2024-12-27] MEDS: LIDOCAINE 4% PATCH TOPICAL (08:23)
[2024-12-27] MEDS: PACERONE 200 MG PO (08:23)
[2024-12-27] MEDS: LASIX 40 MG PO (08:23)
[2024-12-27] MEDS: ELIQUIS 5 MG PO ×2 (08:23→21:21)
[2024-12-27] MEDS: MUCINEX 600 MG PO ×2 (08:23→21:21)
[2024-12-27] MEDS: LOPRESSOR 12.5 MG PO (08:31)
--- NOTE | 2024-12-27 08:45 | PTCARENOTE ---
Assumed care of patient at 0700. Pt is awake, alert, and oriented. Pt with no complaints of pain. Pt remains ST with HR 103. BP 107/86 MAP 94. Pulse oximetry 97% on room air. Pt tolerating PO diet. Voiding without issue. Pt currently OOB in chair
with call gabriel within reach.
--- NOTE | 2024-12-27 09:00 | W.PN.CD ---
Today's Communication / Plan
-
Start Metoprolol 12.5mg BID
Continue other GDMT as outlined
Possible discharge tomorrow
Impression / Plan
-
Impression/Plan: 44-year-old primarily Kyrgyz speaking male with no past medical history who presented with influenza B, atrial flutter and acute heart failure with severely reduced ejection fraction (LVEF 15-20%) with cardiogenic shock requiring
inotropes. Course has been complicated by MARY/hypotension limiting GDMT and decompensation requiring reinitiation of inotropes.
#Cardiogenic shock, resolved
-Milrinone 12/09-12/16, 12/21-12/25; [place] out 12/25 (closing hemos: RA 4 PA 17/10 CI 3.9 SVR 1300).
-Creatinine remains stable off milrinone.
-Continue valsartan 80 mg PO BID
-Continue furosemide 40 mg PO daily
-Continue Imdur 30 mg daily, hydralazine 50 mg TID.
-Start Toprol-XL 12.5mg BID
#Non-ischemic cardiomyopathy
-New diagnosis. LVEF 15-20% with acute systolic HF, and moderate MR/TR.
-DDx includes tachycardia induced +/- viral myocarditis.
-[facility] 12/09/24: 30% mid LAD, 40% prox D2; o/w LI.
-No prescription med coverage, so will use generic GDMT (no sacubitril-valsartan, SGLT2i)
-Continue GDMT as above
#Atrial flutter with RVR, typical
-New onset: cardiomyopathy may be tachy-induced.
-Duration unknown.
-Has not felt well since November 23. Unclear if this represents onset of A-fib or if he developed more recently.
-CHADS2-VASC = 1. Eliquis 5mg bid for OAC
-Converted on IV amiodarone on 12/16.
-Continue amiodarone 200 mg daily.
#MARY
-Resolved.
-Likely due to cardiorenal syndrome.
# Right lower lobe pneumonia
-Acute.
-S/p ceftriaxone.
#Influenza B.
-Management as directed by primary team.
-Patient has been afebrile.
# Elevated LFTs
-Acute, resolved.
#Hyperthyroidism
-New diagnosis (underlying cause of tachyarrhythmia?)
-TSH low (0.36) and T4 elevated (3.28).
-Continue methimazole per primary team.
-Would use Toprol-XL over propranolol, given CHF.
Subjective/Interval History:
No major events overnight. Feels fine.
DATA:
[facility], 12/21/2024:
CONCLUSION:
1. Moderately elevated filling pressures (PCWP = 23 mmHg at 88.9 kg).
2. Severely depressed cardiac index (1.56 L/min/m� by Ivon, 1.43 L/min/m� by thermodilution).
3. Severe peripheral constriction (SVR = 2006 dynes*seconds*cm^-5).
[facility], 12/13/2024:
CORONARY ANGIOGRAPHY
Dominance: right
LM: Large, normal
LAD: Large caliber vessel giving rise to a medium caliber D1 and medium caliber D2. There is a 30% stenosis in the mid LAD after D2, a 40% stenosis in the proximal segment of D2, and otherwise mild luminal irregularities.
LCx: Large vessel giving rise to a very large caliber OM1 and small OM 2. There are trivial luminal irregularities.
RCA: Large vessel giving rise to large caliber RPDA, small RPL1, small RPL2, and small RPL3. There are mild luminal irregularities.
[facility], 12/10/2024:
CONCLUSION:
1. Severely elevated filling pressures (PCWP = 29 mmHg at 102.5 kg).
2. Normal cardiac index (2.68 L/min/m� by Ivon, 2.10 L/min/m� by thermodilution) on milrinone 0.33 mcg/kg/min.
3. Moderate, postcapillary pulmonary hypertension (mean PA = 37 mmHg, PCWP = 29 mmHg, cardiac output = 5.71 L/min by Ivon, 4.47 L/min by thermodilution, PVR 1.40 Moy units by Ivon, 1.79 Moy units by thermodilution).
Transthoracic Echocardiogram, 12/09/2024:
CONCLUSIONS
During study patient limited the amount of images that were obtained reporting
discomfort during exam. Note this appeared to be disproportional to the amount
of pressure being applied.
Severely reduced left ventricular function with estimated ejection fraction of
15 to 20%
Global hypokinesis
Right ventricular hypokinesis suspected
Moderate mitral regurgitation.
Moderate tricuspid regurgitation
No prior study available for comparison.
Physical Exam
Vital Signs/Labs
Vital Signs
Temp Pulse Resp BP Pulse Ox
98.0 F 103 16 107/86 96
12/27/24 07:59 12/27/24 08:00 12/27/24 07:59 12/27/24 07:53 12/27/24 08:35
12/26/24 12/27/24 12/28/24
06:59 06:59 06:59
Actual Weight 82.2 kg 80.3 kg
12/27/24 04:07
12/27/24 04:07
PT 18.6 Sec (11.4-14.6) H 12/09/24 18:39
INR 1.53 12/09/24 18:39
APTT 106.6 Sec (23.4-35.0) H 12/13/24 11:46
Magnesium 2.1 mg/dl (1.6-2.3) 12/18/24 05:29
Triglycerides 81 mg/dl (10-149) 12/10/24 02:49
LDL Cholesterol, Calc 114 mg/dl 12/10/24 02:49
VLDL Cholesterol, Calc 16 mg/dl (0-30) 12/10/24 02:49
HDL Cholesterol 31 mg/dl 12/10/24 02:49
TSH 0.04 uIU/ml (0.47-4.68) L 12/26/24 03:38
Free T4 2.83 ng/dl (0.78-2.19) H 12/26/24 03:38
12/09/24 12/18/24
18:39 05:29
Emo-I-Cbbpzbvfsna Pept 4700 3090
Physical Exam
Constitutional: No acute distress and Comfortable
Cardiovascular: Rhythm & rate is regular (Regular rhythm, tachycardic), Pedal edema is absent and Murmur/rub/gallop absent
Respiratory: Respiratory effort normal and Lungs clear to auscul.
Neuro/Psych: AO x 3
Data Reviewed
-
Date of Service: December 27, 2024
Medical Decision Making: Reviewed Test Results, Independent Historian Assessment, Test Interpretation and Review of Case with other Provider
EKG: Tracing Personally Visualized and interpreted
Echo: Report Reviewed by me
Labs: Labs Reviewed by me
--- NOTE | 2024-12-27 12:05 | PTCARENOTE ---
Pt remains SR with HR 90's. BP 84/65 MAP 73. Pt reports no complaints of dizziness. Dr. Arteaga made aware.
--- NOTE | 2024-12-27 15:05 | W.PN.HOSP.TC ---
Today's Communication/Plan
-
Possible discharge tomorrow
Beta-gio added by cardiology
Assessment / Plan
Assessment / Plan
44yo M with recent Influenza B came with LE swelling, found with Afib with RVR and developed cardiogenic shock. Was also managed for RLL pneumonia. Echo showed new severely decreased EF to 15-20% with hypokinesis, had cardiac cath on 12/10/24 with
severely elevated BP managed for CHF with cardiogenic shock on milrinone drip. Repeated cath on 12/21/24 with severely decreased CI and milrinone restarted. Cardiology managing. As per previous discussion with cardiology - there were no plans for
transfer to [facility].
Patient has no insurance, will have to self pay for meds, MA submitted as CM involved
A/P:
#Cardiogenic shock
#Acute HFrEF with acute hypoxic respiratory failure
#Non-ischemic myocardial injury
Cardiology follows: sania cath removed.
Diuresis, hydralazine, imdur, Valsartan
Off of milrinone
Cardio added Lopressor, f/u response
#Afib with RVR, unspecified
converted to SR on 12/16/24
Telemetry
maintain on Eliquis
Rate/rhythm control as per cardiology
#CAP with sepsis and influenza
completed Tamiflu, Rocephin/Azithromycin
#MARY
resolved
#Elevated liver enzymes
resolved
US RUQ without acute findings
#Hyperthyroidism
methimazole as per Endocrinology
DVT ppx on elaiuis
Full code
Discussed with cardiology services
Anticipated Discharge: Within 24 hours
Subjective/Interval History
-
Date of Service: December 27, 2024
Resting comfortably in chair
Denies of any chest pain/shortness of breath/palpitation
Objective Data
-
Labs:
Laboratory Results
12/27/24
04:07
WBC 5.5
Hgb 15.1
Hct 44.4
Plt Count 276
Sodium 136
Potassium 4.2
Chloride 104
Carbon Dioxide 23
BUN 15
Creatinine 1.2
Glucose 100 H
Calcium 8.7
Vital Signs:
Vital Signs
Temp Pulse Resp BP Pulse Ox
98.2 F 98 16 84/68 98
12/27/24 11:45 12/27/24 12:51 12/27/24 11:45 12/27/24 12:51 12/27/24 11:45
I&O
12/26/24 12/27/24 12/28/24
06:59 06:59 06:59
Intake Total 811.9 / 811.9
Output Total 3500 / 3500 1100 / 1100
Balance -2688.1 / -2688.1 -1080 / -1080
Review of Systems
-
Respiratory: Reports No Symptoms
Cardiac: Reports No Symptoms
Abdomen/GI: Reports No Symptoms
Physical Exam
-
General: No Apparent Distress
HEENT: Normocephalic
Respiratory: Clear to Auscultation
Cardiac: Regular Rhythm and S1/S2
GI: Soft, Nontender and Nondistended
Skin: Warm
Neuro: Awake, Alert, Oriented and AO x 3
Psych: Calm
--- NOTE | 2024-12-27 16:18 | PTCARENOTE ---
Pt with no changes in assessment. Remains chest pain free. Pt with no complaints of dizziness. Pt remains SR with HR 90's. BP 90/66 MAP 75. Pulse oximetry 97% on room air. Pt ambulating in hallway without issue.
[2024-12-27] MEDS: DIOVAN PO (21:09)
[2024-12-27] MEDS: LOPRESSOR PO (21:09)
[2024-12-27] MEDS: APRESOLINE PO (21:09)
[2024-12-27] MEDS: TOPROL XL 12.5 MG PO (21:21)
--- NOTE | 2024-12-27 21:30 | PTCARENOTE ---
Patient received from RN @1900. Patient sitting in chair OOB comfortably w/ call gabriel in reach. VSS sinus tachy BP 89/70 HR 101 POX 98% RA. AOx4. heart sounds audible. Lung sounds clear and audible. Normoactive bowel sounds. Voiding clear
yellow urine. Radial and pedal pulses present bilaterally. Left PIV patent and intact. Notified CT PA Ed about BP. CT PA says to hold valsartan, hydralazine, and switch metoprolol to extended release and give tonight.
--- NOTE | 2024-12-27 22:39 | PTCARENOTE ---
Pt transferred from room 2268 to 2248. Pt AAOx3 VSS, ST on monitor. Pt oriented to room, call gabriel in reach. Pt independent in the room
--- NOTE | 2024-12-27 22:45 | PTCARENOTE ---
Patient set to transferred to IVU. Collected all of their belongings and transported them to IVU. Patient handed off to IVU nurse Toan.
[2024-12-28 04:51] VITALS: BP 113/79
[2024-12-28 06:00] VITALS: BMI 27.4
[2024-12-28 07:23] VITALS: BP 118/91
[2024-12-28] MEDS: IMDUR (EXTENDED RELEASE) 30 MG PO (08:10)
[2024-12-28] MEDS: TOPROL XL 12.5 MG PO (08:10)
[2024-12-28] MEDS: ELIQUIS 5 MG PO (08:10)
[2024-12-28] MEDS: MUCINEX 600 MG PO (08:10)
[2024-12-28] MEDS: TAPAZOLE 10 MG PO (08:10)
[2024-12-28] MEDS: LIDOCAINE 4% PATCH TOPICAL (08:11)
[2024-12-28] MEDS: PACERONE 200 MG PO (08:11)
[2024-12-28] MEDS: LASIX 40 MG PO (08:11)
[2024-12-28] MEDS: MIRALAX 17 GRAMS PO (08:12)
[2024-12-28] MEDS: PROTONIX 20 MG PO (08:15)
--- NOTE | 2024-12-28 08:21 | W.PN.CD ---
Today's Communication / Plan
-
Okay for discharge to home
Discharge medications: Valsartan 80 mg twice daily, hydralazine 50 mg 3 times daily, and imdur 30 mg once daily, furosemide 40 mg once daily
Add spironolactone and beta-gio as an outpatient
He has follow-up scheduled with our office on 01/12 @ 11:20 am
Impression / Plan
-
Impression/Plan: 44-year-old primarily Belarusian speaking male with no past medical history who presented with influenza B, atrial flutter and acute heart failure with severely reduced ejection fraction (LVEF 15-20%) with cardiogenic shock requiring
inotropes. Course has been complicated by MARY/hypotension limiting GDMT and decompensation requiring reinitiation of inotropes.
#Non-ischemic cardiomyopathy
-New diagnosis. LVEF 15-20% with acute systolic HF, and moderate MR/TR.
-DDx includes tachycardia induced (presented in atrial flutter) +/- NICM. Will need cMRI outpatient
-[facility] 12/09/24: 30% mid LAD, 40% prox D2; o/w LI.
-No prescription med coverage, so will use generic GDMT (no sacubitril-valsartan, SGLT2i)
-Continue valsartan 80 mg PO BID
-Continue Imdur 30 mg daily, hydralazine 50 mg TID
-He does not tolerate BB. We have tried low dose metoprolol twice and he becomes hypotensive. Will retry outpatient when he is further from his episode of cardiogenic shock.
-No SGLT2i/Entresto due to cost
-Add Spironolactone outpatient
-Continue furosemide 40 mg PO daily
-Reevaluate for ICD after 3 mos GDMT
-Once he has insurance, he should be referred to [facility] for transplant consideration
#Cardiogenic shock, resolved
-Milrinone 12/09-12/16, 12/21-12/25; [place] out 12/25 (closing hemos: RA 4 PA 17/10 CI 3.9 SVR 1300).
-Creatinine remains stable off milrinone.
#Atrial flutter with RVR, typical
-New onset: cardiomyopathy may be tachy-induced.
-Duration unknown.
-Has not felt well since November 23. Unclear if this represents onset of A-fib or if he developed more recently.
-CHADS2-VASC = 1. Eliquis 5mg bid for OAC
-Converted on IV amiodarone on 12/16.
-Continue amiodarone 200 mg daily.
#MARY
-Resolved.
-Likely due to cardiorenal syndrome.
# Right lower lobe pneumonia
-Acute.
-S/p ceftriaxone.
#Influenza B.
-Management as directed by primary team.
-Patient has been afebrile.
# Elevated LFTs
-Acute, resolved.
#Hyperthyroidism
-New diagnosis (underlying cause of tachyarrhythmia?)
-TSH low (0.36) and T4 elevated (3.28).
-Continue methimazole per primary team.
-Would use Toprol-XL over propranolol, given CHF.
Subjective/Interval History:
PM BP meds held for low blood pressure. No lightheadedness or dizziness. Feels fine. Wants to go home.
DATA:
[facility], 12/21/2024:
CONCLUSION:
1. Moderately elevated filling pressures (PCWP = 23 mmHg at 88.9 kg).
2. Severely depressed cardiac index (1.56 L/min/m� by Ivon, 1.43 L/min/m� by thermodilution).
3. Severe peripheral constriction (SVR = 2006 dynes*seconds*cm^-5).
[facility], 12/13/2024:
CORONARY ANGIOGRAPHY
Dominance: right
LM: Large, normal
LAD: Large caliber vessel giving rise to a medium caliber D1 and medium caliber D2. There is a 30% stenosis in the mid LAD after D2, a 40% stenosis in the proximal segment of D2, and otherwise mild luminal irregularities.
LCx: Large vessel giving rise to a very large caliber OM1 and small OM 2. There are trivial luminal irregularities.
RCA: Large vessel giving rise to large caliber RPDA, small RPL1, small RPL2, and small RPL3. There are mild luminal irregularities.
[facility], 12/10/2024:
CONCLUSION:
1. Severely elevated filling pressures (PCWP = 29 mmHg at 102.5 kg).
2. Normal cardiac index (2.68 L/min/m� by Ivon, 2.10 L/min/m� by thermodilution) on milrinone 0.33 mcg/kg/min.
3. Moderate, postcapillary pulmonary hypertension (mean PA = 37 mmHg, PCWP = 29 mmHg, cardiac output = 5.71 L/min by Ivon, 4.47 L/min by thermodilution, PVR 1.40 Moy units by Ivon, 1.79 Moy units by thermodilution).
Transthoracic Echocardiogram, 12/09/2024:
CONCLUSIONS
During study patient limited the amount of images that were obtained reporting
discomfort during exam. Note this appeared to be disproportional to the amount
of pressure being applied.
Severely reduced left ventricular function with estimated ejection fraction of
15 to 20%
Global hypokinesis
Right ventricular hypokinesis suspected
Moderate mitral regurgitation.
Moderate tricuspid regurgitation
No prior study available for comparison.
Physical Exam
Vital Signs/Labs
Vital Signs
Temp Pulse Resp BP Pulse Ox
97.7 F 101 20 118/91 96
12/28/24 07:25 12/28/24 08:11 12/28/24 07:25 12/28/24 08:11 12/28/24 07:25
12/27/24 12/28/24 12/29/24
06:59 06:59 06:59
Actual Weight 80.3 kg 79.3 kg
12/27/24 04:07
12/27/24 04:07
PT 18.6 Sec (11.4-14.6) H 12/09/24 18:39
INR 1.53 12/09/24 18:39
APTT 106.6 Sec (23.4-35.0) H 12/13/24 11:46
Magnesium 2.1 mg/dl (1.6-2.3) 12/18/24 05:29
Triglycerides 81 mg/dl (10-149) 12/10/24 02:49
LDL Cholesterol, Calc 114 mg/dl 12/10/24 02:49
VLDL Cholesterol, Calc 16 mg/dl (0-30) 12/10/24 02:49
HDL Cholesterol 31 mg/dl 12/10/24 02:49
TSH 0.04 uIU/ml (0.47-4.68) L 12/26/24 03:38
Free T4 2.83 ng/dl (0.78-2.19) H 12/26/24 03:38
12/09/24 12/18/24
18:39 05:29
Oph-A-Uomehqwkari Pept [id number]
Physical Exam
Constitutional: No acute distress and Comfortable
Cardiovascular: Rhythm & rate is regular, Pedal edema is absent, S1S2 is normal and Murmur/rub/gallop absent
Respiratory: Respiratory effort normal and Lungs clear to auscul.
Neuro/Psych: AO x 3
Data Reviewed
-
Date of Service: December 28, 2024
Medical Decision Making: Reviewed Test Results, Independent Historian Assessment, Test Interpretation and Review of Case with other Provider
EKG: Tracing Personally Visualized and interpreted
Echo: Report Reviewed by me
Labs: Labs Reviewed by me
[2024-12-28] MEDS: DIOVAN 80 MG PO (08:52)
[2024-12-28] MEDS: APRESOLINE 50 MG PO (08:52)
--- NOTE | 2024-12-28 08:56 | PTCARENOTE ---
Rec'd pt this shift awake and alert sitting in chair. Pt denies pain, denies sob. Pt with dry cough. NSR on monitor. AM labs given. See worklist for VS/I and O and assessments.
--- NOTE | 2024-12-28 10:50 | CM ---
Chart reviewed. Patient is independent of ADLS, lives wit his in a [address], 2 [address], 0 DME. Plan is for the patient to return home when medically stable. CM to follow
[2024-12-28 11:05] VITALS: BP 95/71
--- NOTE | 2024-12-28 11:41 | W.PN.HOSP.TC ---
Today's Communication/Plan
-
dc
Assessment / Plan
Assessment / Plan
44yo M with recent Influenza B came with LE swelling, found with Afib with RVR and developed cardiogenic shock. Was also managed for RLL pneumonia. Echo showed new severely decreased EF to 15-20% with hypokinesis, had cardiac cath on 12/10/24 with
severely elevated BP managed for CHF with cardiogenic shock on milrinone drip. Repeated cath on 12/21/24 with severely decreased CI and milrinone restarted. Cardiology managing. As per previous discussion with cardiology - there were no plans for
transfer to [facility]. Milrinone 12/09-12/16, 12/21-12/25; [facility] out 12/25 (closing hemos: RA 4 PA 17/10 CI 3.9 SVR 1300). Remained stable since then.
Patient has no insurance, will have to self pay for meds, MA submitted as CM involved. GDMT limited because of that. Patient instructed to use GoodRX and to be prescribed generics. No Entresto at this time as per cardiology. Medically stable for
d/c, PT/OT recommended discharge home. Cr stable without increase on the day of discharge. CM provided needed information and coupons for medications. Cardiology will provide follow up appt
A/P:
#Cardiogenic shock
#Acute HFrEF with acute hypoxic respiratory failure
#Non-ischemic myocardial injury
Cardiology follows: sania cath removed.
Diuresis, hydralazine, imdur, Valsartan
Off of milrinone
Cardio added Lopressor, f/u response
#Afib with RVR, unspecified
converted to SR on 12/16/24
Telemetry
maintain on Eliquis
Rate/rhythm control as per cardiology
#CAP with sepsis and influenza
completed Tamiflu, Rocephin/Azithromycin
#MARY
resolved
#Elevated liver enzymes
resolved
US RUQ without acute findings
#Hyperthyroidism
methimazole as per Endocrinology
DVT ppx on Eliquis
Full code
Discussed with cardiology services
Anticipated Discharge: Today
Subjective/Interval History
-
Date of Service: December 28, 2024
Objective Data
-
Vital Signs:
Vital Signs
Temp Pulse Resp BP Pulse Ox
98 F 99 20 118/91 97
12/28/24 11:04 12/28/24 08:52 12/28/24 11:04 12/28/24 08:52 12/28/24 11:04
I&O
12/27/24 12/28/24 12/29/24
06:59 06:59 06:59
Intake Total 20 / 20 500 / 500
Output Total 1100 / 1100
Balance -1080 / -1080 500 / 500
Review of Systems
-
History Source: Patient
All other systems: Reviewed and negative
Physical Exam
-
General: No Apparent Distress and Comfortable
Respiratory: Clear to Auscultation
Cardiac: Regular Rhythm
GI: Soft, Nontender and Nondistended
Neuro: Awake, Alert, Oriented and AO x 3
Psych: Calm
[2024-12-28 12:29] LABS: Blood Urea Nitrogen 23 mg/dl (9-20); Calcium 9.3 mg/dl (8.4-10.2); Carbon Dioxide 23 mmol/L (22-30); Chloride 101 mmol/L (98-107); Estimated Creatinine Clearance 69 ml/min; Glucose 105 mg/dl (70-99); Potassium 4.6 mmol/L (3.5-5.1); Sodium 135 mmol/L (135-145); eGFR > 60.00
--- NOTE | 2024-12-28 12:42 | W.DCSUMMARY ---
Discharge Summary
Discharge Data
Date of Admission: 12/09/24
Date of Discharge: 12/28/24
-
Pending Results: No
Hospital Course
44yo M with recent Influenza B came with LE swelling, found with Afib with RVR and developed cardiogenic shock. Was also managed for RLL pneumonia. Echo showed new severely decreased EF to 15-20% with hypokinesis, had cardiac cath on 12/10/24 with
severely elevated BP managed for CHF with cardiogenic shock on milrinone drip. Repeated cath on 12/21/24 with severely decreased CI and milrinone restarted. Cardiology managing. As per previous discussion with cardiology - there were no plans for
transfer to [facility]. Milrinone 12/09-12/16, 12/21-12/25; [place] out 12/25 (closing hemos: RA 4 PA 17/10 CI 3.9 SVR 1300). Remained stable since then.
Patient has no insurance, will have to self pay for meds, MA submitted as CM involved. GDMT limited because of that. Patient instructed to use GoodRX and to be prescribed generics. No Entresto at this time as per cardiology. Medically stable for
d/c, PT/OT recommended discharge home. Cr stable without increase on the day of discharge. CM provided needed information and coupons for medications. Cardiology will provide follow up appt
I hav espent at least 37min discharging patient
Patient was managed for:
#Cardiogenic shock
#Acute HFrEF with acute hypoxic respiratory failure
#Non-ischemic myocardial injury
#Afib with RVR, unspecified
#CAP with sepsis and influenza
#MARY
#Elevated liver enzymes
#Hyperthyroidism
Discharge Plan
-
Patient Disposition: Home (Routine Discharge)
Discharge Diagnosis/Procedures: CHF
Diet: 2 Gram Sodium
Activity: As tolerated
Driving Restrictions: As prior to admission
Instructions: *PCP/Other Nuclear Auxiliary Operator Heart Failure Instructions
Stand Alone Forms: DC Instructions- Cath/EP Lab
Referrals:
Nieves Holliday CRNP [Specified Professional Personl] - 01/12/25 11:20 am
Adal Shepard MD [Active] - in two to four weeks (to discuss sleep disordered breathing)
Lorena Costa MD [Consulting Staff] - in one to two weeks
UNKNOWN - PT DOES,NOT KNOW [Family Provider] -
Prescriptions:
New
furosemide 40 mg Tablet
40 mg PO DAILY Qty: 30 0RF
amiodarone 200 mg Tablet
200 mg PO DAILY Qty: 30 0RF
isosorbide mononitrate 30 mg Tablet Extended Release 24 Hr
30 mg PO DAILY Qty: 30 0RF
valsartan 80 mg Tablet
80 mg PO BID Qty: 60 0RF
hydralazine 25 mg Tablet
50 mg PO TID Qty: 90 0RF
pantoprazole 20 mg Tablet,Delayed Release (Dr/Ec)
20 mg PO DAILY Qty: 30 0RF
methimazole 5 mg Tablet
10 mg PO BID Qty: 60 0RF
Eliquis 5 mg Tablet
5 mg PO BID Qty: 60 0RF
Discharge Orders:
Discharge Patient (As Directed); Ordered 12/28/24
Ordered By: Ross Hughes
Care Plan Goals
Care Plan Goals:
Problem: Readiness for enhanced knowledge related to diagnosis and treatment plan
Goal: Understand your diagnosis and treatment plan needs, including medications if applicable.
Instructions: Know your diagnosis, underlying causes and treatment plan options, including medications if applicable. Consult with your health care team to learn about your diagnosis and treatment plan, including medications if applicable.
Discharge Date and Time
Print Language: MONEGASQUE
--- NOTE | 2024-12-28 13:50 | W.HF.CON ---
Heart Failure
- LV Function
Left ventricular function study result: LV Ejection fraction </= 35%
Ejection Fraction Percentage: 15-20
- ARNI
Patient already on ARNI: No
Heart Failure ARNI Contraindication: Patient Refusal
- ACEI/ARB
Patient already on ACEI/ARB: Yes
- Beta Antonia
Patient already on Evidence Based Beta Antonia: No
Heart Failure Evidence Based Beta Antonia: Cardiogenic Shock, Hypotension
- Mineralocorticord Receptor Antagonist
Patient already on MRA: No
Heart Failure MRA Contraindication: Hypotension
- SGLT-2 Inhibitor
Patient already on SGLT-2 Inhibitor: No
Heart Failure SGLT-2 Inhibitor Contraindication: Patient Refusal
- Afib Anticoagulation
Patient already on Anticoagulation for Afib: Yes
- NYHA CHF Classification
NYHA CHF Classification Level: Class III - Symptoms w/ min exertion, interferes w/ nml daily activity
- ACC/AHA Stage
ACC/AHA Stage: Stage C: Symptomatic Heart Failure
--- NOTE | 2024-12-28 14:04 | PTCARENOTE ---
discharge instructions given to patient. INT d/c'd.
[2024-12-30 08:42] LABS: Free T4 by Equil Dialysis 3.1 ng/dL (1.1-2.4)
== END 2024-12-28 14:07 | disposition home or self-care (01) | DRG 286 ==
LOC: IVU 22:33
PROVIDERS: Clinical Nurse Specialist Acute Care; Internal Medicine; Internal Medicine Cardiovascular Disease; Nurse Practitioner Family; Nurse Practitioner Gerontology; Nurse Practitioner Primary Care; Physician Assistant; Student in an Organized Health Care Education/Training Program; ADMITTING PHYSICIAN Student in an Organized Health Care Education/Training Program; ATTENDING PHYSICIAN Internal Medicine; CONSULT PHYSICIAN Internal Medicine Cardiovascular Disease; CONSULT PHYSICIAN Internal Medicine Critical Care Medicine; CONSULT PHYSICIAN Internal Medicine Endocrinology, Diabetes & Metabolism; EMERGENCY PHYSICIAN Emergency Medicine
PROC: 4A023N6 Measurement of Cardiac Sampling and Pressure, Right Heart, Percutaneous Approach (ICD-10-PCS; 2024-12-10)
PROC: B2151ZZ Fluoroscopy of Left Heart using Low Osmolar Contrast (ICD-10-PCS; 2024-12-13)
PROC: 4A023N7 Measurement of Cardiac Sampling and Pressure, Left Heart, Percutaneous Approach (ICD-10-PCS; 2024-12-13)
PROC: B2111ZZ Fluoroscopy of Multiple Coronary Arteries using Low Osmolar Contrast (ICD-10-PCS; 2024-12-13)
DX: I50.21 Acute systolic (congestive) heart failure (principal); A41.9 Sepsis, unspecified organism; J18.9 Pneumonia, unspecified organism; R57.0 Cardiogenic shock; J96.01 Acute respiratory failure with hypoxia; R65.21 Severe sepsis with septic shock; J10.08 Influenza due to other identified influenza virus with other specified pneumonia; I42.8 Other cardiomyopathies; N17.9 Acute kidney failure, unspecified; I48.92 Unspecified atrial flutter; E87.20 Acidosis, unspecified; R18.8 Other ascites; I5A Non-ischemic myocardial injury (non-traumatic); B33.22 Viral myocarditis; E87.1 Hypo-osmolality and hyponatremia; I42.9 Cardiomyopathy, unspecified; I48.91 Unspecified atrial fibrillation; I27.20 Pulmonary hypertension, unspecified; E05.90 Thyrotoxicosis, unspecified without thyrotoxic crisis or storm; Z59.71 Insufficient health insurance coverage; Z79.01 Long term (current) use of anticoagulants
CPT/HCPCS: 36600; 51798; 70450; 71045; 76700; 76937; 80048; 80053; 80061; 80069; 80306; 81003; 81015; 82248; 82570; 82805; 82810; 82962; 83036; 83520; 83605; 83735; 83880; 84100; 84300; 84436; 84439; 84443; 84445; 84481; 84484; 85025; 85027; 85610; 85730; 86658; 87040; 87070; 87449; 87502; 87811; 87899; 92526; 92610; 93005; 93306; 93451; 93458; 93971; 96365; 96366; 96367; 96375; 97116; 97163; 97166; 99152; 99153; 99291; 99292; C1894; J1160; J2260; Q9967